=== PATIENT | female | born 1940 | race Caucasian/White ===

== ENCOUNTER 2016-09-10 07:53 | Outpatient (CLI) | payer MEDICARE, BC ==
[~2016-09-10] VITALS: Ht 165.1 cm; Wt 65.9 kg
--- NOTE | ~2016-09-10 | HEMODYNAMI ---
PATIENT:LOVE JAMES MEDICAL RECORD: [id number] : 44 LOCATION:[facility] ADMISSION DATE: 09/10/16 Generatedon:09/10/201611:40 Patient name: LOVE JAMES Patient #: [id number] SSN: D OB: 1940 Date of study: 09/10/2016 Page: Of Hemodynamic Procedure Report Patient Data Patient Demographics Procedure consent was obtained First Name: LOVE Gender: Female Last Name: JACOB : 1940 [facility] Initial: ZIGGY Age: 76 year(s) Patient #: [id number] Race: Additional ID: [id number] Contact details Address: [address] [place] [address] State: [place] City: [place] Zip code: [address] Past Medical History History of disease Date Diagnosis Comments CAD Valvular heart disease TIA Allergies Allergen Reaction Date Comments Reported Statins 09/10/2016 Admission Admission Data Admission Date: 09/10/2016 Admission Time: 7:53 Height (in.): 65 BSA: 1.78 (m2) Height (cm.): 165.1 BMI: 25.96 (kg/m2) Weight (lbs.): 156 Weight (kg.): 70.76 Lab Results Lab Result Date: 09/10/2016 Lab Result Time: 0:00 Biochemistry Name Units Result Min Max BUN mg/dl 14 --(--*-)-- 7 18 Creatinine mg/dl 0.9 --(-*--)-- 0.6 1.3 CBC Name Units Result Min Max Hemoglobin g/dl 13.6 --(*---)-- 13.5 17.5 Procedure Procedure Types Cath Procedure Diagnostic Procedure LHC LHC w/Coronaries w/Grafts FFR/IVUS Intra-Coronary IVUS Initial PCI Procedure Coronary Stent Initial Miscellaneous Procedures Moderate Sedation up to 30 minutes Procedure Description Procedure Date Procedure Date: 09/10/2016 Procedure Start Time: 11:15 Procedure End Time: 11:37 Procedure Staff Name Function Dallin Lewis MD Performing Physician Priscilla Frias RN Nurse Ed Singleton RT Monitor Connor Awan RT Scrub Larry Nguyen RT Electronic Science Teacher Procedure Data Cath Procedure Fluoroscopy Diagnostic fluoroscopy Total fluoroscopy Time: 1.5 time: 1.5 min min Diagnostic fluoroscopy Total fluoroscopy dose: 47 dose: 47 mGy mGy Contrast Material Contrast Material Type Amount (ml) Isovue 300 126 Entry Location Entry Primary Successful Side Size Upsize Upsize Entry Closure Succes sful Closure Location (Fr) 1 (Fr) 2 (Fr) Remarks Device Remarks Femoral Right 5 Fr 6 Fr Vascade artery Short Closure System Diagnostic catheters Device Type Used For End Catheter Placement Cordis 5Fr Pigtail LV Angiography Catheter (MP) Cordis 5Fr JL 4.0 Left Coronary Catheter (MP) Angiography Cordis 5Fr 3DRC Catheter SVG Angiography (MP) Diagnostic Infinity 5Fr SVG Angiography AR 2 MOD catheter Procedure Complications No complications Procedure Medications Medication Administration Route Dosage Oxygen NC 2 l/min Heparin Flush Bag added to field 2 bags (1000units/500ml NS) Lidocaine 2% added to field 20 Plavix P.O. 75 mg Versed I.V. 1 mg Fentanyl I.V. 50 mcg Versed I.V. 1 mg Fentanyl I.V. 50 mcg Heparin Bolus I.V. 4000 units Hemodynamics Rest BSA: 1.78 (m2) O2 Consumption: Estimated: 167.75 (ml/min) O2 Consumption indexed : Estimated:94.24 (ml/min/m) Heart Rate: 78 (bpm) Pre Cath Intra NCS Post Cath Vital Signs Time Heart Resp SPO2 etCO2 [id number] NIBP (mmHg) Rhythm Pain Sedation Rate (ipm) (%) (mmHg) (mmHg) Status Level (bpm) 11:01:00 72 16 98 0 0 174/89(124) NSR 0 (11) 10(A) , No pain 11:05:28 73 16 99 0 0 170/82(117) NSR 0 (11) 10(A) , No pain 11:09:55 77 19 98 0 0 154/67(120) NSR 0 (11) 10(A) , No pain 11:14:19 73 16 98 0 0 131/68(108) NSR 0 (11) 9(A) , No pain 11:18:35 73 16 98 0 0 147/72(105) NSR 0 (11) 9(A) , No pain 11:22:51 78 16 98 0 0 148/77(102) NSR 0 (11) 9(A) , No pain 11:27:09 80 16 99 0 0 132/67(109) NSR 0 (11) 9(A) , No pain 11:31:25 83 16 99 0 0 152/72(95) NSR 0 (11) 9(A) , No pain 11:34:52 81 16 98 0 0 150/78(99) NSR 0 (11) 9(A) , No pain Medications Time Medication Route Dose Verified Delivered Reason Notes Effectiveness by by 10:55:39 Plavix P.O. 75 mg Dallin Priscilla for Debbie Frias RN antiplatelet therapy 11:02:44 Heparin Flush added 2 Dallin Dallin used for Bag to bags Debbie Lewis MD procedure (1000units/500ml field NS) 11:02:44 Oxygen NC 2 Dallin Priscilla Per physician l/min Debbie Frias RN 11:02:51 Lidocaine 2% added 20ml Dallin Dallin used for to vial Debbie Lewis MD procedure field 11:07:04 Versed I.V. 1 mg Dallin Priscilla for sedation Debbie Frias RN 11:07:18 Fentanyl I.V. 50 Dallin Priscilla for sedation mcg Debbie Frias RN 11:10:09 Fentanyl I.V. 50 Dallin Priscilla for sedation mcg Debbie Frias RN 11:10:53 Versed I.V. 1 mg Dallin Priscilla for sedation Debbie Frias RN 11:27:33 Heparin Bolus I.V. 4000 Dallin Priscilla for dose units Debbie Frias RN anticoagulation verified [facility] lewis Procedure Log Time Note 10:35:00 Larry Nguyen RT(R) sent for patient. Start room use. 10:50:30 Lab Result : BUN 14 mg/dl 10:50:30 Lab Result : Creatinine 0.9 mg/dl 10:50:30 Lab Result : Hemoglobin 13.6 g/dl 10:52:46 ACC Patient presents with Stable Angina CCS Anginal Class 2--Slight limitation of ordinary activity. 10:52:48 Diagnostic Cath status Elective 10:53:15 Time tracking: Regular hours 10:53:19 Plan of Care:Hemodynamics will remain stable., Cardiac rhythm will remain stable., Comfort level will be maintained., Respiratory function will remain adequate., Patient/ family verbilizes understanding of procedure., Procedure tolerated without complication., Recovers from procedure without complications.. 10:53:25 Patient received from Pre/Post Procedure Room to CCL 1 Alert and oriented. Tansferred to table in Supine position. 10:53:26 Warm blankets applied, and dorys hugger turned on for patient comfort. 10:53:26 Correct patient and procedure confirmed by team. 10:53:28 Signed procedure consent form obtained from patient. 10:53:29 ECG and BP/O2 sat monitors applied to patient. 10:54:26 Patient allergic to Statins 10:54:31 Patient Height : 65 inches 10:54:40 Patient Weight : 156 lbs 10:55:39 Plavix 75 mg P.O. was given by Priscilla Frias RN; for antiplatelet therapy; 10:59:48 Vital chart was started 10:59:54 Full Disclosure recording started 11:00:04 H&P Date Dictated: 09/05/2016 Within 30 days and on chart., H&P Addendum completed by physician on day of procedure. (MUST COMPLETE FOR ALL OUTPATIENTS). 11:00:05 Pre-procedure instructions explained to patient. 11:00:06 Pre-op teaching completed and patient verbalized understanding. 11:00:14 Family in patients room. 11:00:16 Patient NPO since Midnight. 11:00:20 Is the patient allergic to Iodine/contrast media? No. 11:00:26 Is patient on blood thinner?Yes 11:00:29 ACC The patient was administered the following blood thiners within the last 24 hours: ACCPlavix 11:00:31 Patient diabetic? Yes. 11:00:32 If diabetic: On Metformin? Yes 11:00:37 If on Metformin: Last Dose? 09/08/2016 11:00:39 ----Pre-sedation anethsthesia assessment.---- 11:00:41 Previous problem with sedation/anesthesia? No ? 11:00:44 Snore? Yes 11:00:45 Sleep apnea? Yes 11:00:49 Deviated septum? No 11:00:51 Opens mouth fully? Yes 11:00:53 Sticks out tongue? Yes 11:01:41 Airway obstruction? Yes asthma 11:01:48 Dentures? Yes in tight 11:01:51 Pre procedure: right dorsailis pedis pulse 2+ Normal; easily identifiable; not easily obliterated 11:01:55 Patient pain scale 0/10 ?. 11:02:00 IV patent on arrival in right antecubital with 0.9% NaCl at 10ml/hr. 11:02:03 Lab results completed and on chart. 11:02:06 Right groin area was prepped with chlora-prep and draped in sterile fashion 11:02:07 Alarms reviewed by R. N. 11:02:07 Sharps counted by scrub and verified by R.N. 11:02:44 Heparin Flush Bag (1000units/500ml NS) 2 bags added to field was given by Dallin Lewis MD; used for procedure; 11::44 Oxygen 2 l/min NC was given by Priscilla Frias RN; Per physician; 11::51 Lidocaine 2% 20ml vial added to field was given by Dallin Lewis MD; used for procedure; 11:06:30 --------ALL STOP TIME OUT------ 11:06:30 Final Timeout: patient, procedure, and site verified with staff and physician. All members of the team are in agreement. 11:06:32 Right groin site verified by team. 11:06:36 Physical assessment completed. ASA score P 2 - A patient with mild systemic disease as per Dallin Lewis MD. 11:06:40 Sedation plan: IV Moderate Sedation Versed, Fentanyl 11:07:04 Versed 1 mg I.V. was given by Priscilla Frias RN; for sedation; 11:07:18 Fentanyl 50 mcg I.V. was given by Priscilla Frias RN; for sedation; 11:07:22 Use device set Femoral Dx 11:07:23 Acist Syringe opened to sterile field. 11:07:23 Bag Decanter opened to sterile field. 11:07:24 Medline Cath Pack opened to sterile field. 11:07:24 Terumo 5Fr [place] Sheath opened to sterile field. 11:07:25 St El 260cm J .035 wire opened to sterile field. 11:07:26 Acist Hand Control opened to sterile field. 11:07:26 Acist Manifold opened to sterile field. 11:07:27 Diagnostic Infinity 5Fr Multipack catheter opened to sterile field. 11:07:28 Tegaderm 4 x 4 opened to sterile field. 11:10:09 Fentanyl 50 mcg I.V. was given by Priscilla Frias RN; for sedation; 11:10:53 Versed 1 mg I.V. was given by Priscilla Frias RN; for sedation; 11:12:55 Zero performed for pressure channel P1 11:14:54 Procedure started. 11:15:04 Local anesthetic to right femoral artery with Lidocaine 2% by Dallin Lewis MD.INITIAL ACCESS ONLY 11:15:11 A 5 Fr sheath was inserted into the Right Femoral artery 11:16:32 A Cordis 5Fr Pigtail Catheter (MP) was advanced over the wire and used for LV Angiography. 11:16:35 LV angiography performed. 11:16:37 LV gram done using PEREZ 11:16:42 Injector settings: Ml/sec: 10, Volume: 20, 11:17:14 EF : 60 % 11:17:16 Catheter removed. 11:17:22 A Cordis 5Fr JL 4.0 Catheter (MP) was advanced over the wire and used for Left Coronary Angiography. 11:17:31 LCA angiography performed. 11:18:12 Catheter removed. 11:18:19 A Cordis 5Fr 3DRC Catheter (MP) was advanced over the wire and used for SVG Angiography. 11:18:23 CANCHOLA to LAD angiography performed. 11:19:18 RCA angiography performed. 11:20:07 Catheter removed. 11:20:25 A Diagnostic Infinity 5Fr AR 2 MOD catheter was advanced over the wire and used for SVG Angiography. 11:21:20 SVG to OM angiography performed. 11:21:27 Catheter removed. 11:23:13 Medtronic Launcher 6Fr 3DRC guide catheter opened to sterile field. 11:23:14 Terumo 6Fr [place] Sheath opened to sterile field. 11:23:14 Stein Whisper J 300cm 0.014 guide wire opened to sterile field. 11:23:15 Merit BasixCompak Inflation Kit opened to sterile field. 11:23:15 [place]ham Weed Eagleye IVUS Catheter opened to sterile field. 11:23:25 Sheath upsized to a 6 Fr Short. 11:23:33 6 Fr 3drc guide catheter was inserted over the wire 11:23:36 whisper wire advanced. 11::39 FFR/IVUS 11:23:40 IVUS catheter advanced over wire. 11:23:44 IVUS pass to RCA lesion performed. 11:26:37 IVUS catheter removed over wire. 11:26:49 Procedure type changed to Cath procedure, Diagnostic procedure, LHC, LHC w/Coronaries w/Grafts, FFR/IVUS, Intra-Coronary IVUS Initial, PCI procedure, Coronary Stent Initial, Miscellaneous Procedures, Moderate Sedation up to 30 minutes 11:27:33 Heparin Bolus 4000 units I.V. was given by Priscilla Frias RN; for anticoagulation; dose verified wtih dr lewis 11:29:10 Inflation Number: 1 A Medtronic Integrity 3.5 X 15 stent was prepped and advanced across the Mid RCA. The stent was deployed at 13 [place] for 0:10 (min:sec). 11:29:15 Inflation number: 2 The stent balloon was then re-inflated across the Mid RCA to 17 [place] for 0:10 (min:sec). 11:29:21 Stent balloon re-inserted over wire. 11:29:30 ACC PCI Site: [facility] has 78% stenosis. 11:29:33 ACC Pre-intervention NAPOLEON Flow is 3. 11:30:51 Inflation Number: 3 A Medtronic Integrity 3.5 X 12 stent was prepped and advanced across the Mid RCA. The stent was deployed at 13 [place] for 0:13 (min:sec). 11:31:03 Inflation number: 4 The stent balloon was then re-inflated across the Mid RCA to 13 [place] for 0:10 (min:sec). 11:31:26 ACC Post-intervention [place]ON Flow is 3. 11:31:27 Stent catheter was removed intact over wire. 11:31:28 Wire removed. 11:31:28 Guide catheter removed. 11:31:35 Contrast amount:Isovue 300 126ml. 11:31:50 Procedure ended.(Physican Out) 11:32:39 Sharps counted by scrub and verified by R.N. 11:32:45 Sheath removed intact; hemostasis achieved with Vascade Closure System to the Right Femoral artery. 11:35:31 Fluoroscopy dose: 47 mGy 11:35:31 Flurop Dose total: 47 11:35:36 Fluoroscopy time 01.50 minutes. 11:35:38 Insertion/operative site no bleeding no hematoma. 11:35:40 Post-op/insertion site Right Femoral artery dressed using a 4 x 4 and Tegaderm. 11:35:43 Post right femoral artery:stable 11:35:45 Post Procedure Pulses reassessed and unchanged 11:35:47 Post procedure: right dorsailis pedis pulse 1+ Palpable, but thready & weak; easily obliterated. 11:35:50 Post procedure rhythm: sinus rhythm 11:35:52 Post procedure instruction explained to patient.Patient verbalizes understanding. 11:35:53 Procedure and supply charges have been captured, reviewed, submitted and are correct. 11:36:29 Vascade 6/7 Fr Closure Device opened to sterile field. 11:36:59 Procedure Complication : No complications 11:37:02 Vital chart was stopped 11:37:02 See physician's report for complete and final results. 11:37:04 Report given to Pre/Post Procedure Room. 11:37:07 Patient transfered to Pre/Post Procedure Room with Stretcher. 11:37:09 Procedure ended. 11:37:09 Full Disclosure recording stopped 11:37:35 ACC-PCI Only Patient was given prescriptions, or instructed by Dallin Lewis MD to start/continue the following medications upon discharge: Plavix 11:37:36 End room use (Document Last) Intervention Summary Intervention Notes Time ActionType Lesion and Equipment Action# Pressure Duration Attributes Used 11:29:10 Place stent Mid RCA Medtronic 1 13 00:10 Integrity 3.5 X 15 stent 11:29:15 Reinflate Mid RCA Medtronic 2 17 00:10 stent Integrity balloon 3.5 X 15 stent 11:30:51 Place stent Mid RCA Medtronic 3 13 00:13 Integrity 3.5 X 12 stent 11:31:03 Reinflate Mid RCA Medtronic 4 13 00:10 stent Integrity balloon 3.5 X 12 stent Device Usage Item Name Manufacture Quantity Catalog Hospital Part Current Minima l Lot# / Number Charge Number Stock Stock Serial# Code Acist Acist 1 [id number] 253244 396796 720956 20 Syringe Medical Systems ripplrr inc Bag Microtek 1 2002S 226343 76282 131813 5 Pricing Engine Inc. Medline Cardinal 1 [id number] 613699 49703 244949 5 Cath Pack Health Terumo 5Fr Terumo 1 [id number] 025996 000715 372045 [address] El [address] El 1 084546 105581 541200 501987 30 260cm J .035 wire Acist Hand Acist 1 66623 251705 331984 340443 5 Control Medical Systems Inc Acist Acist 1 42953 536843 653640 296448 5 eFinancial Communications Systems Inc Diagnostic Cardinal 1 [id number] 856817 27704 313674 30 Infinity Health 5Fr Multipack catheter Tegaderm 4 3M 1 1626W 104103 023491 086252 5 x 4 Cordis 5Fr Cardinal 1 680386 5 Pigtail Health Catheter (MP) Cordis 5Fr Cardinal 1 577750 5 JL 4.0 Health Catheter (MP) Cordis 5Fr Cardinal 1 735606 5 3DRC Health Catheter (MP) Diagnostic Cardinal 1 [id number] 525711 797244 625083 20 Infinity Health 5Fr AR 2 MOD catheter Medtronic Medtronic 1 [id number] 934207 271277 681079 1 Launcher 6Fr 3DRC guide catheter Terumo 6Fr Terumo 1 [id number] 221669 123657 460407 [address] [facility] 1 [id number] 632444 378390 367469 5 Whisper J Vascular 300cm 0.014 guide wire Merit Merit 1 [id number] 349640 552919 460329 15 mVisum Medical Inflation Kit [place] 1 31246Y 763588 124958 546905 8 Weed Eagleye IVUS Catheter Medtronic Medtronic 1 [id number] 652021 848329 485079 1 [id number] Integrity 3.5 X 15 stent Medtronic Medtronic 1 [id number] 134859 445418 3 [id number] Integrity 3.5 X 12 stent Vascade 6/7 Cardiva 1 [id number] 278437 858882 472603 5 Fr Closure Medical, Device Inc. Signature Audit [place] Stage Time Signature Unsigned Intra-Procedure 09/10/2016 Ed Singleton 11:39:58 AM RT(R) Signatures Monitor : Ed Singleton RT Signature : Date : Time : [address] [place] [address]
[~2016-09-10 07:53] MED LIST: BENICAR HCT 40-1 TAB PO; BENICAR20 MG; BENICAR40 MG PO; HYDROCODONE-APA1 TAB PO; IMDUR30 MG PO; LEXAPRO20 MG PO; METFORMIN HCL500 M1 PO; NITROSTAT0.4 MG SL; NORVASC10 MG PO; PLAVIX75 MG PO; PROTONIX40 MG PO; TRAZODONE HCL150 MG PO; XANAX0.5 MG; XANAX0.5 MG PO; ZANAFLEX4 MG PO; ZETIA10 MG PO
[2016-09-10] MEDS ORDERED: PRAVACHOL40 MG PO (08:37)
[2016-09-10] MEDS ORDERED: TAMOXIFEN CITRA20 MG PO (08:38)
[2016-09-10] MEDS ORDERED: HYZAAR 50-12.51 TAB PO (08:38)
[2016-09-10 08:43] VITALS: BP 156/73; Ht 165.1 cm; Wt 65.9 kg
[2016-09-10 08:48] LABS: BASOPHILS 0.2 % (0.0-2.0); EOSINOPHILS 7.6 % (0-7); HEMATOCRIT 40.4 % (36.0-48.0); HEMOGLOBIN 13.6 g/dL (12-16); IMMATURE GRANULOCYTES 0.2 % (0-5); LYMPHOCYTES 33.7 % (15-50); MCH 27.9 pg (26.0-34.0); MCHC 33.7 g/dL (31.0-37.0); MCV 82.8 fL (80.0-100.0); MEAN PLATELET VOLUME 11.1 fL (7.4-10.4); MONOCYTES 6.7 % (2-11); NEUTROPHILS 51.6 % (40-80); PLATELET COUNT 146 10x3/uL (130-400); RBC 4.88 10x6/uL (4.00-5.40); RDW 14.3 % (11.5-14.5); WBC 5.8 10x3/uL (4.8-10.8)
[2016-09-10 09:16] LABS: ANION GAP 12.9 mmol/L (8-16); CALCIUM 9.3 mg/dL (8.5-10.1); CARBON DIOXIDE 30.8 mmol/L (21.0-32.0); CREATININE - SERUM 0.9 mg/dL (0.6-1.3); POTASSIUM - SERUM 3.7 mmol/L (3.5-5.1)
--- NOTE | 2016-09-10 12:04 | NUR ---
1155 RECEIVED PT FROM SENIOR ELECTRICAL PROJECT MANAGER. PT DENIES ANY C/O, VSS, 6 FR VASCADE TO RIGHT GROIN IS CDI, NO BLEEDING OR HEMATOMA NOTED. PEDAL PULSES PALPABLE. RR EVEN AND UNALBORED, PO FLUIDS AT BEDSIDE. PT GILBERT WITH O C/O. DAUGHTER AT BEDSIDE, CALL LIGHT IN REACH.
--- NOTE | 2016-09-10 13:46 | NUR ---
1210 PT DENIES ANY C/O. PO FLUIDS AT BEDSIDE, PT GILBERT WITH NO C/O NAUSEA. GROIN DRESSING IS CDI, PEDAL PULSES PALPABLE. 1240 DRESSING TO RIGHT GROIN IS CDI, PEDAL PULSES PALPABLE. PT DENIES ANY C/O.
--- NOTE | 2016-09-10 13:47 | NUR ---
1330 DAUGHTER AT BEDSIDE. DENIES ANY C/O. DDRESSING CDI, PEDAL PULSES PALPABLE.
--- NOTE | 2016-09-10 16:41 | NUR ---
1415 PT GILBERT SANDWICH WITH NO C/O. DRESSING REMAINS CDI, PEDAL PULSES PALPABLE. DAUGHTER AT BEDSIDE. 1500 PT DENIES C/O. NSR, RATE 69. DRESSING RIGHT GROIN CDI, NO BLEEDING OR HEMATOMA NOTED. 1530 IV DC'D WITH CATH INTACT. ASSISTED PT TO THE BATHROOM, PT VOIDED QS. RIGHT GROIN VASCADE REMAINS CDI, NO BLEEDING OR HEMATOMA NOTED. 1550 REVIEWED DC INSTRUCTIONS WITH PT WHO VERBALIZES UNDERSTANDING. PT ESCORTED TO PRIVATE AUTO VIA WC BY STAFF WITH DAUGHTER DRIVING HER HOME.
--- NOTE | 2016-09-11 16:47 | OP ---
PATIENT NAME: LOVE JAMES MEDICAL RECORD: [id number] :42 LOCATION:D.CAT ADMISSION DATE: SURGEON: RADHA WHITNEY MD DATE OF OPERATION: 09/10/2016 PROCEDURES: 1. PTCA stent RCA. 2. Intravascular ultrasound RCA. 3. Left heart catheterization. 4. Selective coronary angiography. 5. Left ventriculogram. 6. Vein graft angiography. 7. CANCHOLA angiography. INDICATION: Angina and coronary artery disease. PROCEDURE: After informed consent was obtained and after detailed explanation of risks, benefits as well as alternative therapies, the patient elected to proceed with angiogram and angioplasty. The right femoral area was prepped and draped in normal sterile fashion. The right femoral artery was cannulated via modified Seldinger technique with placement of 6-Amharic sheath. All catheters exchanged through this sheath. FINDINGS: The left ventriculogram was performed in standard 30-degree PEREZ view reveals good cardiac wall motion throughout all segments. Overall ejection fraction 55-60%. SELECTIVE CORONARY ANGIOGRAPHY: 1. Left main is with no significant angiographic disease. 2. Left anterior descending is totally occluded proximally. 3. Left circumflex has multiple areas of 90-95% stenosis proximally. 4. CANCHOLA to the LAD is widely patent. 5. Vein graft to the left circumflex, first obtuse marginal, second obtuse marginal in a skipped fashion is widely patent. 6. The right coronary has multiple previously placed stents. There is an area just after a previously placed stents. Intravascular ultrasound revealed that there is a 78% stenosis. PTCA STENT OF THE RIGHT CORONARY: The stent used was 3.5 x 15 and a 3.5 x 12 both Integrity stents. Result was 0% residual stenosis. OVERALL IMPRESSION: Successful percutaneous transluminal coronary angioplasty stent of the right coronary artery going from 78% initial stenosis confirmed by intravascular ultrasound to 0% residual stenosis. TRANSINT:[id number] Voice Confirmation ID: [id number] DOCUMENT ID: [id number] OPERATIVE REPORT [id number] LOVE JAMES JEFFREY MD at 1647 CC: [id number] DICTATION DATE: 09/10/16 1138 PASSENGER SERVICE REPRESENTATIVE: 09/10/16 1449 DEP CLI 09/10/16 [place] [address]
== END 2016-09-10 15:50 | disposition home or self-care (01) ==
LOC: D.CATH 07:53
PROVIDERS: Internal Medicine Interventional Cardiology
DX: I25.119 Atherosclerotic heart disease of native coronary artery with unspecified angina pectoris (principal); Z95.1 Presence of aortocoronary bypass graft

== ENCOUNTER 2016-11-02 07:40 | Day surgery (SDC) | payer MEDICARE, BC ==
[~2016-11-02] VITALS: Ht 165.1 cm; Wt 71.2 kg
[~2016-11-02 07:40] MED LIST changes: +HYZAAR 50-12.51 TAB PO; +PRAVACHOL40 MG PO; +TAMOXIFEN CITRA20 MG PO
[2016-11-02 08:56] VITALS: BP 154/77; Ht 165.1 cm; Wt 71.2 kg
[2016-11-02 09:10] LABS: BASOPHILS 0.2 % (0.0-2.0); EOSINOPHILS 5.4 % (0-7); HEMATOCRIT 38.9 % (36.0-48.0); HEMOGLOBIN 13.2 g/dL (12-16); LYMPHOCYTES 32.8 % (15-50); MCH 28.5 pg (26.0-34.0); MCHC 33.9 g/dL (31.0-37.0); MEAN PLATELET VOLUME 11.8 fL (7.4-10.4); MONOCYTES 7.7 % (2-11); NEUTROPHILS 53.9 % (40-80); PLATELET COUNT 140 10x3/uL (130-400); RBC 4.63 10x6/uL (4.00-5.40); RDW 13.7 % (11.5-14.5); WBC 5.2 10x3/uL (4.8-10.8)
[2016-11-02 09:25] LABS: APTT 24.2 SECONDS (22.8-39.4); INR 1.02 (0.85-1.17); PROTIME 13.3 SECONDS (11.6-15.0)
--- NOTE | 2016-11-02 16:07 | NUR ---
1400--PT VOIDS, IV DC'D. DONALD CORREIA [id number]--DISCHARGE INSTRUCTIONS GIVEN, PT VERBALIZES UNDERSTANDING. PT OFF UNIT VIA WC. DONALD CORREIA
--- NOTE | 2016-11-05 13:10 | OP ---
PATIENT NAME: LOVE JAMES MEDICAL RECORD: [id number] :42 LOCATION:MICHAEL ADMISSION DATE: SURGEON: CANDACE SMART MD DATE OF OPERATION: 11/02/2016 PREOPERATIVE DIAGNOSIS: Nasopharyngeal mass. POSTOPERATIVE DIAGNOSIS: Nasopharyngeal mass. PROCEDURE: Direct laryngoscopy and biopsy of the nasopharynx. SURGEON: Candace Smart M.D. ANESTHESIA: General orotracheal. BLOOD LOSS: 2 cc. SPECIMENS: Biopsy of the left superior tonsil and biopsy the right nasopharynx. COMPLICATIONS: None. DISPOSITION: Recovery stable. DESCRIPTION OF PROCEDURE: She was brought to the operating room and placed in supine position, sedated and intubated by anesthesia. The eyes were taped. The table was turned 90 degrees. A head drape was applied and she was positioned for laryngoscopy. Plastic tooth guard was placed to protect the gums. A Kleinsasser J laryngoscope was used to examine the hypopharynx, palate, vallecula, base of tongue, supraglottic larynx, both piriforms, post-cricoid area, and the cords. No lesions were seen except for the left tonsil superiorly was kind of full. Then using a [place], mouth gag was inserted and carefully elevated on a towel or chest. The palate was palpated. The left superior pole had a hard nodule in the tonsil. There was some caseous material that extruded from below that area, but I went ahead and biopsied that, it is less superior hard nodule on the tonsil and used suction cautery to stop any bleeding there. Then, a red rubber catheter was placed in the nose and rest of the nose into the pharynx and grasped with tonsil clamp to retract the soft palate. Using a mirror, the nasopharynx was examined. She had a large mass emanating from the area of the right torus protruding across the midline of the nasopharynx. I placed a 4 mm straight cup biting forceps through the right side of the nose and with visualization with a mirror, I took 3 nice big biopsies of that, had a firm consistency to it and suction cautery on a setting of 20 was used to stop any bleeding from the area. Once that was done, the red rubber catheter was let down and removed. The [place] mouth gag was let down and removed. She was awakened, extubated, and transported to recovery in good condition. No complications. TRANSINT:[id number] Voice Confirmation ID: [id number] DOCUMENT ID: [id number] OPERATIVE REPORT [id number] LOVE JAMES ERIC MD at 1310 CC: [id number] DICTATION DATE: 11/02/16 1108 MANAGEMENT ARCHITECT: 11/02/16 1552 [facility] 11/02/[address] [address]
--- NOTE | 2016-11-05 13:10 | HP ---
PATIENT: LOVE JAMES MEDICAL RECORD: [id number] ACCOUNT: [id number] LOCATION:D.MICHAEL : 44 ADMISSION DATE: 11/02/16 HISTORY AND PHYSICAL EXAMINATION Preoperative History and Physical HISTORY OF PRESENT ILLNESS: Ms. 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 I talked to her about the sinus surgery and biopsy and/or excision of the mass. She really did not want anything at all elective done, but she just wanted to do a biopsy of the nasopharyngeal mass and not do anything about the sinus disease. She is being admitted for that. PAST MEDICAL HISTORY: Includes diabetes, hypertension, coronary artery disease, and ulcer. ALLERGIES: No known drug allergies. PHYSICAL EXAMINATION: GENERAL: She is developmentally normal. She is a good historian. FACE: Normal, symmetric. No lesions. EYES: Sclerae and conjunctivae are normal. EARS: Canals and TMs are normal. Some chronic dermatitis bilaterally. NOSE: Anteriorly looks fairly normal on endoscopy, though she has a mass emanating possibly from the torus of posterior wall of the nasopharynx, filling the entire right side of the nasopharynx and blocking the choana, slightly pedunculated and mobile. ORAL CAVITY AND OROPHARYNX: Normal palate. Tongue protrudes in midline. NECK: No masses, no adenopathy. CHEST: Clear. CARDIOVASCULAR: Regular rate and rhythm, no murmur. EXTREMITIES: Normal. IMPRESSION: Sinusitis as well as some mass in the nasopharynx. PLAN: Endoscopy with biopsy of the mass in the nasopharynx. TRANSINT:[id number] Voice Confirmation ID: [id number] DOCUMENT ID: [id number] CANDACE HOOD MD at 1310 CC: [id number] DICTATION DATE: 10/31/16 1343 PELOTA MAKER: 10/31/16 1426 [facility] 11/02/16 [place] [id number] [place] [id number]
== END 2016-11-02 14:20 | disposition home or self-care (01) ==
LOC: D.OPS 07:40 → D.PAN 09:30 → D.OPS 14:20
PROVIDERS: Anesthesiology
DX: J34.89 Other specified disorders of nose and nasal sinuses (principal); J32.9 Chronic sinusitis, unspecified; E11.9 Type 2 diabetes mellitus without complications; I10 Essential (primary) hypertension; I25.10 Atherosclerotic heart disease of native coronary artery without angina pectoris

== ENCOUNTER 2017-02-19 08:47 | Inpatient (IN) | payer MEDICARE, BC, MEDICAID ==
[~2017-02-19] VITALS: Ht 165.1 cm; Wt 67.6 kg
[2017-02-19 12:11] LABS: APPEARANCE HAZY (CLEAR); BILIRUBIN NEGATIVE (NEGATIVE); COLOR YELLOW (YELLOW); GLUCOSE NEGATIVE (NEGATIVE); KETONE NEGATIVE (NEGATIVE); LEUKOCYTE ESTERASE TRACE (NEGATIVE); NITRITE POSITIVE (NEGATIVE); PROTEIN NEGATIVE (NEGATIVE); UROBILINOGEN NORMAL (NORMAL); WHITE CELLS - URINE 0-5 /hpf (0-5)
[2017-02-19 12:12] LABS: BACTERIA MANY /hpf (NONE SEEN); EPITHELIAL CELLS 0-5 /hpf (0-5); MUCUS <1+ /lpf (NONE SEEN)
[2017-02-19 12:17] LABS: BASOPHILS 0.2 % (0-2); EOSINOPHILS 3.7 % (0-7); HEMATOCRIT 37.4 % (36.0-48.0); HEMOGLOBIN 12.2 g/dL (12-16); IMMATURE GRANULOCYTES 0.2 % (0-5); LYMPHOCYTES 27.9 % (15-50); MCH 26.9 pg (26.0-34.0); MCHC 32.6 g/dL (31.0-37.0); MCV 82.6 fL (80.0-100.0); MEAN PLATELET VOLUME 11.4 fL (7.4-10.4); MONOCYTES 6.1 % (2-11); NEUTROPHILS 61.9 % (40-80); PLATELET COUNT 157 10x3/uL (130-400); RBC 4.53 10x6/uL (4.00-5.40); RDW 13.5 % (11.5-14.5)
[2017-02-19 12:36] LABS: ALBUMIN 3.4 g/dL (3.4-5.0); ALKALINE PHOSPHATASE 46 U/L (46-116); ALT (SGPT) 16 U/L (10-68); BILIRUBIN - TOTAL 0.36 mg/dL (0.2-1.3); CALC OSMOLALITY 274 mosm/kg (275-300); CALCIUM 8.7 mg/dL (8.5-10.1); CARBON DIOXIDE 31.9 mmol/L (21.0-32.0); CHLORIDE - SERUM 100 mmol/L (98-107); CREATININE - SERUM 0.9 mg/dL (0.6-1.3); GLUCOSE 113 mg/dL (74-106); PROTEIN - SERUM 6.8 g/dL (6.4-8.2); SODIUM 138 mmol/L (136-145); UREA NITROGEN 7 mg/dL (7-18); eGFR NON AFRICAN AMERICAN 65 mL/min (90-120)
[2017-02-19 12:46] LABS: MAGNESIUM - SERUM 1.7 mg/dL (1.8-2.4); PRO BNP 114 pg/mL (0-125); TROPONIN-I < 0.017 ng/mL (0.000-0.060)
[2017-02-19 12:49] LABS: INR 1.01 (0.85-1.17); PROTIME 13.1 SECONDS (11.6-15.0)
--- NOTE | 2017-02-19 15:36 | NUR ---
RECEIVED REPORT FROM ANGELINA CORREIA FROM
--- NOTE | 2017-02-19 15:58 | NUR ---
RECEIVED PT TO ROOM 2128, VIA WHEELCHAIR, PT AMBULATED TO BED. ORIENTED PT TO BED AND CALL LIGHT, SCD'S PLACED ON BILAT. LT FA IV NOTED, ON RA, RESP EVEN AND UNLABORED. WILL ASSESS PT AND START PLAN OF CARE.
[2017-02-19 16:23] VITALS: BP 139/72; Ht 165.1 cm; Wt 67.6 kg
[2017-02-19] MEDS ORDERED: ISOSORBIDE MONO30 M1 PO (17:10)
[2017-02-19] MEDS ORDERED: METOPROLOL TART25 MG PO (17:11)
[2017-02-19] MEDS ORDERED: GLUCOPHAGE500 MG PO (17:14)
[2017-02-19] MEDS ORDERED: ASPIRIN81 MG PO (17:14)
[2017-02-19] MEDS ORDERED: FERROUS SULFAT325 MG PO (17:16)
[2017-02-19] MEDS ORDERED: HYDROCODONE-APA1 TAB PO (17:22)
[2017-02-19] MEDS ORDERED: CARAFATE1 G PO (17:31)
--- NOTE | 2017-02-19 17:32 | NUR ---
ADMINISTERED 0.5MG OF DILAUDID FOR PAIN LEVEL OF 6/10. PT IN BED, DENIES ANY NEEDS AT THIS TIME. CALL LIGHT IN REACH, NAD NOTED, WILL CONTINUE TO MONITOR.
--- NOTE | 2017-02-19 19:30 | NUR ---
RECEIVED REPORT, WILL ASSUME CARE OF PT, PT WATCHING TV, DENIES ANY NEEDS, BED IS LOW, SRX2, CALL LIGHT IN REACH, WILL CONTINUE PLAN OF CARE
[2017-02-19 20:00] VITALS: BP 114/50
--- NOTE | 2017-02-20 02:38 | NUR ---
ASSESSMENT COMPLETE, SEE FLOWSHEET, PT SLEEPING, BED IS LOW, SRX2, CALL LIGHT IN REACH, WILL CONTINUE PLAN OF CARE
[2017-02-20 04:00] VITALS: BP 124/48
[2017-02-20 08:00] VITALS: BP 127/61
--- NOTE | 2017-02-20 09:15 | NUR ---
AM MEDS GIVEN AT THIS TIME. PT IN BED, DENIES ANY NEEDS AT THIS TIME. CALL LIGHT IN REACH, NAD NOTED, WILL CONTINUE TO MONITOR.
--- NOTE | 2017-02-20 09:53 | NUR ---
ADMINISTERED 10MG OF NORCO FOR PAIN LEVEL OF 6/10. PT IN BED, DENIES ANY NEEDS AT THIS TIME. CALL LIGHT IN REACH, NAD NOTED, WILL CONTINUE TO MONITOR.
[2017-02-20 12:00] VITALS: BP 92/42
--- NOTE | 2017-02-20 14:40 | NUR ---
NOTIFIED BY CAIT [employer] PHYSICAL THERAPIST THAT PT IS STILL VERY WEAK AND NEEDS TO STAY ANOTHER NIGHT AND SEE IF SHE IS ANY STRONGER IN THE AM. WILL NOTIFY DOCTOR.
--- NOTE | 2017-02-20 17:19 | NUR ---
Patient Name: LOVE JAMES Admission Status: ER Accout number: [id number] Admission Date: 02-20-2017 : 1940 Admission Diagnosis: Attending: TROY Current LOS: 1 Anticipated DC Date: 02-21-2017 Planned Disposition: Home with Home Health Primary Insurance: MEDICARE A & B PLANNED EXTERNAL PROVIDER: TO BE DETERMINED BY PATIENT Discharge Planning Comments: * Is the patient Alert and Oriented? Yes 0 * How many steps to enter\exit or inside your home? RAMP 0 * PCP DR. SCHMITZ 0 * Pharmacy [facility] 0 * Preadmission Environment Home Alone 0 * ADLs Independent 0 * Equipment Cane Rolling Walker Wheelchair 0 * Other Equipment NO MEDICAL EQUIPMENT PROVIDER PREFERENCE 0 * List name and contact numbers for known caregivers / representatives who currently or will assist patient after discharge: GEGE VEGA, DTR, 0 * Community resources currently utilized Private Duty Care 0 * Please name any agencies selected above. [facility], M-F (16 HOURS PER WEEK) 0 * Additional services required to return to the preadmission environment? No 0 * Can the patient safely return to the preadmission environment? Yes 0 * Has this patient been hospitalized within the prior 30 days at any hospital? Yes 0 CM MET WITH PT IN ROOM TO DISCUSS DISCHARGE PLANNING AND NEEDS. CM PROVIDED AND DISCUSSED MEDICARE OUTPATIENT OBSERVATION NOTICE, OBTAINED PT SIGNATURE FOR CHART. PT REPORTS LIVING AT HOME INDEPENDENTLY AND ALONE. PT HAS WALKER, ROLLING WALKER AND CANE WITH NO MEDICAL EQUIPMENT APROVIDER PREFERENCE. PT HAS PERSONAL CARE 16 HOURS PER WEEK THROUGH [facility]. CM DISCUSSED AVAILABILITY OF HOME HEALTH, REHAB SERVICES AND MEDICAL EQUIPMENT. PT DENIES NEED FOR REHAB AT THIS TIME, REPORTS THAT SHE PLANS TO GO HOME AT DISCHARGE. PT STATES THE THERAPIST FELT SHE NEEDED ONE MORE NIGHT TO GET STRONGER TO GO HOME. PT REPORTS SHE MAY ACCEPT HOME HEALTH. CHOICE LETTER PROVIDED AND DISCUSSED. PT REPORTS SHE WILL DISCUSS HER DISCHARGE NEEDS WITH DR SCHMITZ AND LET CM KNOW WHAT SHE WANTS TO DO. PT REPORTS HER DAUGHTER WILL PICK HER UP FOR DISCHARGE HOME. PT REPORTS PLAN TO DISCHARGE HOME AND IS CONSIDERING HOME HEALTH; PT WANTS TO TALK TO HER DOCTOR BEFORE MAKING ANY FURTHER DECISIONS. CM TO FOLLOW AND ASSIST WITH DISCHARGE NEEDS. Materials Supervisor: Krunal Yanez
[2017-02-20 19:00] VITALS: BP 146/65
--- NOTE | 2017-02-20 19:00 | NUR ---
RECEIVED REPORT AND ASSUMED PT CARE FROM DAY SHIFT NURSE @ THIS TIME.
--- NOTE | 2017-02-20 20:30 | NUR ---
DR SCHMITZ HERE TO SEE PT. PT C/O PAIN, STATES NORCO DOES HELP WITH HER PAIN, BUT CAUSES HER A GREAT AMOUNT OF ITCHING AND REQUESTS BENADRYL. SPOKE WITH DR SCHMITZ. BENADRYL 25 MG PO Q4H PRN ITCHING ORDER RECEIVED.
--- NOTE | 2017-02-20 20:38 | NUR ---
PT C/O PAIN, RATES @ 6/10 ON PAIN SCALE. REPORTS THAT PAIN IS GERERALIZED AND ALL OVER ACHINESS. NORCO 10/325 MG AND BENADRYL 25 MG PO GIVEN @ THIS TIME.
[2017-02-21 01:39] VITALS: BP 95/45
[2017-02-21 05:32] VITALS: BP 106/43
--- NOTE | 2017-02-21 08:02 | NUR ---
PT INCONT OF URINE. PARTIAL BATH GIVEN WITH BED LINENS CHANGED. SCDS REAPPLIED MIGUEL A. NON SLIP SOCKS ON. WILL CONTINUE TO MONITOR.
[2017-02-21 10:02] VITALS: BP 127/56
--- NOTE | 2017-02-21 11:09 | HP ---
PATIENT: LOVE JAMES MEDICAL RECORD: [id number] ACCOUNT: [id number] LOCATION:[address] : [birth year] ADMISSION DATE: 02/20/17 HISTORY AND PHYSICAL EXAMINATION Admission History and Physical DATE ASSIGNED TO OBSERVATION: 02/19/2017 CHIEF COMPLAINT: Fall and syncope. HISTORY OF PRESENT ILLNESS: This 76-year-old female, who was in her bathroom, sitting on the toilet about to get up, the next thing she knows, she found herself on the floor. She hit the bathtub with the right side of her head. She broke some furniture. She had pain in the left lower back, hip and leg. She was brought to the ER where her lab looked fairly good, except the urinalysis showed positive nitrite, trace leukocyte esterase and many bacteria. CT of the head showed no acute process. CT of the C-spine showed lumbar degenerative disease, but no acute process and x-ray of the pelvis showed no acute process. She was in a lot of pain and unable to walk. She was assigned to observation. PAST MEDICAL HISTORY: She has anxiety. She has had a stroke in the past. Coronary artery disease with recent stent In [facility], diabetes, hyperlipidemia, hypertension, breast cancer, carotid artery stenosis, fibromyalgia, obstructive sleep apnea, reflux. 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 ALLERGIES: None known. HABITS: Former smoker, no alcohol or drugs. SOCIAL HISTORY: and lives alone. FAMILY HISTORY: Father is , he had coronary artery disease and lung cancer. Mother is , she had breast cancer and coronary artery disease. HOME MEDICATIONS: Include pravastatin 40 mg a day, metoprolol tartrate 25 mg one half twice a day, iron once a day, Lexapro 20 mg once a day, Flonase nasal spray daily, metformin 500 mg twice a day, Protonix 40 mg once a day, trazodone 150 mg q.h.s., aspirin 81 mg a day, Plavix 75 mg a day, losartan and HCTZ 50/12.5 once a day, Ventolin inhaler and isosorbide mononitrate 30 mg once a day. REVIEW OF SYSTEMS: GENERAL: No major weight changes. HEENT: No particular sinus or allergy problems. RESPIRATORY: She has had some COPD symptoms and has been on inhalers in the past. GASTROINTESTINAL: Has reflux. GENITOURINARY: No significant problems there. MUSCULOSKELETAL: Has chronic back pain. NEUROLOGIC: History of stroke, but no significant residual from that. No seizures. HISTORY AND PHYSICAL [id number] LOVE JAMES PSYCHIATRIC: Has anxiety, depression. PHYSICAL EXAMINATION: VITAL SIGNS: Temperature 97.9, pulse 64, respirations 20, blood pressure 140/68. GENERAL: She is awake and alert. She does not appear in acute distress, lying in the bed. HEENT: I do not appreciate any significant ecchymosis. There is no break in the skin. Eyes: PERRL, EOMI. NECK: Supple. HEART: Regular rate and rhythm without murmur. LUNGS: Fairly clear. ABDOMEN: Soft. EXTREMITIES: No edema. She has tenderness throughout the left lower lumbar spine into the hip and down the leg. LAB WORK: CBC was normal. INR normal. Basic metabolic panel was unremarkable. Liver functions were okay. Troponin less than 0.017. Urinalysis positive nitrite, trace leukocyte esterase and many bacteria. DIAGNOSTIC DATA: CT of the head showed no acute process. CT of the C-spine showed degenerative disc disease, but no acute process. X-ray of pelvis, nothing acute. ASSESSMENT: 1. Fall, hitting her head on the bathtub. 2. Syncope. 3. Left hip contusion. 4. Urinary tract infection. PLAN: We will observe overnight. She was given Rocephin in the ER. Pain control, anti-nausea medicine. We will have physical therapy walk her tomorrow and proceed from there. TRANSINT:[id number] Voice Confirmation ID: [id number] DOCUMENT ID: [id number] SOPHIA SCHMITZ MD at 1109 CC: [id number] DICTATION DATE: 02/20/17827 FERRY CAPTAIN: 02/20/17 1044 ADM IN [place] [id number] [place] [id number]
[2017-02-21 12:17] VITALS: BP 100/44
--- NOTE | 2017-02-21 12:40 | NUR ---
Patient Name: LOVE JAMES Encounter No: [id number] : 1940 Primary Insurance: MEDICARE A & B Anticipated DC Date: 02-21-2017 Planned Disposition: Inpatient Rehab External Planned Provider: [facility] INPATIENT DCP follow-up note: CM SPOKE TO DR. SCHMITZ AND DISCUSSED REHAB FOR PT. DR. SCHMITZ AGREED THAT PT NEEDS REHAB, WILL ENTER ORDER FOR INPATIENT REHAB PRESCREENING. CM MET WITH PT AND DAUGHTER IN ROOM, DISCUSSED REHAB OPTIONS, BOTH IN AGREEMENT WITH INPATIENT REHAB AT [facility] SHE HAS BEEN THERE IN THE PAST. IF PT IS NOT ACCEPTED, SHE WOULD LIKE TO GO TO [facility] AND REHAB. IMPORTANT MESSAGE FROM MEDICARE PROVIDED AND DISCUSSED. CM SPOKE TO JOHNIE OF INPATIENT REHAB WHO MET WITH PT AND DAUGHTER, WHO REPORTED THAT INPATIENT REHAB CAN ACCEPT PT TODAY IF READY FOR DISCHARGE. NOTIFY INPATIENT REHAB WHEN PT HAS DISCHARGE ORDERS; [facility] INPATIENT REHAB WILL THEN CONTACT MED 2 NURSE WITH ROOM NUMBER WHEN READY TO ACCEPT PT AND NURSE REPORT. Krunal Yanez, CASE MANAGEMENT
[2017-02-21] MEDS ORDERED: ROCEPHIN 1 GM/D51 G1 IV (14:09)
--- NOTE | 2017-02-21 14:14 | NUR ---
Rehab Note- Acute Rehab Prescreen order received. Visited with the patient and her daughter. Informed [facility] that we could accept the patient today for acute rehab stay. Thank you for this referral! Gina Schmidt RN Clinical Liaison, [facility] Rehab
[2017-02-21 16:00] VITALS: BP 93/44
--- NOTE | 2017-02-21 18:38 | NUR ---
REPORT CALLED TO MATEUSZ IN REHAB. TO REHA VIA WC.
== END 2017-02-21 18:39 | DRG 690 ==
LOC: D.ER 08:47 → D.M2 15:15 → OBSVTIME 15:15 → D.M2 02-20 17:11
PROVIDERS: Nurse Practitioner Family; ADMIT Family Medicine
DX: N39.0 Urinary tract infection, site not specified (principal); S70.02XA Contusion of left hip, initial encounter; W18.30XA Fall on same level, unspecified, initial encounter; G47.33 Obstructive sleep apnea (adult) (pediatric); G89.29 Other chronic pain; M54.5 Low back pain; I25.10 Atherosclerotic heart disease of native coronary artery without angina pectoris; I10 Essential (primary) hypertension; E11.9 Type 2 diabetes mellitus without complications; E78.5 Hyperlipidemia, unspecified; S09.8XXA Other specified injuries of head, initial encounter; R55 Syncope and collapse; Z85.3 Personal history of malignant neoplasm of breast; Z95.5 Presence of coronary angioplasty implant and graft; Z87.891 Personal history of nicotine dependence

== ENCOUNTER 2017-02-21 16:58 | Inpatient (IN) | payer MEDICARE, BC, MEDICAID ==
[~2017-02-21] VITALS: Ht 165.1 cm; Wt 65.8 kg
[~2017-02-21 16:58] MED LIST changes: +ASPIRIN81 MG PO; +CARAFATE1 G PO; +FERROUS SULFAT325 MG PO; +GLUCOPHAGE500 MG PO; +ISOSORBIDE MONO30 M1 PO; +METOPROLOL TART25 MG PO; +ROCEPHIN 1 GM/D51 G1 IV
--- NOTE | 2017-02-21 20:10 | NUR ---
PT. IN BED WITH HOB UP FOR COMFORT AND IS WATCHING TV. ALL ADMISSION FORMS EXPLAINED TO PT. AND SIGNED. NO VOICED NEEDS AT THIS TIME AND HER CALL LIGHT IS WITHIN REACH.
[2017-02-21 22:56] VITALS: BP 112/56; BMI 24.1
--- NOTE | 2017-02-21 22:56 | NUR ---
ADMISSION ASSESSMENT COMPLETED. NO VOICED NEEDS AND SHE HAS HER CALL LIGHT WITHIN REACH.
[2017-02-21 23:54] VITALS: BP 112/56
--- NOTE | 2017-02-22 02:39 | NUR ---
PT AWAKE, REQUESTED AND SERVED FRESH H20, PT DENIES FURTHER NEEDS OR PAIN AT THIS TIME
--- NOTE | 2017-02-22 03:06 | NUR ---
PT. IN BED WITH HOB UP FOR COMFORT. EYES CLOSED AND RESP. DEEP AND EVEN. CALL LIGHT WITHIN REACH.
[2017-02-22 05:53] LABS: BASOPHILS 0.2 % (0-2); EOSINOPHILS 8.8 % (0-7); HEMATOCRIT 35.1 % (36.0-48.0); HEMOGLOBIN 11.4 g/dL (12-16); LYMPHOCYTES 36.3 % (15-50); MCH 26.9 pg (26.0-34.0); MCHC 32.5 g/dL (31.0-37.0); MCV 82.8 fL (80.0-100.0); MEAN PLATELET VOLUME 11.3 fL (7.4-10.4); MONOCYTES 8.4 % (2-11); NEUTROPHILS 46.3 % (40-80); PLATELET COUNT 147 10x3/uL (130-400); RBC 4.24 10x6/uL (4.00-5.40); RDW 13.7 % (11.5-14.5); WBC 5.2 10x3/uL (4.8-10.8)
[2017-02-22 06:06] LABS: ANION GAP 9.1 mmol/L (8-16); CALCIUM 8.8 mg/dL (8.5-10.1); CARBON DIOXIDE 32.6 mmol/L (21.0-32.0); CREATININE - SERUM 0.9 mg/dL (0.6-1.3); POTASSIUM - SERUM 3.7 mmol/L (3.5-5.1)
--- NOTE | 2017-02-22 07:12 | NUR ---
RESTING QUIETLY IN BED. EYES CLOSED. NO S/S DISTRESS OR NEEDS. CALL LIGHT IN REACH.
[2017-02-22 08:02] VITALS: BP 136/55
--- NOTE | 2017-02-22 08:15 | NUR ---
PT RESTING IN BED WITH EYES OPEN CALL LIGHT IN REACH WILL MONITER
[2017-02-22 10:43] VITALS: BMI 24.1
--- NOTE | 2017-02-22 14:20 | NUR ---
administered [place] 10mg and benadryl per pt request for lower back pain 11/21. offers no other complaints. call light in reach.
--- NOTE | 2017-02-22 16:33 | NUR ---
PT RESTING IN BED WITH EYES OPEN CALL LIGHT IN REACH WILL MONITER
--- NOTE | 2017-02-22 19:50 | NUR ---
PT. SITTING UP IN W/C AND REQUESTING TO GO TO THE BR. ASSISTED TO/FROM BR AND ASSISTED BACK INTO BED. POSITIONED TO COMFORT. ASSESSMENT COMPLETED. NO VOICED NEEDS AT THIS TIME AND HER CALL LIGHT IS WITHIN REACH.
[2017-02-22 20:00] VITALS: BP 137/65
--- NOTE | 2017-02-22 23:20 | NUR ---
PT. IN BED LYING ON HER RIGHT SIDE WITH EYES CLOSED AND RESP. DEEP AND EVEN. CALL LIGHT WITHIN REACH.
--- NOTE | 2017-02-23 03:17 | NUR ---
PT. IN BED LYING ON HER RIGHT SIDE. EYES CLOSED AND RESP. DEEP AND EVEN. CALL LIGHT WITHIN REACH.
--- NOTE | 2017-02-23 07:55 | NUR ---
PT UP EATING BREAKFAST, DENIES NEEDS. WCTM.
[2017-02-23 08:00] VITALS: BP 136/59
--- NOTE | 2017-02-23 11:44 | NUR ---
PT REQ AND REC'D PRN PAIN MEDICATION AND BENADRYL PER ORDERS. WCTM.
--- NOTE | 2017-02-23 16:43 | NUR ---
PT ASSISTED TO BR. PT HAD MOD SIZE BM. PT SITTING UP IN WC WAITING FOR DINNER. WCTM.
[2017-02-23 19:50] VITALS: BP 133/55
--- NOTE | 2017-02-23 20:00 | NUR ---
PT. IN BED WITH HOB UP FOR COMFORT WATCHING TV. ASSESSMENT COMPLETED. NO VOICED NEEDS AT THIS TIME BUT REQUESTED PAIN MEDS WITH HER NIGHT TIME MEDS. CALL LIGHT WITHIN REACH.
--- NOTE | 2017-02-23 21:55 | NUR ---
PER ASEPTIC TECHNIQUE PERIPHERAL SALINE LOCK TO LEFT FOREARM D/C'S WITHOUT ANY PROBLEMS. CATH TIP INTACT UPON REMOVAL. PRESSURE HELD FOR 3MIN. NO BLEEDING SEEN AND BANDAID APPLIED. PT. TOLERATED PROCEDURE WITHOUT ANY COMPLAINTS.
--- NOTE | 2017-02-23 23:06 | NUR ---
PT. IN BED WITH HOB UP FOR COMFORT LYING ON HER RIGHT SIDE. EYES CLOSED AND RESP. DEEP AND EVEN. CALL LIGHT WITHIN REACH.
--- NOTE | 2017-02-24 03:01 | NUR ---
PT. IN BED WITH HOB UP FOR COMFORT AND LYING ON HER LEFT SIDE. EYES CLOSED AND RESP. EVEN. CALL LIGHT WITHIN REACH.
[2017-02-24 07:30] VITALS: BP 140/61
--- NOTE | 2017-02-24 07:56 | NUR ---
PT ASSISTED TO BR. PT SITTING UP IN WC WAITING FOR BREAKFAST, DENIES NEEDS. WCTM.
--- NOTE | 2017-02-24 09:43 | NUR ---
PT AM MEDS ADMINISTERED. PT DENIES NEEDS. WCTM.
--- NOTE | 2017-02-24 11:30 | NUR ---
PT SHOWERED. PT SITTING UP IN WC. BED LINENS CHANGED. PT DENIES NEEDS. WCTM.
--- NOTE | 2017-02-24 13:38 | NUR ---
PT RESTING IN BED, DENIES NEEDS. WCTM.
--- NOTE | 2017-02-24 19:40 | NUR ---
PT. IN BED WITH HOB UP FOR COMFORT AND IS WATCHING TV. ASSISTED PT. TO BR AND BACK TO BED. POSITIONED TO COMFORT. ASSESSMENT COMPLETED. NO VOICED NEEDS. CALL LIGHT WITHIN REACH.
[2017-02-24 19:45] VITALS: BP 142/63
--- NOTE | 2017-02-24 23:09 | NUR ---
PT. IN BED WITH HOB UP AND SHE IS LAYING ON HER LEFT SIDE. EYES CLOSED AND RESP. EVEN. CALL LIGHT WITHIN REACH.
--- NOTE | 2017-02-25 03:02 | NUR ---
PT. IN BED LYING ON HER LEFT SIDE WITH EYES CLOSED AND RESP. DEEP AND EVEN. CALL LIGHT WITHIN REACH.
[2017-02-25 05:52] LABS: BASOPHILS 0.2 % (0-2); EOSINOPHILS 8.4 % (0-7); HEMATOCRIT 34.1 % (36.0-48.0); HEMOGLOBIN 11.1 g/dL (12-16); LYMPHOCYTES 31.5 % (15-50); MCH 27.1 pg (26.0-34.0); MCHC 32.6 g/dL (31.0-37.0); MCV 83.4 fL (80.0-100.0); MEAN PLATELET VOLUME 11.4 fL (7.4-10.4); NEUTROPHILS 51.9 % (40-80); PLATELET COUNT 140 10x3/uL (130-400); RBC 4.09 10x6/uL (4.00-5.40)
[2017-02-25 06:29] LABS: ANION GAP 12.1 mmol/L (8-16); CALCIUM 8.4 mg/dL (8.5-10.1); CARBON DIOXIDE 31.4 mmol/L (21.0-32.0); CREATININE - SERUM 0.9 mg/dL (0.6-1.3); POTASSIUM - SERUM 3.5 mmol/L (3.5-5.1)
--- NOTE | 2017-02-25 07:30 | NUR ---
PT WAS RECEIVED THIS AM LYING IN BED. SHE OFFERS NO COMPLAINTS. VSS. GEN- AWAKE AND ALERT. LUNGS-CLEAR. HEART-RRR. ABD-SOFT, NT, BS+, EXT WITH NO EDEMA. BED IS LOW, SIDE RAILS UP X 2 AND CALL LIGHT IN REACH.
--- NOTE | 2017-02-25 09:00 | NUR ---
PT IS IN PHYSICAL THERAPY AT THIS TIME. SHE OFFERS NO COMPLAINTS.
[2017-02-25 09:29] VITALS: BP 136/61
--- NOTE | 2017-02-25 10:30 | NUR ---
PT IS LYING IN BED RESTING. OFFERS NO COMPLAINTS. ASSISTED PT TO BATHROOM.
--- NOTE | 2017-02-25 12:49 | NUR ---
PT IS SITTING UP IN BED EATING LUNCH. SHE OFFERS NO COMPLAINTS. CALL LIGHT IN REACH. BED IS LOW AND SIDE RAILS UP X 2.
--- NOTE | 2017-02-25 14:30 | NUR ---
PT IS RESTING IN BED. WATCHING TV. OFFERS NO COMPLAINTS.
--- NOTE | 2017-02-25 15:30 | NUR ---
PT IS IN OCCUPATIONAL THERAPY. SHE OFFERS NO COMPLAINTS.
--- NOTE | 2017-02-25 18:22 | NUR ---
PT IS RESTING IN BED. OFFERS NO COMPLAINTS. SHE WOULD LIKE SOME SCRUBS. GAVE HER SOME.
[2017-02-25 19:34] VITALS: BP 154/70
--- NOTE | 2017-02-25 19:47 | NUR ---
PT RESTING IN HER ROOM WITH EYES OPEN. ASSISTED TO THE BATHROOM WITH SBA FOR ALL TASKS. ALERT AND ORIENTED X 3. DENIES ACUTE DISCOMFORT AT THIS TIME. TELEMETRY UNIT IS ON AND INTACT. SR'S ARE UP X 3 IN BED. CALL LIGHT AND BEDSIDE TABLE ARE WITHIN EASY REACH.
--- NOTE | 2017-02-25 21:30 | NUR ---
PT IS RESTING IN BED VISITING WITH HER ROOMMATE. NO COMPLAINT VOICED.
--- NOTE | 2017-02-26 00:55 | NUR ---
RESTING IN BED WITH EYES CLOSED.
[2017-02-26 01:52] LABS: APPEARANCE CLEAR (CLEAR); BILIRUBIN NEGATIVE (NEGATIVE); COLOR YELLOW (YELLOW); GLUCOSE NEGATIVE (NEGATIVE); KETONE NEGATIVE (NEGATIVE); LEUKOCYTE ESTERASE NEGATIVE (NEGATIVE); NITRITE NEGATIVE (NEGATIVE); PROTEIN NEGATIVE (NEGATIVE); SPECIFIC GRAVITY 1.005 (1.005-1.020); UROBILINOGEN NORMAL (NORMAL)
--- NOTE | 2017-02-26 04:07 | NUR ---
PT RESTING IN BED WITH EYES CLOSED. ASSISTED TO BATHROOM PRN.
--- NOTE | 2017-02-26 04:41 | NUR ---
RESTING IN BED WITH EYES CLOSED. LAYING ON RIGHT SIDE. NO S/S OF DISTRESS OBSERVED. CALL LIGHT AND OVERBED TABLE IN REACH.
--- NOTE | 2017-02-26 07:40 | NUR ---
PT IS RECEIVED LYING IN BED. SHE OFFERS NO COMPLAINTS THIS AM. PT IS ON TELEMETRY. GEN- AWAKE AND ALERT. LUNGS- CLEAR. HEART- RRR. ABD- SOFT, BT. BS+. EXT. NO EDEMA NOTED. BED IS LOW, SIDE RAILS UP X 2 AND CALL LIGHT IN REACH.
--- NOTE | 2017-02-26 08:00 | NUR ---
PT WANTS ASSISTANCE UP TO BATHROOM. SHE VOIDED AND HAD A BM. PT BACK TO BED. REQUEST TOOTHPASTE AND PULL UP. GIVEN. ASSISTED PT WITH GETTING DRESSED. PT IS BACK TO BED.
--- NOTE | 2017-02-26 09:00 | NUR ---
PT C/O PAIN. GETTING HER MEDS OUT AT THIS TIME AND WILL GIVE HER PAIN MED WITH OTHER MEDS. STATES THAT SHE IS HURTING IN BACK AND HIP.
--- NOTE | 2017-02-26 13:15 | NUR ---
PT IS LYING IN BED FINISHING LUNCH. SHE STATES THAT SHE NEEDS SOME CRACKERS FOR HER [employer]. GOT HER SOME. PT STATES THAT SHE WOULD LIKE TO HAVE A PAIN MED WHEN TIME. PAIN MED GIVEN.
--- NOTE | 2017-02-26 14:30 | NUR ---
OT IS ASSISTING PT WITH HER SHOWER,
--- NOTE | 2017-02-26 15:34 | NUR ---
BODY LINE FINISHER KATHE CALLED AND STATED TO CHANGE THE ELECTRODES FOR HER MONITOR. DONE
--- NOTE | 2017-02-26 16:53 | NUR ---
PATIENT ADMITTED TO REHAB FROM ACUTE FLOOR. DR. SCHMITZ IS HER PCP, [facility]. DME AT HOME: CANE, WALKER AND WHEELCHAIR. SHE HAS [facility] M-F 16HRS PER WEEK. WILL CONTINUE TO FOLLOW WITH PATIENT. PLANS ARE FOR PATIENT TO DISCHARGE HOME.
--- NOTE | 2017-02-26 19:25 | NUR ---
PT IS RESTING IN HER ROOM WITH EYES OPEN. ALERT AND ORIENTED X 4. DENIES ACUTE PAIN OR DISCOMFORT AT THIS TIME. TELEMETRY UNIT IS ON AND INTACT. NO OTHER NEEDS VOICED. SR'S ARE UP X 2 IN BED. CALL LIGHT AND BEDSIDE TABLE ARE WITHIN EASY REACH.
--- NOTE | 2017-02-26 21:53 | NUR ---
PT IS RESTING IN BED WITH EYES OPEN. ASSISTED TO THE BATHROOM WITH SBA FOR ALL TASKS. NO FURTHER NEEDS VOICED.
[2017-02-26 22:06] VITALS: BP 158/64
--- NOTE | 2017-02-27 00:01 | NUR ---
PT RESTING IN BED WITH EYES CLOSED.
--- NOTE | 2017-02-27 02:04 | NUR ---
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
--- NOTE | 2017-02-27 02:30 | NUR ---
RESTING IN BED WITH EYES CLOSED. NO DISTRESS NOTED.
[2017-02-27 05:50] LABS: BASOPHILS 0.4 % (0-2); EOSINOPHILS 9.1 % (0-7); HEMATOCRIT 34.5 % (36.0-48.0); HEMOGLOBIN 11.3 g/dL (12-16); LYMPHOCYTES 37.1 % (15-50); MCH 27.2 pg (26.0-34.0); MCHC 32.8 g/dL (31.0-37.0); MCV 83.1 fL (80.0-100.0); MEAN PLATELET VOLUME 11.9 fL (7.4-10.4); MONOCYTES 7.1 % (2-11); NEUTROPHILS 46.3 % (40-80); PLATELET COUNT 127 10x3/uL (130-400); RBC 4.15 10x6/uL (4.00-5.40); RDW 14.4 % (11.5-14.5); WBC 4.6 10x3/uL (4.8-10.8)
[2017-02-27 06:01] LABS: ANION GAP 10.6 mmol/L (8-16); CALCIUM 9.1 mg/dL (8.5-10.1); CARBON DIOXIDE 31.1 mmol/L (21.0-32.0); CREATININE - SERUM 0.8 mg/dL (0.6-1.3); POTASSIUM - SERUM 3.7 mmol/L (3.5-5.1)
--- NOTE | 2017-02-27 07:23 | NUR ---
INTRODUCED SELF TO PT, PT STATES NO NEEDS AT THIS TIME, WILL CONTINUE TO MONITOR, CALL LIGHT WITHIN REACH.
[2017-02-27 07:54] VITALS: BP 119/59
--- NOTE | 2017-02-27 08:00 | NUR ---
SITTING UP EATING BREAKFAST.CL IN REACH.
--- NOTE | 2017-02-27 09:02 | NUR ---
MORNING MEDICATION GIVEN, PT TOLERATED WELL, WILL CONTINUE TO MONITOR, CALL LIGHT WITHIN REACH.
--- NOTE | 2017-02-27 10:27 | NUR ---
PT STATES PAIN AT A 5 IN LOWER BACK, PAIN MEDICATION GIVEN, WILL CONTINUE TO MONITOR, CALL LIGHT WITHIN REACH.
--- NOTE | 2017-02-27 12:30 | NUR ---
PT SITTING ON SIDE OF BED, EATING LUNCH, VISITING WITH ROOM MATE, PT STATES NO NEEDS AT THIS TIME, WILL CONTINUE TO MONITOR, CALL LIGHT WITHIN REACH.
[2017-02-27 13:52] VITALS: Ht 165.1 cm; Wt 65.8 kg
--- NOTE | 2017-02-27 15:21 | NUR ---
PT STATES PAIN AT A 5 IN LOWER BACK, PAIN MEDICATION GIVEN, WILL CONTINUE TO MONITOR, CALL LIGHT WITHIN REACH.
--- NOTE | 2017-02-27 17:56 | NUR ---
PT SITTING UP AT BEDSIDE EATING DINNER, PT STATES NO NEEDS AT THIS TIME, WILL CONTINUE TO MONITOR, CALL LIGHT WITHIN REACH.
--- NOTE | 2017-02-27 19:31 | NUR ---
PT. UP IN W/C AND VISITING WITH ROOMMATE AND WATCHING TV. NO VOICED NEEDS AND HER CALL LIGHT IS WITHIN REACH.
--- NOTE | 2017-02-27 19:50 | NUR ---
PT IS RESTING IN BED WITH EYES OPEN. ALERT AND ORIENTED X 3. DENIES ACUTE PAIN OR DISCOMFORT AT THIS TIME. NO NEEDS VOICED. TELEMETRY UNIT IS ON AND INTACT. SR'S ARE UP X 2 IN BED. CALL LIGHT AND BEDSIDE TABLE ARE WITHIN EASY REACH.
--- NOTE | 2017-02-27 22:00 | NUR ---
PT IS RESTING IN BED VISITING WITH HER ROOM MATE. ASSISTED TO THE BATHROOM WITH SBA. LARGE FORMED BM NOTED.
[2017-02-27 22:34] VITALS: BP 129/58
--- NOTE | 2017-02-28 00:01 | NUR ---
PT IS RESTING QUIETLY IN BED WITH EYES CLOSED. RESPS ARE EVEN AND UNLABORED. NO ACUTE DISTRESS NOTED.
--- NOTE | 2017-02-28 01:57 | NUR ---
PT IS RESTING IN BED WITH EYES CLOSED.
--- NOTE | 2017-02-28 05:49 | NUR ---
PT IS RESTING IN HER ROOM DRINKING A CUP OF COFFEE. NO COMPLAINT VOICED.
--- NOTE | 2017-02-28 06:15 | NUR ---
PT CALLED USING CALL LIGHT. SHE HAS HAD A VERY LARGE LOOSE BM, AND WANTS TO TAKE A SHOWER. SHE SWOERED INDEPENDENTLY, AND DRESSED WITH MIN ASSIST. NO FURTHER NEEDS VOICED.
--- NOTE | 2017-02-28 07:38 | NUR ---
UP IN BED AWAKE AT THIS TIME. DENIES ANY NEEDS. PT ALERT AND ORIENTED. FEEDING SELF BREAKFAST INDEPENDENTLY. NO AUCTE DISTRESS NOTED. WILL CONTINUE PLAN OF CARE.
--- NOTE | 2017-02-28 08:21 | NUR ---
TELEMETRY AT 59 SINUS.
[2017-02-28 08:28] VITALS: BP 112/55
--- NOTE | 2017-02-28 12:35 | NUR ---
UP IN BED AT THIS TIME EATING LUNCH. DENIES ANY NEEDS. NO ACUTE DISTRESS NOTED. WILL CONTINUE PLAN OF CARE.
--- NOTE | 2017-02-28 17:47 | NUR ---
UP IN BED AT THIS TIME READING BOOK. NO ACUTE DISTRESS NOTED. WILL CONTINUE PLAN OF CARE.
--- NOTE | 2017-02-28 19:30 | NUR ---
PT. IN BED WITH HOB UP AND IS WATCHING TV. NO VOICED NEEDS. ASSESSMENT COMPLETED. CALL LIGHT WITHIN REACH.
[2017-02-28 19:45] VITALS: BP 124/60
--- NOTE | 2017-02-28 23:09 | NUR ---
PT. IN BED LYING ON HER RIGHT SIDE WITH EYES CLOSED AND RESP. DEEP AND EVEN. CALL LIGHT WITHIN REACH.
--- NOTE | 2017-03-01 03:02 | NUR ---
PT. IN BED WITH HOB UP FOR COMFORT AND LYING ON HER LEFT SIDE. EYES CLOSED AND RESP. DEEP AND EVEN. CALL LIGHT WITHIN REACH.
[2017-03-01 07:20] LABS: BASOPHILS 0.2 % (0-2); EOSINOPHILS 7.6 % (0-7); HEMATOCRIT 34.7 % (36.0-48.0); HEMOGLOBIN 11.5 g/dL (12-16); IMMATURE GRANULOCYTES 0.2 % (0-5); LYMPHOCYTES 28.5 % (15-50); MCH 27.4 pg (26.0-34.0); MCHC 33.1 g/dL (31.0-37.0); MCV 82.6 fL (80.0-100.0); MEAN PLATELET VOLUME 11.3 fL (7.4-10.4); MONOCYTES 7.2 % (2-11); NEUTROPHILS 56.3 % (40-80); PLATELET COUNT 129 10x3/uL (130-400); RDW 14.2 % (11.5-14.5); WBC 4.8 10x3/uL (4.8-10.8)
[2017-03-01 07:33] LABS: ANION GAP 9.5 mmol/L (8-16); CALCIUM 8.8 mg/dL (8.5-10.1); CREATININE - SERUM 0.8 mg/dL (0.6-1.3); POTASSIUM - SERUM 3.5 mmol/L (3.5-5.1)
[2017-03-01 08:00] VITALS: BP 146/53
--- NOTE | 2017-03-01 08:19 | NUR ---
IN THERAPY THIS AM.DENIES NEEDS.
--- NOTE | 2017-03-01 09:01 | NUR ---
MORNING MEDICATION GIVEN, PT TOLERATED WELL, WILL CONTINUE TO MONITOR, CALL LIGHT WITHIN REACH.
--- NOTE | 2017-03-01 11:00 | NUR ---
PT IN WHEELCHAIR VISITING WITH OTHER PTS, PT STATES NO NEEDS AT THIS TIME, WILL CONTINUE TO MONITOR, CALL LIGHT WITHIN REACH.
--- NOTE | 2017-03-01 12:06 | NUR ---
PT SITTING UP IN CHAIR WATCHING TV, PT STATES NO NEEDS AT THIS TIME, WILL CONTINUE TO MONITOR, CALL LIGHT WITHIN REACH.
--- NOTE | 2017-03-01 14:40 | NUR ---
PT RESTING IN BED, RESPIRATIONS EVEN, SIDE RAILS UP X'S 2, BED IN LOW POSITION, CALL LIGHT WITHIN REACH, WILL CONTINUE TO MONITOR.
--- NOTE | 2017-03-01 17:55 | NUR ---
PT SITTING UP AT BED SIDE EATING DINNER, PT STATES NO NEEDS AT THIS TIME, WILL CONTINUE TO MONITOR, CALL LIGHT WITHIN REACH.
[2017-03-01 20:00] VITALS: BP 141/72
--- NOTE | 2017-03-01 20:09 | NUR ---
PT RESTING IN BED, DENIES NEEDS. WCTM.
--- NOTE | 2017-03-02 01:15 | NUR ---
PT RESTING, EYES CLOSED. BED LOW. CL IN REACH. WCTM.
--- NOTE | 2017-03-02 03:11 | NUR ---
PT RESTING, EYES CLOSED. RR ARE EVEN AND UNLABORED. WCTM. BED LOW. CL IN REACH.
--- NOTE | 2017-03-02 05:21 | NUR ---
PT AM MEDS ADMINISTERED. PT DENIES NEEDS. WCTM.
[2017-03-02 08:00] VITALS: BP 139/52
--- NOTE | 2017-03-02 09:30 | NUR ---
ASSISTED PT TO W/C AND BATHROOM. PT ASKED FOR PAIN PILL WITH AM MEDS SO CAN REST BEFORE THERAPY LATER IN THE MORNING. PT C/O GENERALIZED PAIN AND SORENESS. WILL CONT TO MONITOR.
--- NOTE | 2017-03-02 18:20 | NUR ---
JUST FINISHED SUPPER. DENIES NEEDS. CALL LIGHT IN REACH
--- NOTE | 2017-03-02 18:30 | NUR ---
PT IN BED COLORING IN BOOK. NO DISTRESS NOTED. C/L IN REACH WILL MONITOR.
[2017-03-02 19:35] VITALS: BP 128/50
--- NOTE | 2017-03-02 21:07 | NUR ---
PT HS MEDS ADMINISTERED. PT REQ AND REC'D PRN PAIN MEDICATION AT THIS TIME. BED LOW. CLIN REACH. WCTM.
--- NOTE | 2017-03-02 23:37 | NUR ---
PT RESTING, EYES CLOSED. BED LOW. CL IN REACH.
--- NOTE | 2017-03-03 06:36 | NUR ---
PT AM MEDS ADMINISTERED. PT DENIES NEEDS. WCTM.
--- NOTE | 2017-03-03 07:25 | NUR ---
SITTING UP IN WHEELCHAIR. PLEASANT AFFECT. OFFERS NO COMPLAINTS. CALL LIGHT IN REACH. WILL CONTINUE TO MONITOR
[2017-03-03 07:30] VITALS: BP 158/60
--- NOTE | 2017-03-03 09:20 | NUR ---
MORNING MEDS ADMINISTERED WITHOUT DIFFICULTY. OFFERS NO COMPLAINTS. DENIES PAIN. CALL LIGHT IN REACH. WILL CONTINUE TO MONITOR
--- NOTE | 2017-03-03 10:03 | NUR ---
C/O OF LOWER BACK AND NECK PAIN REQUEST PAIN MEDS WITH BENADRYL. ADMINISTERED BOTH PER REQUEST. WILL CONTINUE TO MONITOR
--- NOTE | 2017-03-03 14:10 | NUR ---
SITTING UP IN BED COLORING. OFFERS NO COMPLAINTS. NO S/SX OF DISTRESS. CALL LIGHT IN REACH. WILL CONTINUE TO MONITOR
--- NOTE | 2017-03-03 17:56 | NUR ---
SITTING UP IN BED EATING DINNER. OFFERS NO COMPLAINTS. NO S/SX OF DISTRESS. CALL LIGHT IN REACH. WILL CONTINUE TO MONITOR
--- NOTE | 2017-03-03 18:08 | NUR ---
SITTING UP EATING SUPPER. DENIES NEEDS. CALL LIGHT IN REACH
[2017-03-03 19:30] VITALS: BP 133/59
--- NOTE | 2017-03-03 19:40 | NUR ---
PT RESTING IN BED, DENIES NEEDS. WCTM.
--- NOTE | 2017-03-03 21:41 | NUR ---
PT HS MEDS ADMINISTERED. PT DENIES NEEDS. BED LOW. CL IN REACH. WCTM.
[2017-03-04 05:50] LABS: BASOPHILS 0.2 % (0-2); HEMOGLOBIN 11.8 g/dL (12-16); IMMATURE GRANULOCYTES 0.2 % (0-5); LYMPHOCYTES 34.7 % (15-50); MCH 27.6 pg (26.0-34.0); MCHC 32.8 g/dL (31.0-37.0); MCV 84.1 fL (80.0-100.0); MEAN PLATELET VOLUME 12.1 fL (7.4-10.4); MONOCYTES 9.6 % (2-11); NEUTROPHILS 46.3 % (40-80); PLATELET COUNT 147 10x3/uL (130-400); RBC 4.28 10x6/uL (4.00-5.40); RDW 14.6 % (11.5-14.5); WBC 4.9 10x3/uL (4.8-10.8)
[2017-03-04 06:11] LABS: ANION GAP 8.4 mmol/L (8-16); CALCIUM 8.6 mg/dL (8.5-10.1); CARBON DIOXIDE 32.1 mmol/L (21.0-32.0); CREATININE - SERUM 0.8 mg/dL (0.6-1.3); POTASSIUM - SERUM 3.5 mmol/L (3.5-5.1)
--- NOTE | 2017-03-04 06:33 | NUR ---
PT AM MEDS ADMINISTERD. PT DENIES NEEDS. WCTM.
--- NOTE | 2017-03-04 07:55 | NUR ---
PT IS RESTING IN BED. SHE STATES THAT HER PAIN IS ABOUT A 5. SHE WOULD LIKE PAIN MED. GEN- AWAKE AND ALERT. LUNGS- CLEAR. HEART- RRR. PT HAS TELEMETRY INTACT. ABD- SOFT, NT. BS+ EXT- MINIMAL EDEMA NOTED LE. BED IS LOW, SIDE RAILS UP X 2 AND CALL LIGHT IN REACH.
[2017-03-04 08:00] VITALS: BP 142/57
--- NOTE | 2017-03-04 08:16 | NUR ---
SITTING UP EATING BREAKFAST. DENIES NEEDS. CALL LIGHT IN REACH
--- NOTE | 2017-03-04 08:17 | RHP ---
PATIENT: LOVE JAMES MEDICAL RECORD: [id number] ACCOUNT: [id number] LOCATION:[facility] Maryann1111 : 44 ADMISSION DATE: 02/21/17 REHABILITATION HISTORY AND PHYSICAL EXAMINATION POST ADMISSION PHYSICIAN EXAMINATION Post admission Physical Examination and History and Physical DATE OF ADMISSION: 02/21/2017 ADMITTING DIAGNOSIS: Debility secondary to urinary tract infection. HISTORY OF PRESENT ILLNESS: The patient is admitted to inpatient rehab for debility due to urinary tract infection with positive nitrites and bacteria. She is a 76-year-old female patient, who was in the bathroom, sitting on the toilet and about to go. The next thing she knew, she found herself on the floor. She hit the bathtub with the right side of her head. She had pain in the lower back, hip and leg. She was brought to the Emergency Room and found to have a positive UA, which showed nitrite positive and many bacteria. She started on IV therapy. CT of her C-spine showed lumbar degenerative disease. She has been in a lot of pain, unable to walk, but is progressing with physical therapy. She lives alone next door to her daughter. The patient has had multiple recent falls according to family members. She was moderately independent with use of rolling walker or a cane and is independent with ADLs prior to this hospitalization. She is currently moderate to max assist for mobility and is setup for moderate assist for ADLs. She has been in acute rehab unit in the past with very good results. She definitely is going to need this if she plans to return home alone after rehab. She lives out in the [facility]. COMORBIDITIES: In this patient include degenerative disc disease, syncope, hip contusion, UTI, diabetes, anxiety, CVA, hyperlipidemia, hypertension, breast cancer, carotid artery stenosis, obstructive sleep apnea, acid reflux, vertigo, depression, chronic back pain, fibromyalgia, arthritis and she has got a history of tobacco use. PAST MEDICAL HISTORY: Significant for diabetes, anxiety, CVA, coronary artery disease, diabetes, hyperlipidemia, hypertension, breast cancer, carotid artery stenosis, fibromyalgia, obstructive sleep apnea, reflux, depression, arthritis, chronic back pain, tobacco use. PAST SURGICAL HISTORY: Includes coronary artery bypass grafting, stents, hysterectomy, right carotid endarterectomy, she has had a partial colon resection, sinus surgery times 2, lumpectomy, hysterectomy, cataracts, she had 2 ribs removed in 2011 due to nonhealing fractures and abdominal hernia repair with debridement. ALLERGIES: No known drug allergies. CURRENT MEDICATIONS: Include MiraLax 17 g in 8 ounces of water daily. She is on Rocephin, she will get 1 more dose. Hydrochlorothiazide 12.5 mg daily, losartan 50 mg daily, metformin XR 500 mg b.i.d., Pravachol 40 mg q.h.s., Protonix 40 mg daily, Imdur 30 mg daily, Lexapro 20 mg daily, Plavix 75 mg daily, aspirin chewable 81 mg daily, Benadryl 25 mg q.4 hours p.r.n., Desyrel 150 mg q.h.s., Carafate 1 g b.i.d., metoprolol 12.5 mg b.i.d., [place] 1 tab q.4 HISTORY AND PHYSICAL [id number] LOVE JAMES ZIGGY hours p.r.n. pain of the 10/325, and ferrous sulfate 325 mg t.i.d. HABITS: Does have a history of tobacco use. FAMILY HISTORY: Noncontributory. SOCIAL HISTORY: The patient hopes to return back home and get back to her prior level of functioning. REVIEW OF SYSTEMS: GENERAL: She does complain of weakness. HEENT: Denies cold, cough, or congestion. CARDIOVASCULAR: Denies chest pain. PHYSICAL EXAMINATION: VITAL SIGNS: Stable. She is afebrile. GENERAL: Elderly female, in no acute distress, alert upon exam. HEENT: Normocephalic and atraumatic. Mucosa moist. NECK: Supple. No lymphadenopathy. LUNGS: Clear at this time. HEART: Regular rate and rhythm. ABDOMEN: Benign. EXTREMITIES: Does have a little bit of peripheral edema. NEUROLOGIC: Seems intact. LABORATORY DATA: Her white count 5.2, H&H of 11 and 35, and platelet count was noted to be 147. Her sodium is 140, potassium 3.7, BUN and creatinine of 12 and 0.9, blood sugar is noted to be 101. ASSESSMENT: This is a 76-year-old female patient admitted to the rehab secondary to debility caused by urinary tract infection, fall and syncope. The patient has potential to make improvement. We instituted the following multidisciplinary therapies including, but not limited to physical, occupational, respiratory, speech, nutritional services, prosthetics and orthotics. Given her complex condition and risk for more complications, rehabilitation services cannot be provided at a lower level of care such as a correction facility. PLAN: 1. Admit to [facility] rehab for intensive inpatient therapy to include the following disciplines: A. Physical therapy to improve gait, all transfer skills and bed mobility to a modified independent level. B. Occupational therapy to improve activities of daily living to a modified independent level. C. Case management to assist with discharge planning and placement options. D. Nutrition to assist with nutritional needs. E. Rehabilitation nursing to assist in monitoring the patient's underlying medical conditions and to assist with any type of bowel or bladder management. 2. The patient's current medication and medical care will be continued. 3. The patient will be placed on standard fall precautions. 4. The patient's estimated length of stay is approximately 7-10 days. 5. Discuss this patient during care team staff meeting this week. TRANSINT:[id number] Voice Confirmation ID: [id number] DOCUMENT ID: [id number] HISTORY AND PHYSICAL [id number] LOVE JAMES notes whether there has been none or any medical/functional change since admission: - JAIME attests patient continues to be appropriate for IRF: - ANAY EDEN MD at 0817 CC: [id number] DICTATION DATE: 02/22/17 0837 CHEMICALS FERMENTATION OPERATOR: 02/22/17 1135 ADM IN [facility] [address] [id number]
[2017-03-04] MEDS ORDERED: HYDROCODONE-APA1 TAB PO (08:19)
--- NOTE | 2017-03-04 10:01 | NUR ---
PT IS IN PHYSICAL THERAPY AT THIS TIME. MEDICATIONS GIVEN. PT REFUSED IRON TAB . STATES IT MAKES HER STOMACH CRAMP.
--- NOTE | 2017-03-04 12:49 | NUR ---
PT IS SITTING UP IN BED EATING LUNCH. SHE OFFERS NO COMPLAINTS AT THIS TIME.
--- NOTE | 2017-03-04 13:59 | NUR ---
PT IS IN THERAPY. SHE REQUESTED A PAIN PILL. GIVEN.
--- NOTE | 2017-03-04 14:51 | NUR ---
PT STATES HER PAIN IS BETTER AND RATES A 3. SHE ALSO REQUEST A SPRITE. BED IS LOW, SIDE RAILS UP X 2 AND CALL LIGHT IN REACH.
--- NOTE | 2017-03-04 15:56 | NUR ---
PT IS SITTING UP IN BED. SHE STATES THAT HER PAIN IS STILL A 5. IT WILL BE A COUPLE OF HOURS BEFORE SHE CAN HAVE ANOTHER PAIN MED. SHE REFUSES FERROUS SULFATE DUE TO IT MAKING HER ABDOMEN CRAMP.
--- NOTE | 2017-03-04 17:37 | NUR ---
PT IS LYING IN BED VISITING WITH FAMILY. GAVE HER HER PAIN MED AGAIN THAT SHE HAS BEEN REQUESTING. HER PAIN IS A 5.
--- NOTE | 2017-03-04 19:30 | NUR ---
PT. IN BED WITH HOB UP FOR COMFORT AND IS WATCHING TV. ASSESSMENT COMPLETED. NO VOICED NEEDS AT THIS TIME. CALL LIGHT WITHIN REACH.
[2017-03-04 19:50] VITALS: BP 123/57
--- NOTE | 2017-03-04 23:11 | NUR ---
PT. IN BED LYING ON HER RIGHT SIDE WITH EYES CLOSED AND RESP. DEEP AND EVEN. CALL LIGHT WITHIN REACH.
--- NOTE | 2017-03-05 03:09 | NUR ---
PT. IN BED LYING ON HER RIGHT SIDE WITH EYES CLOSED AND RESP. DEEP AND EVEN. CALL LIGHT WITHIN REACH.
[2017-03-05 07:54] VITALS: BP 154/64
--- NOTE | 2017-03-05 07:55 | NUR ---
SITTING UP IN BED EATING BREAKFAST. C/O LOWER BACK PAIN 5/10 REQUEST PAIN MEDS. ADMINISTERED NORCO 10MG AND BENADRYL. NO OTHER COMPLAINTS VOICED. PLEASANT AFFECT. WILL CONTINUE TO MONITOR
--- NOTE | 2017-03-05 08:37 | NUR ---
RESTING QUIETLY.BREAKFAST EATEN.CL IN REACH.
--- NOTE | 2017-03-05 10:03 | NUR ---
LYING IN BED RESTING COMFORTABLY. NO S/SX OF DISTRESS. OFFERS NO COMPLAINTS. CALL LIGHT IN REACH. WILL CONTINUE TO MONITOR
--- NOTE | 2017-03-05 10:30 | NUR ---
Nutrition Follow Up: Pt was asleep at the time of RD visit. Interview deferred. Pt is eating 54% meal avg on a regular diet. She is receiving Ensure TID. +BM 03/03/17. No new wt to assess. Meds and labs reviewed. Rec continue current diet, supplement regimen. RD following.
--- NOTE | 2017-03-05 12:33 | NUR ---
SITTING UP IN WHEELCHAIR EATING LUNCH. NO CONCERNS VOICED. CALL LIGHT IN REACH. WILL CONTINUE TO MONITOR
--- NOTE | 2017-03-05 14:49 | NUR ---
PATIENT DISCHRGING HOME WITH FAMILY. [facility] WILL FOLLOW WITH PATIENT AT HOME. NO NEW DME NEEDED AT THIS TIME. DR. SCHMITZ 03/11/17 @ 11:10. PATIENT CHOICE FORM FOR HOME HEALTH AND [facility] FORM SIGNED, EXPLAINED AND FILED IN CHART. ORDERS HAVE BEEN FAXED WITH CONFORMATION RECIEVED
--- NOTE | 2017-03-05 18:02 | NUR ---
REVIEWED DISCHARGE INFORMATION AND MEDICATIONS WITH PT. NO CONCERNS VOICED. PT SIGNED CHART COPY AND GIVEN A COPY ALONG WITH SCRIPT FOR NORCO. PT TRANSPORTED OUT VIA WC TO FRONT ACCOMPAINIED BY SON IN LAW. PT BUCKLED IN FRONT SEAT OF PERSONAL VEHICLE DRIVEN BY SON IN LAW ALL BELONGS ACCOUNTED FOR AND IN CAR.
== END 2017-03-05 18:04 | disposition home health service (06) | DRG 948 ==
LOC: D.REHAB 16:58
PROVIDERS: ADMIT Emergency Medicine
DX: R53.81 Other malaise (principal); N39.0 Urinary tract infection, site not specified; M51.36 Other intervertebral disc degeneration, lumbar region; R55 Syncope and collapse; S70.00XD Contusion of unspecified hip, subsequent encounter; W19.XXXD Unspecified fall, subsequent encounter; E11.9 Type 2 diabetes mellitus without complications; E78.5 Hyperlipidemia, unspecified; I10 Essential (primary) hypertension; I25.10 Atherosclerotic heart disease of native coronary artery without angina pectoris; G47.33 Obstructive sleep apnea (adult) (pediatric); K21.9 Gastro-esophageal reflux disease without esophagitis; R42 Dizziness and giddiness; C50.919 Malignant neoplasm of unspecified site of unspecified female breast; F41.8 Other specified anxiety disorders; M79.7 Fibromyalgia; F17.200 Nicotine dependence, unspecified, uncomplicated

== ENCOUNTER 2017-03-28 18:59 | Inpatient (IN) | payer MEDICARE ==
[~2017-03-28] VITALS: Ht 165.1 cm; Wt 62.6 kg
[2017-03-29 11:01] VITALS: Ht 165.1 cm; Wt 62.6 kg
[2017-04-05 12:00] VITALS: BP 113/70
[2017-04-05] MEDS ORDERED: VIBRAMYCIN 100100 MG PO (13:33)
== END 2017-04-05 17:48 | DRG 982 ==
LOC: D.ER 18:59 → D.M2 21:25 → D.MS 21:25 → D.M2 04-01 09:30
PROVIDERS: Internal Medicine Cardiovascular Disease; ADMIT Family Medicine
PROC: B2111ZZ Fluoroscopy of Multiple Coronary Arteries using Low Osmolar Contrast (ICD-10-PCS; 2017-04-01)
PROC: B2151ZZ Fluoroscopy of Left Heart using Low Osmolar Contrast (ICD-10-PCS; 2017-04-01)
PROC: B2181ZZ Fluoroscopy of Left Internal Mammary Bypass Graft using Low Osmolar Contrast (ICD-10-PCS; 2017-04-01)
PROC: 02703ZZ Dilation of Coronary Artery, One Artery, Percutaneous Approach (ICD-10-PCS; principal; 2017-04-01 09:00)
PROC: 4A023N7 Measurement of Cardiac Sampling and Pressure, Left Heart, Percutaneous Approach (ICD-10-PCS; 2017-04-01 09:00)
DX: J44.1 Chronic obstructive pulmonary disease with (acute) exacerbation (principal); I25.110 Atherosclerotic heart disease of native coronary artery with unstable angina pectoris; T82.855A Stenosis of coronary artery stent, initial encounter; K21.9 Gastro-esophageal reflux disease without esophagitis; E78.5 Hyperlipidemia, unspecified; I10 Essential (primary) hypertension; E11.9 Type 2 diabetes mellitus without complications; D64.9 Anemia, unspecified; G47.33 Obstructive sleep apnea (adult) (pediatric); Z91.19 Patient's noncompliance with other medical treatment and regimen; E83.42 Hypomagnesemia; Y83.8 Other surgical procedures as the cause of abnormal reaction of the patient, or of later complication, without mention of misadventure at the time of the procedure

== ENCOUNTER 2017-04-05 16:30 | Inpatient (IN) | payer MEDICARE ==
[~2017-04-05 16:30] MED LIST changes: +VIBRAMYCIN 100100 MG PO
[2017-04-05 18:36] VITALS: BP 125/67; BMI 23.6
--- NOTE | 2017-04-05 18:59 | NUR ---
PT ARRIVED TO UNIT VIA WC ACCOMPANIED BY HOSPITAL STAFF. PT IS A&O. PT HAS A LARGE BRUISE TO RT GROIN WITH NO OTHER SKIN BREAKDOWN. PT IS ON ROOM AIR AT THIS SAT. O2 SAT AT 98%. PT STATES PAIN LEVEL AT 5 BUT REFUSES PAIN MEDICATION BC SHE STATES SHE IS CONSTIPATED AND DOESN'T WANT THAT TO WORSEN. TM.
--- NOTE | 2017-04-05 20:01 | NUR ---
PT. IN BED WITH HOB UP FOR COMFORT AND WATCHING TV. NO VOICED NEEDS AND SHE HAS HER CALL LIGHT WITHIN REACH.
--- NOTE | 2017-04-05 22:25 | NUR ---
PT C/O HAS ONLY A LITTLE HARD BM TODAY, PRUNE JUICE GIVEN. WILL TALK TO CHARGE NURSE AND ORDER MED FOR PT'S BM.
[2017-04-05 23:24] VITALS: BP 140/75
--- NOTE | 2017-04-06 04:39 | NUR ---
REST QUIETLY IN BED, EYE CLOSE, CALL LIGHT IN REACH.
[2017-04-06 06:43] LABS: BASOPHILS 0 % (0-2); EOSINOPHILS 0.6 % (0-7); HEMATOCRIT 38.7 % (36.0-48.0); HEMOGLOBIN 13.1 g/dL (12-16); IMMATURE GRANULOCYTES 0.9 % (0-5); MCH 26.8 pg (26.0-34.0); MCHC 33.9 g/dL (31.0-37.0); MCV 79.1 fL (80.0-100.0); MEAN PLATELET VOLUME 11.1 fL (7.4-10.4); MONOCYTES 7.6 % (2-11); NEUTROPHILS 60.9 % (40-80); PLATELET COUNT 170 10x3/uL (130-400); RBC 4.89 10x6/uL (4.00-5.40); RDW 15.1 % (11.5-14.5)
[2017-04-06 06:54] LABS: ANION GAP 10.1 mmol/L (8-16); CALCIUM 9.4 mg/dL (8.5-10.1); CARBON DIOXIDE 31.5 mmol/L (21.0-32.0); POTASSIUM - SERUM 3.6 mmol/L (3.5-5.1)
--- NOTE | 2017-04-06 07:50 | NUR ---
SITTING UP IN BED EATING BREAKFAST. ALERT AND ORIENTED X4. DENIES ANY PAIN OR NEEDS. CALL LIGHT WITHIN REACH. WILL CONTINUE TO MONITOR
[2017-04-06 08:00] VITALS: BP 92/46
--- NOTE | 2017-04-06 08:20 | NUR ---
SITTING UP IN BED EATING BREAKFAST.DENIES NEEDS.CL IN REACH.
[2017-04-06 09:53] VITALS: BMI 23.6
--- NOTE | 2017-04-06 15:24 | NUR ---
SITTING UP IN WHEELCHAIR WATCHING TV. OFFERS NO COMPLAINTS. CALL LIGHT WITHIN REACH. WILL CONTINUE TO MONITOR
--- NOTE | 2017-04-06 16:22 | NUR ---
PROVIDED BREATHING TX PER PRN ORDER COURSE BS BILATERAL UPPER AND LOWER LOBES
--- NOTE | 2017-04-06 18:00 | NUR ---
SITTING UP IN WHEELCHAIR EATING DINNER. OFFERS NO COMPLAINTS. CALL LIGHT WITHIN REACH. WILL CONTINUE TO MONITOR
--- NOTE | 2017-04-06 19:15 | NUR ---
LAYING IN BED WITTH EYES OPEN. HOB ELEVATED TO 30 DEGREES. DENIES ANY PAIN AT THIS TIME. CALL LIGHT AND OVERBED TABLE IN REACH.
--- NOTE | 2017-04-06 21:20 | NUR ---
RESTING IN BED WITH EYES OPEN AND TV ON. HOB ELEVATED TO 30 DEGREES. PLEASANT AND COOPERATIVE. DENIES ANY PAIN. HAS A LOOSE COUGH AND RUNNY NOSE. WILL NOTIFY
[2017-04-06 23:26] VITALS: BP 124/50
--- NOTE | 2017-04-07 00:40 | NUR ---
RESTING IN BED WITH EYES CLOSED. NO S/S OF DISTRESS OBSERVED. HOB ELEVATED 30 DEGREES. CALL LIGHT AND OVERBED TABLE IN REACH.
--- NOTE | 2017-04-07 06:45 | NUR ---
RESTING IN BED WITH EYES OPEN AND TV ON AT THIS TIME. DENIES ANY PAIN. CONTINUES TO HAVE FREQUENT PRODUCTIVE COUGH AND RUNNY NOSE.
--- NOTE | 2017-04-07 07:30 | NUR ---
SITTING UP IN BED WATCHING TV. NO S/SX OF DISTRESS. ALERT AND ORIENTED X4. DENIES NEEDS OR PAIN. CALL LIGHT WITHIN REACH, BED LOW AND ALARM. WILL CONTINUE TO MONITOR.
[2017-04-07 08:00] VITALS: BP 112/62
--- NOTE | 2017-04-07 11:03 | NUR ---
SITTING UP IN BED WATCHING TV. DENIES NEEDS OR PAIN. CALL LIGHT WITHIN REACH. WILL CONTINUE TO MONITOR
--- NOTE | 2017-04-07 15:17 | NUR ---
LYING IN BED ON RIGHT SIDE EYES CLOSED RESTING. APPROPRIATE RISE AND FALL OF CHEST. NO S/SX OF RESPIRATORY DISTRESS. CALL LIGHT WITHIN REACH. WILL CONTINUE TO MONITOR
--- NOTE | 2017-04-07 16:00 | NUR ---
RESTING QUIETLY.CL IN REACH.
--- NOTE | 2017-04-07 17:59 | NUR ---
SITTING UP IN WHEELCHAIR EATING DINNER. OFFERS NO COMPLAINTS. CALL LIGHT WITHIN REACH. WILL CONTINUE TO MONITOR
--- NOTE | 2017-04-07 19:45 | NUR ---
RECIEVED RESTING IN BED WITH HOB ELEVATED EYES OPEN AND TV ON. PLEASANT AND TALKATIVE. DENIES ANY PAIN OR DISCOMFORT. CLINICIAN TAPE TO RIGHT FOOT DUE TO FOOT DROPS TO SIDE AND THERAPY REPORTS WEAKER THAN THE OTHER FOOT.
[2017-04-07 20:10] VITALS: BP 116/57
--- NOTE | 2017-04-07 21:25 | NUR ---
OUT IN HALLWAY IN W/C STAES "I DON'T WANT TO STAY IN THERE ALL THE TIME". ASSURED HER IT WAS FINE AND SHE DID'T HAVE TO STAY IN HER ROOM. SMILED AND SAID OKAY.
[2017-04-07 22:55] VITALS: BP 116/57
--- NOTE | 2017-04-08 02:37 | NUR ---
RESTING IN BED WITH EYES CLOSED. HOB ELEVATED. CALL LIGHT AND OVERBED TABLE IN REACH.
--- NOTE | 2017-04-08 08:25 | NUR ---
PT AM MEDS ADMINISTERED. PT DENIES NEEDS AT THIS TIME. BED LOW. CL IN REACH.
--- NOTE | 2017-04-08 12:45 | NUR ---
PT RESTING IN ROOM, DENIES NEEDS. WCTM.
--- NOTE | 2017-04-08 18:37 | NUR ---
PT RESTING IN ROOM, DENIES NEEDS. WCTM.
--- NOTE | 2017-04-08 19:30 | NUR ---
RECIEVE LAYING IN BED WITH EYES OPEN. NO S/S OF DISTRESS OBSERVED. CALL LIGHT AND OVERBED TABLE IN REACH.
[2017-04-08 20:42] VITALS: BP 121/53
--- NOTE | 2017-04-08 21:25 | NUR ---
UP IN BED WITH EYES OPEN. PLEASANT AND COOOPERATIVE DENIES ANY PAIN AT THS TIME. CONTINUES TO HAVE PRODUCTIVE COUGH WITH YELLOW COLOR SPUTUM. UPDRAFT GIVEN PER ORDERS. STATED BREATHING MUCH BETTER. BRUISING TO RIGHT GROIN AREA. CALL LIGHT AND OVERBED TABLE IN REACH.
--- NOTE | 2017-04-09 03:04 | NUR ---
RESTING IN BED WITH EYES CLOSED. NO S/S OF DISTRESS OBSERVED. HOB ELEVATED. CALLLIGHHT AND OVERBED TABLE IN REACH.
--- NOTE | 2017-04-09 06:23 | NUR ---
RESTING IN BED WITH EYES CLOSED. NO S/S OF DISTRESS OBSERVED. CALL LIGHT AND OVERBED TABLE IN REACH.
[2017-04-09 07:53] VITALS: BP 110/60
--- NOTE | 2017-04-09 08:00 | NUR ---
PT RESTING IN BED WITH EYES OPEN CALL LIGHT IN REACH WILL MONITER
--- NOTE | 2017-04-09 08:14 | NUR ---
EATING BREAKFAST. CALL LIGHT IN REACH
--- NOTE | 2017-04-09 16:44 | NUR ---
PATIENT ADMITTED TO REHAB FROM ACUTE FLOOR. DR. SCHMITZ IS PATIENT PCP SHE HAS A CANE, ROLLING WALKER AND WHEELCHAIR AT HOME. SHE HAS USED [facility] AND WILL DISCHARGE WITH THEM FOR HOME HEALTH. WILL CONTINUE TO FOLLOW WITH PATIENT
--- NOTE | 2017-04-09 16:56 | NUR ---
PT UP IN BED WATCHING TV CALL LIGHT IN REACH WILL MONITER
[2017-04-09 19:35] VITALS: BP 128/58
--- NOTE | 2017-04-09 19:35 | NUR ---
ASSESSMENT PER FLOW SHEET, VS OBTAINED, PT DENIES FLATUS, NO BM TODAY, AND VOIDING WITH NO DIFFICULTY, PT C/O BACK PAIN, REQUESTS PAIN MED AND SCRUBS TO CHANGE INTO, INFORMED PT THAT I WILL GET THOSE THINGS TOGETHER AND BE RIGHT BACK, PT VERBLAIZES UNDERSTANDING
--- NOTE | 2017-04-09 19:45 | NUR ---
ADM JAMAAL PO PER MD ORDERS, SEE EMAR, SCRUBS PROVIDED, PT CHANGED INTO THEM HERSELF, PT DENIES FURTHER NEEDS
--- NOTE | 2017-04-09 20:30 | NUR ---
PT LAYING IN BED, LOOKING AT CELL PHONE, DENIES NEEDS OR PAIN AT THIS TIME
--- NOTE | 2017-04-09 21:54 | NUR ---
PT RESTING WITH EYES CLKOSED, AROUSES TO SOFT VERBAL STIMULATION, ADM 2100 MEDS PER MD ORDERS, SEE EMAR, FRESH H20 AND MILK PROVIDED, PT DENIES FURTHER NEEDS
--- NOTE | 2017-04-09 22:30 | NUR ---
PT RESTING WITH EYES CLOSED, RESP QUIET, NO DISTRESS NOTED, LEFT UNDISTURBED AT THIS TIME
--- NOTE | 2017-04-10 00:23 | NUR ---
PT RESTING WITH EYES CLOSED, RESP QUIET, NO DISTRESS NOTED, LEFT UNDISTURBED AT THIS TIME
--- NOTE | 2017-04-10 02:20 | NUR ---
PT RESTING WITH EYES CLOSED, RESP QUIET, NO DISTRESS NOTED, LEFT UNDISTURBED AT THIS TIME
--- NOTE | 2017-04-10 04:09 | NUR ---
PT RESTING WITH EYES CLOSED, RESP QUIET, NO DISTRESS NOTED, LEFT UNDISTURBED AT THIS TIME
--- NOTE | 2017-04-10 04:27 | NUR ---
PT PRIVATE WEALTH ADVISOR LIGHT, PT UP TO BR VIA WC WITH ASSISTANCE, PT VOIDED BY SELF WITH NO DIFFICULTY, PT BACK TO BED, BED IN LOW POSITION, SIDE RAILS X 2, CALL LIGHT IN REACH, DENIES FURTHER NEEDS
--- NOTE | 2017-04-10 05:15 | NUR ---
PT RESTING WITH EYES CLOSED, AROUSES TO SOFT VERBAL STIMUALTION, ADM 0600 MED PO PER MD ORDERS, SEE EMAR, PT DENIES NEEDS OR PAIN AT THIS TIME, BED IN LOW POSITION, SIDE RAILS X 2, CALL LIGHT IN REACH
[2017-04-10 06:37] LABS: BASOPHILS 0.2 % (0-2); EOSINOPHILS 4.3 % (0-7); HEMATOCRIT 34.9 % (36.0-48.0); HEMOGLOBIN 11.6 g/dL (12-16); IMMATURE GRANULOCYTES 0.5 % (0-5); LYMPHOCYTES 31.5 % (15-50); MCH 26.9 pg (26.0-34.0); MCHC 33.2 g/dL (31.0-37.0); MEAN PLATELET VOLUME 11.2 fL (7.4-10.4); MONOCYTES 9.3 % (2-11); NEUTROPHILS 54.2 % (40-80); PLATELET COUNT 132 10x3/uL (130-400); RBC 4.31 10x6/uL (4.00-5.40); RDW 15.8 % (11.5-14.5); WBC 6.4 10x3/uL (4.8-10.8)
--- NOTE | 2017-04-10 06:58 | NUR ---
SHIFT REPORT TO DAY SHIFT
[2017-04-10 07:01] LABS: CALC OSMOLALITY 275 mosm/kg (275-300); CALCIUM 8.5 mg/dL (8.5-10.1); CARBON DIOXIDE 28.7 mmol/L (21.0-32.0); CHLORIDE - SERUM 100 mmol/L (98-107); CREATININE - SERUM 0.7 mg/dL (0.6-1.3); GLUCOSE 104 mg/dL (74-106); POTASSIUM - SERUM 3.1 mmol/L (3.5-5.1); SODIUM 138 mmol/L (136-145); UREA NITROGEN 12 mg/dL (7-18); eGFR NON AFRICAN AMERICAN 87 mL/min (90-120)
--- NOTE | 2017-04-10 08:00 | NUR ---
SITTING UP IN BED.EATING BREAKFAST.CL IN REACH.
[2017-04-10 08:10] VITALS: BP 114/42
--- NOTE | 2017-04-10 12:00 | NUR ---
PT UP IN WHEELCHAIR EATING LUNCH TOLERATING WELL WILL MONITER CALL LIGHT IN REACH
--- NOTE | 2017-04-10 13:00 | NUR ---
RD f/u note. pt visited and chart reviewd Pt c/o constipation, would like prune juice in am. says she usually uses metamucille at home. consume 81 % average of 12 meals on AHA low fat ,low cholesterol diet, with po range of 50-100%. Meds, labs, notes and skin reviewed. Will add pt request. Continue to follow
--- NOTE | 2017-04-10 14:16 | NUR ---
CARE TEAM MEETING: TENATIVE DISCHARGE PLANS ARE FOR PATIENT TO RETURN HOME AND TENATIVE DISCHARGE DATE IS 04/17/17.WILL CONTINUE TO FOLLOW WITH PATIENT
--- NOTE | 2017-04-10 18:02 | NUR ---
PT RESTING IN BED WITH EYES OPEN CALL LIGHT IN REACH NO PROBLEMS WILL MONITER
--- NOTE | 2017-04-10 19:30 | NUR ---
PT. IN BED WITH HOB UP FOR COMFORT AND IS WATCHING TV. ASSESSMENT COMPLETED. NO VOICED NEEDS AT THIS TIME AND HER CALL LIGHT IS WITHIN REACH.
[2017-04-10 20:15] VITALS: BP 139/55
--- NOTE | 2017-04-10 23:25 | NUR ---
PT. IN BED LYING ON HER LEFT SIDE. EYES CLOSED AND RESP. EVEN. CALL LIGHT WITHIN REACH.
--- NOTE | 2017-04-11 03:20 | NUR ---
PT. IN BED LYING ON HER SIDE WITH EYES CLOSED AND RESP. EVEN. CALL LIGHT WITHIN REACH.
--- NOTE | 2017-04-11 07:55 | NUR ---
PT UP EATING BREAKFAST, TALKING ON PHONE, DENEIS NEEDS. WCTM.
--- NOTE | 2017-04-11 09:48 | NUR ---
PT AM MEDICATIONS ADMINISTERED. PT DENIES NEEDS. WCTM.
[2017-04-11 09:59] VITALS: BP 141/64
--- NOTE | 2017-04-11 17:50 | NUR ---
PT EATING DINNER, DENIES NEEDS. WCTM.
[2017-04-11 20:00] VITALS: BP 102/51
--- NOTE | 2017-04-11 23:15 | NUR ---
PT. IN BED LYING ON HER LEFT SIDE. EYES CLOSED AND RESP. EVEN. CALL LIGHT WITHIN REACH.
--- NOTE | 2017-04-12 03:01 | NUR ---
PT. IN BED LYING ON HER LEFT SIDE. EYES CLOSED AND RESP. EVEN. CALL LIGHT WITHIN REACH.
[2017-04-12 06:50] LABS: BASOPHILS 0.2 % (0-2); EOSINOPHILS 4.4 % (0-7); HEMATOCRIT 32.4 % (36.0-48.0); HEMOGLOBIN 10.7 g/dL (12-16); IMMATURE GRANULOCYTES 0.4 % (0-5); LYMPHOCYTES 32.9 % (15-50); MCH 26.7 pg (26.0-34.0); MCV 80.8 fL (80.0-100.0); MEAN PLATELET VOLUME 10.6 fL (7.4-10.4); MONOCYTES 8.6 % (2-11); NEUTROPHILS 53.5 % (40-80); PLATELET COUNT 120 10x3/uL (130-400); RBC 4.01 10x6/uL (4.00-5.40); RDW 15.9 % (11.5-14.5); WBC 5.7 10x3/uL (4.8-10.8)
[2017-04-12 07:03] LABS: ANION GAP 8.4 mmol/L (8-16); CALCIUM 8.5 mg/dL (8.5-10.1); CARBON DIOXIDE 30.6 mmol/L (21.0-32.0); CREATININE - SERUM 0.8 mg/dL (0.6-1.3)
[2017-04-12 08:43] VITALS: BP 116/73
--- NOTE | 2017-04-12 09:30 | NUR ---
PT AM MEDS ADMINISTERED. PT DENIES NEEDS. WCTM.
--- NOTE | 2017-04-12 11:35 | NUR ---
PT REQ AND REC'D PRN PAIN MEDICATION. WCTM.
--- NOTE | 2017-04-12 12:35 | NUR ---
PT C/O NAUSEA. PT GIVEN PRN ZOFRAN. WCTM.
--- NOTE | 2017-04-12 17:04 | NUR ---
PT RESTING, EYES CLOSED. BED LOW. CL IN REACH.
[2017-04-12 19:00] VITALS: BP 105/48
--- NOTE | 2017-04-12 19:15 | NUR ---
PT IN BED WITH HOB UP FOR COMOFRT. WATCHING TV. ALERT & ORIENTED. NO O2. NO IV. STAND BY ASSIST. RIGHT FOOT THERAPEUTIC WRAP. BED IN LOWEST POSITION AND CALL LIGHT WITHIN REACH.
--- NOTE | 2017-04-12 23:10 | NUR ---
PT IN BED WITH HOB UP FOR COMOFRT. EYES CLOSED. CHEST RISING AND FALLING. BED IN LOWEST POSITION AND CALL LIGHT WITHIN REACH.
--- NOTE | 2017-04-13 03:00 | NUR ---
PT LYING IN BED. EYES CLOSED. CHEST RISING AND FALLING. BED ALARM ON. BED IN LOWEST POSITION AND CALL LIGHT WITHIN REACH.
--- NOTE | 2017-04-13 05:23 | NUR ---
RESTING IN BED WITH EYES CLOSED AT THIS TIME. NO S/S OF DISTRESS OBSERVED. CONTINUES TO HAVE CLINICIAN TAPE TO RIGHT FOOT D/T WEAKNESS. CALL LIGHT IN REACH.
[2017-04-13 08:59] VITALS: BP 114/68
--- NOTE | 2017-04-13 09:20 | NUR ---
PT AM MEDS ADMINISTERED. PT DENIES NEEDS AT THIS TIME. WCTM.
--- NOTE | 2017-04-13 12:25 | NUR ---
PT GIVEN PRN SUPPOSITORY. PT HAD BM 25 MINUTES LATER. PT C/O OF SOB AND WEAKNESS. PT NOW RESTING IN BED. WCTM.
--- NOTE | 2017-04-13 18:00 | NUR ---
PT SHOWERED AND READY FOR BED. PT DENEIS NEEDS. WCTM.
--- NOTE | 2017-04-13 19:45 | NUR ---
PT IN BED WITH HOB UP FOR COMFORT. WATCHING TV. ALERT & ORIENTED. NO O2. NO IV. STAND BY ASSIST. RIGHT FOOT THERAPEUTIC WRAP. PT STATES SHE IS HAVING PAIN 6/10 IN HER STOMACH AND BACK AND REQUESTED A "PAIN PILL". BED IN LOWEST POSITION AND CALL LIGHT WITHIN REACH.
[2017-04-13 20:00] VITALS: BP 130/63
--- NOTE | 2017-04-13 23:45 | NUR ---
PT IN BED WITH HOB UP FOR COMFORT. EYES CLOSED. CHEST RISING AND FALLING. BED IN LOWEST POSITION AND CALL LIGHT WITHIN REACH.
--- NOTE | 2017-04-14 01:05 | NUR ---
RESTING IN BED WITH EYES CLOSED. NO S/S OF DISTRESS OBSERVED. HOB ELEVATED. CALL LIGHT AND OVERBED TABLE IN REACH.
--- NOTE | 2017-04-14 04:13 | NUR ---
PT LYING IN BED. EYES CLOSED. CHEST RISING AND FALLING. BED IN THE LOWEST POSITION AND CALL LIGHT WITHIN REACH.
--- NOTE | 2017-04-14 08:50 | NUR ---
PT AM MEDS ADMINISTERED. PT DENIES NEEDS AT THIS TIME. BED LOW. CL IN REACH.
--- NOTE | 2017-04-14 11:42 | NUR ---
PT UP IN , HARLEY NEEDS. WCTM. ;
[2017-04-14 11:55] VITALS: BP 144/59
--- NOTE | 2017-04-14 18:28 | NUR ---
PT RESTING IN BED, DENIES NEEDS. WCTM.
[2017-04-14 20:00] VITALS: BP 116/59
--- NOTE | 2017-04-14 20:00 | NUR ---
PT IN BED WITH HOB UP FOR COMFORT. WATCHING TV. ALERT & ORIENTED. NO O2. NO IV. STAND BY ASSIST. RIGHT FOOT THERAPEUTIC WRAP. PT STATES SHE IS FEELING A LITTLE NAUSEOUS. BED IN LOWEST POSITION AND CALL LIGHT WITHIN REACH.
--- NOTE | 2017-04-15 | NUR ---
PT LYING IN BED WITH HOB UP FOR COMFORT. EYES CLOSED. BED IN LOWEST POSITION AND CALL LIGHT WITHIN REACH.
--- NOTE | 2017-04-15 03:36 | NUR ---
RESTING IN BED WITH EYES CLOSED. NO S/S OF DISTRESS OBSERVED. HOB ELEVATED PER PT PREFERENCE. CALL LIGHT AND OVERBED TABLE IN REACH.
[2017-04-15 06:09] LABS: BASOPHILS 0.2 % (0-2); HEMATOCRIT 34.2 % (36.0-48.0); HEMOGLOBIN 11.3 g/dL (12-16); IMMATURE GRANULOCYTES 0.2 % (0-5); LYMPHOCYTES 33.8 % (15-50); MCH 27.2 pg (26.0-34.0); MCV 82.4 fL (80.0-100.0); MEAN PLATELET VOLUME 11.4 fL (7.4-10.4); MONOCYTES 5.1 % (2-11); NEUTROPHILS 56.7 % (40-80); PLATELET COUNT 122 10x3/uL (130-400); RBC 4.15 10x6/uL (4.00-5.40); RDW 16.5 % (11.5-14.5); WBC 6.1 10x3/uL (4.8-10.8)
--- NOTE | 2017-04-15 06:44 | NUR ---
PT UP IN BED WITH HOB UP FOR COMFORT. WATCHING TV. BED IN LOWEST POSITION AND CALL LIGHT WITHIN REACH.
[2017-04-15 06:49] LABS: CALCIUM 8.8 mg/dL (8.5-10.1); CARBON DIOXIDE 29.3 mmol/L (21.0-32.0); CREATININE - SERUM 0.9 mg/dL (0.6-1.3); POTASSIUM - SERUM 4.3 mmol/L (3.5-5.1)
[2017-04-15 08:13] VITALS: BP 125/67
--- NOTE | 2017-04-15 09:20 | NUR ---
PT AM MEDS ADMINISTERED. PT DENIES NEEDS AT THIS TIME. WCTM.
--- NOTE | 2017-04-15 19:20 | NUR ---
PT. IN BED WITH HOB UP FOR COMFORT AND IS WATCHING TV. ASSESSMENT COMPLETED. NO VOICED NEEDS AT THIS TIME. CALL LIGHT WITHIN REACH.
[2017-04-15 22:32] VITALS: BP 125/59
--- NOTE | 2017-04-15 23:15 | NUR ---
PT. IN BED LYING ON HER LEFT SIDE. EYES CLOSED AND RESP. EVEN. CALL LIGHT WITHIN REACH.
--- NOTE | 2017-04-16 03:03 | NUR ---
PT. IN BED LYING ON HER LEFT SIDE WITH EYES CLOSED AND RESP. EVEN. CALL LIGHT REMAINS WITHIN REACH.
--- NOTE | 2017-04-16 08:00 | NUR ---
SITTING UP IN W/C. DENIES PAIN. BREAKFAST TRAY IN ROOM.
[2017-04-16 09:49] VITALS: BP 123/62
--- NOTE | 2017-04-16 12:01 | NUR ---
EATING LUNCH IN ROOM. UP WITH MIN ASST TO TRANSFER TO TOILET. DENIES NEEDS.
[2017-04-16 13:16] VITALS: BMI 23.6
--- NOTE | 2017-04-16 18:39 | NUR ---
RESTING QUIETLY IN BED. PAIN LEVEL IMPROVED FROM EARLIER PAIN MEDS. DENIES NEEDS. CALL LIGHT IN REACH. BED IN LOWEST POSITION.
--- NOTE | 2017-04-16 19:20 | NUR ---
PT. IN BED WITH HOB UP FOR COMFORT AND IS WATCHING TV. ASSESSMENT COMPLETED. NO VOICED NEEDS AT THIS TIME. CALL LIGHT IS WITHIN REACH.
[2017-04-16 22:02] VITALS: BP 134/62
[2017-04-16 22:04] VITALS: BP 135/72
--- NOTE | 2017-04-16 23:01 | NUR ---
PT. IN BED WITH HOB UP FOR COMFORT WITH EYES CLOSED AND RESP. DEEP AND EVEN. CALL LIGHT WITHIN REACH.
--- NOTE | 2017-04-17 03:00 | NUR ---
PT. IN BED WITH HOB UP FOR COMFORT WITH EYES CLOSED AND RESP. EVEN. CALL LIGHT REMAINS WITHIN REACH.
[2017-04-17 05:52] LABS: BASOPHILS 0.2 % (0-2); EOSINOPHILS 3.9 % (0-7); HEMATOCRIT 35.6 % (36.0-48.0); HEMOGLOBIN 11.6 g/dL (12-16); MCH 26.9 pg (26.0-34.0); MCHC 32.6 g/dL (31.0-37.0); MCV 82.4 fL (80.0-100.0); MEAN PLATELET VOLUME 10.9 fL (7.4-10.4); MONOCYTES 8.1 % (2-11); NEUTROPHILS 45.8 % (40-80); PLATELET COUNT 122 10x3/uL (130-400); RBC 4.32 10x6/uL (4.00-5.40); RDW 16.4 % (11.5-14.5); WBC 4.6 10x3/uL (4.8-10.8)
[2017-04-17 06:34] LABS: ANION GAP 13.2 mmol/L (8-16); CALCIUM 8.8 mg/dL (8.5-10.1); CARBON DIOXIDE 28.6 mmol/L (21.0-32.0); CREATININE - SERUM 0.8 mg/dL (0.6-1.3); POTASSIUM - SERUM 3.8 mmol/L (3.5-5.1)
[2017-04-17 08:00] VITALS: BP 115/60
--- NOTE | 2017-04-17 08:22 | RHP ---
PATIENT: LOVE JAMES MEDICAL RECORD: [id number] ACCOUNT: [id number] LOCATION:[facility] [id number] ADMISSION DATE: 04/05/17 REHABILITATION HISTORY AND PHYSICAL EXAMINATION POST ADMISSION PHYSICIAN EXAMINATION Post-admission Physical Examination and History and Physical DATE OF ADMISSION: 04/05/2017 ADMITTING DIAGNOSES: Acute exacerbation of chronic obstructive pulmonary disease. HISTORY OF PRESENT ILLNESS: The patient was admitted to inpatient rehab for pulmonary impairment group of acute exacerbation of COPD. She is a 76-year-old female patient with hypertension, hyperlipidemia, diabetes, degenerative joint disease, chronic back pain, CVA, obstructive sleep apnea, gastroesophageal reflux disease, coronary artery disease, fibromyalgia. She is status post CABG; has questionable breast carcinoma in the past and a recent hospital stay for syncope and UTI, was seen in the rehabilitation now for shortness of breath. She has a history of pneumonia times 2 in the past, occasional bronchitis, chronic rhinitis, sinusitis. She smoked until about 30 years ago up to 2 packs per day. She got a positive family history of COPD. The patient complained of increasing shortness of breath on Saturday and Saturday, developed some wheezing, tried inhalers, but these did not improve. She had some dyspnea with activity, worse with hot and humid weather, increased nocturnal dyspnea. She had a nonproductive cough after initially had some green, yellow sputum production. She has subjective low-grade fever and chills. She denied any aspiration. Because of some reflux symptoms, she had some vague chest discomfort, but nothing new. Prior to admission, she was living with her daughter and was moderately independent with a rolling walker. She is independent with ADLs; however, daughter does cook for her. She is currently max assist with ambulation, moderate to max assist for ADLs. She is on O2, which is new to her. She needs O2 secondary to be able to ambulate. She will require intensive therapy with PT and OT in order to get to her prior level of functioning. She will also require RN's care and oversight as well as MD to see her minimum of 3-5 days a week to medically manage all of her comorbidities. COMORBIDITIES: In this patient include coronary artery disease, COPD, chest pain, allergic rhinitis, gastroesophageal reflux disease, history of amyloidoma, chest pain, syncope, osteoarthritis, fibromyalgia, electrolyte abnormalities. PAST MEDICAL HISTORY: Significant for vertigo, allergies, diabetes, CHF, [place] in the past, breast cancer, depression, degenerative joint disease, hyperlipidemia, chronic back pain, obstructive sleep apnea, and fibromyalgia. PAST SURGICAL HISTORY: Includes colon surgery, cataract surgery, hysterectomy, heart catheterization with stents, coronary artery bypass grafting. She has had 2 ribs removed in the past, and abdominal hernia repair. ALLERGIES: No known drug allergies. CURRENT MEDICATIONS: Include calcium 500 mg as needed, hydrochlorothiazide 12.5 mg daily, Cozaar 50 mg daily, metformin XR 500 mg b.i.d. with meals, Pravachol 40 mg daily, Protonix 40 mg daily, Imdur 30 mg daily, Lexapro 20 mg daily, HISTORY AND PHYSICAL [id number] LOVE JAMES ZIGGY Plavix 75 mg daily, aspirin chewable 81 mg daily, Desyrel 150 mg q.h.s., Carafate 1 gram b.i.d., Nitrostat p.r.n., Lopressor 12.5 mg b.i.d., [place] 10/325 q.4 hours p.r.n. pain, ferrous sulfate 325 mg t.i.d., Vibramycin 100 mg b.i.d., and polyethylene glycol 17 grams in 8 ounces of water daily. HABITS: No current alcohol or tobacco use. FAMILY HISTORY: Noncontributory. SOCIAL HISTORY: The patient hopes to return back home with family and get back to her prior level of functioning. REVIEW OF SYSTEMS: GENERAL: Does complain of weakness. HEENT: Denies cold, cough, or congestion. CARDIOVASCULAR: Denies any chest pain at this time. LUNGS: Does complain of shortness of breath. PHYSICAL EXAMINATION: VITAL SIGNS: Stable, afebrile. GENERAL: Elderly female, in no acute distress, alert upon exam. HEENT: Normocephalic and atraumatic. Mucosa moist. NECK: Supple. No lymphadenopathy. LUNGS: Clear in upper ramos, but decreased breath sounds at the bases. CARDIOVASCULAR: Regular rate and rhythm. ABDOMEN: Benign. EXTREMITIES: No clubbing, cyanosis or edema. NEUROLOGIC: Intact. LABORATORY DATA: White count 11,000, H&H 13 and 39, and platelet count was noted to be 170. Sodium 134, potassium 3.6, BUN and creatinine of 23 and 1.0 and blood sugar is noted to be 105. ASSESSMENT: This 76-year-old female patient admitted to rehab with a working diagnosis of acute exacerbation of chronic obstructive pulmonary disease. The patient has potential to make improvement. We instituted the following multiple disciplinary therapies including to but not limited to physical, occupational, respiratory, speech, nutritional services, prosthetics and orthotics. Given her complex condition and risk for more complications, rehabilitation services cannot be provided at a low level of care such as a long-term facility. PLAN: 1. Admit to [facility] rehab for intensive inpatient therapy to include the following disciplines: A. Physical therapy to improve gait, all transfer skills and bed mobility to a modified independent level. B. Occupational therapy to improve activities of daily living to a modified independent level. C. Case management to assist with discharge planning and placement options. D. Nutrition to assist with nutritional needs. E. Rehabilitation nursing to assist in monitoring the patient's underlying medical conditions and to assist with any type of bowel or bladder management. 2. The patient's current medications and medical care will be continued. 3. The patient will be placed on fall precautions. 4. The patient's estimated length of stay is approximately 7-10 days. HISTORY AND PHYSICAL [id number] LOVE JAMES 5. Discuss this patient during care team staff meeting this week. TRANSINT:[id number] Voice Confirmation ID: [id number] DOCUMENT ID: [id number] JAIME notes whether there has been none or any medical/functional change since admission: - No change since prescreen. JAIME attests patient continues to be appropriate for IRF: - Continues to be appropriate. ANAY EDEN MD at 0822 CC: [id number] DICTATION DATE: 04/06/17 1216 [employer] SALES REPRESENTATIVE: 04/06/17 1310 [place] [id number]
--- NOTE | 2017-04-17 08:47 | NUR ---
RESTING QUIETLY IN BED. DENIES NEEDS OR C/O. CALL LIGHT IN REACH. BED IN LOWEST POSITION.
--- NOTE | 2017-04-17 10:27 | NUR ---
DR. Venecia EDEN IN. NEW ORDERS RECEIVED.
--- NOTE | 2017-04-17 11:25 | NUR ---
PATIENT DISCHARING HOME TODAY AND [facility] WILL RESUME OF PATIENT AT HOME. NO NEW DME NEEDED AT THIS TIME.DR. SCHMITZ 04/23/17 @ 10:20. PATIENT CHOICE FORM FOR HOME HEALTH AND [facility] FORM SIGNED, EXPLAINED AND FILED IN CHART. ORDERS HAVE BEEN FAXED WITH CONFORMATION RECIEVED
--- NOTE | 2017-04-17 12:20 | NUR ---
[facility] HERE TO TAKE PATIENT FOR SHOULDER XRAY
--- NOTE | 2017-04-17 13:28 | NUR ---
NEBULIZER ORDERED FROM [facility] AND APPOINTMENT WITH DR. FALL 07/24/17 @ 10:15
--- NOTE | 2017-04-17 13:45 | NUR ---
DISCHARGE MEDICATIONS PATIENT DOES NOT HAVE AT HOME CALLED INTO [facility] ON [address]. DISCHARGE INSTRUCTIONS GONE OVER WITH PATIENT AND DAUGHTER
--- NOTE | 2017-04-17 14:27 | NUR ---
PATIENTS DAUGHTER HERE TO TAKE PATIENT HOME. RESULTS OF SHOULDER X-RAY BACK. NEGATIVE. PATIENT HELPED OUT TO CAR BY STAFF
--- NOTE | 2017-06-03 12:07 | DS ---
PATIENT:LOVE JAMES :44 MEDICAL RECORD: [id number] DISCHARGE SUMMARY ADMISSION DATE: 04/05/17 DISCHARGE DATE: 04/17/17 This is a discharge dated 04/17/2017 from inpatient rehab. PRIMARY DIAGNOSES: Decreased functional ability and ability to provide activities of daily living secondary to acute exacerbation of chronic obstructive pulmonary disease. SECONDARY DIAGNOSES: 1. Hypertension. 2. Hyperlipidemia. 3. Coronary artery disease. 4. Gastroesophageal reflux disease. 5. Obstructive sleep apnea. 6. Diabetes. 7. Degenerative joint disease. 8. Osteoarthritis. 9. Fibromyalgia. 10. Congestive heart failure. 11. History of breast cancer. 12. Depression. 13. Pneumonia. 14. Hypokalemia. 15. Iron-deficiency anemia. HOSPITAL COURSE: Full H&P is located elsewhere on the chart on this 76-year-old female who was admitted to inpatient rehab for physical therapy and occupational therapy to improve gait, transfer skills, bed mobility, and activities of daily living to a modified independent level. She was evaluated by PT and OT and their plans of care were followed. She required chcf care for observation and assessment, medication administration. Electrolytes were managed by protocol. Fingerstick blood sugars were monitored throughout her hospital stay with appropriate adjustment in medications as needed. She remained on appropriate home medications. She was started on doxycycline for antibiotic coverage for pneumonia and she was on nebulized medications for respiratory support. She was cooperative with therapies, progressing towards goals. Case management was involved for discharge planning. She was considered stable for discharge on 04/17/2017. DISCHARGE MEDICATIONS: As per discharge medication reconciliation. DISCHARGE DISPOSITION: The patient is discharged home. She will continue her current diet and level of activity and will follow up with primary care in 7 to 10 days. She will have home health for continued PT and OT and will follow with the specialist as directed. At least 30 minutes was spent in this discharge activity. TRANSINT:[id number] Voice Confirmation ID: [id number] DOCUMENT ID: [id number] Dictated By: ERASMO GONZALES I have interviewed/examined the above patient and agree with these documented DISCHARGE SUMMARY REPORT [id number] LOVE JAMES findings. ANAY EDEN MD at 1207 at 1049 CC: [id number] DICTATION DATE: 06/02/171747 CARPENTER FOREMAN: 06/02/17 185 DIS IN 04/17/17 [place] [id number] [place] [id number]
== END 2017-04-17 14:29 | disposition home health service (06) | DRG 192 ==
LOC: D.REHAB 16:30
PROVIDERS: ADMIT Emergency Medicine
DX: J44.1 Chronic obstructive pulmonary disease with (acute) exacerbation (principal); I25.10 Atherosclerotic heart disease of native coronary artery without angina pectoris; K21.9 Gastro-esophageal reflux disease without esophagitis; R07.9 Chest pain, unspecified; J30.9 Allergic rhinitis, unspecified; R55 Syncope and collapse; M19.90 Unspecified osteoarthritis, unspecified site; M79.7 Fibromyalgia; E87.8 Other disorders of electrolyte and fluid balance, not elsewhere classified; I10 Essential (primary) hypertension; E11.9 Type 2 diabetes mellitus without complications; G47.33 Obstructive sleep apnea (adult) (pediatric); G89.29 Other chronic pain

== ENCOUNTER 2017-04-19 10:07 | Outpatient (CLI) | payer MEDICARE ==
--- NOTE | ~2017-04-19 | HEMODYNAMI ---
PATIENT:LOVE JAMES MEDICAL RECORD: [id number] : 44 LOCATION:[facility] ADMISSION DATE: 04/19/17 Generatedon:04/19/201713:31 Patient name: LOVE JAMES Patient #: [id number] SSN: D OB: 1940 Date of study: 04/19/2017 Page: Of Hemodynamic Procedure Report Patient Data Patient Demographics Procedure consent was obtained First Name: LOVE Gender: Female Last Name: JACOB : 1940 Middle Initial: ZIGGY Age: 76 year(s) Patient #: [id number] Race: Additional ID: [id number] Contact details Address: [address] [place] [address] State: [place] City: [place] Zip code: [address] Past Medical History History of disease Date Diagnosis Comments CAD Valvular heart disease TIA Allergies Allergen Reaction Date Comments Reported Statins 09/10/2016 Admission Admission Data Admission Date: 04/19/2017 Admission Time: 10:07 Procedure Procedure Types Cath Procedure Diagnostic Procedure LHC LHC w/Coronaries w/Grafts FFR/IVUS Intra-Coronary IVUS Initial PCI Procedure Coronary Stent Initial PTCA Initial Miscellaneous Procedures Moderate Sedation up to 15 minutes Procedure Description Procedure Date Procedure Date: 04/19/2017 Procedure Start Time: 12:59 Procedure End Time: 13:30 Procedure Staff Name Function Dallin Lewis MD Performing Physician Shay Clarke RN Nurse Davida Herring RT Scrub Connor Awan RT Monitor Procedure Data Cath Procedure Fluoroscopy Diagnostic fluoroscopy Total fluoroscopy Time: 9.4 time: 9.4 min min Diagnostic fluoroscopy Total fluoroscopy dose: 826 dose: 826 mGy mGy Contrast Material Contrast Material Type Amount (ml) Isovue 300 104 Entry Location Entry Primary Successful Side Size Upsize Upsize Entry Closure Succes sful Closure Location (Fr) 1 (Fr) 2 (Fr) Remarks Device Remarks Femoral Left 6 Fr Exoseal artery Short Estimated blood loss: 10 ml Diagnostic catheters Device Type Used For End Catheter Placement Cordis 5Fr Pigtail Procedure Catheter (MP) Diagnostic Infinity 5Fr Procedure AR 2 MOD catheter Cordis 5Fr 3DRC Catheter Procedure (MP) Procedure Complications No complications Procedure Medications Medication Administration Route Dosage Oxygen NC 2 l/min Lidocaine 2% added to field 20 Heparin Flush Bag added to field 2 bags (1000units/500ml NS) 0.9% NaCl I.V. 100 ml/hr Plavix P.O. 75 mg Versed I.V. 1 mg Fentanyl I.V. 50 mcg Versed I.V. 1 mg Fentanyl I.V. 50 mcg Versed I.V. 0.5 mg Fentanyl I.V. 25 mcg Heparin Bolus I.V. 4000 units Hemodynamics Rest Heart Rate: 73 (bpm) Snapshots Pre Cath Intra NCS Post Cath Vital Signs Time Heart Resp SPO2 etCO2 [id number] NIBP (mmHg) Rhythm Pain Sedation Rate (ipm) (%) (mmHg) (mmHg) Status Level (bpm) 12:35:43 71 16 98 0 0 136/55(103) NSR 0 (11) 10(A) , No pain 12:40:23 69 21 98 0 0 111/42(72) NSR 0 (11) 10(A) , No pain 12:45:02 68 18 98 0 0 75/40(63) NSR 0 (11) 10(A) , No pain 12:50:11 68 17 98 0 0 91/43(58) NSR 0 (11) 10(A) , No pain 12:54:46 68 16 98 0 0 80/38(69) NSR 0 (11) 10(A) , No pain 12:59:16 70 17 96 0 0 85/46(60) NSR 0 (11) 10(A) , No pain 13:03:48 72 17 96 0 0 96/45(74) NSR 0 (11) 9(A) , No pain 13:08:25 70 19 97 0 0 91/43(61) NSR 0 (11) 9(A) , No pain 13:13:00 77 16 97 0 0 92/47(62) NSR 0 (11) 10(A) , No pain 13:18:06 79 19 96 0 0 108/49(72) NSR 0 (11) 10(A) , No pain 13:23:06 81 21 96 0 0 Measuring NSR 0 (11) 10(A) , No pain 13:23:14 83 22 97 0 0 132/70(102) NSR 0 (11) 10(A) , No pain 13:28:13 73 8 97 0 0 Measuring NSR 0 (11) 10(A) , No pain 13:28:37 71 8 97 0 0 130/51(87) NSR 0 (11) 10(A) , No pain Medications Time Medication Route Dose Verified Delivered Reason Notes Effectiveness by by 12:28:52 Plavix P.O. 75 mg Dallin Buffie for Debbie Clarke RN antiplatelet therapy 12:29:34 Oxygen NC 2 Dallin Buffie used for l/min Debbie Clarke RN procedure 12:29:41 Lidocaine 2% added 20ml Dallin Dallin for local to vial Debbie Lewis MD anesthetic field 12:29:50 Heparin Flush added 2 Dallin Dallin used for Bag to bags Debbie Lewis MD procedure (1000units/500ml field NS) 12:30:01 0.9% NaCl I.V. 100 Dallin Buffie Per physician ml/hr Debbie Clarke RN 12:55:49 Versed I.V. 1 mg Dallin Buffie for sedation Debbie Clarke RN 12:55:55 Fentanyl I.V. 50 Dallin Buffie for sedation mcg Debbie Clarke RN 13:00:35 Versed I.V. 1 mg Dallin Buffie for sedation Debbie Clarke RN 13:00:39 Fentanyl I.V. 50 Dallin Buffie for sedation mcg eDbbie Clarke RN 13:04:24 Versed I.V. 0.5 Dallin Buffie for sedation mg Debbie Clarke RN 13:04:30 Fentanyl I.V. 25 Dallin Buffie for sedation mcg Debbie Clarke RN 13:07:14 Heparin Bolus I.V. 4000 Dallin Day for verifi ed units Debbie Clarke RN anticoagulation with dr lewis Procedure Log Time Note 12:04:02 H&P Date Dictated: 04/19/2017 Within 30 days and on chart., H&P Addendum completed by physician on day of procedure. (MUST COMPLETE FOR ALL OUTPATIENTS). 12:12:04 Connor MURPHY(R) sent for patient. Start room use. 12:12:19 Time tracking: Regular hours 12:12:33 Plan of Care:Hemodynamics will remain stable., Cardiac rhythm will remain stable., Comfort level will be maintained., Respiratory function will remain adequate., Patient/ family verbilizes understanding of procedure., Procedure tolerated without complication., Recovers from procedure without complications.. 12:23:30 Patient received from ED to CCL 1 Alert and oriented. Tansferred to table in Supine position. 12:23:31 Warm blankets applied, and dorys hugger turned on for patient comfort. 12:23:32 Correct patient and procedure confirmed by team. 12:23:34 Signed procedure consent form obtained from patient. 12:23:36 ECG and BP/O2 sat monitors applied to patient. 12:28:52 Plavix 75 mg P.O. was administered by Shay Clarke RN; for antiplatelet therapy; 12::34 Oxygen 2 l/min NC was administered by Shay Clarke RN; used for procedure; 12:29:41 Lidocaine 2% 20ml vial added to field was administered by Dallin Lewis MD; for local anesthetic; 12:29:50 Heparin Flush Bag (1000units/500ml NS) 2 bags added to field was administered by Dallin Lewis MD; used for procedure; 12:30:01 0.9% NaCl 100 ml/hr I.V. was administered by Shay Clarke RN; Per physician; 12:30:05 Vital chart was started 12:34:55 Baseline sample Acquired. 12:35:00 Rhythm: sinus rhythm 12:35:02 Full Disclosure recording started 12:35:04 Pre-procedure instructions explained to patient. 12:35:04 Pre-op teaching completed and patient verbalized understanding. 12:35:08 Family in waiting room. 12:35:09 Patient NPO since Midnight. 12:35:15 Is the patient allergic to Iodine/contrast media? No. 12:35:17 Is patient on blood thinner?Yes 12:35:20 ACC The patient was administered the following blood thiners within the last 24 hours: ACCPlavix 12:35:31 Patient diabetic? Yes. 12:35:33 If diabetic: On Metformin? Yes 12:35:35 If on Metformin: Last Dose? 04/18/2017 12:35:36 Patient not . Patient is over age 55. 12:35:38 Previous problem with sedation/anesthesia? No ? 12:35:39 Snore? Yes 12:35:43 Sleep apnea? No 12:35:45 Deviated septum? No 12:35:47 Sticks out tongue? Yes 12:35:54 Opens mouth fully? Yes 12:35:59 Airway obstruction? Yes COPD 12:36:03 Dentures? Yes IN 12:36:08 Pre procedure: left dorsailis pedis pulse 1+ Palpable, but thready & weak; easily obliterated 12:37:30 Going left groin due to prior procedure. Pt states right groin is still sore, bruising still visible to right groin. 12:37:34 Patient pain scale 0/10 ?. 12:37:41 IV patent on arrival in left forearm with 0.9% NaCl at [facility]. 12:37:43 Lab results completed and on chart. 12:37:58 Left groin area was prepped with chlora-prep and draped in sterile fashion 12:38:00 Alarms reviewed by R. N. 12:38:00 Sharps counted by scrub and verified by R.N. 12:40:38 Physician paged 12:40:47 Use device set Femoral Dx 12:40:50 Tegaderm 4 x 4 opened to sterile field. 12:40:51 Acist Hand Control opened to sterile field. 12:40:51 Acist Manifold opened to sterile field. 12:40:52 Acist Syringe opened to sterile field. 12:40:52 Bag Decanter opened to sterile field. 12:40:53 Medline Cath Pack opened to sterile field. 12:40:55 St El 260cm J .035 wire opened to sterile field. 12:40:56 Diagnostic Infinity 5Fr Multipack catheter opened to sterile field. 12:41:07 Terumo 6Fr Cleaton Sheath opened to sterile field. 12:55:04 --------ALL STOP TIME OUT------ 12:55:04 Final Timeout: patient, procedure, and site verified with staff and physician. All members of the team are in agreement. 12:55:07 Left groin site verified by team. 12:55:10 Physical assessment completed. ASA score P 2 - A patient with mild systemic disease as per Dallin Lewis MD. 12:55:14 Sedation plan: IV Moderate Sedation Versed, Fentanyl 12:55:49 Versed 1 mg I.V. was administered by Shay Clarke RN; for sedation; 12:55:55 Fentanyl 50 mcg I.V. was administered by Shay Clarke RN; for sedation; 12:59:17 Procedure started. 12:59:38 Local anesthetic to left femerol artery with Lidocaine 2% by Dallin Lewis MD.INITIAL ACCESS ONLY 13:00:35 Versed 1 mg I.V. was administered by Shay Clarke RN; for sedation; 13:00:39 Fentanyl 50 mcg I.V. was administered by Shay Clarke RN; for sedation; 13:00:55 A 6 Fr Short sheath was inserted into the Left Femoral artery 13:01:04 A Cordis 5Fr Pigtail Catheter (MP) was advanced over the wire and used for Procedure. 13:01:23 LV angiography performed. 13:01:24 LV gram done using PEREZ 13:01:33 EF : 50 % 13:01:46 Injector settings: Ml/sec: 10, Volume: 20, 13:01:51 Catheter removed. 13:01:57 A Diagnostic Infinity 5Fr AR 2 MOD catheter was advanced over the wire and used for Procedure. 13:02:28 SVG to Circ angiography performed. 13:02:41 RCA angiography performed. 13:02:43 Catheter removed. 13:03:29 A Cordis 5Fr 3DRC Catheter (MP) was advanced over the wire and used for Procedure. 13:03:54 CANCHOLA to LAD angiography performed. 13:03:58 Catheter removed. 13:04:24 Versed 0.5 mg I.V. was administered by Shay Clarke RN; for sedation; 13:04:27 6 Fr XBLAD 3.5 guide catheter was inserted over the wire 13:04:30 Fentanyl 25 mcg I.V. was administered by Shay Clarke RN; for sedation; 13:05:18 LCA angiography performed. 13:05:20 Cordis 6FR XBLAD 3.5 guide catheter opened to sterile field. 13:05:32 Merit BasixCompak Inflation Kit opened to sterile field. 13:06:39 Brewster Sci Choice PT Extra Support J 300cm .014 gu opened to sterile field. 13:07:14 Heparin Bolus 4000 units I.V. was administered by Shay Clarke RN; for anticoagulation; verified with dr lewis 13:07:23 Choice PT XS wire advanced. 13:08:00 Wire advanced across lesion. 13:08:54 Inflation number: 1 A Mozec Rx 3.0 x 14 balloon was prepped and advanced across the LMCA, then inflated to 15 IRAIDA for 0:10 (min:sec). 13:09:13 Multiple inflations made at 7 Atms. 13:09:56 Balloon removed over the wire. 13:09:57 Wire removed. 13:09:58 Guide catheter removed. 13:10:41 Proactive Business Solutionstronic Launcher 6Fr AR 1.0 guide catheter opened to sterile field. 13:10:50 Slanissue Choice PT Extra Support J 300cm .014 gu opened to sterile field. 13:10:51 [place] Mcgrath [place]ag[place] IVUS Catheter opened to sterile field. 13:11:21 6 Fr AR 1 guide catheter was inserted over the wire 13:11:31 Whisper wire advanced. 13:11:51 Stein Whisper J 300cm 0.014 guide wire opened to sterile field. 13:12:07 Wire advanced across lesion. 13:12:11 IVUS catheter advanced over wire. 13:13:30 IVUS pass to RCA lesion performed. 13:14:20 IVUS catheter removed over wire. 13:19:16 Inflation Number: 1 A Resolute Liberty RX 3.5x38 was prepped and advanced across the Prox RCA. The stent was deployed at 21 IRAIDA for 0:10 (min:sec). 13:19:50 Inflation number: 2 The stent balloon was then re-inflated across the Prox RCA to 15 IRAIDA for 0:10 (min:sec). 13:20:38 Stent catheter was removed intact over wire. 13:20:39 Wire removed. 13:20:39 Guide catheter removed. 13:22:12 Cordis 6Fr Exoseal opened to sterile field. 13:22:23 Sheath removed intact; hemostasis achieved with Exoseal to the Left Femoral artery. 13:22:26 Procedure ended.(Physican Out) 13:22:40 Fluoroscopy time 09.40 minutes. 13:22:46 Flurop Dose total: 826 13:22:46 Fluoroscopy dose: 826 mGy 13:22:50 Contrast amount:Isovue 300 104ml. 13:22:52 Sharps counted by scrub and verified by R.N. 13:22:53 Insertion/operative site no bleeding no hematoma. 13:23:00 Post-op/insertion site Left Femoral artery dressed using a 4 x 4 and Tegaderm. 13:23:02 Post Procedure Pulses reassessed and unchanged 13:23:05 Post-procedure physical assessment completed. ASA score P 2 - A patient with mild systemic disease as per Dallin Lewis MD. 13:23:08 Post procedure rhythm: unchanged. 13:23:11 Estimated blood loss: 10 ml 13:23:12 Post procedure instruction explained to patient.Patient verbalizes understanding. 13:23:13 Patient needs reinforcement of post procedure teaching. 13:23:35 Procedure type changed to Cath procedure, Diagnostic procedure, LHC, LHC w/Coronaries w/Grafts, FFR/IVUS, Intra-Coronary IVUS Initial, PCI procedure, Coronary Stent Initial, PTCA Initial, Miscellaneous Procedures, Moderate Sedation up to 15 minutes 13:23:40 Procedure Complication : No complications 13:29:31 IV Extension Set opened to sterile field. 13:29:45 Procedure and supply charges have been captured, reviewed, submitted and are correct. 13:30:31 Vital chart was stopped 13:30:31 See physician's report for complete and final results. 13:30:33 Report given to Pre/Post Procedure Room. 13:30:36 Patient transfered to Pre/Post Procedure Room with Stretcher. 13:30:38 Procedure ended. 13:30:38 Full Disclosure recording stopped 13:30:41 End room use (Document Last) Intervention Summary Intervention Notes Time ActionType Lesion and Equipment Action# Pressure Duration Attributes Used 13:08:54 Inflate LMCA Mozec Rx 1 15 00:10 balloon 3.0 x 14 balloon 13:19:16 Place stent Prox RCA Resolute 1 21 00:10 Brayan RX 3.5x38 13:19:50 Reinflate Prox RCA Resolute 2 15 00:10 stent Brayan RX balloon 3.5x38 Device Usage Item Name Manufacture Quantity Catalog Number [facility] Lot# / Charge Number Stock Stock Serial# Code Tegaderm 4 1 [id number] [id number] [id number] 5 x 4 Acist Hand Acist 1 79321 046808 493291 004113 5 mmCHANNEL Acist Acist 1 09804 219626 630819 039223 5 Manifold Medical Systems Inc Acist Acist 1 89588 605069 221473 798103 20 Syringe Medical Systems Inc Bag Microtek 1 2002S 176201 88050 023680 5 Decanter Medical Inc. Medline Cardinal 1 [id number] 725367 90247 573323 [address] [facility] El 1 374208 642018 093614 216549 30 260cm J .035 wire Diagnostic Cardinal 1 DC8890 139428 14971 068967 30 Infinity Health 5Fr Multipack catheter Terumo 6Fr Terumo 1 UIJ933 433025 480988 358826 40 Cleaton Sheath Cordis 5Fr Cardinal 1 163518 5 Pigtail Health Catheter (MP) Diagnostic Cardinal 1 [id number] 028226 147347 547613 20 Infinity Health 5Fr AR 2 MOD catheter Cordis 5Fr Cardinal 1 511228 5 3DRC Health Catheter (MP) Cordis 6FR Cardinal 1 [id number] 802477 066112 848658 10 XBLAD 3.5 Health guide catheter Merit Merit 1 HH0151 638182 360937 283264 15 BasixNautilus Solar [employer] Medical Inflation Kit Brewster Sci Brewster 2 [id number] 639346 966790 130826 5 Choice PT Scientific Extra Support J 300cm .014 gu Mozec Rx Cardinal 1 [id number] 868917 349701219 647381 5 UMOB04 3.0 x 14 Health balloon Medtronic Medtronic 1 [id number] 354301 76979 969431 1 Launcher 6Fr AR 1.0 guide catheter [place] 1 [id number] 800932 329213 616820 8 Mcgrath Eagleye IVUS Catheter Stein Stein 1 [id number] 979615 986334 063583 5 Whisper J Vascular 300cm 0.014 guide wire Resolute Unknown 1 0 0 [id number] Brayan RX 3.5x38 Cordis 6Fr Cardinal 1 EX600 610838 188713 085922 10 [facility] IV Hospira 1 92617-14 859748 64534 625878 5 Extension Set Signature Audit Temperance Stage Time Signature Unsigned Intra-Procedure 04/19/2017 Connor Awan 1:31:49 PM RT(R) Signatures Monitor : Connor Awan RT Signature : Date : Time : [address] [place] [address]
[2017-04-19 11:00] LABS: BASOPHILS 0.1 % (0-2); EOSINOPHILS 2.7 % (0-7); HEMATOCRIT 36.9 % (36.0-48.0); HEMOGLOBIN 12.2 g/dL (12-16); IMMATURE GRANULOCYTES 0.1 % (0-5); MCH 26.6 pg (26.0-34.0); MCHC 33.1 g/dL (31.0-37.0); MCV 80.6 fL (80.0-100.0); MEAN PLATELET VOLUME 11.3 fL (7.4-10.4); NEUTROPHILS 62.1 % (40-80); RBC 4.58 10x6/uL (4.00-5.40); WBC 6.8 10x3/uL (4.8-10.8)
[2017-04-19 11:01] LABS: PLATELET COUNT 165 10x3/uL (130-400)
[2017-04-19 11:28] LABS: ALBUMIN 3.6 g/dL (3.4-5.0); ALKALINE PHOSPHATASE 47 U/L (46-116); ALT (SGPT) 23 U/L (10-68); CALC OSMOLALITY 281 mosm/kg (275-300); CALCIUM 9.8 mg/dL (8.5-10.1); CARBON DIOXIDE 27.1 mmol/L (21.0-32.0); CHLORIDE - SERUM 102 mmol/L (98-107); GLUCOSE 119 mg/dL (74-106); POTASSIUM - SERUM 3.7 mmol/L (3.5-5.1); PROTEIN - SERUM 6.7 g/dL (6.4-8.2); SODIUM 141 mmol/L (136-145); UREA NITROGEN 12 mg/dL (7-18); eGFR NON AFRICAN AMERICAN 57 mL/min (90-120)
[2017-04-19 11:36] LABS: CKMB 0.1 U/L (0.0-3.6); CREATINE KINASE 28 UL (21-215); PRO BNP 97 pg/mL (0-125); TROPONIN-I < 0.017 ng/mL (0.000-0.060)
--- NOTE | 2017-04-19 16:14 | NUR ---
1400 LYING FLAT, NC 2L WHILE SLEEPING. NSR RATE 64 WNO C/O CHEST PAIN. PULSES PALP X 4. L GROIN 6F EXOSEAL C/D/I W NO HEMATOMA OR BLEEDING. DAUGHTER AT SIDE. SIPPING WATER W NO NAUSEA.
--- NOTE | 2017-04-19 16:17 | NUR ---
1430 CONTINUES TO REST, ALL VITALS WNL. PULSES PALP X 4. L GROIN 6F EXO C/D/I. 1510 VOIDED VIA BED GUAJARDO, DENIES NEEDS AT THIS TIME.
--- NOTE | 2017-04-19 16:31 | NUR ---
1630 HOB ELEVATED, EATING TURKEY SANDWICH. NSR RATE 77 WNO C/O CHEST PAIN. L GROIN REMAINS C/D/I W NO HEMATOMA OR BLEEDING. DAUGHTER AT BEDSIDE.
--- NOTE | 2017-04-19 17:08 | NUR ---
PIV REMOVED FROM LEFT WRIST WITH BANDAID APPLIED. L GROIN REMAINS C/D/I W NO HEMATOMA OR BLEEDING. UP TO BEDSIDE TO DRESS WITH ASSIST FROM DAUGHTER. D/C INSTRUCTIONS DISCUSSED WITH PATIENT AND DAUGHTER. WHEELED OUT VIA WHEELCHAIR BY CATH TEAM.
--- NOTE | 2017-05-10 16:56 | CN ---
PATIENT NAME:LOVE JAMES MEDICAL RECORD: [id number] : 44 LOCATION:D.CAT ADMIT DATE: ACCOUNT: [id number] CONSULTING PHYSICIAN: RADHA WHITNEY MD REFERRING PHYSICIAN: RADHA WHITNEY MD DATE OF CONSULTATION: 04/19/2017 CARDIOLOGY CONSULTATION DIAGNOSES: 1. Unstable angina. 2. Coronary artery disease. 3. Previous PTCA and stent. 4. Previous bypass surgery. 5. Hypertension. 6. Hyperlipidemia. HISTORY OF PRESENT ILLNESS: Ms. James presents to the Emergency Room with ongoing episodes of chest pain, chest discomfort compatible with angina, status post previous bypass surgery, status post previous PTCA stent to multivessel. PHYSICAL EXAMINATION: GENERAL APPEARANCE: Well-nourished, well-developed, appears stated age. Level of distress, comfortable. PSYCHIATRIC: Mental status, alert, normal affect. Orientation, oriented to time, place and person. EYES: Lids and conjunctiva, noninjected. No discharge, no pallor. ENT: Lips, teeth, gums, normal dentition. Oropharynx, no cyanosis, no pallor. NECK: Carotid arteries, bilateral normal upstroke, no bruits, no thrills. JUGULAR VEINS: No jugular venous pressure or distention. CERVICAL LYMPH NODES: Nontender, nonenlarged. THYROID: Not enlarged. Nontender. No nodules. LUNGS: Respiratory effort, unlabored. CHEST: Normal curvature. No thoracic deformity. No chest wall tenderness. Percussion, resonant. Auscultation, clear. No wheezes, no rales, no rhonchi. CARDIOVASCULAR: Precordial exam, nondisplaced. No heaves or pericardial thrills. Rate and rhythm, regular. Heart sounds, normal S1, normal S2. No S3, no gallop, no rub. Systolic murmur, not heard. Diastolic murmur, not heard. EXTREMITIES: No cyanosis, no edema. Peripheral pulses, full and equal in all extremities, except as noted. No bruits appreciated. ABDOMEN: Soft, nondistended. Normal aorta. No bruit. Nontender. No masses. Liver, nontender, no hepatomegaly. Spleen, nontender, no splenomegaly. MUSCULOSKELETAL: No joint tenderness. No joint swelling. No erythema. NEUROLOGICAL: Normal gait, normal strength, normal tone. SKIN: Warm and dry. EXTREMITIES: No cyanosis, no edema. Peripheral pulses, full and equal in all extremities time. sneezing. REVIEW OF SYSTEMS: The patient reports easy bruising but reports no swollen glands. The patient reports no fever, no night sweats, no significant weight gain, no significant weight loss. No significant exercise tolerance. The patient reports no dry eyes, no irritation, no vision change. Patient reports no difficulty hearing and no ear pain. Patient reports no frequent nose bleeds or nose and sinus problems. Patient reports on arm pain on exertion. No CONSULT REPORT [id number] LOVE JAMES shortness of breath while lying down. No history of heart murmur. Patient reports no cough, no wheezing or coughing up blood. Patient reports no abdominal pain, no vomiting. Normal appetite. No diarrhea and not vomiting blood. No nausea and no constipation. Patient reports no incontinence. No difficulty urinating. No hematuria. No increased frequency. Patient reports no muscle aches. No weakness, no arthralgias, no back pain. No swelling of the extremities. Patient reports no abnormal mole, no jaundice, no rashes. Reports no loss of consciousness. No weakness and no numbness. No seizures, dizziness, or headaches. The patient reports no depression, no sleep disturbance, feeling safe in a relationship and no alcohol abuse. Patient reports on fatigue. Reports no runny nose or sinus pressure. No itching, no hives, and no frequent sneezing. OVERALL IMPRESSION: Continued chest pain in an unstable fashion. We will proceed with coronary angiography. Further care depends upon findings of the angiography. TRANSINT:[id number] Voice Confirmation ID: [id number] DOCUMENT ID: [id number] RADHA WHITNEY MD at 1656 CC: [id number] DICTATION DATE: 04/19/17 1326 WELDER EXPLOSION: 04/19/17 1419 DEP CLI 04/19/17 [facility] [address] [place] [address]
--- NOTE | 2017-05-10 16:56 | OP ---
PATIENT NAME: LOVE JAMES MEDICAL RECORD: [id number] :44 LOCATION:D.CAT ADMISSION DATE: SURGEON: RADHA WHITNEY MD DATE OF OPERATION: 04/19/2017 PROCEDURES: 1. PTCA and stent to RCA. 2. Intravascular ultrasound of RCA. 3. Left heart catheterization. 4. Selective coronary angiography. 5. Left ventriculogram. 6. Vein graft angiography. 7. CANCHOLA angiography. INDICATION: Unstable angina and coronary artery disease. PROCEDURE IN DETAIL: After informed consent was obtained and after a detailed explanation of the risks, benefits as well as alternative therapies, the patient elected to proceed with angiogram and angioplasty. The right femoral area was prepped and draped in normal sterile fashion. The right femoral artery was cannulated via modified Seldinger technique with placement of 6-German sheath. All catheters exchanged through this sheath. FINDINGS: The left ventriculogram was performed in standard 30-degree PEREZ view, reveals good cardiac wall motion throughout all segments. Overall ejection fraction is 60%. SELECTIVE CORONARY ANGIOGRAPHY: 1. Left main has previously placed stent, 90% to 95% in-stent restenosis. This feeds first and second obtuse marginal. The third obtuse marginal is grafted; however, the circumflex itself is not filled by the grafted segment secondary to stenosis in the distal circumflex. 2. Left anterior descending is totally occluded. 3. CANCHOLA to the LAD is widely patent. 4. The right coronary has previously placed stents. Intravascular ultrasound reveals there is 76% in-stent restenosis. PROCEDURES: PTCA of the left main: The left main was addressed with 3.0 Mozec balloon to RCA. PTCA and stent of the RCA: The RCA was addressed with a 3.5 x 38-mm Blount stent. Result was 0% residual throughout. OVERALL IMPRESSION: Successful PTCA and stent of the RCA going from 76% initial stenosis confirmed by intravascular ultrasound to 0% residual stenosis. TRANSINT:[id number] Voice Confirmation ID: [id number] DOCUMENT ID: [id number] OPERATIVE REPORT [id number] LOVE JAMES JEFFREY MD at 1656 CC: [id number] DICTATION DATE: 04/19/17 1324 BAND AID MACHINE OPERATOR: 04/19/17 1415 DEP CLI 04/19/17 [facility] [address] [facility] [place] [address]
== END 2017-04-19 17:10 | disposition home or self-care (01) ==
LOC: D.CATH 10:07 → D.ER 10:07 → EDSTATUS 12:15 → D.CATH 17:10
PROVIDERS: Emergency Medicine
DX: I25.110 Atherosclerotic heart disease of native coronary artery with unstable angina pectoris (principal); I10 Essential (primary) hypertension; E78.5 Hyperlipidemia, unspecified; Z95.5 Presence of coronary angioplasty implant and graft; Z95.1 Presence of aortocoronary bypass graft; Z01.812 Encounter for preprocedural laboratory examination
CPT/HCPCS: 93459; 92978; C9600

== ENCOUNTER 2017-05-30 17:36 | Inpatient (IN) | payer MEDICARE ==
[~2017-05-30] VITALS: Ht 165.1 cm; Wt 62.3 kg
--- NOTE | ~2017-05-30 | HEMODYNAMI ---
PATIENT:LOVE JAMES MEDICAL RECORD: [id number] : 44 LOCATION:[facility] D.2121 ADMISSION DATE: 05/30/17 Generatedon:05/31/201716:29 Patient name: LOVE JAMES Patient #: [id number] SSN: D OB: 1940 Date of study: 05/31/2017 Page: Of Hemodynamic Procedure Report Patient Data Patient Demographics Procedure consent was obtained First Name: LOVE Gender: Female Last Name: JACOB : 1940 [facility] Initial: ZIGGY Age: 77 year(s) Patient #: [id number] Race: Additional ID: [id number] Contact details [address]: [address] [place] [address] State: [place] City: [place] Zip code: [address] Past Medical History History of disease Date Diagnosis Comments CAD Valvular heart disease TIA Allergies Allergen Reaction Date Comments Reported Statins 09/10/2016 Admission Admission Data Admission Date: 05/30/2017 Admission Time: 22:30 Room #: D.2121 Height (in.): 65 BSA: 1.58 (m2) Height (cm.): 165.1 BMI: 19.47 (kg/m2) Weight (lbs.): 117 Weight (kg.): 53.07 Procedure Procedure Types Cath Procedure Diagnostic Procedure LHC LHC w/Coronaries w/Grafts FFR/IVUS Intra-Coronary IVUS Initial Miscellaneous Procedures Moderate Sedation up to 15 minutes Procedure Description Procedure Date Procedure Date: 05/31/2017 Procedure Start Time: 16:09 Procedure End Time: 16:26 Procedure Staff Name Function Dallin Lewis MD Performing Physician Erma Bhatia RT Monitor Mariaelena Bolivar RT Scrub Shay Clarke RN Nurse Procedure Data Cath Procedure Fluoroscopy Diagnostic fluoroscopy Total fluoroscopy Time: 4.1 time: 4.1 min min Diagnostic fluoroscopy Total fluoroscopy dose: 430 dose: 430 mGy mGy Contrast Material Contrast Material Type Amount (ml) Isovue 300 71 Entry Location Entry Primary Successful Side Size Upsize Upsize Entry Closure Succes sful Closure Location (Fr) 1 (Fr) 2 (Fr) Remarks Device Remarks Femoral Right 5 Fr 6 Fr Exoseal artery Short Estimated blood loss: 10 ml Diagnostic catheters Device Type Used For End Catheter Placement Cordis 5Fr Pigtail Procedure Catheter (MP) Cordis 5Fr JL 4.0 Procedure Catheter (MP) Cordis 5Fr 3DRC Catheter Procedure (MP) Diagnostic Infinity 5Fr Procedure AR 2 MOD catheter Procedure Complications No complications Procedure Medications Medication Administration Route Dosage Oxygen NC 2 l/min Lidocaine 2% added to field 20 Heparin Flush Bag added to field 2 bags (1000units/500ml NS) 0.9% NaCl I.V. 100 ml/hr Versed I.V. 1 mg Fentanyl I.V. 50 mcg Versed I.V. 1 mg Fentanyl I.V. 50 mcg Heparin Bolus I.V. 4000 units Hemodynamics Rest BSA: 1.58 (m2) O2 Consumption: Estimated: 142.1 (ml/min) O2 Consumption indexed: Estimated:89.94 (ml/min/m) Heart Rate: 67 (bpm) Snapshots Pre Cath Intra NCS Post Cath Vital Signs Time Heart Resp SPO2 etCO2 NIBP (mmHg) Rhythm Pain Sedation Rate (ipm) (%) (mmHg) Status Level (bpm) 15:56:45 65 22 95 0 156/71(108) NSR 0 (11) 10(A) , No pain 16:01:07 66 16 97 0 152/69(105) NSR 0 (11) 10(A) , No pain 16:05:30 65 15 96 0 146/67(120) NSR 0 (11) 10(A) , No pain 16:09:50 64 19 95 0 139/74(106) NSR 0 (11) 10(A) , No pain 16:14:04 66 16 94 0 128/68(101) NSR 0 (11) 9(A) , No pain 16:18:18 64 15 98 0 143/66(105) NSR 0 (11) 9(A) , No pain 16:22:34 68 15 98 0 126/63(83) NSR 0 (11) 9(A) , No pain 16:26:50 69 16 98 0 138/61(82) NSR 0 (11) 10(A) , No pain Medications Time Medication Route Dose Verified Delivered Reason Notes Effectiveness by by 16:05:57 Oxygen NC 2 Dallin Buffie used for l/min Debbie Clarke RN procedure 16:06:04 Lidocaine 2% added 20ml Dallin Dallin for local to vial Debbie Lewis MD anesthetic field 16:06:11 Heparin Flush added 2 Dallin Dallin used for Bag to bags Debbie Lewis MD procedure (1000units/500ml field NS) 16:06:20 0.9% NaCl I.V. 100 Dallin Buffie Per physician ml/hr Debbie Clarke RN 16:07:43 Versed I.V. 1 mg Dallinraúl Turnerie for sedation Debbie Clarke RN 16:07:48 Fentanyl I.V. 50 Dallin Buffie for sedation mcg Debbie Clarke RN 16:12:56 Versed I.V. 1 mg Dallin Buffie for sedation Debbie Clarke RN 16:13:00 Fentanyl I.V. 50 Dallin Turnerie for sedation mcg Debbie Clarke RN 16:17:23 Heparin Bolus I.V. 4000 Dallin Buffie for verifi ed units Debbie Clarke RN anticoagulation with dr lewis Procedure Log Time Note 15:39:10 Patient Weight : 117 lbs 15:39:15 Patient Height : 65 inches 15:39:28 Diagnostic Cath Status : Elective 15:39:57 Mariaelena Bolivar RT(R) sent for patient. Start room use. 15:40:01 Time tracking: Regular hours 15:40:06 Plan of Care:Hemodynamics will remain stable., Cardiac rhythm will remain stable., Comfort level will be maintained., Respiratory function will remain adequate., Patient/ family verbilizes understanding of procedure., Procedure tolerated without complication., Recovers from procedure without complications.. 15:40:14 Patient received from CVICU to CCL 2 Alert and oriented. Tansferred to table in Supine position. 15:52:43 Warm blankets applied, and dorys hugger turned on for patient comfort. 15:52:43 Correct patient and procedure confirmed by team. 15:52:45 Signed procedure consent form obtained from patient. 15:52:46 ECG and BP/O2 sat monitors applied to patient. 15:55:29 Baseline sample Acquired. 15:55:29 Vital chart was started 15:59:13 H&P Date Dictated: 05/31/2017 Within 30 days and on chart.. 15:59:17 Pre-procedure instructions explained to patient. 15:59:21 Family unavailable. 15:59:24 Patient NPO since Midnight. 15:59:41 Is the patient allergic to Iodine/contrast media? No. 15:59:43 Was the patient premedicated? Yes 15:59:44 Is patient on blood thinner?Yes 15:59:47 ACC The patient was administered the following blood thiners within the last 24 hours: ACCPlavix 15:59:49 Patient diabetic? Yes. 15:59:50 If diabetic: On Metformin? Yes 15:59:53 If on Metformin: Last Dose? 05/30/2017 16:00:04 Snore? Unknown 16:00:05 Sleep apnea? No 16:00:13 Dentures? Yes ? 16:00:30 IV patent on arrival in left forearm with 0.9% NaCl at KVO. 16:00:48 Right groin area was prepped with chlora-prep and draped in sterile fashion 16:00:50 Alarms reviewed by R. N. 16:00:50 Sharps counted by scrub and verified by R.N. 16:00:52 Physician paged 16:00:54 Physician arrived 16:01:55 --------ALL STOP TIME OUT------ 16:01:56 Final Timeout: patient, procedure, and site verified with staff and physician. All members of the team are in agreement. 16:01:58 Right groin site verified by team. 16:02:02 Sedation plan: IV Moderate Sedation Medication:Versed, Fentanyl 16:02:08 Use device set Femoral Dx 16:02:09 Acist Syringe opened to sterile field. 16:02:10 Bag Decanter opened to sterile field. 16:02:10 Medline Cath Pack opened to sterile field. 16:02:11 Terumo 5Fr [place] Sheath opened to sterile field. 16:02:11 St El 260cm J .035 wire opened to sterile field. 16:02:12 Acist Hand Control opened to sterile field. 16:02:13 Acist Manifold opened to sterile field. 16:02:13 Diagnostic Infinity 5Fr Multipack catheter opened to sterile field. 16:02:13 Tegaderm 4 x 4 opened to sterile field. 16:05:57 Oxygen 2 l/min NC was administered by Shay Clarke RN; used for procedure; 16:06:04 Lidocaine 2% 20ml vial added to field was administered by Dallin Lewis MD; for local anesthetic; 16:06:11 Heparin Flush Bag (1000units/500ml NS) 2 bags added to field was administered by Dallin Lewis MD; used for procedure; 16:06:20 0.9% NaCl 100 ml/hr I.V. was administered by Shay Clarke RN; Per physician; 16:07:43 Versed 1 mg I.V. was administered by Shay Clarke RN; for sedation; 16::45 Procedure started. 16::45 Full Disclosure recording started 16:07:48 Fentanyl 50 mcg I.V. was administered by Shay Clarke RN; for sedation; 16:07:51 Zero performed for pressure channel P1 16:08:40 Zero performed for pressure channel P1 16:09:06 Local anesthetic to right femoral artery with Lidocaine 2% by Dallin Lewis MD.INITIAL ACCESS ONLY 16:09:19 A 5 Fr sheath was inserted into the Right Femoral artery 16:09:23 J wire advanced. 16:10:35 A Cordis 5Fr Pigtail Catheter (MP) was advanced over the wire and used for Procedure. 16:10:51 EF : 60 % 16:10:56 Catheter removed. 16:12:11 A Cordis 5Fr JL 4.0 Catheter (MP) was advanced over the wire and used for Procedure. 16:12:15 LCA angiography performed. 16:12:19 Catheter removed. 16:12:31 A Cordis 5Fr 3DRC Catheter (MP) was advanced over the wire and used for Procedure. 16:12:56 Versed 1 mg I.V. was administered by Shay Clarke RN; for sedation; 16:13:00 Fentanyl 50 mcg I.V. was administered by Shay Clarke RN; for sedation; 16:16:04 A Diagnostic Infinity 5Fr AR 2 MOD catheter was advanced over the wire and used for Procedure. 16:16:10 SVG to OM angiography performed. 16:16:13 Catheter removed. 16:16:34 Sheath upsized to a 6 Fr Short. 16:16:46 Medtronic Launcher 6Fr 3DRC SH guide catheter opened to sterile field. 16:16:58 6 Fr 3DRC SH guide catheter was inserted over the wire 16:17:03 Terumo 6Fr [place] Sheath opened to sterile field. 16:17:06 Merit BasixCompak Inflation Kit opened to sterile field. 16:17:23 Heparin Bolus 4000 units I.V. was administered by Shay Clarke RN; for anticoagulation; verified with dr lewis 16:17:27 [place] Sci PT Graphix J 182cm 0.014 guide wire opened to sterile field. 16:17:37 [place] IVUS Catheter opened to sterile field. 16:17:42 IVUS catheter advanced over wire. 16:22:08 IVUS catheter removed over wire. 16:22:17 Wire removed. 16:22:18 Guide catheter removed. 16:22:55 Cordis 6Fr Exoseal opened to sterile field. 16:23:28 Sheath removed intact; hemostasis achieved with Exoseal to the Right Femoral artery. 16:23:31 Procedure ended.(Physican Out) 16:24:31 Fluoroscopy time 04.10 minutes. 16:24:36 Fluoroscopy dose: 430 mGy 16:24:36 Flurop Dose total: 430 16:24:41 Contrast amount:Isovue 300 71ml. 16:24:43 Sharps counted by scrub and verified by R.N. 16:24:45 Insertion/operative site no bleeding no hematoma. 16:24:50 Post Procedure Pulses reassessed and unchanged 16:24:56 Post-procedure physical assessment completed. ASA score P 2 - A patient with mild systemic disease as per Dallin Lewis MD. 16:24:58 Post procedure rhythm: sinus rhythm 16:25:01 Estimated blood loss: 10 ml 16:25:03 Post procedure instruction explained to patient.Patient verbalizes understanding. 16:25:30 Procedure type changed to Cath procedure, Diagnostic procedure, LHC, LHC w/Coronaries w/Grafts, FFR/IVUS, Intra-Coronary IVUS Initial, Miscellaneous Procedures, Moderate Sedation up to 15 minutes 16:25:33 Procedure and supply charges have been captured, reviewed, submitted and are correct. 16:26:15 Procedure Complication : No complications 16:26:18 Vital chart was stopped 16:26:29 Patient transfered to [facility] with Bed. 16::32 Procedure ended. 16::32 Full Disclosure recording stopped 16:26:37 End room use (Document Last) Device Usage Item Name Manufacture Quantity Catalog Number Hospital Part Current Minim al Lot# / Charge Number Stock Stock Serial# Code Acist Acist 1 [id number] 141444 103903 20 Syringe Medical Systems Inc Bag Microtek 1 2002S 827728 82514 334012 5 Decanter Medical Inc. Medline Cardinal 1 [id number] 819502 14337 991243 5 Cath Pack Health Terumo 5Fr Terumo 1 [id number] 621594 906552 093271 [address] El 1 119400 371448 024224 842409 30 260cm J .035 wire Acist Hand Acist 1 93990 307026 049771 502413 5 Control Medical Systems Inc Acist Acist 1 91918 964910 640077 831544 5 Manifold Medical Systems Inc Diagnostic Cardinal 1 [id number] 606340 17594 387347 30 Infinity Health 5Fr Multipack catheter Tegaderm 4 3M 1 1626W 629132 802513 108014 5 x 4 Cordis 5Fr Cardinal 1 491996 5 Pigtail Health Catheter (MP) Cordis 5Fr Cardinal 1 600543 5 JL 4.0 Health Catheter (MP) Cordis 5Fr Cardinal 1 200387 5 3DRC Health Catheter (MP) Diagnostic Cardinal 1 [id number] 443037 624379 199454 20 Infinity Health 5Fr AR 2 MOD catheter Medtronic Medtronic 1 [id number] 821344 569833 251033 1 Launcher 6Fr 3DRC SH guide catheter Terumo 6Fr Terumo 1 [id number] 526123 116805 919383 40 [place] Sheath Merit Merit 1 FO7757 963898 711894 040894 15 BasixCompak Medical Inflation Kit [place] Sci [place] 1 [id number] 951155 219200 351343 5 PT Graphix Scientific J 182cm 0.014 guide wire [place] 1 [id number] 295130 579560 561669 8 [place] IVUS Catheter Cordis 6Fr Cardinal 1 EX600 402221 381437 212764 [address] [facility] Health Signature Audit [place] Stage Time Signature Unsigned Intra-Procedure 05/31/2017 Erma Bhatia 4:29:41 PM RT(R) Signatures Monitor : Erma Bhatia Signature : RT Date : Time : [place] [address] [place] [address]
[2017-05-30 18:00] LABS: BASOPHILS 0.3 % (0-2); EOSINOPHILS 5.1 % (0-7); HEMOGLOBIN 11.5 g/dL (12-16); IMMATURE GRANULOCYTES 0.1 % (0-5); LYMPHOCYTES 34.3 % (15-50); MCH 25.2 pg (26.0-34.0); MCHC 31.9 g/dL (31.0-37.0); MCV 78.8 fL (80.0-100.0); MEAN PLATELET VOLUME 11.3 fL (7.4-10.4); MONOCYTES 6.6 % (2-11); NEUTROPHILS 53.6 % (40-80); PLATELET COUNT 177 10x3/uL (130-400); RBC 4.57 10x6/uL (4.00-5.40); RDW 15.6 % (11.5-14.5); WBC 7.3 10x3/uL (4.8-10.8)
[2017-05-30 18:22] LABS: ALBUMIN 3.7 g/dL (3.4-5.0); ALKALINE PHOSPHATASE 53 U/L (46-116); ALT (SGPT) 17 U/L (10-68); BILIRUBIN - TOTAL 0.22 mg/dL (0.2-1.3); CALC OSMOLALITY 284 mosm/kg (275-300); CALCIUM 8.2 mg/dL (8.5-10.1); CARBON DIOXIDE 31.6 mmol/L (21.0-32.0); CHLORIDE - SERUM 102 mmol/L (98-107); CREATININE - SERUM 0.8 mg/dL (0.6-1.3); GLUCOSE 149 mg/dL (74-106); PROTEIN - SERUM 7.2 g/dL (6.4-8.2); SODIUM 142 mmol/L (136-145); UREA NITROGEN 10 mg/dL (7-18); eGFR NON AFRICAN AMERICAN 74 mL/min (90-120)
[2017-05-30 18:35] LABS: APTT 23.9 SECONDS (22.8-39.4); INR 0.93 (0.85-1.17); PROTIME 12.3 SECONDS (11.6-15.0)
[2017-05-30 18:36] LABS: CHOLESTEROL, TOTAL 131 mg/dL (0-200); CKMB 0.5 U/L (0.0-3.6); CREATINE KINASE 78 UL (21-215); HDL CHOLESTEROL 44 mg/dL (32-96); LDL CHOLESTEROL 49 mg/dL (0-100); LDL-HDL RATIO 1.1 ratio (1.5-3.5); TRIGLYCERIDE 191 mg/dL (30-200); TROPONIN-I < 0.017 ng/mL (0.000-0.060)
[2017-05-30 22:50] VITALS: BP 162/69
[2017-05-30 23:30] VITALS: BP 127/54
[2017-05-31] VITALS (19 sets, daily range): BP systolic 101–152; BP diastolic 37–71; Ht 165.1 cm; Wt 62.3 kg
[2017-05-31 00:35] LABS: CREATINE KINASE 60 UL (21-215); TROPONIN-I < 0.017 ng/mL (0.000-0.060)
--- NOTE | 2017-05-31 03:00 | NUR ---
REASSESSMENT COMPLETED. NO ACUTE CHANGES. SEE FLOW SHEET FOR FURTHER DETAILS. PT POSITIONED FOR COMFORT. CALL LIGHT IN REACH WILL CONTINUE TO MONITOR.
--- NOTE | 2017-05-31 05:00 | NUR ---
Patient resting in bed with eyes closed, breathing is even and unlabored on 2L via NC with O2 sat 97%. Patient denies chest pain or other needs at this time, repositioned for comfort. All VSS and will continue to monitor.
[2017-05-31 06:22] LABS: CKMB 0.3 U/L (0.0-3.6); CREATINE KINASE 54 UL (21-215)
[2017-05-31 06:23] LABS: TROPONIN-I < 0.017 ng/mL (0.000-0.060)
[2017-05-31 11:53] LABS: CKMB 0.1 U/L (0.0-3.6); CREATINE KINASE 63 UL (21-215); TROPONIN-I < 0.017 ng/mL (0.000-0.060)
[2017-05-31 12:57] LABS: ANION GAP 17.3 mmol/L (8-16); BASOPHILS 0.2 % (0-2); CALCIUM 8.3 mg/dL (8.5-10.1); CARBON DIOXIDE 26.9 mmol/L (21.0-32.0); CREATININE - SERUM 0.8 mg/dL (0.6-1.3); EOSINOPHILS 5.9 % (0-7); HEMATOCRIT 34.2 % (36.0-48.0); HEMOGLOBIN 10.8 g/dL (12-16); IMMATURE GRANULOCYTES 0.2 % (0-5); LYMPHOCYTES 32.9 % (15-50); MCH 25.2 pg (26.0-34.0); MCHC 31.6 g/dL (31.0-37.0); MCV 79.9 fL (80.0-100.0); NEUTROPHILS 52.8 % (40-80); PLATELET COUNT 152 10x3/uL (130-400); POTASSIUM - SERUM 3.2 mmol/L (3.5-5.1); RBC 4.28 10x6/uL (4.00-5.40); RDW 15.9 % (11.5-14.5); WBC 5.6 10x3/uL (4.8-10.8)
--- NOTE | 2017-05-31 14:14 | HP ---
PATIENT: LOVE JAMES MEDICAL RECORD: [id number] ACCOUNT: [id number] [facility] : 42 ADMISSION DATE: 05/30/17 HISTORY AND PHYSICAL EXAMINATION DIAGNOSES: 1. Angina. 2. Coronary artery disease. 3. Previous multivessel PTCA and stent. 4. Coronary bypass graft surgery. 5. Hypertension. 6. Hyperlipidemia. HISTORY: Ms. James presents with increasing episodes of chest pain or chest discomfort. She continues to have episodes of chest discomfort with any minor exertion, even moving to the bathroom across the room. It is a typical anginal chest discomfort like her previous. She has no acute changes on her EKG. Troponin is normal. OVERALL IMPRESSION: Chest pain with multivessel PTCA and stent and coronary bypass graft surgery. The only way to tell if there is not an acute problem is coronary angiography. We will proceed with coronary angiography. TRANSINT:[id number] Voice Confirmation ID: [id number] DOCUMENT ID: [id number] RADHA WHITNEY MD at 1414 CC: [id number] DICTATION DATE: 05/31/17 1211 CYCLE SPECIALIST: 05/31/17 1313 ADM IN [facility] [address] [place] [address]
--- NOTE | 2017-05-31 14:39 | NUR ---
0700-RECIEVED PER FLOW SHEET-AWAKE AND ALERT AND AMBULATED TO RESTROOM WITH MINIMAL ASSIST-STATED HEAVINESS IN CHEST-NO PAIN AT THIS TIME -NO SOB- 0930AMBULATED WITH MINIMAL ASSISTANCE-CHEST HEAVINESS WITH MOBILITY 1215-DR WHITNEY AT [facility]-NPO MAINTAINED 1400-PERINEAL CARE DONE BY PT-LAB DRAWN-EXPRESSED CONCERN ABOUT DISCHARGE THIS PM-NO RIDE AND NO ONE TO STAY WITH PT
--- NOTE | 2017-05-31 16:24 | NUR ---
RECEIVED REPORT FROM [facility]. 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
--- NOTE | 2017-05-31 16:55 | NUR ---
RECEIVED PT TO ROOM 2120 VIA BED. PT A/O BUT A LITTLE DROWSY, VITAL SIGNS STABLE, NO BLEEDING OR HEMATOMA NOTED TO RT GROIN. PT ON FREQUENT VITALS, PT DENIES ANY NEEDS AT THIS TIME. CALL LIGHT IN REACH, WILL CONTINUE PLAN OF CARE.
--- NOTE | 2017-05-31 17:32 | NUR ---
ADMINISTERED MEDS ORDERED AND 10MG OF NORCO FOR PAIN LEVEL OF 8/10. PT DENIES ANY OTHER NEEDS AT THIS TIME. CALL LIGHT IN REACH, NAD NOTED.
--- NOTE | 2017-06-01 01:03 | NUR ---
INITIAL ROUNDS COMPLETED AT 1910 HRS. PT DENIED ANY DISCOMFORT. ASSESSMENT COMPLETEDA T 1954 HRS. VSS. SR PER CM HR 63. PT ALERT AND ORIENTED TO PERSON, PLACE AND TIME. IV TO LFA WITH NS AT 100CC/HR. IV PATENT. LUNGS DIMINISHED IN BASES BILAT. R GROIN CLEAN, DRY AND INTACT WITHOUT SWELLING, BLEEDING OR BRUISING. PALPABLE PEDAL PULSES. BEDREST UP AT 2000 HRS. HOB UP TO 40 DEGREES. NO CHANGES TO R GROIN NOTED. REINFORCED TO PT TO CALL FOR ASSITANCE FIRST TIME OUT OF BED. PT STATED UNDERSTANDING. PM MEDS GIVEN. PT CURRENTLY AWAKE; DENIES ANY DISCOMFORT. NO CHANGES TO R GROIN NOTED. SR UP X2, CALL LIGHT WITHIN REACH.
[2017-06-01 02:08] VITALS: BP 88/42
--- NOTE | 2017-06-01 02:45 | NUR ---
PT RESTING WITH EYES CLOSED. RESP EVEN AND REGULAR. SR UP X2, CALL LIGHT WITHIN REACH.
--- NOTE | 2017-06-01 04:41 | NUR ---
PT DENIES NEED TO URINATE. NO BLADDER DISTENTION NOTED. NORCO 10/325 PO GIVEN FOR C/O CHRONIC BACK PAIN. R GROIN CLEAN, DRY AND INTACT. PALPABLE PEDAL PULSES. WILL CONTINUE TO MONITOR. SR UP X2, CALL LIGHT WITHIN REACH.
--- NOTE | 2017-06-01 06:31 | NUR ---
VSS THROUGHOUT NIGHT. SR/SB PER CM. PT DENIED ANY DISCOMFORT. PT CURRENTLY RESTING WITH EYES CLOSED. RESP EVEN AND REGULAR. NEEDS MET;WILL CONTINUE TO MONITOR.
[2017-06-01 06:37] VITALS: BP 98/49
--- NOTE | 2017-06-01 07:05 | NUR ---
RECEIVED REPORT. ASSUMED CARE OF PATIENT. ASSISTED PATIENT BACK FROM RESTROOM AT THIS TIME. RESP EVEN AND UNLABORED. NON SKID SOCKS PROVIDED. CALL LIGHT WITHIN REACH. NO DISTRESS.
[2017-06-01 07:30] VITALS: BP 127/54
[2017-06-01 08:00] VITALS: BP 135/54
--- NOTE | 2017-06-01 11:50 | NUR ---
18 GAUGE IV REMOVED FROM LEFT FOREARM. CATHETER TIP INTACT. NO BLEEDING FROM SITE. 2X2 GAUZE APPLIED TO SITE AND SECURED WITH TAPE. TOLERATED IV REMOVAL WELL. PATIENT IS BEING DISCHARGED TO HOME WITH DAUGHTER. AWAITING ON ARRIVAL OF HER DAUGHTER.
--- NOTE | 2017-06-01 12:38 | NUR ---
1220 DISCHARGE INSTRUCTIONS PROVIDED TO PATIENT AND HER DAUGHTER. PATIENT VERBALIZED UNDERSTANDING OF ALL INSTRUCTIONS PROVIDED. PATIENT HAD NO QUESTIONS FOR THIS NURSE. 1238 PATIENT LEFT UNIT VIA WHEELCHAIR. PATIENT DISCHARGED TO HOME VIA PRIVATE CAR. PATIENTS DAUGHTER TOOK HER HOME. PATIENT LEFT UNIT IN NO DISTRESS. PATIENT LEFT UNIT WITH ALL PERSONAL BELONGINGS.
--- NOTE | 2017-06-10 09:02 | OP ---
PATIENT NAME: LOVE JAMES MEDICAL RECORD: [id number] :44 LOCATION:D.M2 D.2121 ADMISSION DATE:05/31/17 SURGEON: RADHA WHITNEY MD DATE OF OPERATION: 05/31/2017 PROCEDURES: 1. Left heart catheterization. 2. Selective coronary angiography. 3. Intravascular ultrasound. INDICATION: Angina and coronary artery disease. PROCEDURE IN DETAIL: After informed consent was obtained and after a detailed explanation of the risks, benefits as well as alternative therapies, the patient elected to proceed with angiogram and heart catheterization. The right femoral area was prepped and draped in normal sterile fashion. The right femoral artery was cannulated via modified Seldinger technique with placement of 6-Barbadian sheath. All catheters exchanged through this sheath. FINDINGS: The left ventriculogram was performed in standard 30-degree PEREZ view, reveals good cardiac wall motion throughout all segments. Overall ejection fraction estimated 60%. SELECTIVE CORONARY ANGIOGRAPHY: 1. Left main showed no significant angiographic disease. 2. Left anterior descending is totally occluded. 3. Left circumflex has 95% stenosis. 4. The right coronary has previously placed stents, these are widely patent. There was a questionable stenosis at the ostium; however, intravascular ultrasound revealed that this is no greater than 40%. 5. Vein graft to the left circumflex is widely patent. 6. CANCHOLA to the LAD is widely patent. OVERALL IMPRESSION: Wide patency of the CANCHOLA to the LAD, vein graft to the circumflex and RCA stents. Continue medical management of the coronary artery disease and cardiac risk factors. TRANSINT:[id number] Voice Confirmation ID: [id number] DOCUMENT ID: [id number] RADHA WHITNEY MD at 0902 CC: [id number] DICTATION DATE: 05/31/17 1627 AUTO BODY SHOP MANAGER: 05/31/17 1828 DIS IN 06/01/17 [place] [id number] [place] [address]
--- NOTE | 2017-06-25 12:15 | DS ---
PATIENT:LOVE JAMES :44 MEDICAL RECORD: [id number] DISCHARGE SUMMARY ADMISSION DATE: 05/31/17 DISCHARGE DATE: 06/01/17 DISCHARGE DIAGNOSES: 1. Angina. 2. Coronary artery disease. 3. Hypertension. 4. Hyperlipidemia. HOSPITAL COURSE: Ms. James presents with anginal symptomatology; however, cardiac catheterization revealed no new significant disease. Discharged home to continue medical management of coronary artery disease. Follow up in a month. TRANSINT:[id number] Voice Confirmation ID: [id number] DOCUMENT ID: [id number] RADHA WHITNEY MD at 1215 CC: [id number] DICTATION DATE: 06/24/17 1537 COOK BOAT: 06/25/17 0707 DIS IN 06/01/17 [place] [id number] [place] [address]
== END 2017-06-01 12:38 | disposition home or self-care (01) | DRG 287 ==
LOC: D.ER 17:36 → D.CVICU 22:30 → OBSVTIME 22:30 → D.CVICU 22:30 → D.M2 05-31 15:11
PROVIDERS: Family Medicine; ADMIT Internal Medicine Interventional Cardiology
PROC: B2121ZZ Fluoroscopy of Single Coronary Artery Bypass Graft using Low Osmolar Contrast (ICD-10-PCS; 2017-05-31)
PROC: B2111ZZ Fluoroscopy of Multiple Coronary Arteries using Low Osmolar Contrast (ICD-10-PCS; 2017-05-31)
PROC: B2151ZZ Fluoroscopy of Left Heart using Low Osmolar Contrast (ICD-10-PCS; 2017-05-31)
PROC: B240ZZ3 Ultrasonography of Single Coronary Artery, Intravascular (ICD-10-PCS; 2017-05-31)
PROC: 4A023N7 Measurement of Cardiac Sampling and Pressure, Left Heart, Percutaneous Approach (ICD-10-PCS; principal; 2017-05-31 14:30)
DX: I25.119 Atherosclerotic heart disease of native coronary artery with unspecified angina pectoris (principal); Z95.1 Presence of aortocoronary bypass graft; E78.5 Hyperlipidemia, unspecified; I10 Essential (primary) hypertension; I25.82 Chronic total occlusion of coronary artery

== ENCOUNTER → 2017-06-26 13:50 | Outpatient (CLI) | payer MEDICARE ==
[2017-05-31 10:38] VITALS: BMI 19.4
== END | disposition home or self-care (01) ==
LOC: D.MAMMO 12:00
DX: D05.81 Other specified type of carcinoma in situ of right breast (principal)

== ENCOUNTER 2017-07-10 16:30 | Emergency (ER) | payer MEDICARE ==
[2017-05-31 10:38] VITALS: BMI 19.4
[2017-07-10 16:52] LABS: BASOPHILS 0.1 % (0-2); EOSINOPHILS 3.7 % (0-7); HEMATOCRIT 32.2 % (36.0-48.0); HEMOGLOBIN 10.4 g/dL (12-16); IMMATURE GRANULOCYTES 0.1 % (0-5); LYMPHOCYTES 26.2 % (15-50); MCH 24.5 pg (26.0-34.0); MCHC 32.3 g/dL (31.0-37.0); MCV 75.9 fL (80.0-100.0); MEAN PLATELET VOLUME 11.3 fL (7.4-10.4); MONOCYTES 6.7 % (2-11); NEUTROPHILS 63.2 % (40-80); RBC 4.24 10x6/uL (4.00-5.40); RDW 15.2 % (11.5-14.5); WBC 6.7 10x3/uL (4.8-10.8)
[2017-07-10 17:05] LABS: PLATELET COUNT 190 10x3/uL (130-400)
[2017-07-10 17:10] LABS: INR 0.99 (0.85-1.17); PROTIME 12.7 SECONDS (11.6-15.0)
[2017-07-10 17:24] LABS: APPEARANCE CLEAR (CLEAR); BILIRUBIN NEGATIVE (NEGATIVE); COLOR YELLOW (YELLOW); GLUCOSE NEGATIVE (NEGATIVE); KETONE NEGATIVE (NEGATIVE); NITRITE NEGATIVE (NEGATIVE); PROTEIN NEGATIVE (NEGATIVE); UROBILINOGEN NORMAL (NORMAL)
[2017-07-10 17:32] LABS: UDS - AMPHET NEGATIVE QUAL (NEGATIVE); UDS - BARB NEGATIVE QUAL (NEGATIVE); UDS - BENZO NEGATIVE QUAL (NEGATIVE); UDS - COCAINE NEGATIVE QUAL (NEGATIVE); UDS - OPIATE POSITIVE QUAL (NEGATIVE); UDS - PCP NEGATIVE QUAL (NEGATIVE); UDS - THC NEGATIVE QUAL (NEGATIVE)
[2017-07-10 17:35] LABS: ALBUMIN 3.5 g/dL (3.4-5.0); ANION GAP 11.9 mmol/L (8-16); BILIRUBIN - TOTAL 0.32 mg/dL (0.2-1.3); CALCIUM 8.5 mg/dL (8.5-10.1); CARBON DIOXIDE 29.7 mmol/L (21.0-32.0); CREATININE - SERUM 0.9 mg/dL (0.6-1.3); PROTEIN - SERUM 6.7 g/dL (6.4-8.2)
[2017-07-10 17:52] LABS: POTASSIUM - SERUM 2.6 mmol/L (3.5-5.1)
[2017-07-10 19:10] LABS: ANION GAP 5.9 mmol/L (8-16); CALCIUM 8.6 mg/dL (8.5-10.1); CARBON DIOXIDE 33.7 mmol/L (21.0-32.0); CREATININE - SERUM 0.8 mg/dL (0.6-1.3)
[2017-07-10 19:13] LABS: POTASSIUM - SERUM 2.6 mmol/L (3.5-5.1)
== END 2017-07-10 20:43 | disposition home or self-care (01) ==
LOC: D.ER 16:30
PROVIDERS: Nurse Practitioner Family
DX: S30.0XXA Contusion of lower back and pelvis, initial encounter (principal); W19.XXXA Unspecified fall, initial encounter; Y93.89 Activity, other specified; Y92.019 Unspecified place in single-family (private) house as the place of occurrence of the external cause; S39.012A Strain of muscle, fascia and tendon of lower back, initial encounter; S00.03XA Contusion of scalp, initial encounter; Z85.3 Personal history of malignant neoplasm of breast; E11.9 Type 2 diabetes mellitus without complications

== ENCOUNTER → 2017-08-26 12:46 | Outpatient (CLI) | payer MEDICARE ==
[2017-05-31 10:38] VITALS: BMI 19.4
== END | disposition home or self-care (01) ==
LOC: D.US 12:46
DX: I65.23 Occlusion and stenosis of bilateral carotid arteries (principal)

== ENCOUNTER → 2017-09-10 12:09 | Outpatient (CLI) | payer MEDICARE ==
[2017-05-31 10:38] VITALS: BMI 19.4
[~2017-09-10 12:09] MED LIST changes: +ATIVAN1 MG PO; +ISOSORBIDE MONO60 M1 PO; +LIPITOR40 MG PO; +PROAIR HFA8.5 GM INH; +SYMBICORT 16010.2 GM INH
== END | disposition home or self-care (01) ==
LOC: D.LAB 12:09
DX: Z01.82 Encounter for allergy testing (principal)

== ENCOUNTER 2017-09-10 14:22 | Outpatient (CLI) | payer MEDICARE ==
--- NOTE | ~2017-09-10 | OP ---
PATIENT NAME: LOVE JAMES MEDICAL RECORD: [id number] :44 LOCATION:D.OPS ADMISSION DATE: SURGEON: RADHA WHITNEY MD DATE OF OPERATION: 09/11/2017 PROCEDURES: 1. PTCA stent to RCA. 2. Left heart catheterization. 3. Selective coronary angiography. 4. Vein graft angiography. 5. CANCHOLA angiography. 6. Left ventriculogram. INDICATION: Angina and coronary artery disease. PROCEDURE IN DETAIL: After informed consent was obtained and after detailed explanation of risks, benefits as well as alternative therapies, the patient elected to proceed with angiogram and angioplasty. The right femoral area was prepped and draped in normal sterile fashion. The right femoral artery was cannulated via modified Seldinger technique with placement of a 6-Omani sheath. All catheters exchanged through this sheath. FINDINGS: The left ventriculogram was performed in standard 30-degree PEREZ view, reveals good cardiac wall motion throughout all segments. Overall ejection fraction estimated at 60%. SELECTIVE CORONARY ANGIOGRAPHY: 1. Left main showed no significant angiographic disease. 2. Left anterior descending is totally occluded. 3. Left circumflex is totally occluded. 4. The right coronary artery has previously placed stents. There is greater than 70% in-stent restenosis at the ostium with severe pressure damping with the diagnostic catheter. 5. CANCHOLA to the LAD is patent. Distal LAD is widely patent. 6. Vein graft to the circumflex is patent. Distal circumflex is widely patent. PTCA STENT OF THE RCA: The stent used is a 3.5 x 12 mm [place] taken to 23 atmospheres. Result was 0% residual stenosis. OVERALL IMPRESSION: Successful percutaneous transluminal coronary angioplasty stent of the right coronary artery going from greater than 70% initial stenosis to 0% residual. TRANSINT:[id number] Voice Confirmation ID: [id number] DOCUMENT ID: [id number] RADHA WHITNEY MD at 1153 CC: [id number] DICTATION DATE: 09/11/17916 EMERGENCY ROOM PHYSICIAN: 09/11/17 1149 DEP CLI 09/12/17 [place] [address]
--- NOTE | ~2017-09-10 | HP ---
PATIENT: LOVE JAMES MEDICAL RECORD: [id number] ACCOUNT: [id number] LOCATION:MICHAEL : 44 ADMISSION DATE: 09/10/17 HISTORY AND PHYSICAL EXAMINATION DATE OF ADMISSION: 09/10/2017. ADMITTING DIAGNOSES: 1. Unstable angina. 2. Coronary artery disease. 3. Previous multivessel percutaneous transluminal coronary angioplasty stent. 4. Hypertension. 5. Hyperlipidemia. HISTORY OF PRESENT ILLNESS: Ms. James presents with chest discomfort radiating to her neck and shoulder blades. This is her typical angina. This started last night. She had it all night long. She has had recurrent episodes today. Her EKG has nonspecific ST-T abnormalities and changes. REVIEW OF SYSTEMS: The patient reports easy bruising but reports no swollen glands. The patient reports no fever, no night sweats, no significant weight gain, no significant weight loss. No significant exercise tolerance. The patient reports no dry eyes, no irritation, no vision change. Patient reports no difficulty hearing and no ear pain. Patient reports no frequent nose bleeds or nose and sinus problems. Patient reports on arm pain on exertion. No shortness of breath while lying down. No history of heart murmur. Patient reports no cough, no wheezing or coughing up blood. Patient reports no abdominal pain, no vomiting. Normal appetite. No diarrhea and not vomiting blood. No nausea and no constipation. Patient reports no incontinence. No difficulty urinating. No hematuria. No increased frequency. Patient reports no muscle aches. No weakness, no arthralgias, no back pain. No swelling of the extremities. Patient reports no abnormal mole, no jaundice, no rashes. Reports no loss of consciousness. No weakness and no numbness. No seizures, dizziness, or headaches. The patient reports no depression, no sleep disturbance, feeling safe in a relationship and no alcohol abuse. Patient reports on fatigue. Reports no runny nose or sinus pressure. No itching, no hives, and no frequent sneezing. PHYSICAL EXAMINATION: GENERAL APPEARANCE: Well-nourished, well-developed, appears stated age. Level of distress, comfortable. PSYCHIATRIC: Mental status, alert, normal affect. Orientation, oriented to time, place and person. EYES: Lids and conjunctiva, noninjected. No discharge, no pallor. ENT: Lips, teeth, gums, normal dentition. Oropharynx, no cyanosis, no pallor. NECK: Carotid arteries, bilateral normal upstroke, no bruits, no thrills. JUGULAR VEINS: No jugular venous pressure or distention. CERVICAL LYMPH NODES: Nontender, nonenlarged. THYROID: Not enlarged. Nontender. No nodules. LUNGS: Respiratory effort, unlabored. CHEST: Normal curvature. No thoracic deformity. No chest wall tenderness. Percussion, resonant. Auscultation, clear. No wheezes, no rales, no rhonchi. CARDIOVASCULAR: Precordial exam, nondisplaced. No heaves or pericardial thrills. Rate and rhythm, regular. Heart sounds, normal S1, normal S2. No S3, no gallop, no rub. Systolic murmur, not heard. Diastolic murmur, not heard. HISTORY AND PHYSICAL [id number] LOVE JAMES EXTREMITIES: No cyanosis, no edema. Peripheral pulses, full and equal in all extremities, except as noted. No bruits appreciated. ABDOMEN: Soft, nondistended. Normal aorta. No bruit. Nontender. No masses. Liver, nontender, no hepatomegaly. Spleen, nontender, no splenomegaly. MUSCULOSKELETAL: No joint tenderness. No joint swelling. No erythema. NEUROLOGICAL: Normal gait, normal strength, normal tone. SKIN: Warm and dry. OVERALL IMPRESSION: Chest pain compatible with angina in an unstable rapidly progressive fashion, most likely she has recurrent hemodynamically significant coronary artery disease. We will proceed with coronary angiography in the a.m. Further care depends upon findings of the angiography. TRANSINT:[id number] Voice Confirmation ID: [id number] DOCUMENT ID: [id number] RADHA WHITNEY MD at 1153 CC: [id number] DICTATION DATE: 09/10/17 1612 RUBBER TESTER: 09/10/17 1715 [facility] CLI 09/12/17 [place] [id number] [place] [id number]
--- NOTE | ~2017-09-10 | HEMODYNAMI ---
PATIENT:LOVE JAMES MEDICAL RECORD: [id number] : 44 LOCATION:[facility] D.2117 ADMISSION DATE: 09/10/17 Generatedon:09/11/20179:13 Patient name: LOVE JAMES Patient #: [id number] SSN: D OB: 1940 Date of study: 09/11/2017 Page: Of Hemodynamic Procedure Report Patient Data Patient Demographics Procedure consent was obtained First Name: LOVE Gender: Female Last Name: JACOB : 1940 [facility] Initial: ZIGGY Age: 77 year(s) Patient #: [id number] Race: Additional ID: [id number] Contact details [address]: [address] [place] [address] State: [place] City: [place] Zip code: [address] Past Medical History History of disease Date Diagnosis Comments CAD Valvular heart disease TIA Allergies Allergen Reaction Date Comments Reported Statins 09/10/2016 Admission Admission Data Admission Date: 09/10/2017 Admission Time: 14:22 Room #: D.2117 Lab Results Lab Result Date: 09/10/2017 Lab Result Time: 14:55 Biochemistry Name Units Result Min Max CK-MB ng/ml 1 --(-*--)-- 0 3.6 Creatinine mg/dl 0.9 --(-*--)-- 0.6 1.3 Troponin l ng/ml 0.017 --(-*--)-- 0 0.06 CBC Name Units Result Min Max Hemoglobin g/dl 10.4 *-(----)-- 13.5 17.5 Procedure Procedure Types Cath Procedure Diagnostic Procedure LHC LHC w/Coronaries w/Grafts PCI Procedure Coronary Stent Coronary Stent Initial Miscellaneous Procedures Moderate Sedation up to 15 minutes Procedure Description Procedure Date Procedure Date: 09/11/2017 Procedure Start Time: 8:55 Procedure End Time: 9:12 Procedure Staff Name Function Dallin Lewis MD Performing Physician Lily Mendez RT Monitor Erma Bhatia RT Robbie Clarke RN Nurse Procedure Data Cath Procedure Fluoroscopy Diagnostic fluoroscopy Total fluoroscopy Time: 3.2 time: 3.2 min min Diagnostic fluoroscopy Total fluoroscopy dose: 341 dose: 341 mGy mGy Contrast Material Contrast Material Type Amount (ml) Isovue 300 54 Entry Location Entry Primary Successful Side Size Upsize Upsize Entry Closure Succes sful Closure Location (Fr) 1 (Fr) 2 (Fr) Remarks Device Remarks Femoral Right 5 Fr 6 Fr Exoseal artery Short Estimated blood loss: 10 ml Diagnostic catheters Device Type Used For End Catheter Placement MULTIPACK Pigtail 5 Fr LV Angiography catheter MULTIPACK JL 4.0 5Fr Left Coronary catheter Angiography MULTIPACK 3DRC 5Fr Internal mammary catheter arteriography MULTIPACK 3DRC 5Fr Right Coronary catheter Angiography DIAGNOSTIC AR 1 MOD 5Fr SVG Angiography catheter ([id number]) Procedure Complications No complications Procedure Medications Medication Administration Route Dosage Oxygen NC 2 l/min Lidocaine 2% added to field 20 Heparin Flush Bag added to field 2 bags (1000units/500ml NS) 0.9% NaCl I.V. 100 ml/hr Versed I.V. 1 mg Fentanyl I.V. 50 mcg Heparin Bolus I.V. 4000 units Versed I.V. 1 mg Fentanyl I.V. 50 mcg Hemodynamics Rest HGB: 10.4 (g/dl) Heart Rate: 63 (bpm) Snapshots Pre Cath Intra NCS Post Cath Vital Signs Time Heart Resp SPO2 etCO2 NIBP (mmHg) Rhythm Pain Sedation Rate (ipm) (%) (mmHg) Status Level (bpm) 8:29:55 65 14 94 29 136/70(110) NSR 0 (11) 10(A) , No pain 8:34:13 63 12 100 35 135/62(98) NSR 0 (11) 10(A) , No pain 8:39:30 64 13 100 32 143/67(103) NSR 0 (11) 10(A) , No pain 8:43:50 61 14 100 24.5 127/61(99) NSR 0 (11) 10(A) , No pain 8:48:04 59 16 100 28.2 103/58(83) NSR 0 (11) 10(A) , No pain 8:54:16 54 15 99 32.7 98/45(86) NSR 0 (11) 9(A) , No pain 8:56:22 57 16 100 38.6 115/57(87) NSR 0 (11) 9(A) , No pain 9:00:38 56 16 99 41.6 87/45(69) NSR 0 (11) 9(A) , No pain 9:04:46 56 16 98 41.6 78/39(67) NSR 0 (11) 9(A) , No pain 9:08:49 57 15 98 40.9 86/42(51) NSR 0 (11) 10(A) , No pain Medications Time Medication Route Dose Verified Delivered Reason Notes Effectiveness by by 8:35:45 Oxygen NC 2 Dallin Buffie used for l/min Debbie Clarke RN procedure 8:35:51 Lidocaine 2% added 20ml Dallin Dallin for local to vial Debbie Lewis MD anesthetic field 8:35:57 Heparin Flush added 2 Dallin Dallin used for Bag to bags Debbie Lewis MD procedure (1000units/500ml field NS) 8:36:05 0.9% NaCl I.V. 100 Dallin Day Per physician ml/hr Debbie Clarke RN 8:53:30 Versed I.V. 1 mg Dallin Day for sedation Debbie Clarke RN 8:53:36 Fentanyl I.V. 50 Dallin Day for sedation mcg Debbie Clarke RN 9:01:58 Heparin Bolus I.V. 4000 Dallin Day for verifie d units Debbie Clarke RN anticoagulation with dr lewis 9:05:09 Versed I.V. 1 mg Dallin Day for sedation Debbie Clarke RN 9:05:14 Fentanyl I.V. 50 Dallin Day for sedation mcg Debbie Clarke RN Procedure Log Time Note 8:17:13 Shay Clarke RN sent for patient. Start room use. 8:17:14 Time tracking: Regular hours 8:17:17 Plan of Care:Hemodynamics will remain stable., Cardiac rhythm will remain stable., Comfort level will be maintained., Respiratory function will remain adequate., Patient/ family verbilizes understanding of procedure., Procedure tolerated without complication., Recovers from procedure without complications.. 8:23:05 Patient received from PCU to [facility] 2 Alert and oriented. Tansferred to table in Supine position. 8:23:06 Warm blankets applied, and dorys hugger turned on for patient comfort. 8:23:06 Correct patient and procedure confirmed by team. 8:23:07 Signed procedure consent form obtained from patient. 8:23:08 ECG and BP/O2 sat monitors applied to patient. 8:23:09 Full Disclosure recording started 8:27:34 Vital chart was started 8:28:21 Previous problem with sedation/anesthesia? No ? 8:28:22 Snore? Yes 8:28:23 Sleep apnea? No 8:28:24 Deviated septum? No 8:28:25 Opens mouth fully? Yes 8:28:25 Sticks out tongue? Yes 8:28:28 Airway obstruction? Yes COPD 8:28:30 Dentures? Yes IN 8:28:31 Patient diabetic? Yes. 8:28:33 If diabetic: On Metformin? Yes 8:28:36 If on Metformin: Last Dose? 09/10/2017 8:29:10 Rhythm: sinus rhythm 8:29:30 H&P Date Dictated: 09/10/2017 Within 30 days and on chart.. 8:29:31 Pre-procedure instructions explained to patient. 8:29:31 Pre-op teaching completed and patient verbalized understanding. 8:29:32 Family unavailable. 8:29:39 Patient NPO since Midnight. 8:30:25 Is the patient allergic to Iodine/contrast media? No. 8:30:27 Is patient on blood thinner?Yes 8:30:30 ACC The patient was administered the following blood thiners within the last 24 hours: ACCPlavix 8:30:37 Pre procedure: right dorsailis pedis pulse 2+ Normal; easily identifiable; not easily obliterated 8:30:40 Patient pain scale 0/10 ?. 8:30:44 IV patent on arrival in left forearm with 0.9% NaCl at KVO. 8:30:47 Lab results completed and on chart. 8:30:49 Right groin area was prepped with chlora-prep and draped in sterile fashion 8:30:50 Alarms reviewed by R. N. 8:30:50 Sharps counted by scrub and verified by R.N. 8:30:55 Use device set Femoral Dx 8:30:56 ACIST Syringe (42833) opened to sterile field. 8:30:56 Bag Decanter (2002S) opened to sterile field. 8:30:57 Medline Cath Pack ([id number]) opened to sterile field. 8:30:57 SHEATH 5FR [place] (BDJ106) opened to sterile field. 8:30:58 DIAGNOSTIC WIRE .035 260cm J wire (007924) opened to sterile field. 8:30:59 ACIST Hand Control (01479) opened to sterile field. 8:30:59 ACIST Manifold (07734) opened to sterile field. 8:31:00 DIAGNOSTIC Multipack 5Fr catheter set ([id number]) opened to sterile field. 8:31:01 Tegaderm 4 x 4 (1626W) opened to sterile field. 8:31:02 PERCUTANEOUS ENTRY 19GA needle opened to sterile field. 8:34:47 Baseline sample Acquired. 8:35:45 Oxygen 2 l/min NC was administered by Shay Clarke RN; used for procedure; 8:35:51 Lidocaine 2% 20ml vial added to field was administered by Dallin Lewis MD; for local anesthetic; 8:35:57 Heparin Flush Bag (1000units/500ml NS) 2 bags added to field was administered by Dallin Lewis MD; used for procedure; 8:36:05 0.9% NaCl 100 ml/hr I.V. was administered by Shay Clarke RN; Per physician; 8:36:13 Lab Result : Troponin l 0.017 ng/ml 8:36:13 Lab Result : CK-MB 1 ng/ml 8:36:13 Lab Result : Creatinine 0.9 mg/dl 8:36:13 Lab Result : Hemoglobin 10.4 g/dl 8:36:30 IV Extension Set opened to sterile field. 8:38:23 Physician paged 8:43:20 Zero performed for pressure channel P1 8:52:53 Final Timeout: patient, procedure, and site verified with staff and physician. All members of the team are in agreement. 8:52:55 Right groin site verified by team. 8:52:58 Physical assessment completed. ASA score P 2 - A patient with mild systemic disease as per Dallin Lewis MD. 8:53:01 Sedation plan: IV Moderate Sedation Medication:Versed, Fentanyl 8:53:30 Versed 1 mg I.V. was administered by Shay Clarke RN; for sedation; 8:53:36 Fentanyl 50 mcg I.V. was administered by Shay Clarke RN; for sedation; 8:55:15 Procedure started. 8:55:19 Local anesthetic to right femoral artery with Lidocaine 2% by Dallin Lewis MD.INITIAL ACCESS ONLY 8:56:43 A 5 Fr sheath was inserted into the Right Femoral artery 8:57:22 A MULTIPACK Pigtail 5 Fr catheter was advanced over the wire and used for LV Angiography. 8:58:00 LV gram done using PEREZ 8:58:05 Injector settings: Ml/sec: 10, Volume: 20, 8:58:10 EF : 60 % 8:58:12 Catheter removed. 8:59:21 A MULTIPACK JL 4.0 5Fr catheter was advanced over the wire and used for Left Coronary Angiography. 8:59:31 Catheter removed. 8:59:46 A MULTIPACK 3DRC 5Fr catheter was advanced over the wire and used for Internal mammary arteriography.TO LAD 9:00:59 A MULTIPACK 3DRC 5Fr catheter was advanced over the wire and used for Right Coronary Angiography. 9:01:19 Catheter removed. 9:01:29 A DIAGNOSTIC AR 1 MOD 5Fr catheter ([id number]) was advanced over the wire and used for SVG Angiography.TO CIRC 9:01:32 Use device set TAU PCI 9:01:37 INFLATOR Merit BasixCompak (IT1837) opened to sterile field. 9:01:38 SHEATH 6FR [place] (KBW241) opened to sterile field. 9:01:58 Heparin Bolus 4000 units I.V. was administered by Shay Clarke RN; for anticoagulation; verified with dr lewis 9:02:00 Catheter removed. 9:02:14 GUIDE 6FR 3DRC SH catheter ([id number]) opened to sterile field. 9:02:29 Sheath upsized to a 6 Fr Short. 9:02:43 6 Fr 3DRC SH guide catheter was inserted over the wire 9:03:41 WHISPER wire advanced. 9:05:09 Versed 1 mg I.V. was administered by Shay Clarke RN; for sedation; 9:05:14 Fentanyl 50 mcg I.V. was administered by Shay Clarke RN; for sedation; 9:05:49 Inflation Number: 1 A JAKE OTW 3.5 x 12 stent ([id number]) was prepped and advanced across the Prox RCA. The stent was deployed at 23 IRAIDA for 0:08 (min:sec). 9:06:02 Inflation number: 2 The stent balloon was then re-inflated across the Prox RCA to 23 IRAIDA for 0:08 (min:sec). 9:06:16 Stent catheter was removed intact over wire. 9:06:17 Wire removed. 9:06:18 Guide catheter removed. 9:06:30 Sheath removed intact; hemostasis achieved with Exoseal to the Right Femoral artery. 9:06:32 EXOSEAL 6Fr (EX600) opened to sterile field. 9:08:06 Procedure ended.(Physican Out) 9:08:11 Fluoroscopy time 03.20 minutes. 9:08:15 Flurop Dose total: 341 9:08:15 Fluoroscopy dose: 341 mGy 9:08:18 Contrast amount:Isovue 300 54ml. 9:08:19 Sharps counted by scrub and verified by R.N. 9:08:20 Insertion/operative site no bleeding no hematoma. 9:08:23 Post-op/insertion site Right Femoral artery dressed using a 4 x 4 and Tegaderm. 9:08:26 Post right femoral artery:stable, clean and dry 9:08:27 Post Procedure Pulses reassessed and unchanged 9:08:29 Post-procedure physical assessment completed. ASA score P 2 - A patient with mild systemic disease as per Dallin Lewis MD. 9:08:32 Post procedure rhythm: unchanged. 9:08:34 Estimated blood loss: 10 ml 9:08:35 Post procedure instruction explained to patient.Patient verbalizes understanding. 9:08:36 Patient needs reinforcement of post procedure teaching. 9:08:43 Procedure type changed to Cath procedure, Diagnostic procedure, LHC, LHC w/Coronaries w/Grafts, PCI procedure, Coronary Stent, Coronary Stent Initial, Miscellaneous Procedures, Moderate Sedation up to 15 minutes 9:08:48 Procedure Complication : No complications 9:09:21 WHISPER 300cm guide wire ([id number]) opened to sterile field. 9:12:15 Procedure and supply charges have been captured, reviewed, submitted and are correct. 9:12:16 See physician's report for complete and final results. 9:12:19 Vital chart was stopped 9:12:22 Report given to PCU. 9:12:25 Patient transfered to PCU with Stretcher. 9:12:31 Procedure ended. 9:12:31 Full Disclosure recording stopped 9:12:35 End room use (Document Last) Intervention Summary Intervention Notes Time ActionType Lesion and Equipment Action# Pressure Duration Attributes Used 9:05:[address] Place stent Prox RCA JAKE OTW 3.5 1 23 00:08 x 12 stent ([id number]) 9:06:02 Reinflate Prox RCA JAKE OTW 3.5 2 23 00:08 stent x 12 stent balloon ([id number]) Device Usage Item Name Manufacture Quantity Catalog Hospital Part Current Mini mal Lot# / Number Charge Number Stock Stock Serial# Code ACIST Syringe Acist 1 88076 175488 402850 618104 20 (19257) Medical Systems Inc Bag Decanter Microtek 1 919990 87848 896696 5 () Medical Inc. Medline Cath Cardinal 1 [id number] 035437 04188 341134 5 Pack Health ([id number]) SHEATH 5FR Terumo 1 JZT253 419222 316419 015276 40 [place] (YDJ469) DIAGNOSTIC St El 1 765531 994832 654074 140991 30 WIRE .035 260cm J wire (459731) ACIST Hand Acist 1 97821 689856 112654 087176 5 Control Medical (15275) Systems Inc ACIST Acist 1 36479 398789 322961 449185 5 Manifold Medical (18384) Systems Inc DIAGNOSTIC Cardinal 1 VV2437 618991 33213 043715 30 Multipack 5Fr Health catheter set (NY1332) Tegaderm 4 x 3M 1 1626W 714170 627436 209517 5 4 (1626W) PERCUTANEOUS Cook Medical 1 Y48395 604440 705705 5 ENTRY 19GA needle IV Extension Hospira 1 67371-35 847487 34172 912774 5 Set MULTIPACK Cardinal 1 110845 5 Pigtail 5 Fr Health catheter MULTIPACK JL Cardinal 1 [id number] 5 4.0 5Fr Health catheter MULTIPACK Cardinal 1 686464 5 3DRC 5Fr Health catheter DIAGNOSTIC AR Cardinal 1 [id number] 760894 241744 170372 15 1 MOD 5Fr Health catheter ([id number]) INFLATOR Merit 1 WU2559 464218 713336 388823 15 [facility] BasixCompak (ON6337) SHEATH 6FR Terumo 1 KOE759 418639 441086 963407 40 [place] (NXC969) GUIDE 6FR Medtronic 1 [id number] 934881 899427 958328 1 3DRC SH catheter ([id number]) JAKE OTW 3.5 Medtronic 1 [id number] 430723 4135685 356792 5 [id number] x 12 stent ([id number]) EXOSEAL 6Fr Cardinal 1 EX600 080868 200853 042499 10 (EX600) Health WHISPER 300cm Stein 1 [id number] 383027 410490 739925 5 guide wire Vascular ([id number]) Signature Audit [place] Stage Time Signature Unsigned Intra-Procedure 09/11/2017 Lily 9:12:47 AM Counts RT(R) Signatures Monitor : Lily Signature : Counts RT Date : Time : [facility] [address] [place], [place] [address]
[~2017-09-10 14:22] MED LIST changes: -ATIVAN1 MG PO; -ISOSORBIDE MONO60 M1 PO; -LIPITOR40 MG PO; -PROAIR HFA8.5 GM INH; -SYMBICORT 16010.2 GM INH
[2017-09-10 15:08] LABS: BASOPHILS 0.2 % (0-2); EOSINOPHILS 2.3 % (0-7); HEMATOCRIT 33.3 % (36.0-48.0); HEMOGLOBIN 10.4 g/dL (12-16); IMMATURE GRANULOCYTES 0.2 % (0-5); LYMPHOCYTES 29.4 % (15-50); MCH 22.9 pg (26.0-34.0); MCHC 31.2 g/dL (31.0-37.0); MCV 73.3 fL (80.0-100.0); MONOCYTES 6.2 % (2-11); NEUTROPHILS 61.7 % (40-80); PLATELET COUNT 163 10x3/uL (130-400); RBC 4.54 10x6/uL (4.00-5.40); RDW 16.5 % (11.5-14.5); WBC 6.6 10x3/uL (4.8-10.8)
[2017-09-10 15:16] LABS: ALKALINE PHOSPHATASE 52 U/L (46-116); ALT (SGPT) 22 U/L (10-68); BILIRUBIN - TOTAL 0.45 mg/dL (0.2-1.3); CALC OSMOLALITY 277 mosm/kg (275-300); CALCIUM 9.6 mg/dL (8.5-10.1); CARBON DIOXIDE 26.9 mmol/L (21.0-32.0); CHLORIDE - SERUM 100 mmol/L (98-107); CREATININE - SERUM 0.9 mg/dL (0.6-1.3); GLUCOSE 101 mg/dL (74-106); POTASSIUM - SERUM 3.7 mmol/L (3.5-5.1); PROTEIN - SERUM 7.4 g/dL (6.4-8.2); SODIUM 138 mmol/L (136-145); UREA NITROGEN 17 mg/dL (7-18); eGFR NON AFRICAN AMERICAN 65 mL/min (90-120)
[2017-09-10 15:26] LABS: CHOL - HDL RATIO 3.5 ratio (2.3-4.1); CHOLESTEROL, TOTAL 161 mg/dL (0-200); CREATINE KINASE 83 UL (21-215); HDL CHOLESTEROL 46 mg/dL (32-96); LDL CHOLESTEROL 72 mg/dL (0-100); LDL-HDL RATIO 1.6 ratio (1.5-3.5); TRIGLYCERIDE 218 mg/dL (30-200)
[2017-09-10 15:29] LABS: TROPONIN-I < 0.017 ng/mL (0.000-0.060)
[2017-09-10 17:58] VITALS: BP 139/55; BMI 22.0
[2017-09-10 18:11] LABS: APPEARANCE CLEAR (CLEAR); BILIRUBIN NEGATIVE (NEGATIVE); COLOR YELLOW (YELLOW); GLUCOSE NEGATIVE (NEGATIVE); KETONE NEGATIVE (NEGATIVE); NITRITE NEGATIVE (NEGATIVE); PROTEIN NEGATIVE (NEGATIVE); UROBILINOGEN NORMAL (NORMAL)
[2017-09-10] MEDS ORDERED: LIPITOR40 MG PO (18:16)
[2017-09-10] MEDS ORDERED: ISOSORBIDE MONO60 M1 PO (18:17)
[2017-09-10] MEDS ORDERED: ATIVAN1 MG PO (18:18)
[2017-09-10] MEDS ORDERED: SYMBICORT 16010.2 GM INH (18:20)
[2017-09-10] MEDS ORDERED: PROAIR HFA8.5 GM INH (18:21)
[2017-09-10 20:56] VITALS: BP 116/46
[2017-09-11 01:20] VITALS: BP 105/42
[2017-09-11 06:40] VITALS: BP 101/31
[2017-09-11 08:04] VITALS: BP 119/61
[2017-09-11 11:04] VITALS: BP 96/38
[2017-09-11 14:39] VITALS: BP 94/54
[2017-09-11 20:39] VITALS: BP 97/44
[2017-09-12] VITALS: BP 82/40
[2017-09-12 04:53] VITALS: BP 100/37
[2017-09-12 08:09] VITALS: BP 116/50
[2017-09-12] MEDS ORDERED: METOPROLOL TART25 MG PO (09:23)
[2017-09-12 11:19] VITALS: BP 107/47
[2017-09-12 15:22] VITALS: BP 110/56
== END 2017-09-12 16:15 | disposition home or self-care (01) ==
LOC: D.ER 14:22 → D.OPS 14:22 → D.M2 14:22 → EDSTATUS 09-11 11:00 → D.OPS 09-12 16:15
PROVIDERS: Emergency Medicine
DX: I25.110 Atherosclerotic heart disease of native coronary artery with unstable angina pectoris (principal); T82.855A Stenosis of coronary artery stent, initial encounter; I10 Essential (primary) hypertension; E78.5 Hyperlipidemia, unspecified; Z01.812 Encounter for preprocedural laboratory examination
CPT/HCPCS: 93459; C9600

== ENCOUNTER → 2017-10-02 12:38 | Outpatient (CLI) | payer MEDICARE ==
[2017-09-10 17:58] VITALS: BMI 22.0
[~2017-10-02 12:38] MED LIST changes: +ATIVAN1 MG PO; +ISOSORBIDE MONO60 M1 PO; +LIPITOR40 MG PO; +PROAIR HFA8.5 GM INH; +SYMBICORT 16010.2 GM INH
== END | disposition home or self-care (01) ==
LOC: D.RT 12:38
DX: J44.9 Chronic obstructive pulmonary disease, unspecified (principal)

== ENCOUNTER 2017-10-02 13:53 | Emergency (ER) | payer MEDICARE ==
[2017-10-02 14:45] LABS: BASOPHILS 0.1 % (0-2); EOSINOPHILS 3.2 % (0-7); HEMATOCRIT 32.8 % (36.0-48.0); HEMOGLOBIN 10.5 g/dL (12-16); IMMATURE GRANULOCYTES 0.3 % (0-5); LYMPHOCYTES 39.6 % (15-50); MCH 23.3 pg (26.0-34.0); MCV 72.9 fL (80.0-100.0); MEAN PLATELET VOLUME 11.3 fL (7.4-10.4); MONOCYTES 6.8 % (2-11); PLATELET COUNT 187 10x3/uL (130-400); WBC 6.9 10x3/uL (4.8-10.8)
[2017-10-02 15:02] LABS: ALBUMIN 3.8 g/dL (3.4-5.0); ANION GAP 14.3 mmol/L (8-16); BILIRUBIN - TOTAL 0.36 mg/dL (0.2-1.3); CALCIUM 9.6 mg/dL (8.5-10.1); CARBON DIOXIDE 28.7 mmol/L (21.0-32.0); CREATININE - SERUM 0.9 mg/dL (0.6-1.3); PROTEIN - SERUM 7.4 g/dL (6.4-8.2)
[2017-10-02 16:02] LABS: APPEARANCE CLEAR (CLEAR); BILIRUBIN NEGATIVE (NEGATIVE); COLOR YELLOW (YELLOW); GLUCOSE NEGATIVE (NEGATIVE); KETONE NEGATIVE (NEGATIVE); NITRITE NEGATIVE (NEGATIVE); PROTEIN NEGATIVE (NEGATIVE); SPECIFIC GRAVITY 1.005 (1.005-1.020); UROBILINOGEN NORMAL (NORMAL)
== END 2017-10-02 17:15 | disposition home or self-care (01) ==
LOC: D.ER 13:53
PROVIDERS: Emergency Medicine
DX: R06.00 Dyspnea, unspecified (principal); D64.9 Anemia, unspecified; E87.6 Hypokalemia; I50.9 Heart failure, unspecified; I25.10 Atherosclerotic heart disease of native coronary artery without angina pectoris; J44.9 Chronic obstructive pulmonary disease, unspecified; E11.9 Type 2 diabetes mellitus without complications; I45.10 Unspecified right bundle-branch block

== ENCOUNTER 2017-12-14 10:57 | Emergency (ER) | payer MEDICARE ==
[2017-12-14 11:18] LABS: BASOPHILS 0.2 % (0-2); EOSINOPHILS 3.4 % (0-7); HEMATOCRIT 32.2 % (36.0-48.0); HEMOGLOBIN 9.9 g/dL (12-16); LYMPHOCYTES 29.6 % (15-50); MCH 21.9 pg (26.0-34.0); MCHC 30.7 g/dL (31.0-37.0); MCV 71.2 fL (80.0-100.0); MONOCYTES 4.9 % (2-11); NEUTROPHILS 61.9 % (40-80); PLATELET COUNT 179 10x3/uL (130-400); RBC 4.52 10x6/uL (4.00-5.40); RDW 17.1 % (11.5-14.5); WBC 6.2 10x3/uL (4.8-10.8)
[2017-12-14 11:30] LABS: APPEARANCE CLEAR (CLEAR); BILIRUBIN NEGATIVE (NEGATIVE); COLOR YELLOW (YELLOW); GLUCOSE NEGATIVE (NEGATIVE); KETONE NEGATIVE (NEGATIVE); NITRITE NEGATIVE (NEGATIVE); PROTEIN NEGATIVE (NEGATIVE); SPECIFIC GRAVITY 1.005 (1.005-1.020); UROBILINOGEN NORMAL (NORMAL)
[2017-12-14 11:34] LABS: ALBUMIN 3.6 g/dL (3.4-5.0); ALKALINE PHOSPHATASE 67 U/L (46-116); ALT (SGPT) 22 U/L (10-68); BILIRUBIN - TOTAL 0.43 mg/dL (0.2-1.3); CALC OSMOLALITY 284 mosm/kg (275-300); CARBON DIOXIDE 28.4 mmol/L (21.0-32.0); CHLORIDE - SERUM 100 mmol/L (98-107); CREATININE - SERUM 1.1 mg/dL (0.6-1.3); POTASSIUM - SERUM 3.2 mmol/L (3.5-5.1); PROTEIN - SERUM 7.1 g/dL (6.4-8.2); SODIUM 140 mmol/L (136-145); UREA NITROGEN 13 mg/dL (7-18); eGFR NON AFRICAN AMERICAN 51 mL/min (90-120)
[2017-12-14 11:36] LABS: GLUCOSE 211 mg/dL (74-106)
[2017-12-14 11:44] LABS: CHOL - HDL RATIO 3.5 ratio (2.3-4.1); CHOLESTEROL, TOTAL 128 mg/dL (0-200); CKMB 0.2 U/L (0.0-3.6); CREATINE KINASE 58 UL (21-215); HDL CHOLESTEROL 37 mg/dL (32-96); LDL CHOLESTEROL 57 mg/dL (0-100); LDL-HDL RATIO 1.5 ratio (1.5-3.5); TRIGLYCERIDE 173 mg/dL (30-200)
[2017-12-14 11:46] LABS: TROPONIN-I < 0.017 ng/mL (0.000-0.060)
[2017-12-14 12:27] LABS: MAGNESIUM - SERUM 1.3 mg/dL (1.8-2.4)
[2018-02-12] MEDS ORDERED: POT CHLORIDE TAB 10M (08:23)
[2018-02-12] MEDS ORDERED: ALDACTONE25 MG PO (08:23)
== END 2017-12-14 15:02 | disposition home or self-care (01) ==
LOC: D.ER 10:57
PROVIDERS: Emergency Medicine; Nurse Practitioner Family
DX: R07.9 Chest pain, unspecified (principal); E87.6 Hypokalemia; E83.42 Hypomagnesemia; Z85.3 Personal history of malignant neoplasm of breast; J44.9 Chronic obstructive pulmonary disease, unspecified; E11.9 Type 2 diabetes mellitus without complications; I45.10 Unspecified right bundle-branch block

== ENCOUNTER → 2018-02-12 07:53 | Outpatient (CLI) | payer MEDICARE ==
[~2018-02-12] VITALS: Ht 165.1 cm; Wt 61.4 kg
--- NOTE | ~2018-02-12 | HEMODYNAMI ---
PATIENT:LOVE JAMES MEDICAL RECORD: [id number] : 44 LOCATION:[facility] ADMISSION DATE: 02/12/18 Generatedon:02/12/201810:12 Patient name: LOVE JAMES Patient #: [id number] SSN: D OB: 1940 Date of study: 02/12/2018 Page: Of Hemodynamic Procedure Report Patient Data Patient Demographics Procedure consent was obtained First Name: LOVE Gender: Female Last Name: JACOB : 1940 [facility] Initial: ZIGGY Age: 77 year(s) Patient #: [id number] Race: Additional ID: [id number] Contact details Address: [address] [place] [address] State: [place] City: [place] Zip code: [address] Past Medical History History of disease Date Diagnosis Comments CAD Valvular heart disease TIA Allergies Allergen Reaction Date Comments Reported Statins 09/10/2016 Other allergy 02/12/2018 STATINS Admission Admission Data Admission Date: 02/12/2018 Admission Time: 7:53 Admit Source: Other Lab Results Lab Result Date: 02/12/2018 Lab Result Time: 0:00 Biochemistry Name Units Result Min Max BUN mg/dl 13 --(--*-)-- 7 18 Creatinine mg/dl 0.9 --(-*--)-- 0.6 1.3 CBC Name Units Result Min Max Hemoglobin g/dl 11.1 *-(----)-- 13.5 17.5 Procedure Procedure Types Cath Procedure Diagnostic Procedure LHC LHC w/Coronaries w/Grafts Procedure Description Procedure Date Procedure Date: 02/12/2018 Procedure Start Time: 10:01 Procedure End Time: 10:09 Procedure Staff Name Function Dallin Lewis MD Performing Physician Davida Herring RT Monitor Larry Nguyen RT Scrub Martin Rodrigez RN Nurse Nehemias Ward RN Intelligence Consultant Procedure Data Cath Procedure Fluoroscopy Diagnostic fluoroscopy Total fluoroscopy Time: 1.7 time: 1.7 min min Diagnostic fluoroscopy Total fluoroscopy dose: 257 dose: 257 mGy mGy Contrast Material Contrast Material Type Amount (ml) Isovue 370 58 Entry Location Entry Primary Successful Side Size Upsize Upsize Entry Closure Succes sful Closure Location (Fr) 1 (Fr) 2 (Fr) Remarks Device Remarks Femoral Right 5 Fr Exoseal artery Estimated blood loss: 5 ml Diagnostic catheters Device Type Used For End Catheter Placement MULTIPACK Pigtail 5 Fr Procedure catheter MULTIPACK JL 4.0 5Fr Procedure catheter MULTIPACK 3DRC 5Fr Procedure catheter Procedure Complications No complications Procedure Medications Medication Administration Route Dosage 0.9% NaCl I.V. 100 ml/hr Oxygen etCO2 Nasal cannula 2 l/min Heparin Flush Bag added to field 2 bags (1000units/500ml NS) Lidocaine 2% added to field 20 Versed I.V. 1 mg Fentanyl I.V. 50 mcg Versed I.V. 1 mg Fentanyl I.V. 50 mcg Hemodynamics Rest HGB: 11.1 (g/dl) Heart Rate: 64 (bpm) Snapshots Pre Cath Intra NCS Post Cath Vital Signs Time Heart Resp SPO2 etCO2 NIBP (mmHg) Rhythm Pain Sedation Rate (ipm) (%) (mmHg) Status Level (bpm) 9:44:18 68 13 98 0 143/66(122) NSR 0 (11) 10(A) , No pain 9:49:00 62 15 98 1.5 119/59(104) NSR 0 (11) 10(A) , No pain 9:53:43 63 15 99 0 118/56(95) NSR 0 (11) 10(A) , No pain 9:58:25 64 13 99 0 104/49(90) NSR 0 (11) 10(A) , No pain 10:03:06 62 16 99 32.3 99/48(76) NSR 0 (11) 9(A) , No pain 10:07:45 68 17 99 34.5 114/56(96) NSR 0 (11) 9(A) , No pain Medications Time Medication Route Dose Verified Delivered Reason Notes Eff ectiveness by by 9:46:49 0.9% NaCl I.V. 100 Martin Martin Per ml/hr Rain Rodrigez physician RN RN 9:46:58 Oxygen etCO2 2 Martin Martin Per Nasal l/min Rain Rodrigez physician cannula RN RN 9:47:09 Heparin Flush added 2 Martin Martin used for Bag to bags Lorigan Lorigan procedure (1000units/500ml field RN RN NS) 9:47:22 Lidocaine 2% added 20ml Martin Martin for local to vial Lorigan Lorigan anesthetic field RN RN 9:55:26 Versed I.V. 1 mg Martin Martin for Lorigan Lorigan sedation RN RN 9:55:34 Fentanyl I.V. 50 Martin Martin for mcg Lorigan Lorigan sedation RN RN 10:01:40 Versed I.V. 1 mg Martin Martin for Lorigan Lorigan sedation RN RN 10:01:46 Fentanyl I.V. 50 Martin Martin for mcg Lorigan Lorigan sedation RN hot dimpling machine operator Log Time Note 9:35:17 Informed consent obtained and on chart 9:35:21 Admit Source: Other 9:35:47 Diagnostic Cath status Elective 9:35:49 Nehemias Ward RN sent for patient. Start room use. 9:35:50 Time tracking: Regular hours (M-F 7:00 - 5:00) 9:35:54 Plan of Care:Hemodynamics will remain stable., Cardiac rhythm will remain stable., Comfort level will be maintained., Respiratory function will remain adequate., Patient/ family verbilizes understanding of procedure., Procedure tolerated without complication., Recovers from procedure without complications.. 9:38:18 H&P Date Dictated: 02/05/2018 Within 30 days and on chart., H&P Addendum completed by physician on day of procedure. (MUST COMPLETE FOR ALL OUTPATIENTS). 9:38:22 Patient received from Pre/Post Procedure Room to CCL 1 Alert and oriented. Tansferred to table in Supine position. 9:38:24 Warm blankets applied, and dorys hugger turned on for patient comfort. 9:38:24 Correct patient and procedure confirmed by team. 9:38:25 ECG and BP/O2 sat monitors applied to patient. 9:38:39 Patient allergic to Other allergySTATINS 9:43:22 Vital chart was started 9:45:59 Baseline sample Acquired. 9:46:03 Full Disclosure recording started 9:46:06 Pre-procedure instructions explained to patient. 9:46:06 Pre-op teaching completed and patient verbalized understanding. 9:46:07 Family in patients room. 9:46:09 Patient NPO since Midnight. 9:46:11 Is the patient allergic to Iodine/contrast media? No. 9:46:14 Is patient on blood thinner?Yes 9:46:23 Patient diabetic? Yes. 9:46:24 If diabetic: On Metformin? Yes 9:46:29 If on Metformin: Last Dose? 02/10/2018 9:46:34 Previous problem with sedation/anesthesia? No ? 9:46:34 Snore? Yes 9:46:35 Sleep apnea? Yes 9:46:37 Deviated septum? No 9:46:37 Opens mouth fully? Yes 9:46:38 Sticks out tongue? Yes 9:46:40 Airway obstruction? No ? 9:46:42 Dentures? No ? 9:46:44 Pre procedure: right dorsailis pedis pulse 2+ Normal; easily identifiable; not easily obliterated 9:46:49 0.9% NaCl 100 ml/hr I.V. was administered by Martin Rodrigez RN; Per physician; 9:46:52 Patient pain scale 0/10 ?. 9:46:57 IV patent on arrival in left hand with 0.9% NaCl at O. 9:46:58 Oxygen 2 l/min etCO2 Nasal cannula was administered by Martin Rodrigez RN; Per physician; 9:47:09 Heparin Flush Bag (1000units/500ml NS) 2 bags added to field was administered by Martin Rodrigez RN; used for procedure; 9:47:19 Lab Result : BUN 13 mg/dl 9:47:19 Lab Result : Hemoglobin 11.1 g/dl 9:47:19 Lab Result : Creatinine 0.9 mg/dl 9:47:22 Lidocaine 2% 20ml vial added to field was administered by Martin Rodrigez RN; for local anesthetic; 9:47:24 Lab results completed and on chart. 9:47:28 Right groin area was prepped with chlora-prep and draped in sterile fashion 9:47:29 Alarms reviewed by R. N. 9:47:29 Sharps counted by scrub and verified by R.N. 9:47:35 Use device set Femoral Dx 9:47:36 ACIST Syringe (91406) opened to sterile field. 9:47:38 Bag Decanter (2002) opened to sterile field. 9:47:39 ACIST Hand Control (48370) opened to sterile field. 9:47:40 ACIST Manifold (12046) opened to sterile field. 9:47:40 Tegaderm 4 x 4 (1626W) opened to sterile field. 9:47:42 Medline Cath Pack ([id number]) opened to sterile field. 9:47:42 DIAGNOSTIC WIRE .035 260cm J wire (538373) opened to sterile field. 9:47:43 DIAGNOSTIC Multipack 5Fr catheter set ([id number]) opened to sterile field. 9:47:45 SHEATH Prelude 5Fr 0.035 ([id number]-7Q-99-035) opened to sterile field. 9:52:39 Zero performed for pressure channel P1 9:55:04 --------ALL STOP TIME OUT------ 9:55:04 Final Timeout: patient, procedure, and site verified with staff and physician. All members of the team are in agreement. 9:55:05 Right groin site verified by team. 9:55:08 Physical assessment completed. ASA score P 2 - A patient with mild systemic disease as per Dallin Lewis MD. 9:55:10 Sedation plan: IV Moderate Sedation Medication:Versed, Fentanyl 9:55:26 Versed 1 mg I.V. was administered by Martin Rodrigez RN; for sedation; 9:55:34 Fentanyl 50 mcg I.V. was administered by Martin Rodrigez RN; for sedation; 9:59:54 Zero performed for pressure channel P1 10:00:04 Procedure started. 10:01:28 Local anesthetic to right femoral artery with Lidocaine 2% by Dallin Lewis MD.INITIAL ACCESS ONLY 10:01:40 Versed 1 mg I.V. was administered by Martin Rodrigez RN; for sedation; 10:01:46 Fentanyl 50 mcg I.V. was administered by Martin Rodrigez RN; for sedation; 10:01:58 A 5 Fr sheath was inserted into the Right Femoral artery 10:02:04 A MULTIPACK Pigtail 5 Fr catheter was advanced over the wire and used for Procedure. 10:02:21 LV gram done using PEREZ 10:02:23 Injector settings: Ml/sec: 10, Volume: 20, 10:02:49 EF : 55 % 10:02:50 Catheter removed. 10:03:06 A MULTIPACK JL 4.0 5Fr catheter was advanced over the wire and used for Procedure. 10:03:41 LCA angiography performed. 10:03:42 Catheter removed. 10:04:03 A MULTIPACK 3DRC 5Fr catheter was advanced over the wire and used for Procedure. 10:04:56 CANCHOLA to LAD angiography performed. 10:05:12 RCA angiography performed. 10:06:04 SVG to Circ angiography performed. 10:06:25 Catheter removed. 10:06:45 EXOSEAL 5Fr (EX500) opened to sterile field. 10:06:56 Sheath removed intact; hemostasis achieved with Exoseal to the Right Femoral artery. 10:07:01 Procedure ended.(Physican Out) 10:07:14 Fluoroscopy time 01.70 minutes. 10:07:21 Fluoroscopy dose: 257 mGy 10:07:21 Flurop Dose total: 257 10:07:24 Contrast amount:Isovue 370 58ml. 10:07:25 Sharps counted by scrub and verified by R.N. 10:07:30 Post-op/insertion site Right Femoral artery dressed using a 4 x 4 and Tegaderm. 10:07:49 Post right femoral artery:stable, soft, clean and dry 10:07:53 Post procedure: right dorsailis pedis pulse 2+ Normal; easily identifiable; not easily obliterated. 10:07:55 Post-procedure physical assessment completed. ASA score P 2 - A patient with mild systemic disease as per Dallin Lewis MD. 10:07:57 Post procedure rhythm: unchanged. 10:07:59 Estimated blood loss: 5 ml 10:08:01 Post procedure instruction explained to patient.Patient verbalizes understanding. 10:08:02 Patient needs reinforcement of post procedure teaching. 10:09:19 Procedure and supply charges have been captured, reviewed, submitted and are correct. 10:09:21 Procedure Complication : No complications 10:09:24 Vital chart was stopped 10:09:24 See physician's report for complete and final results. 10:09:26 Report given to Pre/Post Procedure Room. 10:09:28 Patient transfered to Pre/Post Procedure Room with Bed. 10:09:30 Procedure ended. 10:09:30 Full Disclosure recording stopped 10:09:34 End room use (Document Last) Device Usage Item Name Manufacture Quantity Catalog Number Hospital Part Current M inimal Lot# / Charge Number Stock Stock Serial# Code ACIST Syringe Acist 1 74852 960654 391669 763919 2 0 (00367) [employer] Bag Decanter Microtek 1 2001S 291189 37803 330033 5 (2001S) Medical Inc. ACIST Hand Acist 1 27837 805107 608716 043346 5 Control (79057) [employer] Inc ACIST Manifold Acist 1 49074 892957 699381 914889 5 (01253) Medical Systems Inc Tegaderm 4 x 4 3M 1 1626W 096921 296309 182908 5 (1626W) Medline Cath Cardinal 1 [id number] 578730 03076 795550 5 Pack Health ([id number]) DIAGNOSTIC WIRE St El 1 031520 887256 137532 371000 3 0 .035 260cm J wire (745647) DIAGNOSTIC Cardinal 1 [id number] 943233 64444 992889 3 0 Multipack 5Fr Health catheter set ([id number]) SHEATH Prelude Merit 1 [id number] 741926 723361 920260 5 5Fr 0.035 Medical ([id number]-8N-30-035) MULTIPACK Cardinal 1 [id number] 5 Pigtail 5 Fr Health catheter MULTIPACK JL Cardinal 1 149007 5 4.0 5Fr Health catheter MULTIPACK 3DRC Cardinal 1 139261 5 5Fr catheter Health EXOSEAL 5Fr Cardinal 1 EX500 203196 609095 042027 1 0 (EX500) Health Signature Audit [place] Time Signature Unsigned Intra-Procedure 02/12/2018 Davida Herring 10:12:51 AM RT(R) Signatures Monitor : Davida Herring Signature : RT Date : Time : [place] [id number] [place] [address]
--- NOTE | ~2018-02-12 | OP ---
PATIENT NAME: LOVE JAMES MEDICAL RECORD: [id number] :44 LOCATION:D.CAT ADMISSION DATE: SURGEON: RADHA WHITNEY MD DATE OF OPERATION: 02/12/2018 PROCEDURES: 1. Left heart catheterization. 2. Selective coronary angiography. 3. Left ventriculogram. 4. Vein graft angiography. 5. CANCHOLA angiography. INDICATION: Angina and coronary artery disease. PROCEDURE PERFORMED: After informed consent was obtained and after a detailed description of risks, benefits as well as alternative therapies, the patient elected to proceed with angiogram and heart catheterization. The right femoral area was prepped and draped in normal sterile fashion. Right femoral artery was cannulated via modified Seldinger technique with placement of 5-Bolivian sheath. All catheters exchanged through this sheath. FINDINGS: Left ventriculogram was performed in standard 30-degree PEREZ view, reveals good cardiac wall motion throughout all segments. Overall ejection fraction estimated 60%. SELECTIVE CORONARY ANGIOGRAPHY: 1. Left main is with no significant angiographic disease. 2. Left anterior descending is totally occluded. 3. Left circumflex is totally occluded. 4. CANCHOLA to the LAD is widely patent. Distal LAD is widely patent. 5. Vein graft to the circumflex is widely patent. Distal circumflex is widely patent. 6. The right coronary artery has multiple previously placed stents. These are widely patent with no significant in-stent restenosis. No disease elsewise throughout the RCA or its branches. OVERALL IMPRESSION: Wide patency of the vein graft to the left system and wide patency of the stents on the RCA. Continue medical management of the coronary artery disease and cardiac risk factors. TRANSINT:[id number] Voice Confirmation ID: [id number] DOCUMENT ID: [id number] RADHA WHITNEY MD at 1713 CC: [id number] DICTATION DATE: 02/12/18 1011 FOREIGN COLLECTION CLERK: 02/12/18 1037 DEP CLI 02/12/18 [place] [address] [place] [address]
[~2018-02-12 07:53] MED LIST changes: +ALDACTONE25 MG PO; +POT CHLORIDE TAB 10M
[2018-02-12 08:30] VITALS: BP 137/68; Ht 165.1 cm; Wt 61.4 kg
[2018-02-12 09:00] LABS: BASOPHILS 0.3 % (0-2); EOSINOPHILS 4.7 % (0-7); HEMATOCRIT 35.9 % (36.0-48.0); HEMOGLOBIN 11.1 g/dL (12-16); IMMATURE GRANULOCYTES 0.1 % (0-5); LYMPHOCYTES 27.9 % (15-50); MCH 21.9 pg (26.0-34.0); MCHC 30.9 g/dL (31.0-37.0); MCV 70.9 fL (80.0-100.0); MONOCYTES 7.3 % (2-11); NEUTROPHILS 59.7 % (40-80); PLATELET COUNT 183 10x3/uL (130-400); RBC 5.06 10x6/uL (4.00-5.40); RDW 18.2 % (11.5-14.5); WBC 7.6 10x3/uL (4.8-10.8)
[2018-02-12 09:05] LABS: ANION GAP 8.4 mmol/L (8-16); CALCIUM 9.3 mg/dL (8.5-10.1); CARBON DIOXIDE 31.2 mmol/L (21.0-32.0); CREATININE - SERUM 0.9 mg/dL (0.6-1.3); POTASSIUM - SERUM 3.6 mmol/L (3.5-5.1)
== END | disposition home or self-care (01) ==
LOC: D.CATH 07:53
PROVIDERS: Internal Medicine Interventional Cardiology
DX: I25.110 Atherosclerotic heart disease of native coronary artery with unstable angina pectoris (principal)

== ENCOUNTER → 2018-04-14 09:11 | Outpatient (CLI) | payer MEDICARE ==
[2018-02-12 08:30] VITALS: BMI 22.5
== END | disposition home or self-care (01) ==
LOC: D.RAD 09:11
DX: J45.909 Unspecified asthma, uncomplicated (principal)

== ENCOUNTER 2018-08-30 13:56 | Inpatient (IN) | payer MEDICARE ==
[2018-08-30] VITALS (7 sets, daily range): BP systolic 102–141; BP diastolic 40–78; BMI 21.6
[~2018-08-30] VITALS: Ht 165.1 cm; Wt 63.7 kg
--- NOTE | 2018-08-30 14:02 | NUR ---
ARRIVED VIA EMS. REPORTS DYSPNEA INCREASING X 1 WEEK. AUDIBLE WHEEZES ON ARRIVAL. SAT 98 ON RA. RECIEVED A/A NEB AND ANUEL MEDIA MANAGER.
[2018-08-30 14:53] LABS: BASOPHILS 0.1 % (0-2); HEMATOCRIT 31.5 % (36.0-48.0); HEMOGLOBIN 9.7 g/dL (12-16); IMMATURE GRANULOCYTES 0.1 % (0-5); LYMPHOCYTES 35.5 % (15-50); MCH 21.1 pg (26.0-34.0); MCHC 30.8 g/dL (31.0-37.0); MCV 68.5 fL (80.0-100.0); MONOCYTES 6.9 % (2-11); NEUTROPHILS 55.4 % (40-80); PLATELET COUNT 207 10x3/uL (130-400); WBC 7.6 10x3/uL (4.8-10.8)
[2018-08-30 15:12] LABS: ALBUMIN 3.4 g/dL (3.4-5.0); ANION GAP 18.2 mmol/L (8-16); BILIRUBIN - TOTAL 0.53 mg/dL (0.2-1.3); CALCIUM 8.8 mg/dL (8.5-10.1); CARBON DIOXIDE 23.7 mmol/L (21.0-32.0); CREATININE - SERUM 1.1 mg/dL (0.6-1.3)
[2018-08-30 15:18] LABS: POTASSIUM - SERUM 2.9 mmol/L (3.5-5.1)
[2018-08-30] MEDS ORDERED: NITROQUICK0.4 MG SL (19:10)
[2018-08-30] MEDS ORDERED: TRAZODONE HCL150 MG PO (19:12)
[2018-08-30] MEDS ORDERED: SINGULAIR10 MG PO (19:12)
[2018-08-30] MEDS ORDERED: LEXAPRO20 MG PO (19:14)
[2018-08-30] MEDS ORDERED: VIBRAMYCIN 100100 MG PO (19:15)
[2018-08-30] MEDS ORDERED: K-TAB10 MEQ PO (19:18)
[2018-08-30] MEDS ORDERED: MUCINEX DM ER1 EAC1 PO (19:19)
[2018-08-30] MEDS ORDERED: VITAMIN D31000 UNIT PO (19:20)
--- NOTE | 2018-08-30 19:43 | NUR ---
PT TO FLOOR VIA WHEELCHAIR. A/O X 4. UP WITH STAND BY ASSIST X 1. L HAND IV WITH NS @ KVO. ROOM AIR. PT STATES SHE SLEEPS WITH O2 AT HOME AT NIGHT. DENIES SOB AT THIS TIME. VITALS STABLE. SKIN C/D/I NO SORES/WOUNDS NOTED. WHEEZES AUSCULTATED MIGUEL A LOBES. NOTED FURTHER CONERNS AT THIS TIME. BED LOWERED AND LOCKED. CL IN REACH. WILL CPOC.
--- NOTE | 2018-08-30 21:42 | NUR ---
APPLIED TELE TO PT AND ASSISTED IN PUTTING ON NEW YELLOW GOWN DUE TO WEAKNESS. IV TO L HAND WITH NS @ KVO. ASSISTED PT TO BATHROOM WITH STAND BY ASSIST. BS 176, 2 UNITS HUMALOG GIVEN. PT MEDS NEW TO [facility], CALLED LOGGER ALL ROUND TO PULL/BRING MEDICATION DUE TO NOT BEING IN CASSETTE (PHARMACY GONE). CALLED AT 1845. STILL NO MEDICATIONS. HOUSE SOUP STATED "I HAVE TO DO EVERYONES MEDS I WILL GET THERE WHEN I CAN" PT DENIES PAIN AT THIS TIME. INFORMED HER I WILL GET HER HER NIGHT TIME MEDICAITONS SOON I CAN. NO FURTHER CONCERNS AT THIS TIME. BED LOWERED AND LOCKED. CL IN REACH. WILL CPOC
[2018-08-31 05:30] VITALS: BP 115/39
--- NOTE | 2018-08-31 05:30 | NUR ---
MORNING MEDS GIVEN IV. NO COMPLAINTS OF PAIN AT THIS TIME. BED LOWERED AND LOCKED. CL IN REACH. WILL CONTINUE TO MONTIOR.
[2018-08-31 07:03] LABS: ANION GAP 17.7 mmol/L (8-16); CALCIUM 8.6 mg/dL (8.5-10.1); CARBON DIOXIDE 24.8 mmol/L (21.0-32.0); POTASSIUM - SERUM 3.5 mmol/L (3.5-5.1)
[2018-08-31 07:35] VITALS: BP 132/48
[2018-08-31 07:45] LABS: HEMATOCRIT 30.8 % (36.0-48.0); HEMOGLOBIN 9.3 g/dL (12-16); MCH 20.8 pg (26.0-34.0); MCHC 30.2 g/dL (31.0-37.0); MCV 68.8 fL (80.0-100.0); PLATELET COUNT 186 10x3/uL (130-400); RBC 4.48 10x6/uL (4.00-5.40); RDW 18.2 % (11.5-14.5); WBC 2.6 10x3/uL (4.8-10.8)
--- NOTE | 2018-08-31 08:25 | NUR ---
AWAKE AND ALERT. ORIENTED X3. NO C/O AT THIS TIME. LUNGS ARE DIMINISED THROUGHOUT,OCCASSIONALLY PRODUCTIVE COUGH NOTED. SKIN IS INTACT WITHOUT REDNESS. IV TO LEFT WRIST IS PATENT BUT TENDER TO TOUCH. WILL MONITOR. SITTING UP IN BED EATING BREAKFAST. DENIES NEEDS.
[2018-08-31 08:26] LABS: LYMPHOCYTES 27 % (15-50); NEUTROPHILS 73 % (40-80); PLATELET ESTIMATE DECREASED
--- NOTE | 2018-08-31 10:00 | NUR ---
UP TO BR WITH MIN ASSIST. VOIDED WITHOUT DIFFICULTY.
--- NOTE | 2018-08-31 10:57 | NUR ---
REQUESTED AND GIVNE ONE HYDROCODONE PO FOR C/O HEADACHE AND BACK PAIN LEVEL 6. WILL MONITOR..
[2018-08-31 11:21] VITALS: BP 119/47
--- NOTE | 2018-08-31 14:17 | NUR ---
UP TO BR WITH ONE PERSON SBA USING RW. VOIDED WITHOUT DIFFICULTY. AMBULATED TO CHAIR ON FAR SIDE OF BED. SITTING UP AT THIS TIME. IV SITED TO LEFT UPPER ARM AFTER ONE ATTEMPT WITH 22G. OLD SITE IS STILL PATENT BUT BEEPS EVERY TIME SHE MOVES HER HAND. DENIES NEEDS.
--- NOTE | 2018-08-31 15:24 | NUR ---
SAT UP IN CHIAR AT BEDSIDE FOR 30 MINUTES.
[2018-08-31 15:41] VITALS: BP 123/51
--- NOTE | 2018-08-31 18:25 | NUR ---
ATE OVER HALF OF INDUSTRIAL MAINTENANCE MECHANIC'S SALAD FOR SUPPER. UP TO CHAIR AT BEDSIDE. NO CHANGES NOTED. DENIES NEEDS.
[2018-08-31 20:00] VITALS: BP 107/48
[2018-09-01] VITALS: BP 116/48
[2018-09-01 04:00] VITALS: BP 121/55
[2018-09-01 07:50] LABS: ANION GAP 18.1 mmol/L (8-16); CALCIUM 8.1 mg/dL (8.5-10.1); CARBON DIOXIDE 24.9 mmol/L (21.0-32.0); CREATININE - SERUM 0.8 mg/dL (0.6-1.3)
[2018-09-01 07:55] LABS: BASOPHILS 0.1 % (0-2); EOSINOPHILS 0 % (0-7); HEMOGLOBIN 9.1 g/dL (12-16); IMMATURE GRANULOCYTES 0.4 % (0-5); LYMPHOCYTES 14.2 % (15-50); MCH 21.4 pg (26.0-34.0); MCHC 30.3 g/dL (31.0-37.0); MCV 70.4 fL (80.0-100.0); NEUTROPHILS 81.3 % (40-80); RBC 4.26 10x6/uL (4.00-5.40); RDW 18.8 % (11.5-14.5)
[2018-09-01 07:57] LABS: PLATELET COUNT 118 10x3/uL (130-400); WBC 11.4 10x3/uL (4.8-10.8)
--- NOTE | 2018-09-01 08:15 | NUR ---
PT RESTING IN BED WITH EYES OPEN CALL LIGHT IN REACH NO PROBLEMS WILL MONITER
[2018-09-01 09:03] VITALS: BP 114/66; BP 115/52
[2018-09-01 10:41] VITALS: BMI 24.4
[2018-09-01 10:47] LABS: PLATELET ESTIMATE DECREASED
[2018-09-01 18:17] VITALS: Ht 165.1 cm; Wt 63.7 kg
[2018-09-01 18:41] VITALS: BP 136/60
--- NOTE | 2018-09-01 19:45 | NUR ---
AROUSES EASILY AT THIS TIME. LCTA BUT COUGH NOTED BED IS LOW WITH CALL LIGHT IN REACH SR X2 PT DENIES NEEDS AT THIS TIME IV SITE PATENT SL LOCK FLUSHED AT THIS TIME FLUSHED WELL WITH NO PAIN AND NO EDEMA
[2018-09-01 20:00] VITALS: BP 115/47
[2018-09-02] VITALS: BP 117/52
[2018-09-02 04:00] VITALS: BP 137/67
--- NOTE | 2018-09-02 04:15 | NUR ---
PATIENT RESTING IN BED WITH EYES CLOSED AND NO S/S OF DISTRESS. BED IN LOWEST POSITION AND CALL LIGHT WITHIN REACH. WILL CONTINUE TO MONITOR.
--- NOTE | 2018-09-02 07:15 | NUR ---
REPORT [id number] AND MORNIGN ROUNDING COMPLETE. PT LAYINGIN BED.PT STATES HER STOMCH I CRAMPING SHE NEEDS TO GO TO THE BATHROOM. ASSISTED PT TO THE BATHROOM AND BACK TO BED. NO OTHER NEEDS AT THIS TIME CALL LIGHT WITHIN REACH AND BED IN TH ELOWEST POSITION.
[2018-09-02 07:55] VITALS: BP 130/55
[2018-09-02 12:17] VITALS: BP 135/54
--- NOTE | 2018-09-02 14:52 | NUR ---
RECEIVED ORDER FOR SPUTUM SPECIMEN CUP AT BEDSIDE AND PT INSTRUCTED
--- NOTE | 2018-09-02 15:43 | NUR ---
AGREED WITH PATIENT ACCOUNTS MANAGER,S ASSESSMENT. LONGSHORE EQUIPMENT OPERATOR AT BEDSIDE TO HELP PT UP TO THE BATHROOM. CALL LIGHT IN REACH, NAD NOTED.
[2018-09-02 16:02] VITALS: BP 133/58
--- NOTE | 2018-09-02 19:40 | NUR ---
BED LOW AND CALL LIGHT IN REACH SRX2 ALERT AND ORIENTED STAFF ASSISTING AT THIS TIME CO OF SOME PAIN SEE PRN
[2018-09-02 20:00] VITALS: BP 141/61
[2018-09-03] VITALS: BP 126/58
--- NOTE | 2018-09-03 02:31 | NUR ---
I AGREE WITH THE GLASSWORKER ASSESSMENT.
[2018-09-03 04:00] VITALS: BP 137/57
--- NOTE | 2018-09-03 07:10 | NUR ---
INITIAL ROUNDING ON PATIENT, PATIENT IS RESTING WITH EYES CLOSED, NO S/S OF SOB/DISTRESS NOTED.
[2018-09-03 07:37] LABS: CARBON DIOXIDE 25.4 mmol/L (21.0-32.0); CREATININE - SERUM 0.9 mg/dL (0.6-1.3)
[2018-09-03 07:41] VITALS: BP 140/63
[2018-09-03 07:46] LABS: BASOPHILS 0 % (0-2); EOSINOPHILS 0 % (0-7); HEMATOCRIT 28.6 % (36.0-48.0); HEMOGLOBIN 8.7 g/dL (12-16); IMMATURE GRANULOCYTES 0.2 % (0-5); LYMPHOCYTES 11.8 % (15-50); MCHC 30.4 g/dL (31.0-37.0); MCV 68.9 fL (80.0-100.0); MONOCYTES 2.4 % (2-11); NEUTROPHILS 85.6 % (40-80); PLATELET COUNT 156 10x3/uL (130-400); RBC 4.15 10x6/uL (4.00-5.40); RDW 18.5 % (11.5-14.5); WBC 5.9 10x3/uL (4.8-10.8)
[2018-09-03 07:54] LABS: ANION GAP 16.7 mmol/L (8-16)
[2018-09-03 07:55] LABS: CALCIUM 6.7 mg/dL (8.5-10.1); POTASSIUM - SERUM 2.1 mmol/L (3.5-5.1)
--- NOTE | 2018-09-03 09:19 | NUR ---
ASSISTED THE PATIENT BACK TO BED, PATIENT REPORTS FEELING DIZZY UPON STANDING UP FROM THE COMMODE, SOME SHORTNESS OF BREATH AND WHEEZING NOTED WITH AMBULATION
--- NOTE | 2018-09-03 09:46 | NUR ---
SPOKE TO KAZ AT DR ROBLERO OFFICE, REPORTED THE CL K+ (2.1) AND CL CALCIUM (6.7). RETURN PHONE NUMBER GIVEN AND AWAITING A RETURN CALL
--- NOTE | 2018-09-03 09:58 | NUR ---
KAZ FROM DR ROBLERO OFFICE CALLED BACK TO REPORT "DR SCHMITZ SPOKE WITH THE PHARMACY AND THEY WILL TAKE CARE OF IT, JUST WANTED TO LET YOU KNOW"
--- NOTE | 2018-09-03 10:23 | NUR ---
CALLED PHARMACY AND SPOKE WITH TOBIAS REQUESTING THE CALCIUM GLUCONATE, NEW MED ORDER
[2018-09-03 11:46] VITALS: BP 142/59
--- NOTE | 2018-09-03 18:49 | NUR ---
CALLED AND SPOKE TO RENETTA IN THE PHARMACY. REPORTED THE LOW CALCIUM, SHE STATED SHE WOULD REFIGURE AND FOLLOW UP WITH IT.
--- NOTE | 2018-09-03 19:45 | NUR ---
LYING IN BED WATCHING TV. ALERT AND ORIENTED X4. RESP EVEN AND NONLABORED. O2 @ 2L/NC. BBS CTA. ABD SOFT, HYPERACTIVE X4 QUADS. NONPROD COUGH NOTED. REPORTS LOOSE STOOLS TODAY. AMB WITH WALKER WITH ASSIST. NS @ 15 ML/HR INFUSING IN LT FOREARM. DENIES PAIN. NO DISTRESS. SR ELEVATED X2. CL IN REACH.
[2018-09-03 20:00] VITALS: BP 142/67
[2018-09-04] VITALS: BP 141/63
--- NOTE | 2018-09-04 01:51 | NUR ---
LYING IN BED WITH EYES CLOSED. RESP EVEN AND NONLABORED. NO DISTRESS. CL IN REACH.
[2018-09-04 04:00] VITALS: BP 140/72
[2018-09-04 07:09] LABS: ANION GAP 15.2 mmol/L (8-16); CALCIUM 7.3 mg/dL (8.5-10.1); CARBON DIOXIDE 26.9 mmol/L (21.0-32.0); CREATININE - SERUM 0.9 mg/dL (0.6-1.3)
[2018-09-04 07:10] LABS: POTASSIUM - SERUM 3.1 mmol/L (3.5-5.1)
--- NOTE | 2018-09-04 07:15 | NUR ---
INITIAL ROUNDING ON THE PATIENT, CAREGIVERS INTRODUCED. PATIENT IS AWAKE AND SITTING IN BEDSIDE CHAIR READING THE NEWSPAPER. SHE DENIES PAIN, NO S/S OF SOB NOTED. O2 VIA NC IN PLACE, CALL LIGHT IN REACH
[2018-09-04 08:00] VITALS: BP 159/69
[2018-09-04 08:16] LABS: BASOPHILS 0 % (0-2); EOSINOPHILS 0 % (0-7); HEMOGLOBIN 8.6 g/dL (12-16); IMMATURE GRANULOCYTES 0.6 % (0-5); LYMPHOCYTES 14.4 % (15-50); MCHC 30.7 g/dL (31.0-37.0); MCV 68.3 fL (80.0-100.0); MONOCYTES 3.8 % (2-11); NEUTROPHILS 81.2 % (40-80); PLATELET COUNT 153 10x3/uL (130-400); RDW 18.3 % (11.5-14.5); WBC 4.7 10x3/uL (4.8-10.8)
--- NOTE | 2018-09-04 11:17 | NUR ---
Nutrition Follow Up: Chart reviewed Diet: Regular; Glucerna TID PO Intake: 67% meal avg BM: 09/04/18 Meds and labs reviewed Rec continue current diet, supplement regimen. RD following.
[2018-09-04 11:32] VITALS: BP 158/60
[2018-09-04 16:04] VITALS: BP 157/66
--- NOTE | 2018-09-04 19:55 | NUR ---
LYING IN BED. ALERT AND ORIENTED X4. RESP EVEN AND NONLABORED. BBS CTA BUT DIMINISHED IN RT LOBES. O2 @ 2L/NC. PROD COUGH NOTED WITH GREEN SPUTUM. NASAL CONGESTION NOTED. NS @ 15 ML/HR INFUSING IN LT HAND. SALINE LOCK NOTED TO LT FOREARM. AMB WITH WALKER WITH ASSIST. GEN WEAKNESS NOTED. TELEMETRY SHOWS SR WITH RATE OF 80'S. DENIES PAIN. NO DISTRESS. SR ELEVATED X2. CL IN REACH.
[2018-09-04 20:29] VITALS: BP 145/58
--- NOTE | 2018-09-04 21:52 | NUR ---
RECEIVED CALL FROM RIDES ATTENDANT, JAN WHO STATES PT HAD 12 BEAT RUN OF VTACH. PT LYING ON RT SIDE IN BED WITH EYES CLOSED. RESP EVEN AND NONLABORED. NO DISTRESS. WILL CONT TO MONITOR CLOSELY. STATES TELEMETRY SHOWS SR WITH RATE OF 80'S.
[2018-09-05 00:52] VITALS: BP 158/74
[2018-09-05 04:00] VITALS: BP 135/66
--- NOTE | 2018-09-05 07:10 | NUR ---
INITIAL ROUNDING ON THE PATIENT, SHE IS AWAKE AND THIS NURSE ASSISTED HER TO THE BATHROOM AT THIS TIME. SHE DENIES PAIN. REPORTS SHE HAS "FAMILY ISSUES AND DID NOT SLEEP TOO WELL LAST NIGHT" NO SOB NOTED. ASSISTED BACK TO BED, REPLACED O2 VIA NC.
[2018-09-05 07:43] LABS: BASOPHILS 0 % (0-2); EOSINOPHILS 0 % (0-7); HEMATOCRIT 29.2 % (36.0-48.0); IMMATURE GRANULOCYTES 0.5 % (0-5); LYMPHOCYTES 13.1 % (15-50); MCH 20.9 pg (26.0-34.0); MCHC 30.8 g/dL (31.0-37.0); MCV 67.7 fL (80.0-100.0); MONOCYTES 4.3 % (2-11); NEUTROPHILS 82.1 % (40-80); PLATELET COUNT 165 10x3/uL (130-400); RBC 4.31 10x6/uL (4.00-5.40); RDW 18.4 % (11.5-14.5)
[2018-09-05 07:49] LABS: WBC 6.5 10x3/uL (4.8-10.8)
[2018-09-05 07:53] LABS: ANION GAP 12.8 mmol/L (8-16); CALCIUM 7.9 mg/dL (8.5-10.1); CARBON DIOXIDE 27.8 mmol/L (21.0-32.0); CREATININE - SERUM 0.9 mg/dL (0.6-1.3); POTASSIUM - SERUM 3.6 mmol/L (3.5-5.1)
[2018-09-05 08:50] VITALS: BP 128/84
--- NOTE | 2018-09-05 11:10 | MORECARE ---
CASE MANAGEMENT DISCHARGE SUMMARY PATIENT: LOVE JAMES UNIT: [id number] ADM DATE: 08/30/18 AGE: 78 : 42 SEX: F ROOM/BED: D.1212 AUTHOR: KYLERDOC PHYSICIAN: REFERRING PHYSICIAN: KEMAR VERONICA MD DATE OF SERVICE: 09/05/18 Discharge Plan Patient Name: LOVE JAMES Facility: [facility]:[place] : 1940 Planned Disposition: Inpatient Rehab Anticipated Discharge Date: Discharge Date: Expected LOS: Initial Reviewer: [email or web address] Initial Review Date: 08/30/2018 Generated: 09/05/18 12:10 pm Comments DCP- Discharge Planning Updated by [email or web address]: Savanna Roach on 09/05/18 10:[address] Patient Name: LOVE JAMES Admission Status: ER Accout number: [id number] Admission Date: 08-30-2018 : 1940 Admission Diagnosis: Attending: KEMAR VERONICA Current LOS: 6 Anticipated DC Date: Planned Disposition: Inpatient Rehab Primary Insurance: MEDICARE A & B Discharge Planning Comments: CM MET WITH PATIENT ABOUT DC PLANNING. STATES PLANS TO DC TO INPATIENT REHAB. STATES LIVES ALONE. IM SERVED. CM WILL FOLLOW AND ASSIST NEEDED WITH DC PLANNING/NEEDS. Home Health Attendant: Savanna Roach DCPIA - Discharge Planning Initial Assessment Updated by [email or web address]: Savanna Roach on 09/05/18 11:09 am * Is the patient Alert and Oriented? Yes * PCP NADIR * [facility] * Preadmission Environment Home Alone * ADLs Independent * Equipment Nebulizer Oxygen Walker Wheelchair * List name and contact numbers for known caregivers / representatives who currently or will assist patient after discharge: GEGE, DAUGHTER , * Verbal permission to speak to the caregivers and representatives has been obtained from the patient. Yes * Community resources currently utilized Home Health * Please name any agencies selected above. DOESN'T KNOW THE NAME. * Additional services required to return to the preadmission environment? Yes * Can the patient safely return to the preadmission environment? Yes * Has this patient been hospitalized within the prior 30 days at any hospital? No Coverage Notice Reviewer: [id number] - Savanna Roach Notice Issued Date-Time: 09/05/2018 11:10 Notice Type: IM Discharge Notice Notice Delivered To: Patient Relationship to Patient: Self Pad Making Machine Operator Name: Delivery Method: HAND - Hand Delivered Barbara Days: Prior Verbal Notification: Recipient Understood Notice: Yes Recipient Signature: Yes Med Rec Note Co-signed by Attending: Coverage Notice Comment: Patient Name: LOVE JAMES Page [phone] at 1110 All edits/amendments must be made on the electronic document DICTATION DATE: 09/05/18 111 MANAGER OPERATIONS AND PROCUREMENT: BRYAN 09/05/18 1110 RPT#: [id number] DC DATE: STATUS: ADM IN [facility] [address] [place] [address] END OF REPORT
--- NOTE | 2018-09-05 11:37 | NUR ---
Rehab Note- Acute Inpatient REhab prescreen order received. The patient would be a good inpatient acute rehab candidate. Spoke with BERT Corrales. Will continue to follow at this time. Thank you for this referral! Gina Schmidt RN CLinical Liaison, [facility]
--- NOTE | 2018-09-05 15:29 | MORECARE ---
CASE MANAGEMENT DISCHARGE SUMMARY PATIENT: LOVE JAMES UNIT: [id number] ADM DATE: 08/30/18 AGE: 78 : 42 SEX: F ROOM/BED: D.1212 AUTHOR: KYLERDOC PHYSICIAN: REFERRING PHYSICIAN: KEMAR VERONICA MD DATE OF SERVICE: 09/05/18 Discharge Plan Patient Name: LOVE JAMES [facility] [facility] 1940 Planned Disposition: Inpatient Rehab Anticipated Discharge Date: Discharge Date: Expected LOS: Initial Reviewer: [id number] Initial Review Date: 08/30/2018 Generated: 09/05/18 4:29 pm Comments DCP- Discharge Planning Updated by [email or web address]: Savanna Roach on 09/05/18 2:[address] Patient Name: LOVE JAMES Admission Status: ER Accout number: [id number] Admission Date: 08-30-2018 : 1940 Admission Diagnosis: Attending: KEMAR VERONICA Current LOS: 6 Anticipated DC Date: Planned Disposition: Inpatient Rehab Primary Insurance: MEDICARE A & B Discharge Planning Comments: CM MET WITH PATIENT ABOUT DC PLANNING. STATES PLANS TO DC TO INPATIENT REHAB. STATES LIVES ALONE. IM SERVED. CM WILL FOLLOW AND ASSIST NEEDED WITH DC PLANNING/NEEDS. Rotary Lithographic Press Operator: Savanna Roach Appended by Savanna Roach on 09/05/2018 15:21 LINE WORKER: SPOKE WITH DR. SCHMITZ'S OFFICE, AND HE WILL DISCHARGE PATIENT TODAY TO INPT REHAB. DCPIA - Discharge Planning Initial Assessment Updated by [id number]: Savanna Roach on 09/05/18 11:09 am * Is the patient Alert and Oriented? Yes * PCP NADIR * Pharmacy [facility] * Preadmission Environment Home Alone * ADLs Independent * Equipment Nebulizer Oxygen Walker Wheelchair * List name and contact numbers for known caregivers / representatives who currently or will assist patient after discharge: GEGE, DAUGHTER , * Verbal permission to speak to the caregivers and representatives has been obtained from the patient. Yes * Community resources currently utilized Home Health * Please name any agencies selected above. DOESN'T KNOW THE NAME. * Additional services required to return to the preadmission environment? Yes * Can the patient safely return to the preadmission environment? Yes * Has this patient been hospitalized within the prior 30 days at any hospital? No Coverage Notice Reviewer: [id number] Fei Roach Notice Issued Date-Time: 09/05/2018 11:10 Notice Type: IM Discharge Notice Notice Delivered To: Patient Relationship to Patient: Self Compressor Mechanic Bus Name: Delivery Method: HAND - Hand Delivered Barbara Days: Prior Verbal Notification: Recipient Understood Notice: Yes Recipient Signature: Yes Med Rec Note Co-signed by Attending: Coverage Notice Comment: Last DP export: 09/05/18 10:10 a Patient Name: LOVE JAMES Page 59571 at 1529 All edits/amendments must be made on the electronic document DICTATION DATE: 09/05/181528 ACID SUPERVISOR: BRYAN 09/05/181528 RPT#: [id number] DC DATE: STATUS: ADM IN [facility] [address] [place] [address] END OF REPORT
--- NOTE | 2018-09-05 17:08 | MORECARE ---
CASE MANAGEMENT DISCHARGE SUMMARY PATIENT: LOVE JAMES UNIT: [id number] ADM DATE: 08/30/18 AGE: 78 : 42 SEX: F ROOM/BED: D.1212 AUTHOR: ETELVINA CHÁVEZ PHYSICIAN: REFERRING PHYSICIAN: KEMAR VERONICA MD DATE OF SERVICE: 09/05/18 Discharge Plan Patient Name: LOVE JAMES Facility: [facility]:[place] : 1940 Planned Disposition: Inpatient Rehab Anticipated Discharge Date: Discharge Date: Expected LOS: Initial Reviewer: [email or web address] Initial Review Date: 08/30/2018 Generated: 09/05/18 6:08 pm Comments DCP- Discharge Planning Updated by [email or web address]: Savanna Roach on 09/05/18 4:[address] Patient Name: LOVE JAMES Admission Status: ER Accout number: [id number] Admission Date: 08-30-2018 : 1940 Admission Diagnosis: Attending: KEMAR VERONICA Current LOS: 6 Anticipated DC Date: Planned Disposition: Inpatient Rehab Primary Insurance: MEDICARE A & B Discharge Planning Comments: CM MET WITH PATIENT ABOUT DC PLANNING. STATES PLANS TO DC TO INPATIENT REHAB. STATES LIVES ALONE. IM SERVED. CM WILL FOLLOW AND ASSIST NEEDED WITH DC PLANNING/NEEDS. Restaurant Manager: Savanna Roach Appended by Savanna Roach on 09/05/2018 15:21 MAGNETIC TAPE TYPEWRITER OPERATOR: SPOKE WITH DR. SCHMITZ'S OFFICE, AND HE WILL DISCHARGE PATIENT TODAY TO INPT REHAB. Appended by Savanna Roach on 09/05/2018 17:04 MAGNETIC TAPE TYPEWRITER OPERATOR: PATIENT CAN GO TO ROOM 1111B ON INPATIENT REHAB AFTER MD WRITES DC ORDER. DCPIA - Discharge Planning Initial Assessment Updated by [email or web address]: Savanna Roach on 09/05/18 11:09 am * Is the patient Alert and Oriented? Yes * PCP NADIR * Pharmacy [facility] * Preadmission Environment Home Alone * ADLs Independent * Equipment Nebulizer Oxygen Walker Wheelchair * List name and contact numbers for known caregivers / representatives who currently or will assist patient after discharge: GEGE, DAUGHTER , * Verbal permission to speak to the caregivers and representatives has been obtained from the patient. Yes * Community resources currently utilized Home Health * Please name any agencies selected above. DOESN'T KNOW THE NAME. * Additional services required to return to the preadmission environment? Yes * Can the patient safely return to the preadmission environment? Yes * Has this patient been hospitalized within the prior 30 days at any hospital? No Coverage Notice Reviewer: [id number] Fei Roach Notice Issued Date-Time: 09/05/2018 11:10 Notice Type: IM Discharge Notice Notice Delivered To: Patient Relationship to Patient: Self Court Attendant Name: Delivery Method: HAND - Hand Delivered Barbara Days: Prior Verbal Notification: Recipient Understood Notice: Yes Recipient Signature: Yes Med Rec Note Co-signed by Attending: Coverage Notice Comment: Last DP export: 09/05/18 2:29 p Patient Name: LOVE JAMES Page [phone] at 1708 All edits/amendments must be made on the electronic document DICTATION DATE: 09/05/181707 DIRECTOR OF CATH LAB: BRYAN 09/05/181707 RPT#: [id number] DC DATE: STATUS: [facility] [address] [place] [address] END OF REPORT
[2018-09-05] MEDS ORDERED: IPRAT-ALBUT 0.5-3 ML UPD (17:27)
[2018-09-05] MEDS ORDERED: LOPERAMIDE HCL2 MG PO (17:30)
--- NOTE | 2018-09-05 19:30 | NUR ---
RECEIVED PT. LYING IN BED ON LEFT SIDE ALERT AND ORIENTED X3. DENIES ANY NEEDS OR PAIN. RR EVEN AND UNLABORED. CONTINUES ON 2L VIA NC. LEFT FOREARM AND LEFT WRIST SL NO REDNESS OR SWELLING AT EITHER SITE, DRESSING C/D/I. CALL LIGHT WITHIN REACH, FALL PRECAUTIONS IN PLACE. WILL CONTINUE TO MONITOR
[2018-09-05 20:17] VITALS: BP 134/53
[2018-09-05 22:33] VITALS: BP 117/75
[2018-09-06 00:42] VITALS: BP 173/68
--- NOTE | 2018-09-06 01:48 | NUR ---
LYING ON LEFT SIDE EYES CLOSED RESTING. RR EVEN AND UNLABORED. CONTINUES ON 2L VIA NC. CALL LIGHT WITHIN REACH, FALL PRECAUTIONS IN PLACE. WILL CONTINUE TO MONITOR
--- NOTE | 2018-09-06 02:30 | NUR ---
PT RESTING QUIETLY, EYES CLOSED. NO DISTRESS NOTED. AGREE WITH INDUSTRIAL HYGIENE TECHNICIAN'S ASSESSMENT. CONTINUE WITH PLAN OF CARE.
[2018-09-06 05:10] VITALS: BP 144/65
--- NOTE | 2018-09-06 06:21 | NUR ---
SITTING UP IN BED EYES OPEN ALERT. DENIES ANY NEEDS OR PAIN. RR EVEN AND UNLABORED. CALL LIGHT AND WATER WITHIN REACH
--- NOTE | 2018-09-06 08:00 | NUR ---
ASSESSMENT COMPLETE. SL TO L FA AND L WRIST. WOOD REPATCHER SHOWING SR 82 PER TECH. UP WITH ASSISTANCE WITH WALKER. DENIES ANY NEEDS AT THIS TIME.
--- NOTE | 2018-09-06 09:50 | NUR ---
REPORT CALLED TO [facility] RE[facility]AB.
[2018-09-06 09:51] LABS: BASOPHILS 0.2 % (0-2); EOSINOPHILS 0 % (0-7); HEMATOCRIT 29.3 % (36.0-48.0); IMMATURE GRANULOCYTES 0.6 % (0-5); MCH 21.1 pg (26.0-34.0); MCHC 30.7 g/dL (31.0-37.0); MCV 68.6 fL (80.0-100.0); MONOCYTES 2.6 % (2-11); NEUTROPHILS 89.6 % (40-80); PLATELET COUNT 166 10x3/uL (130-400); RBC 4.27 10x6/uL (4.00-5.40); RDW 18.1 % (11.5-14.5); WBC 6.6 10x3/uL (4.8-10.8)
[2018-09-06 10:08] LABS: ANION GAP 15.3 mmol/L (8-16); CALCIUM 7.6 mg/dL (8.5-10.1); CARBON DIOXIDE 25.8 mmol/L (21.0-32.0); CREATININE - SERUM 0.9 mg/dL (0.6-1.3); POTASSIUM - SERUM 3.1 mmol/L (3.5-5.1)
--- NOTE | 2018-09-06 10:10 | NUR ---
DC'D TO REHAB ROOM 1111B VIA WC WITH BELONGINGS.
[2018-09-06] MEDS ORDERED: GLUCOPHAGE500 MG PO (11:40)
--- NOTE | 2018-09-07 08:49 | MORECARE ---
CASE MANAGEMENT DISCHARGE SUMMARY PATIENT: LOVE JAMES UNIT: [id number] ADM DATE: 08/30/18 AGE: 78 : 42 SEX: F ROOM/BED: D.1212 AUTHOR: ETELVINA CHÁVEZ PHYSICIAN: REFERRING PHYSICIAN: KEMAR VERONICA MD DATE OF SERVICE: 09/07/18 Discharge Plan Patient Name: LOVE JAMES Facility: [facility]:[place] : 1940 Planned Disposition: Inpatient Rehab Anticipated Discharge Date: Discharge Date: 09/06/2018 Expected LOS: Initial Reviewer: [id number] Initial Review Date: 08/30/2018 Generated: 09/07/18 9:49 am Comments DCP- Discharge Planning Updated by [email or web address]: Savanna Roach on 09/05/18 4:[address] Patient Name: LOVE JAMES Admission Status: ER Accout number: [id number] Admission Date: 08-30-2018 : 1940 Admission Diagnosis: Attending: KEMAR VERONICA Current LOS: 6 Anticipated DC Date: Planned Disposition: Inpatient Rehab Primary Insurance: MEDICARE A & B Discharge Planning Comments: CM MET WITH PATIENT ABOUT DC PLANNING. STATES PLANS TO DC TO INPATIENT REHAB. STATES LIVES ALONE. IM SERVED. CM WILL FOLLOW AND ASSIST NEEDED WITH DC PLANNING/NEEDS. Junior Database Administrator: Savanna Roach Appended by Savanna Roach on 09/05/2018 15:21 PRINT SHOP ASSISTANT: SPOKE WITH DR. SCHMITZ'S OFFICE, AND HE WILL DISCHARGE PATIENT TODAY TO INPT REHAB. Appended by Savanna Roach on 09/05/2018 17:04 PRINT SHOP ASSISTANT: PATIENT CAN GO TO ROOM 1111B ON INPATIENT REHAB AFTER MD WRITES DC ORDER. DCPIA - Discharge Planning Initial Assessment Updated by [email or web address]: Savanna Roach on 09/05/18 11:09 am * Is the patient Alert and Oriented? Yes * PCP NADIR * Pharmacy [facility] * Preadmission Environment Home Alone * ADLs Independent * Equipment Nebulizer Oxygen Walker Wheelchair * List name and contact numbers for known caregivers / representatives who currently or will assist patient after discharge: GEGE, DAUGHTER , * Verbal permission to speak to the caregivers and representatives has been obtained from the patient. Yes * Community resources currently utilized Home Health * Please name any agencies selected above. DOESN'T KNOW THE NAME. * Additional services required to return to the preadmission environment? Yes * Can the patient safely return to the preadmission environment? Yes * Has this patient been hospitalized within the prior 30 days at any hospital? No Coverage Notice Reviewer: [id number] Fei Roach Notice Issued Date-Time: 09/05/2018 11:10 Notice Type: IM Discharge Notice Notice Delivered To: Patient Relationship to Patient: Self Claims Account Manager Name: Delivery Method: HAND - Hand Delivered Barbara Days: Prior Verbal Notification: Recipient Understood Notice: Yes Recipient Signature: Yes Med Rec Note Co-signed by Attending: Coverage Notice Comment: Last DP export: 09/05/18 4:08 p Patient Name: LOVE JAMES Page [phone] at 0849 All edits/amendments must be made on the electronic document DICTATION DATE: 09/07/18 0849 SCRAP PREPARATION SUPERVISOR: BRYAN 09/07/18 0849 RPT#: [id number] DC DATE:09/06/18 STATUS: DIS IN [facility] [address] [place] [address] END OF REPORT
== END 2018-09-06 10:10 | DRG 202 ==
LOC: D.ER 13:56 → D.M3 16:41 → D.EDHOLD 16:41 → D.M3 17:57
PROVIDERS: Family Medicine; ADMIT Family Medicine
DX: J20.9 Acute bronchitis, unspecified (principal); J44.1 Chronic obstructive pulmonary disease with (acute) exacerbation; J44.0 Chronic obstructive pulmonary disease with (acute) lower respiratory infection; E87.6 Hypokalemia; E11.9 Type 2 diabetes mellitus without complications; I25.10 Atherosclerotic heart disease of native coronary artery without angina pectoris; J30.9 Allergic rhinitis, unspecified; M79.7 Fibromyalgia; R19.7 Diarrhea, unspecified

== ENCOUNTER 2018-09-06 10:31 | Inpatient (IN) | payer MEDICARE ==
[~2018-09-06] VITALS: Ht 166.1 cm; Wt 59.0 kg
[~2018-09-06 10:31] MED LIST changes: +IPRAT-ALBUT 0.5-3 ML UPD; +K-TAB10 MEQ PO; +LOPERAMIDE HCL2 MG PO; +MUCINEX DM ER1 EAC1 PO; +NITROQUICK0.4 MG SL; +SINGULAIR10 MG PO; +VITAMIN D31000 UNIT PO
[2018-09-06] MEDS ORDERED: GLUCOPHAGE500 MG PO (11:40)
[2018-09-06 16:22] VITALS: BP 159/73; BMI 21.4
[2018-09-06 19:51] VITALS: BP 143/71
[2018-09-07 09:03] VITALS: BP 140/59
[2018-09-07 20:00] VITALS: BP 120/54
[2018-09-08 08:55] VITALS: BP 121/64
[2018-09-08 09:36] VITALS: Ht 166.1 cm; Wt 59.0 kg
[2018-09-08 10:06] LABS: BASOPHILS 0.1 % (0-2); EOSINOPHILS 1.2 % (0-7); HEMATOCRIT 33.6 % (36.0-48.0); HEMOGLOBIN 10.2 g/dL (12-16); IMMATURE GRANULOCYTES 0.3 % (0-5); LYMPHOCYTES 11.5 % (15-50); MCH 21.2 pg (26.0-34.0); MCHC 30.4 g/dL (31.0-37.0); MCV 69.9 fL (80.0-100.0); MONOCYTES 4.8 % (2-11); NEUTROPHILS 82.1 % (40-80); PLATELET COUNT 166 10x3/uL (130-400); RBC 4.81 10x6/uL (4.00-5.40); RDW 18.8 % (11.5-14.5); WBC 12.7 10x3/uL (4.8-10.8)
[2018-09-08 10:13] LABS: ANION GAP 12.3 mmol/L (8-16); CALCIUM 7.9 mg/dL (8.5-10.1); CARBON DIOXIDE 31.3 mmol/L (21.0-32.0); CREATININE - SERUM 0.8 mg/dL (0.6-1.3)
[2018-09-08 10:19] LABS: POTASSIUM - SERUM 2.6 mmol/L (3.5-5.1)
[2018-09-08 20:04] VITALS: BP 97/51
[2018-09-09 08:00] VITALS: BP 126/56
[2018-09-09 20:00] VITALS: BP 130/55
[2018-09-10 07:11] LABS: CALCIUM 7.6 mg/dL (8.5-10.1); CARBON DIOXIDE 34.2 mmol/L (21.0-32.0); CHLORIDE - SERUM 105 mmol/L (98-107); CREATININE - SERUM 0.7 mg/dL (0.6-1.3); SODIUM 145 mmol/L (136-145); eGFR NON AFRICAN AMERICAN 86 mL/min (90-120)
[2018-09-10 07:15] LABS: CALC OSMOLALITY 287 mosm/kg (275-300); GLUCOSE 95 mg/dL (74-106); POTASSIUM - SERUM 3.1 mmol/L (3.5-5.1); UREA NITROGEN 10 mg/dL (7-18)
[2018-09-10 07:30] LABS: BASOPHILS 0 % (0-2); EOSINOPHILS 4.1 % (0-7); HEMATOCRIT 29.3 % (36.0-48.0); HEMOGLOBIN 8.9 g/dL (12-16); IMMATURE GRANULOCYTES 0.4 % (0-5); LYMPHOCYTES 25.1 % (15-50); MCH 21.2 pg (26.0-34.0); MCHC 30.4 g/dL (31.0-37.0); MCV 69.8 fL (80.0-100.0); MONOCYTES 9.4 % (2-11); RDW 19.5 % (11.5-14.5)
[2018-09-10 07:32] LABS: PLATELET COUNT 123 10x3/uL (130-400); WBC 6.9 10x3/uL (4.8-10.8)
[2018-09-10 08:00] VITALS: BP 108/55
--- NOTE | 2018-09-10 10:28 | RHP ---
PATIENT: LOVE JAMES MEDICAL RECORD: [id number] ACCOUNT: [id number] LOCATION:[facility] : [birth year] ADMISSION DATE: 09/06/18 REHABILITATION HISTORY AND PHYSICAL EXAMINATION POST ADMISSION PHYSICIAN EXAMINATION DATE OF ADMISSION: 09/06/2018 ADMITTING DIAGNOSIS: Acute exacerbation of chronic obstructive pulmonary disease. HISTORY OF PRESENT ILLNESS: The patient is a 78-year-old female patient with history of exacerbation of COPD. She presents to the ED on 08/30/2017 with shortness of breath and generalized chest pain. She received an updraft and felt somewhat better. She reported 2-week history of just not feeling well, flu-like symptoms. She had been seen in the clinic earlier that week and diagnosed with bronchitis, started on antibiotics, but her shortness of breath, wheezing and weakness continued to worsen. She was found to be hypokalemic with potassium of 2.9. Chest x-ray showed no acute findings. She was placed in for pulmonary consultation on oxygen, DuoNebs, Advair and IV steroids and Solu-Medrol. She was planned to be tapered down over her stay. She was also started on Singulair and Augmentin, a flutter valve therapy and also sputum for Gram stain and cultures was done. She is continued on oxygen. Previously, she lived alone, was moderately independent for ADLs and mobility, but had someone assisting her with cooking and cleaning. Currently, she is mod to max assist for ADLs and mobility. She has increased O2 demands and dyspnea on exertion. She is on air sampling and monitoring due to an episode of atrial flutter. She tires easily, has a high fall risk. She wants to regain her strength, so she can return back home at her prior level of functioning. BARRIERS TO DISCHARGE: She lives alone, has nighttime hypoxia and has increased O2 needs. She is on IV steroids and is a high fall risk. COMORBIDITIES: In this patient include adult onset diabetes, arthritis, chronic back pain, fibromyalgia, hypertension, CHF, coronary artery bypass grafting, depression, anxiety, AFib, coronary artery disease, COPD, respiratory failure with hypoxia, fatigue, weakness and bronchitis. PAST MEDICAL HISTORY: Significant for vertigo. She has had a history of diabetes, hypertension, CHF, [place], coronary artery disease, COPD, breast cancer, arthritis, chronic back pain, and fibromyalgia. PAST SURGICAL HISTORY: Includes hysterectomy. She has also had stents placed and coronary artery bypass grafting. She has had surgery on her breast. She has had some ribs removed and hernia repair. ALLERGIES: ANY TYPE OF STATINS. CURRENT MEDICATIONS: Include acetaminophen 650 mg q.4 hours p.r.n., hydrochlorothiazide 12.5 mg daily. She is on Cozaar 50 mg daily, spironolactone 25 mg daily, Protonix 40 mg daily, isosorbide 60 mg daily, Lexapro 20 mg daily, Plavix 75 mg daily, vitamin D daily. She is on a glucose replacement protocol. She is on atorvastatin 40 mg at bedtime, Nitrostat p.r.n. She is on a low-resistant sliding scale with Humalog, trazodone 150 mg bedtime p.r.n., potassium 10 mEq b.i.d., Singulair 10 mg at bedtime, metformin 500 mg b.i.d. HISTORY AND PHYSICAL [id number] LOVE JAMES with meals, Imodium 2 mg q.4 hours p.r.n. diarrhea, DuoNeb updrafts, Mucinex D 1 tab b.i.d., and Advair 115/21 two inhalations b.i.d. HABITS: No alcohol or tobacco use. FAMILY HISTORY: Noncontributory. SOCIAL HISTORY: The patient hopes to return back home and get back to her prior level of functioning. REVIEW OF SYSTEMS: GENERAL: Does complain of some weakness and fatigue. HEENT: Does complain of cold, cough, and congestion. CARDIOVASCULAR: Denies chest pain. LUNGS: Does complain of shortness of breath. PHYSICAL EXAMINATION: VITAL SIGNS: Show temperature 98.4, pulse 78, respirations are 16. She is 159/73 and a sat of 98% with supplemental O2. GENERAL: A well-developed female, in no distress, alert upon exam. HEENT: Normocephalic and atraumatic. Mucosa moist. NECK: Supple. No lymphadenopathy. LUNGS: Clear in upper ramos. She does have decreased breath sounds in the bases. HEART: Regular rate and rhythm. No murmurs, rubs or gallops. No signs of atrial flutter at this time. ABDOMEN: Benign. EXTREMITIES: No clubbing, cyanosis or edema. NEUROLOGIC: She is mostly intact other than some weakness. ASSESSMENT: This is a 78-year-old female patient admitted to rehab with a working diagnosis of acute exacerbation of COPD. The patient has potential to make improvement. We instituted the following multidisciplinary therapies including, but not limited to physical, occupational, respiratory, speech, nutritional services, prosthetics and orthotics. Given her complex medical condition and risk for more complications, rehabilitation services cannot be provided at a low level of care such as a skilled nurse facility. PLAN: 1. Admit to [facility] for intensive inpatient therapy to include the following disciplines: A. Physical therapy to improve gait, all transfer skills and bed mobility to a modified independent level. B. Occupational therapy to improve activities of daily living to a modified independent level. C. Case management to assist with discharge planning and placement options. D. Nutrition to assist with nutritional needs. E. Rehabilitation nursing to assist in monitoring the patient's underlying medical conditions and to assist with any type of bowel or bladder management. 2. The patient's current medication and medical care will be continued. 3. The patient will be placed on standard fall precautions. 4. We will continue on IV steroids and taper throughout her stay. 5. I am going to follow up in the a.m. TRANSINT:[id number] Voice Confirmation ID: [id number] DOCUMENT ID: [id number] HISTORY AND PHYSICAL [id number] LOVE JAMES notes whether there has been none or any medical/functional change since admission: - No change since preadmission screen. JAIME attests patient continues to be appropriate for IRF: - Continues to be appropriate. ANAY EDEN MD at 1028 CC: [id number] DICTATION DATE: 09/07/18 1315 VENTILATED RIB FITTER: 09/07/18 [address] [facility] [address] [place] [address]
[2018-09-10 21:37] VITALS: BP 149/69
[2018-09-11 08:00] VITALS: BP 138/72
[2018-09-11 21:10] VITALS: BP 121/61
[2018-09-12 07:05] LABS: ANION GAP 12.5 mmol/L (8-16); CALCIUM 8.2 mg/dL (8.5-10.1); CARBON DIOXIDE 31.3 mmol/L (21.0-32.0); CREATININE - SERUM 0.8 mg/dL (0.6-1.3); POTASSIUM - SERUM 3.8 mmol/L (3.5-5.1)
[2018-09-12 07:36] LABS: BASOPHILS 0 % (0-2); EOSINOPHILS 2.4 % (0-7); HEMATOCRIT 30.7 % (36.0-48.0); HEMOGLOBIN 9.1 g/dL (12-16); IMMATURE GRANULOCYTES 0.1 % (0-5); LYMPHOCYTES 21.8 % (15-50); MCH 21.1 pg (26.0-34.0); MCHC 29.6 g/dL (31.0-37.0); MCV 71.2 fL (80.0-100.0); MONOCYTES 9.4 % (2-11); NEUTROPHILS 66.3 % (40-80); PLATELET COUNT 120 10x3/uL (130-400); RBC 4.31 10x6/uL (4.00-5.40); RDW 20.2 % (11.5-14.5); WBC 8.3 10x3/uL (4.8-10.8)
[2018-09-12 09:35] VITALS: BP 137/47
[2018-09-12 21:21] VITALS: BP 139/68
[2018-09-13 07:30] VITALS: BP 112/55
[2018-09-14 03:40] VITALS: BP 118/43
[2018-09-14 08:14] VITALS: BP 102/45
[2018-09-14 21:54] VITALS: BP 114/53
[2018-09-15 08:13] LABS: BASOPHILS 0.1 % (0-2); EOSINOPHILS 2.2 % (0-7); HEMATOCRIT 30.3 % (36.0-48.0); HEMOGLOBIN 9.1 g/dL (12-16); IMMATURE GRANULOCYTES 0.3 % (0-5); LYMPHOCYTES 25.6 % (15-50); MCH 21.5 pg (26.0-34.0); MCV 71.6 fL (80.0-100.0); MONOCYTES 8.4 % (2-11); NEUTROPHILS 63.4 % (40-80); PLATELET COUNT 110 10x3/uL (130-400); RBC 4.23 10x6/uL (4.00-5.40); RDW 21.1 % (11.5-14.5); WBC 6.9 10x3/uL (4.8-10.8)
[2018-09-15 08:18] LABS: ANION GAP 12.5 mmol/L (8-16); CALCIUM 7.6 mg/dL (8.5-10.1); CARBON DIOXIDE 31.1 mmol/L (21.0-32.0); CREATININE - SERUM 0.8 mg/dL (0.6-1.3); POTASSIUM - SERUM 3.6 mmol/L (3.5-5.1)
[2018-09-15 08:31] VITALS: BP 117/48
[2018-09-15 20:00] VITALS: BP 154/60
[2018-09-16 08:20] VITALS: BP 123/55
[2018-09-16 20:00] VITALS: BP 113/64
[2018-09-17 07:46] LABS: ANION GAP 15.4 mmol/L (8-16); CALCIUM 7.8 mg/dL (8.5-10.1); CARBON DIOXIDE 27.2 mmol/L (21.0-32.0); CREATININE - SERUM 0.8 mg/dL (0.6-1.3); POTASSIUM - SERUM 3.6 mmol/L (3.5-5.1)
[2018-09-17 08:00] VITALS: BP 112/66
[2018-09-17 08:20] LABS: BASOPHILS 0.4 % (0-2); EOSINOPHILS 4.1 % (0-7); HEMOGLOBIN 9.1 g/dL (12-16); IMMATURE GRANULOCYTES 0.2 % (0-5); LYMPHOCYTES 32.7 % (15-50); MCH 21.6 pg (26.0-34.0); MCHC 30.3 g/dL (31.0-37.0); MCV 71.3 fL (80.0-100.0); MONOCYTES 9.9 % (2-11); NEUTROPHILS 52.7 % (40-80); PLATELET COUNT 115 10x3/uL (130-400); RBC 4.21 10x6/uL (4.00-5.40); RDW 21.3 % (11.5-14.5)
[2018-09-17 08:21] LABS: WBC 5.1 10x3/uL (4.8-10.8)
[2018-09-17 22:57] VITALS: BP 140/63
[2018-09-17 23:25] VITALS: BP 140/63
[2018-09-18 08:00] VITALS: BP 127/61
== END 2018-09-18 13:51 | disposition home health service (06) | DRG 190 ==
LOC: D.REHAB 10:31
PROVIDERS: ADMIT Emergency Medicine; ATTEND Emergency Medicine
DX: J44.1 Chronic obstructive pulmonary disease with (acute) exacerbation (principal); J96.91 Respiratory failure, unspecified with hypoxia; I11.0 Hypertensive heart disease with heart failure; I50.9 Heart failure, unspecified; M79.7 Fibromyalgia; Z95.1 Presence of aortocoronary bypass graft; F41.8 Other specified anxiety disorders; I48.91 Unspecified atrial fibrillation; I25.10 Atherosclerotic heart disease of native coronary artery without angina pectoris; R53.1 Weakness; G89.29 Other chronic pain; R53.83 Other fatigue; M19.90 Unspecified osteoarthritis, unspecified site; E87.6 Hypokalemia; E13.9 Other specified diabetes mellitus without complications

== ENCOUNTER → 2019-01-13 09:31 | Outpatient (CLI) | payer MEDICARE ==
[2018-09-08 09:36] VITALS: BMI 21.3
--- NOTE | ~2019-01-13 | ST ---
PATIENT:LOVE JAMES MEDICAL RECORD: [id number] SEX: F LOCATION:[facility] ORDER #: ADMISSION DATE: 01/13/19 AGE OF PATIENT: 78 REFERRING PHYSICIAN: INTERPRETING PHYSICIAN: RADHA WHITNEY MD DATE OF SERVICE: 01/13/2019 PROCEDURE: Nuclear Stress Test INDICATION: Angina and coronary artery disease, shortness of breath, hypertension, hyperlipidemia. DESCRIPTION OF PROCEDURE: She was exercised on standard Lexiscan protocol with 32 mCi of sestamibi injected at peak stress, 11 mCi used previously for rest images. FINDINGS: Gated SPECT reveals preserved ejection fraction at 74% with good wall motioning, thickening, and brightening throughout all segments. SPECT imaging: Cardiolite was used as myocardial perfusion agent. There is a large area of myocardium at risk with ischemia throughout the anterior, lateral, and apical segments. This includes the basal, mid, apical, anterior segments, apical lateral, mid lateral, basal lateral segments as well as the apex itself. The degree of reversibility is mild to moderate. The amount of myocardium involved is large. OVERALL IMPRESSION: This is a high risk abnormal nuclear stress test with large amount of myocardium at risk anteriorly, laterally, apically suggestive of hemodynamically significant coronary artery disease, possibly multivessel disease. We will proceed with coronary angiography as followup study. TRANSINT:[id number] Voice Confirmation ID: [id number] DOCUMENT ID: [id number] RADHA WHITNEY MD CC: SOPHIA SCHMITZ MD [id number] DICTATION DATE: 01/14/191810 BRANCH SALES MANAGER: 01/15/19 0354 DEP CLI 01/13/19 [place] [id number] [place] [id number]
== END | disposition home or self-care (01) ==
LOC: D.HCCARDIO 09:31
PROVIDERS: ATTEND Internal Medicine Interventional Cardiology
DX: I25.10 Atherosclerotic heart disease of native coronary artery without angina pectoris (principal)

== ENCOUNTER 2019-01-26 09:25 | Outpatient (CLI) | payer MEDICARE ==
[~2019-01-26] VITALS: Ht 165.1 cm; Wt 59.5 kg
--- NOTE | ~2019-01-26 | HEMODYNAMI ---
PATIENT:LOVE JAMES MEDICAL RECORD: [id number] : 44 LOCATION:[facility] ADMISSION DATE: 01/26/19 Generatedon:01/26/201911:37 Patient name: LOVE JAMES Patient #: [id number] SSN: D OB: 1940 Date of study: 01/26/2019 Page: Of Hemodynamic Procedure Report Patient Data Patient Demographics Procedure consent was obtained First Name: LOVE Gender: Female Last Name: JACOB : 1940 [facility] Initial: ZIGGY Age: 78 year(s) Patient #: [id number] Race: Additional ID: [id number] Contact details [address]: [address] [place] [address] State: [place] City: [place] Zip code: [address] Past Medical History History of disease Date Diagnosis Comments CAD Valvular heart disease TIA Allergies Allergen Reaction Date Comments Reported Statins 09/10/2016 Other allergy 02/12/2018 STATINS Other allergy 01/26/2019 statins Admission Admission Data Admission Date: 01/26/2019 Admission Time: 9:25 Procedure Procedure Types Cath Procedure Diagnostic Procedure LHC LHC w/Coronaries w/Grafts Procedure Description Procedure Date Procedure Date: 01/26/2019 Procedure Start Time: 11:28 Procedure End Time: 11:36 Procedure Staff Name Function Dallin Lewis MD Performing Physician Mariaelena Bolivar RT Monitor Marnie Godoy RN Nurse Connor Awan RT Scrub Gaby So RT Scrub Procedure Data Cath Procedure Fluoroscopy Diagnostic fluoroscopy Total fluoroscopy Time: 1.5 time: 1.5 min min Diagnostic fluoroscopy Total fluoroscopy dose: 305 dose: 305 mGy mGy Contrast Material Contrast Material Type Amount (ml) Isovue 300 45 Entry Location Entry Primary Successful Side Size Upsize Upsize Entry Closure Succes sful Closure Location (Fr) 1 (Fr) 2 (Fr) Remarks Device Remarks Femoral Right 5 Fr Exoseal artery Estimated blood loss: 5 ml Diagnostic catheters Device Type Used For End Catheter Placement MULTIPACK Pigtail 5 Fr LV Angiography catheter MULTIPACK JL 4.0 5Fr Left Coronary catheter Angiography MULTIPACK 3DRC 5Fr Multi-vessel catheter Angiography Procedure Complications No complications Procedure Medications Medication Administration Route Dosage 0.9% NaCl I.V. 100 ml/hr Oxygen etCO2 Nasal cannula 2 l/min Lidocaine 2% added to field 20 Heparin Flush Bag added to field 2 bags (1000units/500ml NS) Versed I.V. 2 mg Fentanyl I.V. 50 mcg Fentanyl I.V. 50 mcg Hemodynamics Rest Heart Rate: 65 (bpm) Pressure Samples Time Site Value (mmHg) Purpose Heart Use Rate(bpm) 11:31 LV 151/8,15 Snapshot 77 Snapshots Pre Cath Intra NCS Post Cath Vital Signs Time Heart Resp SPO2 etCO2 NIBP (mmHg) Rhythm Pain Sedation Rate (ipm) (%) (mmHg) Status Level (bpm) 11:00:46 60 17 98 33 160/69(121) NSR 0 (11) 10(A) , No pain 11:04:28 61 14 100 38 150/72(111) NSR 0 (11) 10(A) , No pain 11:08:27 68 13 99 9.7 174/77(111) NSR 0 (11) 10(A) , No pain 11:12:08 70 14 99 39.5 153/77(108) NSR 0 (11) 10(A) , No pain 11:15:49 66 13 99 32.1 131/71(103) NSR 0 (11) 10(A) , No pain 11:19:49 62 12 100 38 135/61(99) NSR 0 (11) 10(A) , No pain 11:23:30 63 12 99 41.8 119/61(92) NSR 0 (11) 10(A) , No pain 11:27:28 64 12 100 28.3 129/66(92) NSR 0 (11) 10(A) , No pain 11:31:54 71 12 99 42.5 156/72(108) NSR 0 (11) 10(A) , No pain 11:35:52 67 14 99 38.8 148/74(115) NSR 0 (11) 10(A) , No pain Medications Time Medication Route Dose Verified Delivered Reason Notes Eff ectiveness by by 11:03:19 0.9% NaCl I.V. 100 Dallin Marnie used for ml/hr Debbie Godoy supervisor cigar processing 11:03:25 Oxygen etCO2 2 Dallin Marnie used for Nasal l/min Debbie Godoy procedure cannula RN 11:03:31 Lidocaine 2% added 20ml Dallin Dallin for local to vial Debbie Lewis MD anesthetic field 11:03:35 Heparin Flush added 2 Dallin Dallin used for Bag to bags Debbie Lewis MD procedure (1000units/500ml field NS) 11:28:04 Fentanyl I.V. 50 Dallin Marnie for mcg Debbie Godoy sedation RN 11:28:54 Versed I.V. 2 mg Dallin Marnie for Debbie Godoy sedation RN 11:33:01 Fentanyl I.V. 50 Dallin Marnie for mcg Debbie Godoy sedation nutrition tech Log Time Note 10:40:10 Marnie Godoy RN sent for patient. Start room use. 10:52:11 Time tracking: Regular hours (M-F 7:00 - 5:00) 10:52:15 Plan of Care:Hemodynamics will remain stable., Cardiac rhythm will remain stable., Comfort level will be maintained., Respiratory function will remain adequate., Patient/ family verbilizes understanding of procedure., Procedure tolerated without complication., Recovers from procedure without complications.. 10:55:30 Patient received from Pre/Post Procedure Room to CCL 2 Alert and oriented. Tansferred to table in Supine position. 10:55:31 Warm blankets applied, and dorys hugger turned on for patient comfort. 10:55:32 Correct patient and procedure confirmed by team. 10:56:08 Signed procedure consent form obtained from patient. 10:56:09 ECG and BP/O2 sat monitors applied to patient. 11:00:11 Vital chart was started 11:01:11 Baseline sample Acquired. 11:01:19 Rhythm: sinus rhythm 11:01:21 Full Disclosure recording started 11:01:24 H&P Date Dictated: 01/26/2019 Within 30 days and on chart., H&P Addendum completed by physician on day of procedure. (MUST COMPLETE FOR ALL OUTPATIENTS). 11:01:26 Pre-procedure instructions explained to patient. 11:01:26 Pre-op teaching completed and patient verbalized understanding. 11:01:28 Family in patients room. 11:02:07 Patient NPO since Midnight. 11:02:24 Patient allergic to Other allergystatins 11:02:26 Is the patient allergic to Iodine/contrast media? No. 11::27 Was the patient premedicated? No 11::28 Is patient on blood thinner?Yes 11:02:31 ACC The patient was administered the following blood thiners within the last 24 hours: ACCAspirin, ACCPlavix 11:03:19 0.9% NaCl 100 ml/hr I.V. was administered by Marnie Godoy RN; used for procedure; 11:03:25 Oxygen 2 l/min etCO2 Nasal cannula was administered by Marnie Godoy RN; used for procedure; 11::31 Lidocaine 2% 20ml vial added to field was administered by Dallin Lewis MD; for local anesthetic; 11:03:35 Heparin Flush Bag (1000units/500ml NS) 2 bags added to field was administered by Dallin Lewis MD; used for procedure; 11:03:42 Patient diabetic? Yes. 11:03:44 Previous problem with sedation/anesthesia? No ? 11:03:46 Snore? Yes 11:03:47 Sleep apnea? No 11:03:48 Deviated septum? No 11:03:48 Opens mouth fully? Yes 11:03:50 Sticks out tongue? Yes 11:03:54 Airway obstruction? Yes copd 11:03:58 Dentures? Yes in tight 11:04:02 Pre procedure: right dorsailis pedis pulse 1+ Palpable, but thready & weak; easily obliterated 11:04:04 Pre procedure: left dorsailis pedis pulse 1+ Palpable, but thready & weak; easily obliterated 11:04:06 Patient pain scale 0/10 ?. 11:04:11 IV patent on arrival in left antecubital with 0.9% NaCl at [facility]. 11:04:13 Lab results completed and on chart. 11:04:17 Right groin area was prepped with chlora-prep and draped in sterile fashion 11:04:18 Alarms reviewed by R. N. 11:04:18 Sharps counted by scrub and verified by R.N. 11:07:38 Use device set Femoral Dx 11:07:39 ACIST Syringe (67855) opened to sterile field. 11:07:40 Bag Decanter () opened to sterile field. 11:07:40 Medline Cath Pack ([id number]) opened to sterile field. 11:07:41 ACIST Hand Control (99418) opened to sterile field. 11:07:41 ACIST Manifold (87615) opened to sterile field. 11:07:42 DIAGNOSTIC Multipack 5Fr catheter set ([id number]) opened to sterile field. 11:07:42 Tegaderm 4 x 4 (1626W) opened to sterile field. 11:07:43 EMERALD Guide Wire (143-839) opened to sterile field. 11:07:44 SHEATH 5FR [place] (UBT607) opened to sterile field. 11:08:50 Baseline sample Acquired. 11:15:04 Physician paged 11:15:46 Zero performed for pressure channel P1 11:27:20 Physician arrived 11:27:20 --------ALL STOP TIME OUT------ 11:27:21 Final Timeout: patient, procedure, and site verified with staff and physician. All members of the team are in agreement. 11:27:23 Right groin site verified by team. 11:27:27 Fire Safety Assessment: A--An alcohol-based skin anteseptic being used preoperatively., C--Open oxygen or nitrous oxide is being used., D--An ESU, laser, or fiber-optic light is being used. 11:27:31 Physical assessment completed. ASA score P 2 - A patient with mild systemic disease as per Dallin Lewis MD. 11:27:35 Maximum allowable contrast does (3.7 X eGFR X 0.75)177 ml. 11:28:04 Fentanyl 50 mcg I.V. was administered by Marnie Godoy RN; for sedation; 11:28:43 Procedure started. 11:28:47 Local anesthetic to right femoral artery with Lidocaine 2% by Dallin Lewis MD.INITIAL ACCESS ONLY 11::54 Versed 2 mg I.V. was administered by Marnie Godoy RN; for sedation; 11::54 A 5 Fr sheath was inserted into the Right Femoral artery 11:29:33 A MULTIPACK Pigtail 5 Fr catheter was advanced over the wire and used for LV Angiography. 11:31:31 LV hemodynamics recorded. 11:31:32 LV gram done using PEREZ 11:31:35 Injector settings: Ml/sec: 5, Volume: 15, 11:31:40 EF : 50 % 11:31:42 Catheter removed. 11:31:47 A MULTIPACK JL 4.0 5Fr catheter was advanced over the wire and used for Left Coronary Angiography. 11:32:07 2) 60-89 Mildly reduced kidney function, and other findings (as for stage 1) point to kidney disease. 11:32:12 Sedation plan: IV Moderate Sedation Medication:Versed, Fentanyl 11:32:24 LCA angiography performed. 11:32:26 Injector settings: Ml/sec: 3, Volume: 6, 11:32:59 Catheter removed. 11:33:01 Fentanyl 50 mcg I.V. was administered by Marnie Godoy RN; for sedation; 11:33:09 A MULTIPACK 3DRC 5Fr catheter was advanced over the wire and used for Multi-vessel Angiography. 11:33:27 CANCHOLA angiography performed. 11:33:57 Injector settings: Ml/sec: 3, Volume: 6, 11:34:12 RCA angiography performed. 11:34:16 Injector settings: Ml/sec: 3, Volume: 6, 11:34:44 SVG angiography performed. 11:35:03 Catheter removed. 11:35:06 EXOSEAL 5Fr (EX500) opened to sterile field. 11:35:14 Sheath removed intact; hemostasis achieved with Exoseal to the Right Femoral artery. 11:35:24 Procedure ended.(Physican Out) 11:35:43 Fluoroscopy time 01.50 minutes. 11:35:46 Flurop Dose total: 305 11:35:46 Fluoroscopy dose: 305 mGy 11:35:50 Contrast amount:Isovue 300 45ml. 11:35:51 Sharps counted by scrub and verified by R.N. 11:35:53 Insertion/operative site no bleeding no hematoma. 11:35:55 Post-op/insertion site Right Femoral artery dressed using a 4 x 4 and Tegaderm. 11:35:58 Post procedure rhythm: unchanged. 11:36:01 Estimated blood loss: 5 ml 11:36:03 Post procedure instruction explained to patient.Patient verbalizes understanding. 11:36:03 Patient needs reinforcement of post procedure teaching. 11:36:12 Procedure type changed to Cath procedure, Diagnostic procedure, LHC, LHC w/Coronaries w/Grafts 11:36:14 Procedure and supply charges have been captured, reviewed, submitted and are correct. 11:36:18 Procedure Complication : No complications 11:36:21 Vital chart was stopped 11:36:23 See physician's report for complete and final results. 11:36:37 Report given to Pre/Post Procedure Room. 11:36:40 Patient transfered to Pre/Post Procedure Room with Stretcher. 11:36:43 Procedure ended. 11:36:43 Full Disclosure recording stopped 11:36:50 End room use (Document Last) Device Usage Item Name Manufacture Quantity Catalog Hospital Part Current Minimal L ot# / Number Charge Number Stock Stock Serial# Code ACIST Acist 1 80486 [id number] [id number] 20 Syringe Medical (00356) Systems Inc Bag Microtek 1 2001S 745492 97067 663520 5 Decanter Medical Inc. () Medline Medline 1 [id number] 772120 07960 488921 5 Cath Pack ([id number]) ACIST Hand Acist 1 96376 267579 062910 931983 5 Control Medical (57681) Systems Inc ACIST Acist 1 91075 511791 416645 354252 5 Manifold Medical (11570) Systems Inc DIAGNOSTIC Cardinal 1 [id number] 759128 63770 966252 30 Multipack Health 5Fr catheter set (CM4141) Tegaderm 4 3M 1 1626W 910978 350924 357178 5 x 4 (1626W) EMERALD Cardinal 1 502-455 960205 399038 183986 5 Guide Wire Health (502-455) SHEATH 5FR Terumo 1 QHU762 247160 731316 677821 5 [place] (LWF142) MULTIPACK Cardinal 1 980399 5 Pigtail 5 Health Fr catheter MULTIPACK Cardinal 1 294650 5 JL 4.0 5Fr Health catheter MULTIPACK Cardinal 1 321063 5 3DRC 5Fr Health catheter EXOSEAL 5Fr Cardinal 1 EX500 122593 806483 661751 10 (EX500) Health Signature Audit [place] Stage Time Signature Unsigned Intra-Procedure 01/26/2019 Mariaelena Bolivar 11:37:27 AM RT(R) Signatures Performing Physician : Signature : Dallin Lewis MD Date : Time : Monitor : Mariaelena Osmel RT Signature : Date : Time : Nurse : Marnie Walt RN Signature : Date : Time : [address] [place] [address]
[2019-01-26 09:53] VITALS: BP 133/55; Ht 165.1 cm; Wt 59.5 kg
[2019-01-26 10:08] LABS: BASOPHILS 0.3 % (0-2); EOSINOPHILS 1.9 % (0-7); HEMATOCRIT 33.5 % (36.0-48.0); IMMATURE GRANULOCYTES 0.1 % (0-5); LYMPHOCYTES 31.5 % (15-50); MCHC 29.9 g/dL (31.0-37.0); MCV 65.3 fL (80.0-100.0); NEUTROPHILS 60.2 % (40-80); RBC 5.13 10x6/uL (4.00-5.40); RDW 19.8 % (11.5-14.5); WBC 6.7 10x3/uL (4.8-10.8)
[2019-01-26 10:09] LABS: MCH 19.5 pg (26.0-34.0); PLATELET COUNT 195 10x3/uL (130-400)
[2019-01-26 10:16] LABS: ANION GAP 14.2 mmol/L (8-16); CALCIUM 9.5 mg/dL (8.5-10.1); CARBON DIOXIDE 27.9 mmol/L (21.0-32.0); CREATININE - SERUM 0.9 mg/dL (0.6-1.3); POTASSIUM - SERUM 4.1 mmol/L (3.5-5.1)
--- NOTE | 2019-01-26 12:00 | NUR ---
2L NC, NO RESP DISTRESS. RIGHT GROIN 5F EXOSEAL CDI, NO BLEEDING OR HEMATOMA NOTED. NO C/O PAIN OR NAUSEA. VSS. FAMILY AT BEDSIDE, CALL LIGHT WITHIN REACH.
--- NOTE | 2019-01-26 12:30 | NUR ---
RESTING QUIETLY WITH EYES CLOSED. RIGHT GROIN 5F EXOSEAL CDI, NO BLEEDING OR HEMATOMA NOTED. DENIES ANY NEEDS. VSS. WILL CONTINUE TO MONITOR.
--- NOTE | 2019-01-26 12:50 | NUR ---
HOB ELEVATED 30 DEGREES. RIGHT GROIN 5F EXOSEAL CDI, NO BLEEDING NOTED. SIPPING ON DRINK AND EATING SANDWICH WITH NO C/O NAUSEA. VSS. CALL LIGHT WITHIN REACH.
--- NOTE | 2019-01-26 13:30 | NUR ---
LEFT PIV D/C'D WITH CATHETER INTACT, BAND AID TO SITE. UP TO BEDSIDE TO GET DRESSED. AMBULATED TO RESTROOM.
--- NOTE | 2019-01-26 13:38 | NUR ---
DISCHARGE INSTRUCTIONS GIVEN TO PT AND STREET CAR MECHANIC, BOTH VERBALIZED UNDERSTANDING.
--- NOTE | 2019-01-26 13:45 | NUR ---
TAKEN OUT VIA WHEELCHAIR BY CATH ELECTRIC REFRIGERATOR SERVICER. LEFT FACILITY WITH FAMILY AND ALL PERSONAL BELONGINGS.
--- NOTE | 2019-01-26 18:39 | OP ---
PATIENT NAME: LOVE JAMES MEDICAL RECORD: [id number] :44 LOCATION:[facility] ADMISSION DATE: SURGEON: RADHA WHITNEY MD DATE OF OPERATION: 01/26/2019 PROCEDURES: 1. Left heart catheterization. 2. Selective coronary angiography. 3. Left ventriculogram. 4. Vein graft angiography. 5. CANCHOLA angiography. INDICATIONS: Angina and coronary artery disease. PROCEDURE IN DETAIL: After informed consent was obtained and after a detailed description of the risks, benefits as well as alternative therapies, the patient elected to proceed with angiogram and heart catheterization. The right femoral area was prepped and draped in the normal sterile fashion. Right femoral artery was cannulated via modified Seldinger technique with placement of 5-Chinese sheath. All catheter was exchanged through the sheath. FINDINGS: The left ventriculogram was performed. Standard 30-degree PEREZ view reveals good cardiac wall motion throughout all segments. Overall ejection fraction estimated at 65%. SELECTIVE CORONARY ANGIOGRAPHY: 1. Left main is with no significant angiographic disease. 2. Left anterior descending is closed. 3. Left circumflex is closed. 4. The right coronary has multiple previously placed stents. These are widely patent with no significant in-stent restenosis. No disease elsewise throughout the RCA or its branches. 5. Vein graft to the circumflex is widely patent. Distal circumflex is widely patent. 6. CANCHOLA to the LAD is widely patent. Distal LAD is widely patent. OVERALL IMPRESSION: Wide patency of the previously placed stents of the RCA as well as vein graft to the circumflex and CANCHOLA to the LAD. Continue medical management of the coronary artery disease and cardiac risk factors. TRANSINT:[id number] Voice Confirmation ID: [id number] DOCUMENT ID: [id number] RADHA WHITNEY MD at 1839 CC: [id number] DICTATION DATE: 01/26/19 1140 SPRING ASSEMBLER SUPERVISOR: 01/26/19 1232 DEP CLI 01/26/19 [place] [id number] [place] [address]
== END 2019-01-26 13:45 | disposition home or self-care (01) ==
LOC: D.CATH 09:25
PROVIDERS: ATTEND Internal Medicine Interventional Cardiology
DX: I25.119 Atherosclerotic heart disease of native coronary artery with unspecified angina pectoris (principal); Z95.1 Presence of aortocoronary bypass graft; Z95.5 Presence of coronary angioplasty implant and graft; Z01.812 Encounter for preprocedural laboratory examination

== ENCOUNTER → 2019-01-29 12:38 | Outpatient (CLI) | payer MEDICARE ==
[2019-01-26 09:53] VITALS: BMI 21.8
[~2019-01-29 12:38] MED LIST changes: +BAYER CHEWABLE81 MG PO
== END | disposition home or self-care (01) ==
LOC: D.US 12:38
PROVIDERS: ATTEND Internal Medicine Cardiovascular Disease
DX: I65.23 Occlusion and stenosis of bilateral carotid arteries (principal)

== ENCOUNTER 2019-01-30 12:47 | Emergency (ER) | payer MEDICARE ==
[~2019-01-30] VITALS: Ht 165.1 cm; Wt 59.5 kg
[~2019-01-30 12:47] MED LIST changes: -BAYER CHEWABLE81 MG PO
[2019-01-30 12:55] VITALS: Ht 165.1 cm; Wt 59.5 kg
[2019-01-30] MEDS ORDERED: BAYER CHEWABLE81 MG PO (13:02)
[2019-01-30 13:36] LABS: BASOPHILS 0.3 % (0-2); EOSINOPHILS 2.8 % (0-7); HEMATOCRIT 32.2 % (36.0-48.0); HEMOGLOBIN 9.5 g/dL (12-16); LYMPHOCYTES 33.5 % (15-50); MCHC 29.5 g/dL (31.0-37.0); MCV 65.1 fL (80.0-100.0); NEUTROPHILS 58.4 % (40-80); PLATELET COUNT 181 10x3/uL (130-400); RBC 4.95 10x6/uL (4.00-5.40); WBC 7.6 10x3/uL (4.8-10.8)
[2019-01-30 13:44] LABS: ALBUMIN 3.6 g/dL (3.4-5.0); ALKALINE PHOSPHATASE 73 U/L (46-116); ALT (SGPT) 15 U/L (10-68); BILIRUBIN - TOTAL 0.37 mg/dL (0.2-1.3); CALC OSMOLALITY 275 mosm/kg (275-300); CALCIUM 8.8 mg/dL (8.5-10.1); CARBON DIOXIDE 27.2 mmol/L (21.0-32.0); CHLORIDE - SERUM 99 mmol/L (98-107); POTASSIUM - SERUM 3.7 mmol/L (3.5-5.1); PROTEIN - SERUM 6.9 g/dL (6.4-8.2); SODIUM 135 mmol/L (136-145); UREA NITROGEN 17 mg/dL (7-18); eGFR NON AFRICAN AMERICAN 57 mL/min (90-120)
[2019-01-30 13:48] LABS: GLUCOSE 172 mg/dL (74-106)
[2019-01-30 13:49] LABS: MCH 19.2 pg (26.0-34.0)
[2019-01-30 13:52] LABS: APTT 25.7 SECONDS (22.8-39.4); INR 1.12 (0.85-1.17); PROTIME 13.8 SECONDS (11.6-15.0)
[2019-01-30 13:55] LABS: CKMB 0.7 U/L (0.0-3.6); CREATINE KINASE 59 UL (21-215); MAGNESIUM - SERUM 1.5 mg/dL (1.8-2.4); TROPONIN-I < 0.017 ng/mL (0.000-0.060)
[2019-01-30 14:43] VITALS: BP 115/56
== END 2019-01-30 14:44 | disposition home or self-care (01) ==
LOC: D.ER 12:47
PROVIDERS: Family Medicine
DX: R07.89 Other chest pain (principal); E11.9 Type 2 diabetes mellitus without complications; I25.10 Atherosclerotic heart disease of native coronary artery without angina pectoris; I11.0 Hypertensive heart disease with heart failure; I50.9 Heart failure, unspecified; J44.9 Chronic obstructive pulmonary disease, unspecified; M79.7 Fibromyalgia

== ENCOUNTER 2019-02-25 14:15 | Inpatient (IN) | payer MEDICARE ==
[~2019-02-25] VITALS: Ht 165.1 cm; Wt 64.4 kg
[~2019-02-25 14:15] MED LIST changes: +BAYER CHEWABLE81 MG PO
[2019-02-25 15:51] LABS: ALBUMIN 3.5 g/dL (3.4-5.0); ANION GAP 16.5 mmol/L (8-16); BILIRUBIN - TOTAL 0.32 mg/dL (0.2-1.3); CARBON DIOXIDE 24.7 mmol/L (21.0-32.0); CREATININE - SERUM 0.9 mg/dL (0.6-1.3); POTASSIUM - SERUM 3.2 mmol/L (3.5-5.1); PROTEIN - SERUM 6.5 g/dL (6.4-8.2); T4 THYROXIN - FREE 0.95 ng/dL (0.76-1.46); THYROID STIMULATING HORMONE 0.24 uIU/mL (0.36-3.74)
--- NOTE | 2019-02-25 16:00 | NUR ---
PATIENT IS A DIRECT ADMITT FROM DR ROBLERO OFFICE. ALERT/ORIENT. PATIENT STATES SHE HAS HAD DIARRHEA FOR THE LAST NINETEEN DAYS.
[2019-02-25 16:31] LABS: BASOPHILS 0.1 % (0-2); EOSINOPHILS 3.2 % (0-7); HEMATOCRIT 28.4 % (36.0-48.0); HEMOGLOBIN 8.5 g/dL (12-16); IMMATURE GRANULOCYTES 0.1 % (0-5); LYMPHOCYTES 28.8 % (15-50); MCHC 29.9 g/dL (31.0-37.0); MCV 64.4 fL (80.0-100.0); MONOCYTES 7.1 % (2-11); NEUTROPHILS 60.7 % (40-80); PLATELET COUNT 176 10x3/uL (130-400); RBC 4.41 10x6/uL (4.00-5.40); RDW 20.4 % (11.5-14.5); WBC 7.2 10x3/uL (4.8-10.8)
[2019-02-25 16:32] LABS: MCH 19.3 pg (26.0-34.0)
[2019-02-25 17:43] VITALS: BP 121/70; BMI 23.6
--- NOTE | 2019-02-25 19:30 | NUR ---
PT LYING IN BED RESTING WITHOUT DISTRESS, ALERT AND ORIENTED. IV RIGHT WRIST INFUSING NS @ 75. RESERVE RIGHT ARM. ASSISTED PT UP TO BATHROOM AND BACK TO BED. PLACED EGG CRATE ON PT MATTRESS PER REQUEST. DENIES OTHER NEEDS. BED LOWEST POSITION, SRX2, CL IN REACH
--- NOTE | 2019-02-25 21:45 | NUR ---
PT STATES PAIN 6/10 IN ABD. CALLED PAGED FLOTATION TENDER HELPER DR VERONICA, RECIEVED ORDERS FOR 2MG MORPHINE Q4PRN. GAVE ORDERED WITH ANUEL D/T PATIENT STATING SHE HAS TAKEN MORPHINE BEFORE AND IT CAN MAKE HER NAUSEAS. DENIES OTHER NEEDS, WILL CTM
[2019-02-25 21:49] VITALS: BP 155/64
--- NOTE | 2019-02-26 01:30 | NUR ---
ASSISTED PT TO BATHROOM AND BACK TO BED. GAVE MOUTH SWABS FOR DRY MOUTH. DENIES OTHER NEEDS. CL IN REACH, WILL CTM
[2019-02-26 02:49] VITALS: BP 146/66
[2019-02-26 06:29] VITALS: BP 156/63
--- NOTE | 2019-02-26 07:00 | NUR ---
PATIENT RECIEVED RESTING IN BED WITH EYES CLOSED, AROUSED EASILY. PATIENT ADMITTED FOR ABD PAIN AND DEHYDRAION. PATIENT REPORTS WARTERY DIARRHEA X 18 DAYS. ALSO REPORTS LRQ ABDOMINAL TENDERNESS. IV PATENT WITH NS AT 75 RUNNING. NO NEEDS VOICED AT THIS TIME. CALL LIGHT IN REACH
[2019-02-26 08:46] LABS: % SATURATION 5 % (15-55); IRON 19 ug/dl (35-150); TOTAL IRON BIND CAPACITY 350 ug/dl (260-445); UNSAT IRON BIND CAPACITY 331 ug/dl (150-375)
[2019-02-26 10:26] VITALS: BP 133/55
[2019-02-26 12:06] VITALS: Ht 165.1 cm; Wt 64.4 kg
[2019-02-26 12:43] VITALS: BP 141/58
[2019-02-26] MEDS ORDERED: QUESTRAN LIG1 PACKET PO (13:58)
--- NOTE | 2019-02-26 16:43 | NUR ---
IV REMOVED WITH NO REDNESS OR EDEMA. DISCHARGE INSTRUCEIONS GIVEN TO PATIENT WITH UNDERSTANDING VOICED. PATIENT TAKEN TO PRIVATE CAR BY WHEELCHAIR
--- NOTE | 2019-02-28 11:17 | HP ---
PATIENT: LOVE JAMES MEDICAL RECORD: [id number] ACCOUNT: [id number] LOCATION:[facility] [id number] : 44 ADMISSION DATE: 02/25/19 PCP: SOPHIA SCHMITZ MD HISTORY AND PHYSICAL EXAMINATION DATE OF ADMISSION: 02/25/2019 CHIEF COMPLAINT: "I am sick." HISTORY OF PRESENT ILLNESS: This is a 78-year-old, who presented to my office with diarrhea, now going on 19 days. She feels weak and worn out. She has had little left lower quadrant abdominal pain. There is nothing that she can think of that causes this diarrhea and nothing she has been able to do to try to stop it. I saw her in the office over a week ago for her diarrhea. Her lab work here looked fine. She has had a partial colectomy in the past, presumably for diverticulitis. This was done around 2002 or 2003 at [facility]. PAST MEDICAL AND SURGICAL HISTORY: Coronary artery disease, anxiety, stroke, diabetes, hyperlipidemia, breast cancer, carotid artery disease, fibromyalgia, sleep apnea, reflux. PAST SURGICAL HISTORY: Coronary artery bypass graft as well as coronary stents, hysterectomy, right carotid endarterectomy, partial colon resection, sinus surgery, lumpectomy times 2. DRUG ALLERGIES: None. MEDICATIONS: Her usual home medications include DuoNeb p.r.n., Plavix 75 mg a day, atorvastatin 40 mg a day, isosorbide mononitrate 60 mg a day, losartan/HCTZ 50/12.5 once a day, nitroglycerin 0.4 mg sublingually p.r.n. chest pain, spironolactone 25 mg a day, aspirin 81 mg a day, Lexapro 20 mg a day, trazodone 150 mg at bedtime, potassium 10 mEq twice a day, Symbicort 160/4.5 two puffs twice a day, Singulair 10 mg at bedtime. She has Imodium as needed for diarrhea, Protonix 40 mg daily, metformin 500 mg b.i.d., and vitamin D3 at 1000 units once a day. HABITS: She is a former smoker. No alcohol or drugs. SOCIAL HISTORY: Retired, , lives alone. FAMILY HISTORY: Father of heart disease and lung cancer. Mother had breast cancer and heart disease. REVIEW OF SYSTEMS: GENERAL: No major weight changes. HEENT: No particular sinus or allergy problems. RESPIRATORY: Has COPD. CARDIAC: Has coronary artery disease. No chest pains going on right now. GASTROINTESTINAL: She has reflux. She has had diverticulitis in the past, and she has had partial colectomy many years ago. GENITOURINARY: No significant problems there. MUSCULOSKELETAL: She has chronic back pain and arthritis. NEUROLOGIC: No migraines or seizures. PSYCHIATRIC: She has anxiety and depression. HISTORY AND PHYSICAL [id number] LOVE JAMES PHYSICAL EXAMINATION: VITAL SIGNS: Temperature 97.7, pulse 66, respirations 18, blood pressure 156/63, O2 sat 93%. GENERAL: She does not feel well. She is awake and alert. HEENT: Grossly within normal limits. NECK: Supple. HEART: Regular rate and rhythm. LUNGS: Fairly clear. ABDOMEN: Soft. There is some left lower quadrant tenderness, though no guarding, no rebound, no mass appreciated. EXTREMITIES: No edema. ASSESSMENT: Ongoing diarrhea times 19 days with dehydration. PLAN: We will put her in the hospital and ask GI to see. We have tried outpatient therapies and that has not worked. We will check lab, follow up with results of that and further recommendations as warranted. TRANSINT:[id number] Voice Confirmation ID: [id number] DOCUMENT ID: [id number] SOPHIA SCHMITZ MD at 1117 CC: [id number] DICTATION DATE: 02/27/19 0855 [place] ATTORNEY: 02/27/19 0946 DIS IN 02/26/19 [id number] [place] [address]
== END 2019-02-26 16:44 | disposition home or self-care (01) | DRG 392 ==
LOC: D.MS 14:15
PROVIDERS: Internal Medicine Gastroenterology; ADMIT Family Medicine; ATTEND Family Medicine
DX: R19.7 Diarrhea, unspecified (principal); E86.0 Dehydration; R10.32 Left lower quadrant pain; I25.10 Atherosclerotic heart disease of native coronary artery without angina pectoris; D50.9 Iron deficiency anemia, unspecified; E11.9 Type 2 diabetes mellitus without complications; F41.8 Other specified anxiety disorders; I11.0 Hypertensive heart disease with heart failure; I50.9 Heart failure, unspecified; M19.90 Unspecified osteoarthritis, unspecified site; M54.9 Dorsalgia, unspecified; E87.6 Hypokalemia

== ENCOUNTER → 2019-04-03 09:31 | Outpatient (CLI) | payer MEDICARE ==
[2019-02-26 12:06] VITALS: BMI 23.6
[~2019-04-03 09:31] MED LIST changes: +QUESTRAN LIG1 PACKET PO
--- NOTE | 2019-04-03 13:46 | NUR ---
PT CAME IN NOT FEELING WELL, BUT WAS TOLD THAT SHE WOULD HAVE TO PAY $25 FOR A CANCELATION FOR BEING UNDER 24 HOURS. SHE HAD FALLEN THE NIGHT BEFORE AND HAD HURT HER BACK AND HER ALLERGIES WERE REALLY BOTHERING HER. I COULD TELL THAT SHE DID NOT FEEL WELL, SO I DISCUSSED WITH DR FALL ABOUT SENDING HER HOME AND RESCHEDULING HER WHEN SHE FELT BETTER. PT WAS VERY APPRECIATIVE OF THAT. PT WILL CALL WHEN FEELS BETTER.
== END | disposition home or self-care (01) ==
LOC: D.RT 09:31
PROVIDERS: ATTEND Internal Medicine Pulmonary Disease
DX: J45.909 Unspecified asthma, uncomplicated (principal)

== ENCOUNTER → 2019-07-24 12:29 | Outpatient (CLI) | payer MEDICARE ==
[2019-02-26 12:06] VITALS: BMI 23.6
== END | disposition home or self-care (01) ==
LOC: D.RT 12:29
PROVIDERS: ATTEND Internal Medicine Pulmonary Disease
DX: J45.909 Unspecified asthma, uncomplicated (principal)

== ENCOUNTER → 2019-08-07 08:13 | Outpatient (CLI) | payer MEDICARE ==
[2019-02-26 12:06] VITALS: BMI 23.6
== END | disposition home or self-care (01) ==
LOC: D.US 08:13
PROVIDERS: ATTEND Internal Medicine Cardiovascular Disease
DX: I65.23 Occlusion and stenosis of bilateral carotid arteries (principal)

== ENCOUNTER → 2019-09-03 08:31 | Outpatient (CLI) | payer MEDICARE ==
[2019-02-26 12:06] VITALS: BMI 23.6
[~2019-09-03 08:31] MED LIST changes: +ALBUTEROL SULF8.5 GM INH
== END | disposition home or self-care (01) ==
LOC: D.CT 08:31
PROVIDERS: ATTEND Family Medicine
DX: J32.9 Chronic sinusitis, unspecified (principal)

== ENCOUNTER 2019-09-04 09:19 | Outpatient (CLI) | payer MEDICARE ==
[~2019-09-04] VITALS: Ht 165.1 cm; Wt 59.1 kg
--- NOTE | ~2019-09-04 | HEMODYNAMI ---
PATIENT:LOVE JAMES MEDICAL RECORD: [id number] : 44 LOCATION:[facility] ADMISSION DATE: 09/04/19 Generatedon:09/04/201912:26 Patient name: LOVE JAMES Patient #: [id number] SSN: [id number] : 1940 Date of study: 09/04/2019 Page: Of Hemodynamic Procedure Report Patient Data Patient Demographics Procedure consent was obtained First Name: LOVE Gender: Female Last Name: JACOB : 1940 [facility] Initial: ZIGGY Age: 79 year(s) Patient #: [id number] Race: SSN: [id number] Additional ID: [id number] Contact details [address]: [address] [place] [address] State: [place] City: [place] Zip code: [address] Past Medical History History of disease Date Diagnosis Comments CAD Valvular heart disease TIA Allergies Allergen Reaction Date Comments Reported Statins 09/10/2016 Other allergy 02/12/2018 STATINS Other allergy 01/26/2019 statins Statins 09/04/2019 Admission Admission Data Admission Date: 09/04/2019 Admission Time: 9:19 Arrival Date: 09/04/2019 Arrival Time: 0:00 Admit Source: Other Insurance Payor: Medicare [facility] #: [id number] Height (in.): 64.96 BSA: 1.65 (m2) Height (cm.): 165 BMI: 21.67 (kg/m2) Weight (lbs.): 130.07 Weight (kg.): 59 Lab Results Lab Result Date: 09/04/2019 Lab Result Time: 0:00 Biochemistry Name Units Result Min Max BUN mg/dl 14 --(--*-)-- 7 18 Creatinine mg/dl 0.9 --(-*--)-- 0.6 1.3 eGFR ml/min 64.11057 *-(----)-- 90 120 NONAFRICAN CBC Name Units Result Min Max Hematocrit % 43.3 --(*---)-- 42 54 Hemoglobin g/dl 14.8 --(-*--)-- 13.5 17.5 Procedure Procedure Types Cath Procedure Diagnostic Procedure [facility] w/Coronaries Procedure Description Procedure Date Procedure Date: 09/04/2019 Procedure Start Time: 12:13 Procedure End Time: 12:21 Procedure Staff Name Function Dallin Lewis MD Performing Physician Latrell Singleton RT Monitor Betsy Mckinnon RT Scrub Martin Rodrigez RN Nurse Indication Angina Procedure Data Cath Procedure Fluoroscopy Diagnostic fluoroscopy Total fluoroscopy Time: 2 time: 2 min min Diagnostic fluoroscopy Total fluoroscopy dose: dose: 128.47 mGy 128.47 mGy Contrast Material Contrast Material Type Amount (ml) Isovue 370 56 Entry Location Entry Primary Successful Side Size Upsize Upsize Entry Closure Succes sful Closure Location (Fr) 1 (Fr) 2 (Fr) Remarks Device Remarks Femoral Right 5 Fr Exoseal artery Diagnostic catheters Device Type Used For End Catheter Placement MULTIPACK Pigtail 5 Fr LV Angiography catheter MULTIPACK JL 4.0 5Fr Left Coronary catheter Angiography MULTIPACK 3DRC 5Fr Right Coronary catheter Angiography DIAGNOSTIC AR MOD 5Fr SVG Angiography Catheter ([id number]) Procedure Complications No complications Procedure Medications Medication Administration Route Dosage 0.9% NaCl I.V. 100 ml/hr Oxygen etCO2 Nasal cannula 2 l/min Heparin Flush Bag added to field 2 bags (1000units/500ml NS) Lidocaine 2% added to field 20 Versed I.V. 2 mg Fentanyl I.V. 100 mcg Hemodynamics Rest BSA: 1.65 (m2) HGB: 14.8 (g/dl) O2 Consumption: Estimated: 147.64 (ml/min) O2 Co nsumption indexed: Estimated:89.48 (ml/min/m) Heart Rate: 67 (bpm) Snapshots Pre Cath Intra NCS Post Cath Vital Signs Time Heart Resp SPO2 etCO2 NIBP (mmHg) Rhythm Pain Sedation Rate (ipm) (%) (mmHg) Status Level (bpm) 11:35:25 65 18 99 23.7 132/70(112) NSR 0 (11) 10(A) , No pain 11:39:39 68 17 96 0 120/57(87) NSR 0 (11) 10(A) , No pain 11:43:46 72 18 95 27.6 98/60(89) NSR 0 (11) 10(A) , No pain 11:47:52 72 18 96 24.5 112/48(87) NSR 0 (11) 10(A) , No pain 11:52:00 72 19 96 31.4 103/52(79) NSR 0 (11) 10(A) , No pain 11:56:06 73 19 96 26.8 99/52(75) NSR 0 (11) 10(A) , No pain 12:00:10 72 18 96 0 106/54(78) NSR 0 (11) 10(A) , No pain 12:04:17 74 18 95 22.2 82/49(75) NSR 0 (11) 10(A) , No pain 12:08:17 73 17 94 29.8 73/45(66) NSR 0 (11) 9(A) , No pain 12:12:17 72 17 94 9.9 88/41(59) NSR 0 (11) 9(A) , No pain 12:16:14 74 19 94 42.1 102/56(75) NSR 0 (11) 9(A) , No pain 12:20:18 82 12 95 44.4 115/60(89) NSR 0 (11) 9(A) , No pain Medications Time Medication Route Dose Verified Delivered Reason Notes Eff ectiveness by by 11:37:03 0.9% NaCl I.V. 100 Martin Martin Per ml/hr Rain Rodrigez physician RN RN 11:37:11 Oxygen etCO2 2 Martin Martin for low 02 Nasal l/min Lorigan Lorigan sats cannula RN RN 11:37:23 Heparin Flush added 2 Martin Martin used for Bag to bags Lorigan Rain procedure (1000units/500ml field RN RN NS) 11:37:33 Lidocaine 2% added 20ml Martin Martin for local to vial Lorigan Lorigan anesthetic field RN RN 12:07:00 Versed I.V. 2 mg Martin Martin for Lorigan Lorigan sedation RN RN 12:07:17 Fentanyl I.V. 100 Martin Martin for mcg Lorigan Lorigan sedation RN receiving operator Log Time Note 11:16:02 Informed consent obtained and on chart 11:16:08 Arrival Date: 09/04/2019 12:00:00 AM 11:16:33 Insurance Payor : Medicare 11:16:36 Admit Source: Other 11::29 Martin Rodrigez RN sent for patient. Start room use. 11::59 Patient Height : 64.96 inches 11:21:06 Patient Weight : 130.07 lbs 11:22:15 Indication : Angina 11:25:25 Procedure Status Elective Heart Cath (OP). 11:25:32 Time tracking: Regular hours (M-F 7:00 - 5:00) 11:25:39 Plan of Care:Hemodynamics will remain stable., Cardiac rhythm will remain stable., Comfort level will be maintained., Respiratory function will remain adequate., Patient/ family verbilizes understanding of procedure., Procedure tolerated without complication., Recovers from procedure without complications.. 11::59 ACC Patient presents with Stable Angina CCS Anginal Class 3--Marked limitation of physical activity, angina occurs with ordinary activity.. 11:26:09 Patient received from Pre/Post Procedure Room to [facility] 3 Alert and oriented. Tansferred to table in Supine position. 11:26:10 Warm blankets applied, and dorys hugger turned on for patient comfort. 11:26:11 Correct patient and procedure confirmed by team. 11:26:12 ECG and BP/O2 sat monitors applied to patient. 11::46 Lab Result : Hematocrit 43.3 % 11::46 Lab Result : eGFR NONAFRICAN 64.78339 ml/min 11::46 Lab Result : Hemoglobin 14.8 g/dl 11::46 Lab Result : BUN 14 mg/dl ::46 Lab Result : Creatinine 0.9 mg/dl 11:34:15 Vital chart was started 11:34:23 Baseline sample Acquired. 11:34:27 Rhythm: sinus rhythm 11:34:29 Full Disclosure recording started 11:34:29 - 11:34:36 H&P Date Dictated: 09/01/2019 Within 30 days and on chart., H&P Addendum completed by physician on day of procedure. (MUST COMPLETE FOR ALL OUTPATIENTS). 11:34:37 Pre-procedure instructions explained to patient. 11:34:37 Pre-op teaching completed and patient verbalized understanding. 11:34:39 Family in waiting room. 11:34:41 Patient NPO since Midnight. 11:34:51 Patient allergic to Statins 11:34:59 Is the patient allergic to Iodine/contrast media? No. 11:35:01 Is patient on blood thinner?Yes 11:35:06 ACC The patient was administered the following blood thiners within the last 24 hours: ACCPlavix 11:35:10 Patient diabetic? Yes. 11:35:11 If diabetic: On Metformin? No 11:35:12 ----Pre-sedation anethsthesia assessment.---- 11:35:15 Previous problem with sedation/anesthesia? No ? 11:35:16 Snore? Yes 11:35:18 Sleep apnea? Yes 11:35:19 Deviated septum? No 11:35:20 Opens mouth fully? Yes 11:35:21 Sticks out tongue? Yes 11:35:25 Airway obstruction? Yes COPD 11:35:30 Dentures? Yes IN TIGHT 11:35:34 Pre procedure: right dorsailis pedis pulse 2+ Normal; easily identifiable; not easily obliterated 11:35:38 Patient pain scale 0/10 ?. 11:35:45 IV patent on arrival in left forearm with 0.9% NaCl at O. 11:35:49 Lab results completed and on chart. 11:37:03 0.9% NaCl 100 ml/hr I.V. was administered by Martin Rodrigez RN; Per physician; Verbal order read back and verified. 11:37:11 Oxygen 2 l/min etCO2 Nasal cannula was administered by Martni Rodrigez RN; for low 02 sats; Verbal order read back and verified. 11:37:23 Heparin Flush Bag (1000units/500ml NS) 2 bags added to field was administered by Martin Rodrigez RN; used for procedure; Verbal order read back and verified. 11:37:33 Lidocaine 2% 20ml vial added to field was administered by Martin Rodrigez RN; for local anesthetic; Verbal order read back and verified. 11:37:35 Risk of Mortality: 0.2 11:37:39 Risk of blood transfusion: 2.2 11:37:42 Risk of MARY: 2.1 11:37:45 Right groin area was prepped with chlora-prep and draped in sterile fashion 11:37:46 Alarms reviewed by R. N. 11:37:46 Sharps counted by scrub and verified by R.N. 11:38:13 2) 60-89 Mildly reduced kidney function, and other findings (as for stage 1) point to kidney disease. 11:38:31 Maximum allowable contrast dose (3.7 X eGFR X 0.75)177.6 ml. 11:38:39 Use device set Femoral Dx 11:38:40 ACIST Syringe (25455) opened to sterile field. 11:38:41 Bag Decanter (2002S) opened to sterile field. 11:38:41 Medline Cath Pack ([id number]) opened to sterile field. 11:38:42 ACIST Hand Control (40918) opened to sterile field. 11:38:43 ACIST Manifold (88774) opened to sterile field. 11:38:43 DIAGNOSTIC Multipack 5Fr catheter set (VP1527) opened to sterile field. 11:38:44 Tegaderm 4 x 4 (1626W) opened to sterile field. 11:38:46 SHEATH 5FR [place] (HWC087) opened to sterile field. 11:38:47 EMERALD Guide Wire (415-120) opened to sterile field. 11:43:35 Zero performed for pressure channel P1 12:06:12 Physician arrived 12:06:13 --------ALL STOP TIME OUT------ 12:06:14 Final Timeout: patient, procedure, and site verified with staff and physician. All members of the team are in agreement. 12:06:15 Right groin site verified by team. 12:06:18 Fire Safety Assessment: A--An alcohol-based skin anteseptic being used preoperatively., C--Open oxygen or nitrous oxide is being used., D--An ESU, laser, or fiber-optic light is being used. 12:06:22 Physical assessment completed. ASA score P 2 - A patient with mild systemic disease as per Dallin Lewis MD. 12:06:28 Sedation plan: IV Moderate Sedation Medication:Versed, Fentanyl 12:07:00 Versed 2 mg I.V. was administered by Martin Rodrigez RN; for sedation; Verbal order read back and verified. 12:07:17 Fentanyl 100 mcg I.V. was administered by Martin Rodrigez RN; for sedation; Verbal order read back and verified. 12:13:41 Procedure started. 12:13:52 Local anesthetic to right femoral artery with Lidocaine 2% by Dallin Lewis MD.INITIAL ACCESS ONLY 12:14:11 A 5 Fr sheath was inserted into the Right Femoral artery 12:14:18 A MULTIPACK Pigtail 5 Fr catheter was advanced over the wire and used for LV Angiography. 12:15:32 LV angiography performed. 12:15:34 LV gram done using PEREZ 12:15:41 EF : 55 % 12:15:45 Injector settings: Ml/sec: 10, Volume: 20, 12:15:47 Catheter removed. 12:15:52 A MULTIPACK JL 4.0 5Fr catheter was advanced over the wire and used for Left Coronary Angiography. 12:16:31 LCA angiography performed. 12:16:33 Catheter removed. 12:16:42 A MULTIPACK 3DRC 5Fr catheter was advanced over the wire and used for Right Coronary Angiography. 12:17:09 CANCHOLA to LAD angiography performed. 12:17:47 RCA angiography performed. 12:18:32 Catheter removed. 12:18:45 A DIAGNOSTIC AR MOD 5Fr Catheter ([id number]) was advanced over the wire and used for SVG Angiography. 12:18:52 SVG to Circ angiography performed. 12:19:21 Catheter removed. 12:19:56 EXOSEAL 5Fr (EX500) opened to sterile field. 12:20:06 Sheath removed intact; hemostasis achieved with Exoseal to the Right Femoral artery. 12:20:07 Procedure ended.(Physican Out) 12:20:37 Fluoroscopy time 02.00 minutes. 12:20:44 Fluoroscopy dose: 128.47 mGy 12:20:44 Flurop Dose total: 128.47 12:20:52 Dose Area Product 7457 mGy/cm. 12:20:57 Contrast amount:Isovue 370 56ml. 12:20:59 Maximum allowable dose exceeded? No. 12:21:00 Sharps counted by scrub and verified by R.N. 12:21:01 Insertion/operative site no bleeding no hematoma. 12:21:04 Post-op/insertion site Right Femoral artery dressed using a 4 x 4 and Tegaderm. 12:21:12 Post right femoral artery:stable 12:21:13 Post Procedure Pulses reassessed and unchanged 12:21:15 Post procedure: right dorsailis pedis pulse 2+ Normal; easily identifiable; not easily obliterated. 12:21:18 Post-procedure physical assessment completed. ASA score P 2 - A patient with mild systemic disease as per Dallin Lewis MD. 12:21:21 Post procedure rhythm: unchanged. 12:21:22 Post procedure instruction explained to patient.Patient verbalizes understanding. 12:21:25 Procedure and supply charges have been captured, reviewed, submitted an d are correct. 12:21:29 Procedure Complication : No complications 12:21:32 Vital chart was stopped 12:21:35 [facility] Findings: mild to moderate CAD (<70%) 12:21:38 Operative report dictated upon procedure completion. 12:21:39 See physician's report for complete and final results. 12:21:40 Report given to Pre/Post Procedure Room. 12:21:44 Patient transfered to Pre/Post Procedure Room with Stretcher. 12:21:48 Procedure ended. 12:21:48 Full Disclosure recording stopped 12:21:51 End room use (Document Last) Device Usage Item Name Manufacture Quantity Catalog Hospital Part Current Minimal L ot# / Number Charge Number Stock Stock Serial# Code ACIST Acist 1 02086 330461 [id number] [id number] 20 Syringe Medical (80151) Systems Inc Bag Microtek 1 766658 44072 343960 5 Decanter Medical Inc. () Medline Medline 1 [id number] 994167 97949 732384 5 Cath Pack ([id number]) ACIST Hand Acist 1 34964 452041 457987 679030 5 Control Medical (80937) Systems Inc ACIST Acist 1 42498 886772 459971 091742 5 Manifold Medical (74591) Systems Inc DIAGNOSTIC Cardinal 1 HJ4723 193096 13053 138676 30 [employer] [facility] 5Fr catheter set (KA1443) Tegaderm 4 3M 1 1626W 272537 183168 858981 5 x 4 (1626W) SHEATH 5FR Terumo 1 YBN548 862033 205111 267474 5 [place] (VAT704) EMERALD Cardinal 1 208-216 417546 763580 675346 5 Guide Wire Health (568-534) MULTIPACK Cardinal 1 802345 5 Pigtail 5 Health Fr catheter MULTIPACK Cardinal 1 518745 5 JL 4.0 5Fr Health catheter MULTIPACK Cardinal 1 147143 5 3DRC 5Fr Health catheter DIAGNOSTIC Cardinal 1 [id number] 439577 053070 283004 15 AR MOD 5Fr Health Catheter (682911I) EXOSEAL 5Fr Cardinal 1 EX500 842975 988215 057622 10 (EX500) Health Signature Audit [place] Stage Time Signature Unsigned Intra-Procedure 09/04/2019 Martin 12:25:43 PM Rain CORREIA Intra-Procedure 09/04/2019 Latrell Singleton RT(R) 12:26:22 PM Intra-Procedure 09/04/2019 Dallin Lewis 12:26:45 PM [place] [id number] [place] [address]
[~2019-09-04 09:19] MED LIST changes: -ALBUTEROL SULF8.5 GM INH
[2019-09-04] MEDS ORDERED: ALBUTEROL SULF8.5 GM INH (09:52)
[2019-09-04] MEDS ORDERED: SINGULAIR10 MG PO (09:53)
[2019-09-04 10:02] VITALS: BP 123/63; Ht 165.1 cm; Wt 59.1 kg
[2019-09-04 10:14] LABS: BASOPHILS 0.3 % (0-2); EOSINOPHILS 2.9 % (0-7); HEMATOCRIT 43.3 % (36.0-48.0); HEMOGLOBIN 14.8 g/dL (12-16); IMMATURE GRANULOCYTES 0.1 % (0-5); LYMPHOCYTES 24.9 % (15-50); MCH 30.2 pg (26.0-34.0); MCHC 34.2 g/dL (31.0-37.0); MCV 88.4 fL (80.0-100.0); MEAN PLATELET VOLUME 11.1 fL (7.4-10.4); MONOCYTES 6.6 % (2-11); NEUTROPHILS 65.2 % (40-80); PLATELET COUNT 171 10x3/uL (130-400); RDW 13.8 % (11.5-14.5); WBC 6.8 10x3/uL (4.8-10.8)
[2019-09-04 10:33] LABS: ANION GAP 11.6 mmol/L (8-16); CALCIUM 9.6 mg/dL (8.5-10.1); CARBON DIOXIDE 30.4 mmol/L (21.0-32.0); CHOL - HDL RATIO 3.4 ratio (2.3-4.1); CREATININE - SERUM 0.9 mg/dL (0.6-1.3); LDL-HDL RATIO 1.8 ratio (1.5-3.5)
--- NOTE | 2019-09-04 12:35 | NUR ---
PT RECEIVED VIA STRETCHER FROM MANAGER OF CORPORATE COMMUNICATIONS FOR RECOVERY. PT AWAKE, DROWSY BUT VERBALLY AROUSABLE. PT DENIES PAIN OR DISCOMFORT. R GROIN W 5FR EXOCELE, DRESSING CDI NO S/S HEMATOMA. LEG PINK AND WARM, PEDAL PULSES PALPABLE.. PT PLACE ON CARDIAC MONITORS, HR NSR RATE 69, BP 113/56, SAT 94 ON ROOM AIR. IV PATENT INFUSING VIA ORDERS. CALL LIGHT IN REACH, FAMILY AT BS.
--- NOTE | 2019-09-04 13:00 | NUR ---
PT RESTING COMFORTABLY W/O COMPLAINTS. R GROIN SOFT, DRESSING REMAINS CDI NO S/S HEMATOMA. LEG PINK AND WARM, PEDAL PULSES PALPABLE. VSS. CALL LIGHT IN REACH
--- NOTE | 2019-09-04 13:30 | NUR ---
R GROIN SOFT, DRESSING REMAINS CDI NO S/S HEMATOMA NOTED. HOB ELEVATED SLIGHTLY, SANDWICH AND DRINK SERVED. VSS. CALL LIGHT IN REACH
--- NOTE | 2019-09-04 13:50 | NUR ---
DR WHITNEY AT , NO NEW ORDERS. R GROIN SOFT, DRESSING CDI NO S/S HEMATOMA NOTED. PT TOLERATED FOOD W/O NAUSEA. DENIES PAIN OR NEEDS.
--- NOTE | 2019-09-04 14:11 | NUR ---
DISCHARGE INSTRUCTIONS REVIEWED W PT AND CAREGIVER, BOTH VERBALIZED UNDERSTANDING. IV REMOVED W CATH INTACT, MONITORS REMOVED. R GROIN SOFT NO S/S HEMATOMA. PT UP TO DRESS W ASSIST FROM CAREGIVER.
--- NOTE | 2019-09-04 14:21 | NUR ---
PT TO BR VIA WC, VOIDING W/O DIFFICULITY. PT THEN DISCHARGED VIA WC TO CAREGIVER WAITING IN PRIVATE VEHICLE. PT HAD ALL BELONGINGS AND DISCHARGE PAPERWORK
--- NOTE | 2019-09-07 11:54 | OP ---
PATIENT NAME: LOVE JAMES MEDICAL RECORD: [id number] :44 LOCATION:D.CAT ADMISSION DATE: SURGEON: RADHA WHITNEY MD DATE OF OPERATION: 09/04/2019 PROCEDURES: 1. Left heart catheterization. 2. Selective coronary angiography. 3. Left ventriculogram. 4. Vein graft angiography. 5. CANCHOLA angiography. INDICATION: Angina and coronary artery disease. PROCEDURE IN DETAIL: After informed consent was obtained and after a detailed description of risks, benefits as well as alternative therapies, the patient elected to proceed with angiogram and heart catheterization. The right femoral area was prepped and draped in normal sterile fashion. Right femoral artery was cannulated via modified Seldinger technique with placement of 6-[place] Island[place] sheath. All catheters exchanged through this sheath. FINDINGS: Left ventriculogram was performed in standard 30-degree PEREZ view reveals preserved cardiac wall motion, ejection fraction estimated 60%. SELECTIVE CORONARY ANGIOGRAPHY: 1. Left main is with no significant angiographic disease. 2. Left anterior descending is totally occluded. 3. CANCHOLA to the LAD is widely patent. 4. Left circumflex has 95% stenosis. 5. Vein graft to the circumflex is widely patent. Distal circumflex is widely patent. 6. The right coronary has multiple previously placed stents. These are widely patent. OVERALL IMPRESSION: Wide patency of the previously placed stents as well as vein grafts and CANCHOLA graft. Continue the medical management of the coronary artery disease and cardiac risk factors. TRANSINT:[id number] Voice Confirmation ID: [id number] DOCUMENT ID: [id number] RADHA WHITNEY MD at 1154 CC: [id number] DICTATION DATE: 09/04/19 1224 CLIENT SUPPORT REPRESENTATIVE: 09/04/19 2232 DEP CLI 09/04/19 [place] [id number]
== END 2019-09-04 14:20 | disposition home or self-care (01) ==
LOC: D.CATH 09:19
PROVIDERS: ATTEND Internal Medicine Interventional Cardiology
DX: I25.119 Atherosclerotic heart disease of native coronary artery with unspecified angina pectoris (principal); I10 Essential (primary) hypertension; R06.09 Other forms of dyspnea; E78.5 Hyperlipidemia, unspecified; R07.9 Chest pain, unspecified; R94.31 Abnormal electrocardiogram [ECG] [EKG]; E11.9 Type 2 diabetes mellitus without complications; I48.91 Unspecified atrial fibrillation

== ENCOUNTER → 2019-12-30 11:07 | Outpatient (CLI) | payer MEDICARE ==
[2019-09-04 10:02] VITALS: BMI 21.6
[~2019-12-30 11:07] MED LIST changes: +ALBUTEROL SULF8.5 GM INH
== END | disposition home or self-care (01) ==
LOC: D.HCCECHO 11:07
PROVIDERS: ATTEND Internal Medicine Cardiovascular Disease
DX: I25.10 Atherosclerotic heart disease of native coronary artery without angina pectoris (principal)

== ENCOUNTER 2020-01-05 10:12 | Inpatient (IN) | payer MEDICARE ==
[~2020-01-05] VITALS: Ht 165.1 cm; Wt 60.6 kg
--- NOTE | ~2020-01-05 | HEMODYNAMI ---
PATIENT:LOVE JAMES MEDICAL RECORD: [id number] : 44 LOCATION:[address] ADMISSION DATE: 01/06/20 Generatedon:01/07/20209:14 Patient name: LOVE JAMES Patient #: [id number] SSN: [id number] : 1940 Date of study: 01/07/2020 Page: Of Hemodynamic Procedure Report Patient Data Patient Demographics Procedure consent was obtained First Name: LOVE Gender: Female Last Name: JACOB : 1940 Middle Initial: ZIGGY Age: 79 year(s) Patient #: [id number] Race: SSN: [id number] Additional ID: [id number] Contact details [address]: [address] [place] [address] State: [place] City: [place] Zip code: [address] Past Medical History History of disease Date Diagnosis Comments CAD Valvular heart disease TIA Allergies Allergen Reaction Date Comments Reported Statins 09/10/2016 Other allergy 02/12/2018 STATINS Other allergy 01/26/2019 statins Statins 09/04/2019 Statins 01/07/2020 Admission Admission Data Admission Date: 01/06/2020 Admission Time: 16:10 Room #: [facility] Height (in.): 64.96 BSA: 1.66 (m2) Height (cm.): 165 BMI: 22.04 (kg/m2) Weight (lbs.): 132.28 Weight (kg.): 60 Lab Results Lab Result Date: 01/07/2020 Lab Result Time: 0:00 Biochemistry Name Units Result Min Max Creatinine mg/dl 1 --(--*-)-- 0.6 1.3 eGFR ml/min 57 *-(----)-- 90 120 NONAFRICAN CBC Name Units Result Min Max Hematocrit % 43.3 --(*---)-- 42 54 Hemoglobin g/dl 14.7 --(-*--)-- 13.5 17.5 Procedure Procedure Types Cath Procedure Diagnostic Procedure [facility] w/Coronaries w/Grafts Sedation Charges Moderate Sedation up to 15 minutes Procedure Description Procedure Date Procedure Date: 01/07/2020 Procedure Start Time: 8:53 Procedure End Time: 9:11 Procedure Staff Name Function Camilo Stock MD Performing Physician Erma Bhatia RT Monitor Marnie Godoy RN Nurse Betsy Mckinnon RT Scrub Procedure Data Cath Procedure Fluoroscopy Diagnostic fluoroscopy Total fluoroscopy Time: 4.9 time: 4.9 min min Diagnostic fluoroscopy Total fluoroscopy dose: 348 dose: 348 mGy mGy Contrast Material Contrast Material Type Amount (ml) Isovue 300 55 Entry Location Entry Primary Successful Side Size Upsize Upsize Entry Closure Succes sful Closure Location (Fr) 1 (Fr) 2 (Fr) Remarks Device Remarks Femoral Right 5 Fr Exoseal artery Estimated blood loss: 10 ml Diagnostic catheters Device Type Used For End Catheter Placement MULTIPACK JL 4.0 5Fr Procedure catheter MULTIPACK 3DRC 5Fr Procedure catheter MULTIPACK Pigtail 5 Fr Ventriculography catheter Procedure Complications No complications Procedure Medications Medication Administration Route Dosage 0.9% NaCl I.V. 100 ml/hr Oxygen etCO2 Nasal cannula 2 l/min Lidocaine 2% added to field 20 Heparin Flush Bag added to field 2 bags (1000units/500ml NS) Plavix P.O. 75 mg Benadryl I.V. 50 mg Versed I.V. 1 mg Fentanyl I.V. 25 mcg Hemodynamics Rest BSA: 1.66 (m2) HGB: 14.7 (g/dl) O2 Consumption: Estimated: 147.98 (ml/min) O2 Co nsumption indexed: Estimated:89.14 (ml/min/m) Heart Rate: 66 (bpm) Pressure Samples Time Site Value (mmHg) Purpose Heart Use Rate(bpm) 9:06 LV 127/-5,23 Snapshot 70 9:07 AO 113/46(74) Pullback 65 9:07 LV 118/7,13 Pullback 65 Gradients Valve Time Site 1 Site 2 Mean SEP/DFP Peak To Heart Use (mmHg) (sec/min) Peak Rate (mmHg) (bpm) Aortic 9:07 LV AO 6 15 5 65 118/7,13 113/46(74) Calculations Valve P-P Mean Valve Index Valve Source Name Gradient Area Flow (cm2) Aortic 5 6 5 6 Snapshots Pre Cath Intra NCS Post Cath Vital Signs Time Heart Resp SPO2 etCO2 NIBP (mmHg) Rhythm Pain Sedation Rate (ipm) (%) (mmHg) Status Level (bpm) 8:38:19 60 16 96 38 132/44(94) NSR 0 (11) 10(A) , No pain 8:43:18 70 23 98 32.3 144/86(98) NSR 0 (11) 10(A) , No pain 8:47:32 61 16 98 27 118/86(100) NSR 0 (11) 10(A) , No pain 8:52:00 61 10 98 27 107/41(61) NSR 0 (11) 9(A) , No pain 8:56:04 61 11 97 0 109/69(86) NSR 0 (11) 9(A) , No pain 9:00:14 64 12 98 0 104/59(87) NSR 0 (11) 9(A) , No pain 9:04:28 60 9 98 0 96/40(80) NSR 0 (11) 9(A) , No pain 9:08:25 61 9 99 24 111/79(100) NSR 0 (11) 9(A) , No pain Medications Time Medication Route Dose Verified Delivered Reason Notes Ef fectiveness by by 8:37:09 0.9% NaCl I.V. 100 Norred Marnie used for ml/hr Montrell Godoy business analytics specialist 8:37:16 Oxygen etCO2 2 Norred Marnie used for Nasal l/min Montrell Godoy procedure cannula RN 8:37:22 Lidocaine 2% added 20ml Norred Norred for local to vial Montrell Stock MD anesthetic field 8:37:26 Heparin Flush added 2 Norred Norred used for Bag to bags Montrell Stock MD procedure (1000units/500ml field NS) 8:37:32 Plavix P.O. 75 mg Norred Marnie for Montrell Godoy antiplatelet RN therapy 8:37:44 Benadryl I.V. 50 mg Norred Marnie used for Montrell Godoy business analytics specialist 8:47:25 Versed I.V. 1 mg Norred Marnie for sedation Montrell Godoy RN 8:47:32 Fentanyl I.V. 25 Norred Marnie for sedation mcg Montrell Godoy sewer and cutter finger buff material Log Time Note 8:11:31 Informed consent obtained and on chart 8:15:17 ACC Patient presents with Unstable Angina CCS Anginal Class 3--Marked limitation of physical activity, angina occurs with ordinary activity.. 8:15:25 ACCPatient has been prescribed/administered the following anti-anginal medication within the last 2 weeks: Long-Acting Nitrates 8:15:29 Procedure Status Urgent Heart Cath (IP). 8:15:33 Erma MURPHY(R) sent for patient. Start room use. 8:15:34 Time tracking: Regular hours (M-F 7:00 - 5:00) 8:15:39 Plan of Care:Hemodynamics will remain stable., Cardiac rhythm will remain stable., Comfort level will be maintained., Respiratory function will remain adequate., Patient/ family verbilizes understanding of procedure., Procedure tolerated without complication., Recovers from procedure without complications.. 8:15:43 Full Disclosure recording started 8:15:48 H&P Date Dictated: 01/07/2020 Within 30 days and on chart.. 8:15:55 Patient NPO since Midnight. 8:16:07 Patient allergic to Statins 8:16:10 Is the patient allergic to Iodine/contrast media? No. 8:16:11 Was the patient premedicated? N/A 8:16:13 Is patient on blood thinner?Yes 8:16:15 ACC The patient was administered the following blood thiners within the last 24 hours: ACCPlavix 8:16:34 Patient diabetic? Yes. 8:17:09 If diabetic: On Metformin? No 8:19:27 Patient Height : 64.96 inches 8:19:30 Patient Weight : 132.28 lbs 8:19:56 Lab Result : Creatinine 1 mg/dl 8:19:56 Lab Result : eGFR NONAFRICAN 57 ml/min 8:19:56 Lab Result : Hemoglobin 14.7 g/dl 8:19:56 Lab Result : Hematocrit 43.3 % 8:20:01 Diagnostic Cath Status : Urgent 8:20:20 Stress Test: no; N/A ? 8:23:05 Risk of Mortality: 0.2 8:23:07 Risk of blood transfusion: 2.5 8:23:10 Risk of MARY: 2.1 8:30:37 Patient received from Med II to CCL 2 Alert and oriented. Tansferred to table in Supine position. 8:30:39 Warm blankets applied, and dorys hugger turned on for patient comfort. 8:30:40 Correct patient and procedure confirmed by team. 8:30:41 ECG and BP/O2 sat monitors applied to patient. 8:30:45 Pre-procedure instructions explained to patient. 8:30:47 Pre-op teaching completed and patient verbalized understanding. 8:30:56 Family unavailable. 8:31:00 Patient not . Patient is over age 55. 8:31:03 Snore? Yes 8:31:10 Sleep apnea? Yes 8:31:13 Deviated septum? No 8:31:15 Opens mouth fully? Yes 8:31:16 Sticks out tongue? Yes 8:31:23 Airway obstruction? Yes COPD 8:31:27 Dentures? No ? 8:31:31 Previous problem with sedation/anesthesia? No ? 8:31:53 Patient pain scale 0/10 ?. 8:32:00 Pre procedure: right dorsailis pedis pulse 1+ Palpable, but thready & weak; easily obliterated 8:32:13 IV patent on arrival in left hand with 0.9% NaCl at O. 8:32:25 Lab results completed and on chart. 8:32:34 Right groin area was prepped with chlora-prep and draped in sterile fashion 8:32:35 Alarms reviewed by R. N. 8:32:36 Sharps counted by scrub and verified by R.N. 8:36:57 Vital chart was started 8:37:09 0.9% NaCl 100 ml/hr I.V. was administered by Marnie Godoy RN; used for procedure; Verbal order read back and verified. 8:37:16 Oxygen 2 l/min etCO2 Nasal cannula was administered by Marnie Godoy RN; used for procedure; Verbal order read back and verified. 8:37:22 Lidocaine 2% 20ml vial added to field was administered by Camilo Stock MD; for local anesthetic; Verbal order read back and verified. 8:37:26 Heparin Flush Bag (1000units/500ml NS) 2 bags added to field was administered by Camilo Stock MD; used for procedure; Verbal order read back and verified. 8:37:32 Plavix 75 mg P.O. was administered by Marnie Godoy RN; for antiplatelet therapy; Verbal order read back and verified. 8:37:44 Benadryl 50 mg I.V. was administered by Marnie Godoy RN; used for procedure; Verbal order read back and verified. 8:41:27 Use device set Femoral Dx 8:41:29 ACIST Syringe (37732) opened to sterile field. 8:41:30 Bag Decanter (2002S) opened to sterile field. 8:41:31 Medline Cath Pack ([id number]) opened to sterile field. 8:41:32 ACIST Hand Control (86078) opened to sterile field. 8:41:32 ACIST Manifold (98479) opened to sterile field. 8:41:33 DIAGNOSTIC Multipack 5Fr catheter set ([id number]) opened to sterile field. 8:41:35 SHEATH 5FR Armbrust (RRZ029) opened to sterile field. 8:41:35 EMERALD Guide Wire (502-768) opened to sterile field. 8:43:50 MICROPUNCTURE 4FR Cook ([id number]) opened to sterile field. 8:43:53 Tegaderm 4 x 4 (1626W) opened to sterile field. 8:44:00 Baseline sample Acquired. 8:44:05 Rhythm: sinus rhythm 8:44:38 Physician arrived 8:44:39 --------ALL STOP TIME OUT------ 8:44:40 Final Timeout: patient, procedure, and site verified with staff and physician. All members of the team are in agreement. 8:44:51 Right groin site verified by team. 8:44:54 Fire Safety Assessment: A--An alcohol-based skin anteseptic being used preoperatively., C--Open oxygen or nitrous oxide is being used., D--An ESU, laser, or fiber-optic light is being used. 8:44:58 Physical assessment completed. ASA score P 2 - A patient with mild systemic disease as per Camilo Stock MD. 8:45:01 2) 60-89 Mildly reduced kidney function, and other findings (as for stage 1) point to kidney disease. 8:45:05 Maximum allowable contrast dose (3.7 X eGFR X 0.75)158 ml. 8:45:09 Sedation plan: IV Moderate Sedation Medication:Versed, Fentanyl 8:47:25 Versed 1 mg I.V. was administered by Marnie Godoy RN; for sedation; Verbal order read back and verified. 8:47:32 Fentanyl 25 mcg I.V. was administered by Marnie Godoy RN; for sedation; Verbal order read back and verified. 8:48:20 Procedure started. 8:50:28 Pt in bigeminy rhythm 8:51:36 Baseline sample Acquired. 8:51:45 Rhythm: bigeminy 8:53:07 Local anesthetic to right femoral artery with Lidocaine 2% by Camilo Stock MD.INITIAL ACCESS ONLY 8:53:20 Access obtained with 4Fr micropunture. 8:53:30 A 5 Fr sheath was inserted into the Right Femoral artery 8:56:49 A MULTIPACK JL 4.0 5Fr catheter was advanced over the wire and used for Procedure. 9:00:14 LCA angiography performed. 9:00:28 Catheter removed. 9:00:40 A MULTIPACK 3DRC 5Fr catheter was advanced over the wire and used for Procedure. 9:01:55 SVG to Circ angiography performed. 9:02:00 CANCHOLA to LAD angiography performed. 9:04:55 Catheter removed. 9:05:24 A MULTIPACK Pigtail 5 Fr catheter was advanced over the wire and used for Ventriculography. 9:06:18 LV gram done using PEREZ 9:07:46 EF : 55 % 9:07:57 Catheter removed. 9:08:01 EXOSEAL 5Fr (EX500) opened to sterile field. 9:08:10 Sheath removed intact; hemostasis achieved with Exoseal to the Right Femoral artery. 9:09:00 Procedure ended.(Physican Out) 9:09:29 Fluoroscopy time 04.90 minutes. 9:09:33 Fluoroscopy dose: 348 mGy 9:09:33 Flurop Dose total: 348 9:09:38 Dose Area Product 49581 mGy/cm. 9::42 Contrast amount:Isovue 300 55ml. 9::44 Maximum allowable dose exceeded? No. 9::45 Sharps counted by scrub and verified by R.N. 9:09:46 Insertion/operative site no bleeding no hematoma. 9:10:00 Post-op/insertion site Right Femoral artery dressed using a 4 x 4 and Tegaderm. 9:10:05 Post right femoral artery:stable 9:10:12 Post-procedure physical assessment completed. ASA score P 2 - A patient with mild systemic disease as per Camilo Stock MD. 9:10:15 Post procedure rhythm: unchanged. 9:10:18 Estimated blood loss: 10 ml 9:10:20 Post procedure instruction explained to patient.Patient verbalizes understanding. 9:10:43 Procedure type changed to Cath procedure, Diagnostic procedure, LHC, LHC w/Coronaries w/Grafts, Sedation Charges, Moderate Sedation up to 15 minutes 9:10:44 Procedure and supply charges have been captured, reviewed, submitted and are correct. 9:11:17 Procedure Complication : No complications 9:11:20 Vital chart was stopped 9:11:26 [facility] Findings: mild to moderate CAD (<70%) 9:11:31 See physician's report for complete and final results. 9:11:34 Report given to [facility]. 9:11:38 Patient transfered to [facility] with Bed. 9:11:40 Procedure ended. 9:11:40 Full Disclosure recording stopped Device Usage Item Name Manufacture Quantity Catalog Hospital Part Current Minimal Lot# / Number Charge Number Stock Stock Serial# Code ACIST Syringe Acist 1 [id number] [id number] [id number] 194242 20 (06851) Medical Systems Inc Bag Decanter Microtek 1 2001S 015087 93858 457192 5 (2001S) Medical Inc. Medline Cath Medline 1 [id number] 804343 63388 405208 5 Pack ([id number]) ACIST Hand Acist 1 20429 898543 995455 435276 5 Control Medical (78175) Systems Inc ACIST Acist 1 38217 280089 381979 199052 5 Manifold Medical (05926) Systems Inc DIAGNOSTIC Cardinal 1 [id number] 017738 31914 091016 30 Multipack 5Fr Health catheter set (EV7768) SHEATH 5FR Terumo 1 BHK697 178425 054430 474960 5 Armbrust (LLK191) EMERALD Guide Cardinal 1 502-455 310819 537755 468675 5 Wire Health (502-653) MICROPUNCTURE Bactest Medical 1 T49088 688138 614076 504629 5 4FR Bactest (M69661) Tegaderm 4 x 3M 1 1626W 965441 502441 338783 5 4 (1626W) MULTIPACK JL Cardinal 1 709776 5 4.0 5Fr Health catheter MULTIPACK Cardinal 1 263744 5 3DRC 5Fr Health catheter MULTIPACK Cardinal 1 107017 5 Pigtail 5 Fr Health catheter EXOSEAL 5Fr Cardinal 1 EX500 961822 241193 144624 10 (EX500) Health Signature Audit [place] Stage Time Signature Unsigned Intra-Procedure 01/07/2020 Erma Bhatia 9:12:08 AM RT(R); Marnie Godoy RN; Camilo Stock MD Signatures Performing Physician : Signature : Camilo Stock MD Date : Time : Monitor : Erma Bhatia Signature : RT Date : Time : Nurse : Marnie Godoy RN Signature : Date : Time : [place] [address] [place] [address]
[2020-01-05 11:26] VITALS: BP 149/75
[2020-01-05 11:28] LABS: BASOPHILS 0.3 % (0-2); EOSINOPHILS 1.3 % (0-7); HEMATOCRIT 44.6 % (36.0-48.0); HEMOGLOBIN 15.3 g/dL (12-16); IMMATURE GRANULOCYTES 0.1 % (0-5); LYMPHOCYTES 26.2 % (15-50); MCH 29.9 pg (26.0-34.0); MCHC 34.3 g/dL (31.0-37.0); MCV 87.3 fL (80.0-100.0); MONOCYTES 5.8 % (2-11); NEUTROPHILS 66.3 % (40-80); PLATELET COUNT 152 10x3/uL (130-400); RBC 5.11 10x6/uL (4.00-5.40); RDW 12.7 % (11.5-14.5); WBC 6.7 10x3/uL (4.8-10.8)
[2020-01-05 11:31] LABS: CALC OSMOLALITY 274 mosm/kg (275-300); CARBON DIOXIDE 31.4 mmol/L (21.0-32.0); CHLORIDE - SERUM 100 mmol/L (98-107); CREATININE - SERUM 0.9 mg/dL (0.6-1.3); GLUCOSE 112 mg/dL (74-106); POTASSIUM - SERUM 4.4 mmol/L (3.5-5.1); SODIUM 137 mmol/L (136-145); UREA NITROGEN 12 mg/dL (7-18); eGFR NON AFRICAN AMERICAN 64 mL/min (90-120)
[2020-01-05 11:42] LABS: APTT 24.6 SECONDS (22.8-39.4); INR 0.96 (0.85-1.17); PROTIME 12.7 SECONDS (11.6-15.0)
[2020-01-05 11:48] LABS: ALBUMIN 3.7 g/dL (3.4-5.0); ALKALINE PHOSPHATASE 70 U/L (30-120); ALT (SGPT) 17 U/L (10-68); BILIRUBIN - TOTAL 0.34 mg/dL (0.2-1.3); CKMB 0.6 U/L (0.0-3.6); CREATINE KINASE 42 UL (21-215); MAGNESIUM - SERUM 1.7 mg/dL (1.8-2.4); PROTEIN - SERUM 6.8 g/dL (6.4-8.2); TROPONIN-I < 0.017 ng/mL (0.000-0.060)
[2020-01-05 12:35] VITALS: BP 154/70
[2020-01-05 13:12] VITALS: BP 155/70
--- NOTE | 2020-01-05 14:03 | NUR ---
REPORT GIVEN TO MASOOD PATEL. PT NOTIFIED OF ROOM ASSIGNMENT. STATES SHE TALKED TO STATEMENT REQUEST CLERK AND THEY TOLD HER SHE COULD TAKE OFF THE HOME HEART MONITOR. PT STATES SHE REMOVE THE MONITOR HERSELF SINCE IT "WAS NOT WORKING"
[2020-01-05] MEDS ORDERED: MUCINEX DM ER1 EAC1 PO (14:25)
[2020-01-05] MEDS ORDERED: CLARITIN 10 MG10 MG PO (14:25)
[2020-01-05] MEDS ORDERED: FLUTICASONE PRO16 GM NASAL (14:26)
[2020-01-05 14:57] VITALS: BP 127/63; BMI 22.1
--- NOTE | 2020-01-05 15:00 | NUR ---
ARRIVE TO ROOM VIA WHEELCHAIR. ALERT AND ORIENTED X4. ACCOMPANIED BY FAMILY. ASSIST FROM STRETCHER TO BED. NO SIGNS OF DISTRESS. CONTINUE ADMISSION AND SAFETY PRECAUTIONS.
[2020-01-05 18:01] LABS: CKMB 0.9 U/L (0.0-3.6); CREATINE KINASE 50 UL (21-215); TROPONIN-I < 0.017 ng/mL (0.000-0.060)
[2020-01-05 20:00] VITALS: BP 111/45
[2020-01-05] MEDS ORDERED: KLOR-CON 1010 MEQ PO (22:49)
[2020-01-05] MEDS ORDERED: SYMBICORT 16010.2 GM PO (22:50)
[2020-01-05] MEDS ORDERED: ISOSORBIDE MONO60 M1 PO (22:51)
[2020-01-05] MEDS ORDERED: QUESTRAN LIG1 PACKET PO (22:51)
[2020-01-05] MEDS ORDERED: LIPITOR40 MG PO (22:52)
[2020-01-05 23:35] LABS: CKMB 1.3 U/L (0.0-3.6); CREATINE KINASE 74 UL (21-215); TROPONIN-I < 0.017 ng/mL (0.000-0.060)
[2020-01-06] VITALS: BP 113/49
--- NOTE | 2020-01-06 01:09 | NUR ---
I have reviewed this patient and I concur with the Shift Assessment completed by the Licensed Practical Nurse today this shift.
[2020-01-06 01:37] LABS: CKMB 0.9 U/L (0.0-3.6); CREATINE KINASE 66 UL (21-215)
[2020-01-06 01:40] LABS: TROPONIN-I < 0.017 ng/mL (0.000-0.060)
--- NOTE | 2020-01-06 02:14 | NUR ---
RESTING WITH EYES CLOSED, RESPERATIONS EVEN, NO S/S DISTRESS NOTED.
[2020-01-06 04:00] VITALS: BP 110/46
[2020-01-06 07:09] LABS: BASOPHILS 0.2 % (0-2); EOSINOPHILS 3.6 % (0-7); HEMATOCRIT 43.3 % (36.0-48.0); HEMOGLOBIN 14.7 g/dL (12-16); IMMATURE GRANULOCYTES 0.2 % (0-5); LYMPHOCYTES 32.8 % (15-50); MCH 29.9 pg (26.0-34.0); MCHC 33.9 g/dL (31.0-37.0); MCV 88.2 fL (80.0-100.0); MEAN PLATELET VOLUME 12.2 fL (7.4-10.4); MONOCYTES 7.9 % (2-11); NEUTROPHILS 55.3 % (40-80); PLATELET COUNT 133 10x3/uL (130-400); RBC 4.91 10x6/uL (4.00-5.40); RDW 12.9 % (11.5-14.5); WBC 6.3 10x3/uL (4.8-10.8)
[2020-01-06 07:15] LABS: ALBUMIN 3.4 g/dL (3.4-5.0); ANION GAP 10.1 mmol/L (8-16); BILIRUBIN - TOTAL 0.61 mg/dL (0.2-1.3); CALCIUM 8.7 mg/dL (8.5-10.1); CARBON DIOXIDE 30.1 mmol/L (21.0-32.0); POTASSIUM - SERUM 4.2 mmol/L (3.5-5.1); PROTEIN - SERUM 6.2 g/dL (6.4-8.2)
--- NOTE | 2020-01-06 09:07 | HP ---
PATIENT: LOVE JAMES MEDICAL RECORD: [id number] ACCOUNT: [id number] LOCATION:[address] : 44 ADMISSION DATE: 01/05/20 PCP: SOPHIA SCHMITZ MD HISTORY AND PHYSICAL EXAMINATION CHIEF COMPLAINT: Weakness, chest pain, and fatigue. HISTORY OF PRESENT ILLNESS: A 79-year-old female with a significant heart condition. She has had a CABG and multiple stents, but a clean cardiac catheterization in August of this year. 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 I saw her in early December of this year with similar problems. Her lab has been stable but she presents again with more chest pain and weakness and fatigue. She is admitted. Cardiology will be consulted. PAST MEDICAL AND SURGICAL HISTORY: Anxiety, CVA, coronary artery disease, diabetes, hyperlipidemia, hypertension, sleep apnea, history of breast cancer, carotid stenosis, fibromyalgia, reflux. PAST SURGICAL HISTORY: Coronary artery bypass graft, multiple stents, hysterectomy, right carotid endarterectomy, partial colon resection due to diverticulosis, sinus surgery, breast lumpectomy. ALLERGIES: REPORTEDLY BEEN TO STATINS BUT SHE IS ON ONE NOW AND SEEMINGLY TOLERATING IT WELL. HOME MEDICATIONS: Include potassium 10 mEq twice a day, trazodone 150 mg at bedtime, pantoprazole 40 mg a day, Lexapro 20 mg a day, Symbicort 160/4.5 two puffs twice a day, isosorbide mononitrate ER 60 mg twice a day, cholestyramine light 1 packet daily, aspirin 81 mg daily, DuoNeb p.r.n., spironolactone 25 mg daily, nitroglycerin p.r.n., Singulair 10 mg at bedtime, Flonase nasal spray as directed, Plavix 75 mg once a day, atorvastatin 40 mg once a day. HABITS: No tobacco, alcohol or drugs. SOCIAL HISTORY: , family nearby, lives alone. FAMILY HISTORY: Both parents had cardiovascular disease. REVIEW OF SYSTEMS: GENERAL: She may have lost some weight over the last few months. HEENT: No particular sinus or allergy problems. RESPIRATORY: She has COPD, wears oxygen at night. CARDIAC: See above history with her heart. GASTROINTESTINAL: Has reflux. GENITOURINARY: No significant problems there. MUSCULOSKELETAL: Has a few arthritic aches and pains. NEUROLOGIC: No migraines. No seizures. PSYCHIATRIC: She has depression. PHYSICAL EXAMINATION: VITAL SIGNS: Temperature 97.7, pulse 63, respirations 20, blood pressure 154/70, O2 sat 98%. GENERAL: She is awake and alert. She was in the Emergency Department when I saw her. HISTORY AND PHYSICAL [id number] LOVE JAMES HEENT: Grossly within normal limits. NECK: Supple. No JVD or bruit. HEART: Regular rate and rhythm. LUNGS: Fairly clear. ABDOMEN: Soft, flat, nontender. EXTREMITIES: No edema. NEUROLOGIC: Unremarkable. LABORATORY DATA: CBC with a white count of 6700, hemoglobin 15.3, hematocrit 44.6. Basic metabolic panel, all are stable. Liver functions are normal. INR 0.96, magnesium 1.7. Troponin less than 0.017. Chest x-ray shows no acute process seen. ASSESSMENT: 1. Chest pain. 2. Fatigue. 3. Arrhythmias. 4. History of coronary artery disease. 5. History of hypertension. PLAN: Cardiac evaluation, telemetry. Other tests and procedures as warranted. TRANSINT:[id number] Voice Confirmation ID: [id number] DOCUMENT ID: [id number] SOPHIA SCHMITZ MD at 0907 CC: [id number] DICTATION DATE: 01/05/202319 HAND SALTER: 01/06/20 0137 ADM IN [facility] [address] [place] [address]
[2020-01-06 10:28] VITALS: BP 118/58
[2020-01-06 14:00] VITALS: Ht 165.1 cm; Wt 60.6 kg
--- NOTE | 2020-01-06 15:12 | NUR ---
ALERT AND ORIENTED X4. RESTING IN BED. DENIES ANY NEEDS. SINUS RYTHM ON TELEMETRY. CONTINUE PLAN OF CARE AND SAFETY PRECAUTIONS.
[2020-01-06 16:11] VITALS: BP 120/57
[2020-01-06 16:22] LABS: CHOL - HDL RATIO 5.1 ratio (2.3-4.1); LDL-HDL RATIO 3.1 ratio (1.5-3.5)
--- NOTE | 2020-01-06 16:39 | NUR ---
ALERT AND ORIENTED X4. SITTING UP IN BED. CONSENTS FOR HEART CATH SIGNED ON CHART. SINUS RYTHM WITH PVCs ON TELEMETRY. DENIES ANY NEEDS. CONTINUE PLAN OF CARE AND SAFETY PRECAUTIONS.
[2020-01-06 20:00] VITALS: BP 119/83
[2020-01-07] VITALS: BP 98/44
--- NOTE | 2020-01-07 03:42 | NUR ---
I have reviewed this patient and I concur with the Shift Assessment completed by the Licensed Practical Nurse today this shift.
[2020-01-07 04:00] VITALS: BP 122/53
[2020-01-07 09:12] VITALS: BP 112/58
[2020-01-07 15:23] VITALS: BP 124/53
[2020-01-07 17:54] VITALS: BP 106/45
--- NOTE | 2020-01-07 19:45 | NUR ---
REPORT RECEIVED AND ROUNDING COMPLETE. PATINET LAYING IN BED IN LOW FOWLERS POSITION. WEARING NASAL CANNULA WITH O2 AT 2L. LEFT WRIST PIV THAT IS SALINE LOCKED AT THIS TIME. PATIENT STATES BED IS WET, DAY NURSE BRITNEY REPLACED BED AND CLEANED PAITENT UP. NO OTHER NEEDS AT THIS TIME. NO DISTRESS NOTED. CALL LIGHT WITHIN REACH AND BED IN LOWEST LOCKED POSITION.
[2020-01-07 20:00] VITALS: BP 110/44
[2020-01-08] VITALS: BP 101/48
[2020-01-08 04:00] VITALS: BP 122/65
--- NOTE | 2020-01-08 07:10 | NUR ---
REPORT RECEIVED FROM EMBROIDERY SUPERVISOR AND PATIENT CARE ASSUMED. PATIENT LAYING IN BED ON BACK WITH EYES CLOSED AND BREATHING EVENLY. WILL COINTINUE WITH PLAN OF CARE. SR UPX 2 BED IN LOW POSITION AND CALL LIGHT IN REACH.
[2020-01-08 09:50] VITALS: BP 117/62
--- NOTE | 2020-01-08 10:28 | ST ---
PATIENT:LOVE JAMES MEDICAL RECORD: [id number] SEX: F LOCATION:[address] ORDER #: ADMISSION DATE: 01/06/20 AGE OF PATIENT: 79 REFERRING PHYSICIAN: INTERPRETING PHYSICIAN: HELDER NARANJO MD DATE OF SERVICE: 01/07/2020 Lexiscan directed nuclear stress test. PROCEDURE: The patient was brought into the nuclear lab in a stable condition, placed in supine position on the nuclear table. The patient then had Lexiscan administered per standard protocol. FINDINGS: The patient's ejection fraction is 59%. There was no wall motion abnormalities. SPECT imaging showed partially reversible inferior lateral [id number] defect. IMPRESSION: This is an abnormal nuclear stress test with evidence of mild infarction with amanda-infarct ischemia. RECOMMENDATIONS: Continue aggressive medical management and symptom directed therapy. In the proper clinical context, coronary angiography may be helpful. TRANSINT:[id number] Voice Confirmation ID: [id number] DOCUMENT ID: [id number] HELDER NARANJO MD at 1028 CC: [id number] DICTATION DATE: 01/07/20 0742 PASTOR: 01/07/20 0831 ADM IN [facility] [address] [place] [address]
[2020-01-08 13:41] VITALS: BP 111/46
--- NOTE | 2020-01-08 14:00 | NUR ---
Nutrition Follow-up: Upon entering room, pt reviewing diabetic information previously provided; denies questions. Reports good appetite; ate 100% of breakfast this AM. Likes Glucerna; requests 1/day. C/o diarrhea starting today. Diet: Cardiac No new wt; last wt: 133# (01/05) Labs noted: Glu 108, Alb 3.4 Meds noted: Questran, Protonix, Micro K, electrolyte protocol -+Glucerna 1/day per pt request. -Monitor wt; noted daily wts ordered. -RD following.
--- NOTE | 2020-01-08 14:14 | NUR ---
PATIENT UP TO BR WTIH MINIMAL ASST. PATIENT IS STABLE AND UNCHANGED. GAVE PATIENT ICE WATER AND KLENNEX REQUESTED. WILL CONTINUE TO MONITOR. SR UPX 2 BED IN LOW POSITION AND CALL LIGHT IN REACH.
[2020-01-08 21:10] VITALS: BP 125/54
--- NOTE | 2020-01-09 00:05 | NUR ---
INITAIL ROUNDS COMPLETED AT 1910 HRS. ASSISTED PT TO R. MODERATE AMOUNT OF URINE AND LARGE BM NOTED. ASSISTED BACK TO BED. PM MEDS GIVEN PER ORDERS. ASSESSMENT COMPLETED AT 2250 HRS. VSS SR PER CM HR 68. ALERT AND ORIENTED TO PERSON,PLACE AND TIME. BABIN. IV TO L WRIST SL. L MASECTOMY NOTED. LUNGS DIMINISHED IN BASES BILAT. O2 2LNC. PT CURRENTLY RSTING WITH EYES CLOSED. RESP EVEN AND REGULAR. SR UP X1, CALL LIGHT WITHIN REACH.
[2020-01-09 00:13] VITALS: BP 102/45
--- NOTE | 2020-01-09 01:37 | NUR ---
PT RESTING WITH EYES CLOSED. RESP EVEN AND REGULAR. SR UP X1, CALL LIGHT WITHIN REACH.
--- NOTE | 2020-01-09 04:44 | NUR ---
PT RESTING WITH EYES CLOSED. RESP EVEN AND REGULAR. CALL LIGHT WITHIN REACH.
[2020-01-09 04:54] VITALS: BP 113/54
--- NOTE | 2020-01-09 05:38 | NUR ---
VSS THROUGHOUT NIGHT. PT RESTED WELL DURING SHIFT. NEEDS MET; WILL CONTINUE TO MONITOR.
--- NOTE | 2020-01-09 06:55 | NUR ---
CLEANED PT UP FROM INCONT EPISODE, COMPLETE LINEN CHANGE DONE AT THIS TIME.
--- NOTE | 2020-01-09 08:30 | NUR ---
HELPED PT TO BATHROOM AND BACK TO BED, ALSO GAVE AM MEDS. PT DENIES ANY OTHER NEEDS AT THIS TIME. CALL LIGHT IN REACH, NAD NOTED, WILL CONTINUE TO MONITOR.
[2020-01-09 08:56] VITALS: BP 130/60
--- NOTE | 2020-01-09 13:10 | NUR ---
Rehab Note- Acute Inpatient Rehab prescreen order recived. The patient continues to be followed by Cardiology with medication changes at this time. Will follow at this time. Thank you for this referral! Gina Schmidt RN Clinical Liaison, [facility] Rehab
[2020-01-09 13:12] VITALS: BP 113/64
--- NOTE | 2020-01-09 16:09 | NUR ---
PT RESTING COMFORTABLY IN BED, DENIES ANY NEEDS AT THIS TIME. CALL LIGHT IN REACH, NAD NOTED, WILL CONTINUE PLAN OF CARE.
[2020-01-09 18:31] VITALS: BP 158/69
--- NOTE | 2020-01-09 19:42 | NUR ---
INITIAL ROUNDS COMPLETED. PT DENIED ANY DISCOMFORT. CALL LIGHT WITHINREACH.
[2020-01-09 20:00] VITALS: BP 140/62
--- NOTE | 2020-01-09 23:22 | NUR ---
INTIAL ROUNDS COMPLETED AT 1915 HRS. PT DENIED ANY DISCOMFORT. ASSESSMENT COMPLETED AT 1999 HRS. VSS. SR PER CM HR 66. ALERT AND ORIENTED TO PERSON, PLACE AND TIME. BABIN. LUNGS DIMINISHED IN BASES BILAT. OLD R MASECTOMY NOTED. IV TO L WRIST SL. PALPABLE PERIPHERAL PULSES. PM MEDS GIVEN PER ORDERS. PT CURRENTLY RESTING WITH EYES CLOSED. RESP EVEN AND REGULAR. SR UP X1, CALL LIGHT WITHIN REACH.
[2020-01-10] VITALS: BP 136/60
--- NOTE | 2020-01-10 00:54 | NUR ---
PT RESTING WITH EYES CLOSED. RESP EVEN AND REGULAR. CALL LIGHT WITHIN REACH.
--- NOTE | 2020-01-10 05:02 | NUR ---
PT RESTING WITH EYES CLOSED. RESP EVEN AND REGULAR. SR UPX1, CALL LIGHT WITHIN REACH.
[2020-01-10 06:26] LABS: BASOPHILS 0.2 % (0-2); EOSINOPHILS 3.3 % (0-7); HEMATOCRIT 43.9 % (36.0-48.0); HEMOGLOBIN 14.7 g/dL (12-16); IMMATURE GRANULOCYTES 0.2 % (0-5); MCH 29.9 pg (26.0-34.0); MCHC 33.5 g/dL (31.0-37.0); MCV 89.4 fL (80.0-100.0); MEAN PLATELET VOLUME 12.3 fL (7.4-10.4); MONOCYTES 8.1 % (2-11); NEUTROPHILS 55.2 % (40-80); PLATELET COUNT 126 10x3/uL (130-400); RBC 4.91 10x6/uL (4.00-5.40); RDW 12.9 % (11.5-14.5); WBC 5.7 10x3/uL (4.8-10.8)
[2020-01-10 06:33] LABS: ANION GAP 14.1 mmol/L (8-16); CALCIUM 9.2 mg/dL (8.5-10.1); CARBON DIOXIDE 24.6 mmol/L (21.0-32.0); CREATININE - SERUM 0.9 mg/dL (0.6-1.3); POTASSIUM - SERUM 4.7 mmol/L (3.5-5.1)
--- NOTE | 2020-01-10 06:38 | NUR ---
VSS THROUGHOUT NIGHT. SR PER CM. PT RESTED WELL DURING SHIFT. NEEDS MET; WILL CONTINUE TO MONITOR.
--- NOTE | 2020-01-10 07:00 | NUR ---
AM ROUNDS- PT RESTING COMFORTABLY IN BED, DENIES ANY NEEDS. LT WRIST IV SL. HEART MONITOR SHOWING SR WITH RATE OF 62. CALL LIGHT IN REACH, NAD NOTED, WILL CONTINUE TO MONITOR.
--- NOTE | 2020-01-10 09:24 | NUR ---
AM MEDS GIVEN AT THIS TIME, PT IN BED, EATING BREAKFAST. PT A/O X4, RESP EVEN AND NONLABORED ON 2LNC. LT WRIST IV SL. MONITOR SHOWING SR WITH RATE OF 67. PT DENIES ANY NEEDS AT THIS TIME. CALL LIGHT IN REACH,NAD NOTED, WILL CONTINUE PLNA OF CARE.
[2020-01-10 13:38] VITALS: BP 149/44
[2020-01-10 17:45] VITALS: BP 173/72
--- NOTE | 2020-01-10 19:57 | NUR ---
INITIAL ROUNDS COMPLETED AT 1910 HRS. PT DENIED ANY DISCOMFORT. ASSESSMENT COMPLETED AT 1935 HRS. VSS. SR WITH PVC'S PER CM HR 67. ALERT AND ORIENTED TO PERSON,PLACE AND TIME. BABIN. OLD R MASECTOMY NOTED. LUNGS DIMINISHED IN BASES BILAT. IV GILBERT WRIST SL. ABD SOFT WITH ACTIVE BS. PALPABLE PERIPHERAL PULSES. SR UP X1, CALL LIGHT WITHIN REACH.
[2020-01-10 20:00] VITALS: BP 106/61
--- NOTE | 2020-01-10 21:30 | NUR ---
PM MEDS GIVEN. IV GILBERT WRIST OCCLUDED. DC'D WITH CATHETER INTACT. NEW IV STARTED #22 TO L HAND WITH ATTEMPT X1. PT TOLERATED ACTIVITY WELL.
--- NOTE | 2020-01-10 23:59 | NUR ---
PT RESTING WITH EYES CLOSED. RESP EVEN AND REGULAR. SR UP X1,CALL LIGHT WITHIN REACH.
[2020-01-11] VITALS: BP 118/49
--- NOTE | 2020-01-11 01:41 | NUR ---
PT RESTING WITH EYES CLOSED. RESP EVEN AND REGULAR. SR UP X1,CALL LIGHT WITHIN REACH.
[2020-01-11 04:00] VITALS: BP 120/54
--- NOTE | 2020-01-11 04:25 | NUR ---
PT RESTING WITH EYES CLOSED. RESP EVEN AND REGULAR. SR UP X1, CALL LIGHT WITHIN REACH.
--- NOTE | 2020-01-11 06:25 | NUR ---
VSS THROUGHOUT NIGHT. SR WITH PVC'S PER CM. PT RESTED WELL DURING SHIFT. NEEDS MET; WILL CONTINUE TO MONITOR.
[2020-01-11 09:08] LABS: BASOPHILS 0.2 % (0-2); EOSINOPHILS 2.7 % (0-7); HEMATOCRIT 46.6 % (36.0-48.0); HEMOGLOBIN 15.7 g/dL (12-16); IMMATURE GRANULOCYTES 0.2 % (0-5); LYMPHOCYTES 29.3 % (15-50); MCH 29.8 pg (26.0-34.0); MCHC 33.7 g/dL (31.0-37.0); MCV 88.6 fL (80.0-100.0); MEAN PLATELET VOLUME 11.8 fL (7.4-10.4); MONOCYTES 3.9 % (2-11); NEUTROPHILS 63.7 % (40-80); PLATELET COUNT 144 10x3/uL (130-400); RBC 5.26 10x6/uL (4.00-5.40); RDW 12.9 % (11.5-14.5); WBC 6.4 10x3/uL (4.8-10.8)
[2020-01-11 09:22] VITALS: BP 123/57
[2020-01-11 09:27] LABS: ALBUMIN 3.7 g/dL (3.4-5.0); ANION GAP 14.6 mmol/L (8-16); BILIRUBIN - TOTAL 0.44 mg/dL (0.2-1.3); CALCIUM 9.6 mg/dL (8.5-10.1); CARBON DIOXIDE 24.6 mmol/L (21.0-32.0); POTASSIUM - SERUM 4.2 mmol/L (3.5-5.1); PROTEIN - SERUM 6.5 g/dL (6.4-8.2)
--- NOTE | 2020-01-11 09:34 | NUR ---
AM MEDS GIVEN AT THIS TIME. PT UP TO CHAIR, DENIES ANY NEEDS, LT HAND IV SL. CALL LIGHT IN REACH, NAD NOTED, WI LL CONTINUE TO MONITOR.
[2020-01-11 13:56] VITALS: BP 139/88
[2020-01-11 18:54] VITALS: BP 123/69
--- NOTE | 2020-01-11 19:36 | NUR ---
UP WITH ASSIST TO BR, WALKER USED. LINENS, GOWN AND BRIEF CHANGED.
--- NOTE | 2020-01-11 20:35 | NUR ---
HS MEDS GIVEN WITH FRESH ICE WATER. PT DENIES PAIN OR NEEDS, BED LOW, CL IN REACH.
[2020-01-11 21:45] VITALS: BP 122/81
[2020-01-12 00:06] VITALS: BP 112/64
[2020-01-12 04:11] VITALS: BP 170/76
[2020-01-12 08:00] VITALS: BP 105/49
[2020-01-12 12:00] VITALS: BP 124/64
--- NOTE | 2020-01-12 13:36 | MORECARE ---
CASE MANAGEMENT DISCHARGE SUMMARY PATIENT: LOVE JAMES ZIGGY UNIT: [id number] ADM DATE: 01/06/20 AGE: 79 : 42 SEX: F ROOM/BED: D.2126 AUTHOR: ETELVINA CHÁVEZ PHYSICIAN: REFERRING PHYSICIAN: SOPHIA SCHMITZ MD DATE OF SERVICE: 01/12/20 Discharge Plan Patient Name: LOVE JAMES [facility] [facility] 1940 Planned Disposition: Anticipated Discharge Date: Discharge Date: Expected LOS: Initial Reviewer: [id number] Initial Review Date: 01/05/2020 Generated: 01/12/20 2:35 pm Coverage Notice Reviewer: [id number] Fie Olmedo Notice Issued Date-Time: 01/06/2020 9:00 Notice Type: Medicare Outpatient Observation Notice Notice Delivered To: Patient Relationship to Patient: Public Health Sanitarian Name: Delivery Method: HAND - Hand Delivered Barbara Days: Prior Verbal Notification: Recipient Understood Notice: Yes Recipient Signature: Yes Med Rec Note Co-signed by Attending: Coverage Notice Comment: MOORE SERVED, EXPLAINED, AND SIGNED BY PATIENT. THE ORIGINAL WAS PROVIDED TO THE PATIENT AND COPY PLACED ON CHART. Patient Name: LOVE JAMES Page [phone] at 1336 All edits/amendments must be made on the electronic document DICTATION DATE: 01/12/20 1335 POT RUNNER: BRYAN 01/12/20 1335 RPT#: [id number] DC DATE: STATUS: ADM IN [facility] [address] [place] [address] END OF REPORT
--- NOTE | 2020-01-12 13:44 | MORECARE ---
CASE MANAGEMENT DISCHARGE SUMMARY PATIENT: LOVE JAMES ZIGGY UNIT: [id number] ADM DATE: 01/06/20 AGE: 79 : 42 SEX: F ROOM/BED: D.2126 AUTHOR: ETELVINA CHÁVEZ PHYSICIAN: REFERRING PHYSICIAN: SOPHIA SCHMITZ MD DATE OF SERVICE: 01/12/20 Discharge Plan Patient Name: LOVE JAMES [facility] [facility] 1940 Planned Disposition: Anticipated Discharge Date: Discharge Date: Expected LOS: Initial Reviewer: [id number] Initial Review Date: 01/05/2020 Generated: 01/12/20 2:43 pm Coverage Notice Reviewer: [id number] Fei Olmedo Notice Issued Date-Time: 01/06/2020 9:00 Notice Type: Medicare Outpatient Observation Notice Notice Delivered To: Patient Relationship to Patient: Account Technician Name: Delivery Method: HAND - Hand Delivered Barbara Days: Prior Verbal Notification: Recipient Understood Notice: Yes Recipient Signature: Yes Med Rec Note Co-signed by Attending: Coverage Notice Comment: MOORE SERVED, EXPLAINED, AND SIGNED BY PATIENT. THE ORIGINAL WAS PROVIDED TO THE PATIENT AND COPY PLACED ON CHART. Last DP export: 01/12/20 12:36 p Patient Name: LOVE JAMES Page [phone] at 1344 All edits/amendments must be made on the electronic document DICTATION DATE: 01/12/20 1343 HUMAN RESOURCE OFFICER: BRYAN 01/12/20 1343 RPT#: [id number] DC DATE: STATUS: ADM IN [facility] [address] [place] [address] END OF REPORT
--- NOTE | 2020-01-12 13:45 | NUR ---
Nutrition Follow-up: Eating well. States that she is supposed to go to rehab today. Diet: Cardiac, Glucerna QD PO intake: 90% avg x 10 meals Wt: 133.3# (01/11); 133# (01/04) Last BM: 01/11 Labs noted: Glu 194 Meds noted: Questran, Protonix, Micro K, electrolyte protocol -Monitor Glu; if consistently elevated, rec cardiac carb consistent diet. -Monitor wt; noted daily wts ordered. -RD following.
--- NOTE | 2020-01-12 13:50 | MORECARE ---
CASE MANAGEMENT DISCHARGE SUMMARY PATIENT: LOVE JAMES UNIT: [id number] ADM DATE: 01/06/20 AGE: 79 : 42 SEX: F ROOM/BED: D.2126 AUTHOR: KYLER,DOC PHYSICIAN: REFERRING PHYSICIAN: SOPHIA SCHMITZ MD DATE OF SERVICE: 01/12/20 Discharge Plan Patient Name: LOVE JMAES [facility] [facility] 1940 Planned Disposition: Anticipated Discharge Date: Discharge Date: Expected LOS: Initial Reviewer: [email or web address] Initial Review Date: 01/05/2020 Generated: 01/12/20 2:50 pm DCPIA - Discharge Planning Initial Assessment Updated by [email or web address]: Elke Olmedo on 01/12/20 1:47 pm * Is the patient Alert and Oriented? Yes * How many steps to enter\exit or inside your home? RAMP * PCP NADIR * [facility] * Preadmission Environment Home Alone * ADLs Independent * Equipment Cane Grab Bars Nebulizer Oxygen Rolling Walker Shower Chair Walker Wheelchair * List name and contact numbers for known caregivers / representatives who currently or will assist patient after discharge: GEGE VEGA DTR [phone] * Verbal permission to speak to the caregivers and representatives has been obtained from the patient. Yes * Community resources currently utilized Private Duty Care * Please name any agencies selected above. [facility] * Additional services required to return to the preadmission environment? Yes * Can the patient safely return to the preadmission environment? Yes * Has this patient been hospitalized within the prior 30 days at any hospital? No Coverage Notice Reviewer: [id number] Fei Olmedo Notice Issued Date-Time: 01/06/2020 9:00 Notice Type: Medicare Outpatient Observation Notice Notice Delivered To: Patient Relationship to Patient: Mosquito Sprayer Name: Delivery Method: HAND - Hand Delivered Barbara Days: Prior Verbal Notification: Recipient Understood Notice: Yes Recipient Signature: Yes Med Rec Note Co-signed by Attending: Coverage Notice Comment: MOORE SERVED, EXPLAINED, AND SIGNED BY PATIENT. THE ORIGINAL WAS PROVIDED TO THE PATIENT AND COPY PLACED ON CHART. Reviewer: [email or web address] Fei Olmedo Notice Issued Date-Time: 01/12/2020 9:00 Notice Type: Patient Choice Letter Notice Delivered To: Patient Relationship to Patient: Mosquito Sprayer Name: Delivery Method: - Barbara Days: Prior Verbal Notification: Recipient Understood Notice: Recipient Signature: Med Rec Note Co-signed by Attending: Coverage Notice Comment: Last DP export: 01/12/20 12:43 p Patient Name: LOVE JAMES Page [phone] at 1350 All edits/amendments must be made on the electronic document DICTATION DATE: 01/12/20 1350 MACHINE CAGE MAKER: BRYAN 01/12/20 1350 RPT#: [id number] DC DATE: STATUS: ADM IN [facility] [address] [place] [address] END OF REPORT
--- NOTE | 2020-01-12 14:12 | MORECARE ---
CASE MANAGEMENT DISCHARGE SUMMARY PATIENT: LOVE JAMES UNIT: [id number] ADM DATE: 01/06/20 AGE: 79 : 42 SEX: F ROOM/BED: D.7542 AUTHOR: KYLER,DOC PHYSICIAN: REFERRING PHYSICIAN: SOPHIA SCHMITZ MD DATE OF SERVICE: 01/12/20 Discharge Plan Patient Name: LOVE JAMES [facility] [facility] 1940 Planned Disposition: Anticipated Discharge Date: Discharge Date: Expected LOS: Initial Reviewer: [id number] Initial Review Date: 01/05/2020 Generated: 01/12/20 3:11 pm Comments DCP- Discharge Planning Updated by [id number]: Elke Olmedo on 01/12/20 1:[address] Patient Name: LOVE JAMES Admission Status: ER Accout number: [id number] Admission Date: 01-06-2020 : 1940 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 CM educated patient on the CM role and verbal consent given by patient to complete assessment. CM verified patient's address, phone number, and emergency contact phone numbers. Patient lives at home and has been independent with her ADL'S. Patient states she has a personal restorative care technician that is with her for 5 to 6 hours per day from home instead. States her ANTOINE picks up her medication and brings it to her. She lives on the same property with her daughter Sindi ([phone]) At discharge patient plans to return home and feels this is a safe discharge. The pt has a rollator, cane, wheel chair, but would like to have a bedside commode. [facility] is used for home oxygen and nebs. The patient will like to have [place] home health after rehab at [facility]. YANET signed for [facility], [facility] IP rehab, [place], and resume home instead. Patient denies other known discharge needs at this time. Transportation provider at discharge will be Sindi. DC IMM delivered, explained, signed by the patient, and placed in chart. Signed form also left with the patient. CM will continue to follow and will assist as needed with dc plans/needs. Auto Inspector: Elke Olmedo MSN,RN,CM DCPIA - Discharge Planning Initial Assessment Updated by [id number]: Elke Olmedo on 01/12/20 1:47 pm * Is the patient Alert and Oriented? Yes * How many steps to enter\exit or inside your home? RAMP * PCP NADIR * [facility] * Preadmission Environment Home Alone * ADLs Independent * Equipment Cane Grab Bars Nebulizer Oxygen Rolling Walker Shower Chair Walker Wheelchair * List name and contact numbers for known caregivers / representatives who currently or will assist patient after discharge: SINDIWILLARD VEGA DTR [phone] * Verbal permission to speak to the caregivers and representatives has been obtained from the patient. Yes * Community resources currently utilized Private Duty Care * Please name any agencies selected above. [facility] * Additional services required to return to the preadmission environment? Yes * Can the patient safely return to the preadmission environment? Yes * Has this patient been hospitalized within the prior 30 days at any hospital? No Coverage Notice Reviewer: [id number] Fei Olmedo Notice Issued Date-Time: 01/06/2020 9:00 Notice Type: Medicare Outpatient Observation Notice Notice Delivered To: Patient Relationship to Patient: Director Of Graduate Admissions Name: Delivery Method: HAND - Hand Delivered Barbara Days: Prior Verbal Notification: Recipient Understood Notice: Yes Recipient Signature: Yes Med Rec Note Co-signed by Attending: Coverage Notice Comment: MOORE SERVED, EXPLAINED, AND SIGNED BY PATIENT. THE ORIGINAL WAS PROVIDED TO THE PATIENT AND COPY PLACED ON CHART. Reviewer: [id number] Fei Olmedo Notice Issued Date-Time: 01/12/2020 9:00 Notice Type: Patient Choice Letter Notice Delivered To: Patient Relationship to Patient: Director Of Graduate Admissions Name: Delivery Method: HAND - Hand Delivered Barbara Days: Prior Verbal Notification: Recipient Understood Notice: Yes Recipient Signature: Yes Med Rec Note Co-signed by Attending: Coverage Notice Comment: IP REHAB [facility] Reviewer: [id number] Fei Olmedo Notice Issued Date-Time: 01/12/2020 9:00 Notice Type: IM Discharge Notice Notice Delivered To: Patient Relationship to Patient: Director Of Graduate Admissions Name: Delivery Method: HAND - Hand Delivered Barbara Days: Prior Verbal Notification: Recipient Understood Notice: Yes Recipient Signature: Yes Med Rec Note Co-signed by Attending: Coverage Notice Comment: Last DP export: 01/12/20 12:50 p Patient Name: LOVE JAMES Page [phone] at 1412 All edits/amendments must be made on the electronic document DICTATION DATE: 01/12/201410 OUTBOUND SALES ADVISOR: BRYAN 01/12/20 141 RPT#: [id number] DC DATE: STATUS: ADM IN [facility] [address] [place] [address] END OF REPORT
--- NOTE | 2020-01-12 14:48 | NUR ---
I CALLED DR SCHMITZ OFFICE TO SEE ABOUT CLARIFICATION OF DISCHARGE MEDS THAT ARE NOT ON THE LIST. HE IS SUPPOSE TO LOOK AT THEM AND LET ME KNOW.
--- NOTE | 2020-01-12 15:19 | NUR ---
DR SCHMITZ ADDED NEW MEDICAITONS TO DISCHARGE LIST.
[2020-01-12 16:00] VITALS: BP 138/54
--- NOTE | 2020-01-12 18:29 | NUR ---
PT DISCHARGED TO INPATIENT REHAB VIA WHEELCHAIR. PIV REMOVED WITH CATHETER TIP FULLY INTACT. TELEMETRY REMOVED AND RETURNED. PT SIGNED DISCHARGE INSTRUCTIONS AND REMOVED ALL VALUABLES FROM THE ROOM.
--- NOTE | 2020-01-13 07:46 | MORECARE ---
CASE MANAGEMENT DISCHARGE SUMMARY PATIENT: LOVE JAMES UNIT: [id number] ADM DATE: 01/06/20 AGE: 79 : 42 SEX: F ROOM/BED: D.5971 AUTHOR: KYLER,ETELVINA PHYSICIAN: REFERRING PHYSICIAN: SOPHIA SCHMITZ MD DATE OF SERVICE: 01/13/20 Discharge Plan Patient Name: LOVE JAMES [facility] [facility] 1940 Planned Disposition: Anticipated Discharge Date: Discharge Date: 01/12/2020 Expected LOS: Initial Reviewer: [id number] Initial Review Date: 01/05/2020 Generated: 01/13/20 8:46 am Comments DCP- Discharge Planning Updated by [id number]: Elke Olmedo on 01/12/20 1:[address] Patient Name: LOVE JAMES Admission Status: ER Accout number: [id number] Admission Date: 01-06-2020 : 1940 Admission Diagnosis: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 CM educated patient on the CM role and verbal consent given by patient to complete assessment. CM verified patient's address, phone number, and emergency contact phone numbers. Patient lives at home and has been independent with her ADL'S. Patient states she has a personal care assistant that is with her for 5 to 6 hours per day from home instead. States her ANTOINE picks up her medication and brings it to her. She lives on the same property with her daughter Sindi ([phone]) At discharge patient plans to return home and feels this is a safe discharge. The pt has a rollator, cane, wheel chair, but would like to have a bedside commode. [facility] is used for home oxygen and nebs. The patient will like to have [place] home health after rehab at [facility]. YANET signed for [facility], [facility] IP rehab, [place], and resume home instead. Patient denies other known discharge needs at this time. Transportation provider at discharge will be Sindi. DC IMM delivered, explained, signed by the patient, and placed in chart. Signed form also left with the patient. CM will continue to follow and will assist as needed with dc plans/needs. Service Writer Advisor: Elke Olmedo MSN,RN,CM DCPIA - Discharge Planning Initial Assessment Updated by [id number]: Elke Olmedo on 01/12/20 1:47 pm * Is the patient Alert and Oriented? Yes * How many steps to enter\exit or inside your home? RAMP * PCP NADIR * [facility]acy [facility] * Preadmission Environment Home Alone * ADLs Independent * Equipment Cane Grab Bars Nebulizer Oxygen Rolling Walker Shower Chair Walker Wheelchair * List name and contact numbers for known caregivers / representatives who currently or will assist patient after discharge: SINDI VEGA DTR [phone] * Verbal permission to speak to the caregivers and representatives has been obtained from the patient. Yes * Community resources currently utilized Private Duty Care * Please name any agencies selected above. [facility] * Additional services required to return to the preadmission environment? Yes * Can the patient safely return to the preadmission environment? Yes * Has this patient been hospitalized within the prior 30 days at any hospital? No Coverage Notice Reviewer: [id number] Fei Olmedo Notice Issued Date-Time: 01/06/2020 9:00 Notice Type: Medicare Outpatient Observation Notice Notice Delivered To: Patient Relationship to Patient: Senior Process Analyst Name: Delivery Method: HAND - Hand Delivered Barbara Days: Prior Verbal Notification: Recipient Understood Notice: Yes Recipient Signature: Yes Med Rec Note Co-signed by Attending: Coverage Notice Comment: MOORE SERVED, EXPLAINED, AND SIGNED BY PATIENT. THE ORIGINAL WAS PROVIDED TO THE PATIENT AND COPY PLACED ON CHART. Reviewer: [id number] Fei Olmedo Notice Issued Date-Time: 01/12/2020 9:00 Notice Type: Patient Choice Letter Notice Delivered To: Patient Relationship to Patient: Senior Process Analyst Name: Delivery Method: HAND - Hand Delivered Barbara Days: Prior Verbal Notification: Recipient Understood Notice: Yes Recipient Signature: Yes Med Rec Note Co-signed by Attending: Coverage Notice Comment: IP REHAB [facility] [place] [facility] Reviewer: [id number] Fei Olmedo Notice Issued Date-Time: 01/12/2020 9:00 Notice Type: IM Discharge Notice Notice Delivered To: Patient Relationship to Patient: Senior Process Analyst Name: Delivery Method: HAND - Hand Delivered Barbara Days: Prior Verbal Notification: Recipient Understood Notice: Yes Recipient Signature: Yes Med Rec Note Co-signed by Attending: Coverage Notice Comment: Last DP export: 01/12/20 1:12 p Patient Name: LOVE JAMES Page [id number] at 0746 All edits/amendments must be made on the electronic document DICTATION DATE: 01/13/20745 PRODUCE DEPARTMENT SUPERVISOR: BRYAN 01/13/2046 RPT#: [id number] DC DATE:01/12/20 STATUS: DIS IN [facility] [address] [place] [address] END OF REPORT
== END 2020-01-12 18:30 | DRG 287 ==
LOC: D.ER 10:12 → D.M2 13:20 → OBSVTIME 13:20 → D.M2 01-06 16:10
PROVIDERS: Family Medicine; Internal Medicine Cardiovascular Disease; ADMIT Family Medicine; ATTEND Family Medicine
PROC: B2011ZZ Plain Radiography of Multiple Coronary Arteries using Low Osmolar Contrast (ICD-10-PCS; 2020-01-07)
PROC: 4A023N7 Measurement of Cardiac Sampling and Pressure, Left Heart, Percutaneous Approach (ICD-10-PCS; 2020-01-07)
PROC: B2081ZZ Plain Radiography of Left Internal Mammary Bypass Graft using Low Osmolar Contrast (ICD-10-PCS; principal; 2020-01-07 08:15)
DX: I49.3 Ventricular premature depolarization (principal); I25.119 Atherosclerotic heart disease of native coronary artery with unspecified angina pectoris; J44.9 Chronic obstructive pulmonary disease, unspecified; E11.9 Type 2 diabetes mellitus without complications; I10 Essential (primary) hypertension

== ENCOUNTER 2020-01-12 18:40 | Inpatient (IN) | payer MEDICARE ==
[~2020-01-12] VITALS: Ht 165.1 cm; Wt 59.0 kg
[~2020-01-12 18:40] MED LIST changes: +CLARITIN 10 MG10 MG PO; +FLUTICASONE PRO16 GM NASAL; +KLOR-CON 1010 MEQ PO; +SYMBICORT 16010.2 GM PO
--- NOTE | 2020-01-12 19:20 | NUR ---
PT VISITING WITH OTHER PT AT THIS TIME, INFORMED PT THAT I WILL BE IN SOON I CAN TO DO ASSESSMENT, PT VERBALIZES UNDERSTANDING, DENIES NEEDS AT THIS TIME, BED IN LOW POSIITON, SIDE RAILS X 2, CALL LIGHT IN REACH
--- NOTE | 2020-01-12 20:30 | NUR ---
PT GRAIN PACKER LIGHT, PT UP TO BR VIA WC WITH ASSISTANCE, PT VOIDED BY SELF WITH NO DIFFICULTY, PT BACK TO BED, DENIES FURTHER NEEDS
--- NOTE | 2020-01-12 21:47 | NUR ---
ADM 2100 MEDS PER MD ORDERS, SEE EMAR PER MD ORDERS, SEE EMAR, WITH FRESH H20
[2020-01-12 21:50] VITALS: BP 127/56
--- NOTE | 2020-01-12 22:59 | NUR ---
ADMISSION ASSESSMENT AND HISTORY STARTED
[2020-01-12 23:07] VITALS: BP 127/56; BMI 21.6
--- NOTE | 2020-01-12 23:22 | NUR ---
ADMISSION ASSESSMENT AND HISTORY COMPLETED, PT UP TO BR VIA WC, VOIDED WITH NO DIFFICULTY, BED ALARM PLACED, PT BACK TO BED, DENIES NEEDS AT THIS TIME, BED IN LOW POSITION, SIDE RAILS X 2, CALL LIGHT IN REACH
--- NOTE | 2020-01-13 01:30 | NUR ---
PT RESTING WITH EYES CLOSED, RESP QUIET, NO DISTRESS NOTED, LEFT UNDISTURBED AT THIS TIME, FALL PRECAUTIONS IN PLACE
--- NOTE | 2020-01-13 03:32 | NUR ---
PT RESTING WITH EYES CLOSED, RESP QUIET, NO DISTRESS NOTED, LEFT UNDISTURBED AT THIS TIME, FALL PRECAUTIONS IN PLACE
--- NOTE | 2020-01-13 05:09 | NUR ---
PT PEBBLE MILL OPERATOR LIGHT, PT UP TO BR VIA WC WITH ASSISTANCE, VOIDED BY SELF WITH NO DIFFICULTY, PT BACK TO BED, ADM 0600 MEDS PER MD ORDERS, SEE EMAR, PT DENIES FURTHER NEEDS OR PAIN AT THIS TIME, FALL PRECAUTIONS IN PLACE
[2020-01-13 08:20] VITALS: BP 128/58
[2020-01-13 10:34] LABS: BASOPHILS 0.1 % (0-2); EOSINOPHILS 5.1 % (0-7); HEMATOCRIT 44.8 % (36.0-48.0); HEMOGLOBIN 14.8 g/dL (12-16); LYMPHOCYTES 27.1 % (15-50); MCH 29.7 pg (26.0-34.0); MCV 89.8 fL (80.0-100.0); MEAN PLATELET VOLUME 12.1 fL (7.4-10.4); MONOCYTES 6.1 % (2-11); NEUTROPHILS 61.6 % (40-80); PLATELET COUNT 165 10x3/uL (130-400); RBC 4.99 10x6/uL (4.00-5.40); WBC 6.7 10x3/uL (4.8-10.8)
[2020-01-13 10:44] LABS: ANION GAP 13.4 mmol/L (8-16); CARBON DIOXIDE 25.2 mmol/L (21.0-32.0); CREATININE - SERUM 0.9 mg/dL (0.6-1.3); POTASSIUM - SERUM 4.6 mmol/L (3.5-5.1)
[2020-01-13 16:01] VITALS: BMI 21.6
--- NOTE | 2020-01-13 20:13 | NUR ---
AWAKE AND ALERT. RESTING IN BED WITH NO DISTRESS NOTED. WAS IN 1118A BUT REQUESTED TO MOVE TO 1118B TO BE NEAR AIR VENT. NO RESPIRATORY DISTRESS NOTED. CALL LIGHT IN REACH.
[2020-01-13 21:42] VITALS: BP 124/97
--- NOTE | 2020-01-13 22:15 | NUR ---
AWAKE RESTING IN BED. NO DISTRESS NOTED. RESPIRAITONS UNLABORED. CALL LIGHT IN REACH.
--- NOTE | 2020-01-14 00:05 | NUR ---
SLEEPING WITH NO DISTRESS NOTED.
--- NOTE | 2020-01-14 02:46 | NUR ---
CONTINUES RESTING IN BED WITH EYES CLOSED AND RESPIRAITONS UNLABORED. NO DISTRESS NOTED.
--- NOTE | 2020-01-14 04:18 | NUR ---
RESTING QUIETLY. NO DISTRESS NOTED.
--- NOTE | 2020-01-14 05:59 | NUR ---
ASSISTED TO BATHROOM AND BACK TO BED. NO ACUTE CHANGES IN CONDITION THIS SHIFT.
[2020-01-14 08:00] VITALS: BP 131/63
--- NOTE | 2020-01-14 08:00 | NUR ---
PT RESTING IN BED WITH EYES OPEN CALL LIGHT IN REACH WILL MONITER
--- NOTE | 2020-01-14 12:00 | NUR ---
I have reviewed this patient and I concur with the Shift Assessment completed by the Licensed Practical Nurse today this shift.
--- NOTE | 2020-01-14 12:02 | NUR ---
CARE TEAM MEETING: PATIENT IS NEW TO UNIT AND WILL BE RA AT NEXT MEETING. HER PCP IS DR. SCHMITZ. SHE IS A CLIENT OF [facility] AND HAS A CAREGIVER FROM [facility]. [facility] [employer], NEBULIZER, CANE WALKER , WHEELCHAIR , [employer] IS HER DME COMPANY. DISCHARGE PLANS ARE FOR HER TO RETURN TO HER HOME. WILL CONTINUE TO FOLLOW WITH PATIENT.
--- NOTE | 2020-01-14 13:19 | NUR ---
PT RESTING IN BED WITH EYES OPEN CALL LIGHT IN REACH WILL MONITER
--- NOTE | 2020-01-14 17:20 | NUR ---
PT RESTING IN BED WITH EYES OPEN CALL LIGHT IN REACH WILL MONITER
--- NOTE | 2020-01-14 20:12 | NUR ---
AWAKE AND ALERT. RESTING IN BED WITH RESPRIAITONS UNLABORED. BILATERAL LOWER EXTREMITIES HAVE 4+ EDEMA WITH BLISTERS AND POPPED BLISTERS. DRESSINGS INTACT OVER POPPED BLISTERS. NO ACUTE DISTRESS NOTED. CALL LIGHT IN REACH.
[2020-01-14 21:45] VITALS: BP 150/49
--- NOTE | 2020-01-14 23:30 | NUR ---
ASSISTED TO BATHROOM AND BACK TO BED. NO DISTRESS NOTED.
--- NOTE | 2020-01-15 06:25 | NUR ---
QUIET HOURS. NO ACUTE CHANGES IN CONDITION THIS SHIFT. NO DISTRESS NOTED.
[2020-01-15 07:28] LABS: BASOPHILS 0.3 % (0-2); EOSINOPHILS 4.9 % (0-7); HEMATOCRIT 46.7 % (36.0-48.0); HEMOGLOBIN 15.4 g/dL (12-16); IMMATURE GRANULOCYTES 0.2 % (0-5); LYMPHOCYTES 40.5 % (15-50); MCH 29.8 pg (26.0-34.0); MCV 90.5 fL (80.0-100.0); MEAN PLATELET VOLUME 12.1 fL (7.4-10.4); MONOCYTES 5.8 % (2-11); NEUTROPHILS 48.3 % (40-80); PLATELET COUNT 150 10x3/uL (130-400); RBC 5.16 10x6/uL (4.00-5.40); RDW 12.8 % (11.5-14.5); WBC 6.3 10x3/uL (4.8-10.8)
[2020-01-15 07:39] LABS: ANION GAP 10.8 mmol/L (8-16); CALCIUM 9.8 mg/dL (8.5-10.1); CARBON DIOXIDE 31.3 mmol/L (21.0-32.0); POTASSIUM - SERUM 4.1 mmol/L (3.5-5.1)
[2020-01-15 08:00] VITALS: BP 142/70
--- NOTE | 2020-01-15 13:44 | NUR ---
NUTRITION F/U CHART REVIEWED, PT VISIT. PT REPORTS 100% INTAKE RECENT MEALS. WILL ADD GLUCERNA SHAKE TO BREAKFAST PER PT REQUEST. RD FOLLOWING
--- NOTE | 2020-01-15 18:41 | NUR ---
PATIENT IN BED WITH NO COMPLAINTS OR SIGNS OF DISTRESS. ASSISTED TO BR AND HELPED BACK TO BED. PATIENT ABLE TO WALK TO BR WITH ASSIST. BED ALARM ON. CALL LIGHT WITHIN REACH.
[2020-01-15 20:19] VITALS: BP 138/58
--- NOTE | 2020-01-15 20:34 | NUR ---
AWAKE AND ALERT. RESTING IN BED WITH RESPIRATIONS UNLABORED. ASSITED TO BATHROOM AND BACK TO BED. NO DISTRESS NOTED. CALL LIGHT IN REACH.
--- NOTE | 2020-01-16 05:27 | NUR ---
QUIET HOURS. NO ACUTE CHANGES IN CONDITION THIS SHIFT. SLEPT IN LONG INTERVALS THIS SHIFT. UP A FEW TIMES TO USE BATHROOM. RESTING NOW WITH NO DISTRESS NOTED.
[2020-01-16 08:00] VITALS: BP 120/54
--- NOTE | 2020-01-16 15:26 | NUR ---
LAYING IN BED WATCHING TV. DENIES NEEDS OR C/O. MIN TO MOD ASST WITH TRANSFERS FROM BED, WC AND TOILET. BED IN LOWEST POSITION, SIDE RAILS UP X2, CALL LIGHT IN REACH
--- NOTE | 2020-01-16 19:00 | NUR ---
PT AWAKE TALKING WITH ROOMATE. ASSISTED PT TO BATHROOM VIA WHEEL CHAIR TO VOID. PT LEGS WEAK AND UNSTEADY GAIT. ASSISTED BACK TO BED. BED LOW, SIDE RAILS UP X2 AND CALL LIGHT IN REACH.
[2020-01-16 20:39] VITALS: BP 128/53
--- NOTE | 2020-01-16 21:30 | NUR ---
PROVIDED NIGHT MEDS. PT DENIES ANY NEEDS. NO S/S OF DISTRESS NOTED. WILL CONTINUE TO MONITOR. BED REMAINS IN LOWEST POSITION WITH CALL LIGHT IN REACH.
--- NOTE | 2020-01-17 03:06 | NUR ---
PT RESTING WITH EYES CLOSED. NO S/S OF DISTRESS NOTED. WILL CONTINUE TO MONITOR.
[2020-01-17 08:00] VITALS: BP 124/75
--- NOTE | 2020-01-17 13:35 | NUR ---
SITTING UP IN WC IN ROOM WATCHING TV. HAD SHOWER TODAY AND IS TRANSFERING SELF BACK AND FORTH FROM WC/BED/TOILET WITH SBA. BLE ARE STILL SHAKEY WHEN STANDING BUT SHE IS DOING MORE FOR SELF. CALL LIGHT IN REACH. BED IN LOWEST POSITION. SIDE RAILS UP X2.
--- NOTE | 2020-01-17 16:30 | NUR ---
PT C/O CHEST PAIN. UPPER TORSO WAS SHAKING WITH EACH HEARTBEAT. SHE WAS SOB, OXYGEN PUT ON HER. V/S TAKEN. SHE WAS WEAK AND PALE. V/S TAKEN. STILL NOT FEELING GOOD AND C/O PAIN TO HER LEFT UPPER BACK BY HER SHOULDER BLADE. [facility]AP[facility] RESPONSE CALLED. LABS, XRAY, TELEMETRY STRIP RAN. OXYGEN SAT MONITORED. FSBS TAKEN. AFTER APPX 20 MIN AND ONE NITRO PO LATER PT V/S BACK TO NORMAL AND SHE STATES SHE FEELS BETTER. NURSE WATCHED OVER HER CLOSELY AND SHE STILL DENIED ADDITIONAL CHEST PAIN OR SOB. DTR GEGE CALLED AND NOTIFIED OF PT CONDITION. (GEGE VEGA-DTR..[phone])
[2020-01-17 16:52] LABS: BASOPHILS 0.1 % (0-2); EOSINOPHILS 3.5 % (0-7); HEMATOCRIT 43.4 % (36.0-48.0); HEMOGLOBIN 14.7 g/dL (12-16); IMMATURE GRANULOCYTES 0.3 % (0-5); LYMPHOCYTES 32.4 % (15-50); MCH 30.2 pg (26.0-34.0); MCHC 33.9 g/dL (31.0-37.0); MCV 89.3 fL (80.0-100.0); MONOCYTES 6.9 % (2-11); NEUTROPHILS 56.8 % (40-80); PLATELET COUNT 150 10x3/uL (130-400); RBC 4.86 10x6/uL (4.00-5.40); RDW 12.9 % (11.5-14.5); WBC 7.2 10x3/uL (4.8-10.8)
[2020-01-17 17:00] LABS: APTT 25.1 SECONDS (22.8-39.4); INR 0.97 (0.85-1.17); PROTIME 12.9 SECONDS (11.6-15.0)
[2020-01-17 17:01] LABS: CALC OSMOLALITY 281 mosm/kg (275-300); CALCIUM 8.7 mg/dL (8.5-10.1); CARBON DIOXIDE 26.5 mmol/L (21.0-32.0); CHLORIDE - SERUM 103 mmol/L (98-107); D-DIMER-QUANTITATIVE 0.27 ug/mLFEU (0.20-0.54); POTASSIUM - SERUM 3.8 mmol/L (3.5-5.1); SODIUM 138 mmol/L (136-145); UREA NITROGEN 18 mg/dL (7-18); eGFR NON AFRICAN AMERICAN 57 mL/min (90-120)
[2020-01-17 17:09] LABS: GLUCOSE 168 mg/dL (74-106)
[2020-01-17 17:17] LABS: ALBUMIN 3.7 g/dL (3.4-5.0); ALKALINE PHOSPHATASE 76 U/L (30-120); ALT (SGPT) 20 U/L (10-68); BILIRUBIN - TOTAL 0.32 mg/dL (0.2-1.3); CKMB 1.2 U/L (0.0-3.6); CREATINE KINASE 72 UL (21-215); PROTEIN - SERUM 6.8 g/dL (6.4-8.2)
[2020-01-17 17:22] LABS: TROPONIN-I < 0.017 ng/mL (0.000-0.060)
--- NOTE | 2020-01-17 19:53 | NUR ---
PT WATCHING TV, NO NEEDS NOTED, FALL PRECAUTIONS IN PLACE, FLUIDS/CALL LIGHT WITHIN REACH
--- NOTE | 2020-01-18 04:29 | NUR ---
PT ASLEEP AROUSES EASILY TO VOICE, NO NEEDS NOTED, FALL PRECAUTIONS IN PLACE, ALLOWED FLUIDS/CALL LIGHT WITHIN REACH
[2020-01-18 06:18] VITALS: BP 162/68
[2020-01-18 07:32] LABS: BASOPHILS 0.1 % (0-2); HEMATOCRIT 44.9 % (36.0-48.0); HEMOGLOBIN 14.9 g/dL (12-16); IMMATURE GRANULOCYTES 0.1 % (0-5); LYMPHOCYTES 28.5 % (15-50); MCH 29.9 pg (26.0-34.0); MCHC 33.2 g/dL (31.0-37.0); MCV 90.2 fL (80.0-100.0); MEAN PLATELET VOLUME 11.6 fL (7.4-10.4); MONOCYTES 6.9 % (2-11); NEUTROPHILS 60.4 % (40-80); PLATELET COUNT 136 10x3/uL (130-400); RBC 4.98 10x6/uL (4.00-5.40); RDW 13.1 % (11.5-14.5); WBC 6.8 10x3/uL (4.8-10.8)
[2020-01-18 07:50] LABS: ANION GAP 13.3 mmol/L (8-16); CALCIUM 9.1 mg/dL (8.5-10.1); POTASSIUM - SERUM 4.3 mmol/L (3.5-5.1)
[2020-01-18 08:00] VITALS: BP 136/57
--- NOTE | 2020-01-18 13:51 | NUR ---
LAYING IN BED. IS STILL TIRED AND HER LEGS ARE MORE WEAK AFTER HER EPISODE OF A FIB AND PVC'S YESTERDAY. DENIES CHEST PAIN OR INCREASED SOB. IS WEAK BUT TRANSFERS SELF. CALL LIGHT IN REACH. BED IN LOWEST POSITION, SIDE RAILS UP X2.
[2020-01-18 21:40] VITALS: BP 139/57
--- NOTE | 2020-01-18 21:50 | NUR ---
PT IS RESTING IN BED WITH EYES OPEN. ALERT AND ORIENTED X 3. DENIES ACUTE PAIN OR DISCOMFORT AT THIS TIME. NO NEEDS VOICED. VSS. PT DENIES ACUTE PAIN OR DISCOMFORT AT THIS TIME. O2 IS ON AT 2LPM PER NC. NO SOB NOTED. SR'S ARE UP WHILE IN BED. CALL LIGHT AND BEDSIDE TABLE ARE WITHIN EASY REACH.
--- NOTE | 2020-01-18 23:01 | NUR ---
RESTING QUIETLY IN BED WITH EYES CLOSED. NO DISTRESS NOTED.
--- NOTE | 2020-01-19 02:44 | NUR ---
I have reviewed this patient and I concur with the Shift Assessment completed by the Licensed Practical Nurse today this shift.
--- NOTE | 2020-01-19 05:59 | NUR ---
PT RESTING IN BED WITH EYES CLOSED. AWOKE EASILY TO VERBAL STIMULI. TOLERATED AM MED WITHOUT DIFFICULTY.
[2020-01-19 08:00] VITALS: BP 130/67
--- NOTE | 2020-01-19 08:00 | NUR ---
SHIFT ASSMT COMPLETED.CL IN REACH.
--- NOTE | 2020-01-19 09:45 | NUR ---
Nutrition Follow-up: Diet: Cardiac + Glucerna once daily PO intake: ~50% average x last 6 meals; she states that her appetite is good and that she is drinking Glucerna with breakfast meal. She does not want any more Glucerna. She complains about meal variety. Last BM: 01/18/20. WT: 130# (01/13/20) Meds noted: micro-K. Labs noted: Glu 119(H). Encouraged patient to "write in" food preferences on menu. Encouraged PO intake. Recommend continue current diet and oral nutrition supplement. RD following.
--- NOTE | 2020-01-19 16:00 | NUR ---
GILBERT THERAPY.RESTING QUIETLY.
[2020-01-19 16:41] VITALS: Ht 165.1 cm; Wt 59.0 kg
[2020-01-19 22:02] VITALS: BP 136/62
--- NOTE | 2020-01-20 02:53 | NUR ---
PT ASLEEP AROUSES EASILY TO VOICE, NO IMMEDIATE NEEDS NOTED,FALL PRECAUTIONS IN PLACE, FLUIDS/CALL LIGHT WITHIN REACH
[2020-01-20 08:00] VITALS: BP 153/58
--- NOTE | 2020-01-20 08:00 | NUR ---
SHIFT ASSMT COMPLETED.BREAKFAST GIVEN.CL IN PLACE.ON TELEMETRY.SR HR 70'S.
--- NOTE | 2020-01-20 12:00 | NUR ---
EATING LUNCH.DENIES NEEDS.
--- NOTE | 2020-01-20 15:02 | NUR ---
CARE TEAM MEETING: PATIENT IS DOING WELL IN THERAPY. HER TENATIVE DISCHARGE DATE IS 01/26/20. WILL CONTINUE TO FOLLOW WITH PATIENT.
--- NOTE | 2020-01-20 16:00 | NUR ---
GILBERT THERAPY.CONTINUE POC.
--- NOTE | 2020-01-20 19:25 | NUR ---
RECEIVED PT SITTING UP IN BED AWAKE. ALERT AND ORIENTED X4. CONTINUES ON 2L VIA NC. TELEMETRY 68 SINUS WITH BUDLE BRANCH BLOCK PER CLOTH BIN PACKER. NO SIGNS OF ACUTE DISTRESS NOTED. DENIES ANY NEEDS OR PAIN. CALL LIGHT WITHIN REACH. FALL PRECAUTIONS IN PLACE. CPOC
[2020-01-20 21:59] VITALS: BP 137/58
--- NOTE | 2020-01-21 00:53 | NUR ---
PT LYING IN BED SUPINE EYES CLOSED RESTING QUIETLY. HOB ELEVATED. RR EVEN AND UNLABORED. CONTINUES ON 2L VIA NC. CALL LIGHT WITHIN REACH. FALL PRECAUTIONS IN PLACE. CPOC
--- NOTE | 2020-01-21 02:52 | NUR ---
ASSISTED PT TO RESTROOM AND BACK TO BED WITH MIN ASSIST. DENIES ANY OTHER NEEDS. CONTINUES ON 2L VIA NC. CALL LIGHT WITHIN REACH. FALL PRECAUTIONS IN PLACE. CPOC
[2020-01-21 07:38] VITALS: BP 122/61
--- NOTE | 2020-01-21 19:48 | NUR ---
AWAKE AND ALERT. RESTING IN BED WITH RESPIRATIONS UNALBORED. NO ACUTE DISTRESS NOTED. CALL LIGHT IN REACH.
[2020-01-21 21:48] VITALS: BP 123/55
--- NOTE | 2020-01-22 00:55 | NUR ---
SLEEPING WITH REPSIRATIONS UNLABORED. NO DISTRESS NOTED. CALL LIGHT IN REACH.
--- NOTE | 2020-01-22 05:26 | NUR ---
ASSISTED TO BATHROOM AND HAD A LARGE BM. ASSISTED BACK TO BED. NO ACUTE CHANGES IN CONDITION THIS SHIFT.
[2020-01-22 08:00] VITALS: BP 130/72
[2020-01-22 19:42] VITALS: BP 149/65
--- NOTE | 2020-01-22 19:55 | NUR ---
PATIENT RECEIVED SITTING UP IN BED WATCHING TV. ASSESSMENT & VITAL SIGNS DONE. TELEMETRY ON & WORKING. NO C/O PAIN OR DISTRESS. BED LOW. CALL LIGHT WITHIN REACH. WILL CONTINUE TO MONITOR.
--- NOTE | 2020-01-23 01:33 | NUR ---
I have reviewed this patient and I concur with the Shift Assessment completed by the Licensed Practical Nurse today this shift.
--- NOTE | 2020-01-23 02:18 | NUR ---
PATIENT USED CALL LIGHT FOR ASSIST TO BATHROOM. VOID ONLY. PATIENT RETURNED TO LOW BED. 02NC ON. CALL LIGHT WITHIN REACH. WILL CONTINUE TO MONITOR.
[2020-01-23 08:00] VITALS: BP 111/53
--- NOTE | 2020-01-23 08:00 | NUR ---
SHIFT ASSMT COMPLETED.BREAKFAST TRAY GIVEN.
--- NOTE | 2020-01-23 12:00 | NUR ---
EATING LUNCH.DENIES NEEDS.
--- NOTE | 2020-01-23 19:40 | NUR ---
PATIENT RECEIVED SITTING UP IN BED WATCHING TV. ASSESSMENT & VITAL SIGNS DONE. BED LOW. CALL LIGHT WITHIN REACH. WILL CONTINUE TO MONITOR.
[2020-01-23 20:08] VITALS: BP 134/54
--- NOTE | 2020-01-23 21:15 | NUR ---
PATIENT USED CALL LIGHT FOR ASSIST INTO BATHROOM. PATIENT STANDBY ASSIST INTO WHEELCHAIR & ONTO COMMODE. VOID ONLY. PATIENT RETURNED TO BED WITH STANDBY ASSIST. BED LOW. CALL LIGHT WITHIN REACH. WILL CONTINUE TO MONITOR.
--- NOTE | 2020-01-24 02:36 | NUR ---
I have reviewed this patient and I concur with the Shift Assessment completed by the Licensed Practical Nurse today this shift.
[2020-01-24 08:00] VITALS: BP 138/63
--- NOTE | 2020-01-24 08:00 | NUR ---
SHIFT ASSMT COMPLETED.BREAKFAST GIVEN.CL IN REACH.
--- NOTE | 2020-01-24 12:00 | NUR ---
SITTING UP IN CHAIR EATING BREAKFAST.CL IN REACH.
[2020-01-24 20:00] VITALS: BP 146/61
--- NOTE | 2020-01-24 20:20 | NUR ---
PATIENT RECEIVED SITTING UP IN BED. VITAL SIGNS & ASSESSMENT DONE. PATIENT TAKEN TO BATHROOM. PATIENT REMOVED HER CLOTHING & STARTED BATHING. PATIENT BED LINENS CHANGED. PATIENT RETURNED TO LOW BED. CALL LIGHT WITHIN REACH. WILL CONTINUE TO MONITOR.
--- NOTE | 2020-01-25 01:34 | NUR ---
I have reviewed this patient and I concur with the Shift Assessment completed by the Licensed Practical Nurse today this shift.
--- NOTE | 2020-01-25 02:30 | NUR ---
PATIENT EYES CLOSED. RESPIRATIONS 18 & EVEN. BED LOW. CALL LIGHT WITHIN REACH. WILL CONTINUE TO MONITOR.
--- NOTE | 2020-01-25 07:14 | NUR ---
A/A/OX4. NO REQUESTS VOICED AND DENIES ANY NEEDS AT THIS TIME. SIDERAILS UP X 2, CALL LIGHT AND FLUIDS IN REACH, BED IN LOW LOCKED POSITION.
[2020-01-25 07:21] LABS: ANION GAP 12.6 mmol/L (8-16); CALCIUM 9.2 mg/dL (8.5-10.1); CARBON DIOXIDE 26.7 mmol/L (21.0-32.0); CREATININE - SERUM 0.9 mg/dL (0.6-1.3); POTASSIUM - SERUM 4.3 mmol/L (3.5-5.1)
--- NOTE | 2020-01-25 07:51 | RHP ---
PATIENT: LOVE JAMES MEDICAL RECORD: [id number] ACCOUNT: [id number] LOCATION:[facility]1118 : 44 ADMISSION DATE: 01/12/20 REHABILITATION HISTORY AND PHYSICAL EXAMINATION POST ADMISSION PHYSICIAN EXAMINATION ADMITTING DIAGNOSIS: Disuse myopathy. HISTORY OF PRESENT ILLNESS: The patient is a 79-year-old female patient, who presented to Emergency Room with chest pain, having increased fatigue, dizziness and having to wear a Holter monitor for the past couple of weeks secondary to cardiac concerns. The patient had low blood pressure. She had dizziness. She had been to her PCP with these complaints recently. She reported that she had ongoing complaints of intermittent chest pain, slow heart rate. She got a history of some pretty significant coronary artery disease with 20 stents placed in the past and coronary artery bypass grafting done. She had a clean cath in August of this year. She was admitted to hospital for further workup. The patient had angiography. There were no interval changes. She had severe [place] vessel disease, but 2 grafts that she had were widely patent, much of her difficulty was secondary to persistent PVCs and bigeminy and trigeminy. She has been having medication adjustment. She has been receiving both physical therapy and progressing well with this. She needs to be monitored closely for cardiac and any other significant changes. She is requiring some supplemental O2, we will monitor her I's and O's. She is on anticoagulation therapy. She is on electrolyte protocol. She has got limited safety awareness. She has gait disturbance. She has medical complexity and risk for falls. She needs cues for equipment. She fatigues easily. She lives at home, was independent with her ADLs and mobility using a rolling walker. She is currently set up for mod assist for ADLs and mod assist for mobility. She plans to be able to return home at her prior level of functioning or better after acute inpatient rehab stay. COMORBIDITIES: Include weakness, chest pain, hypertension, diabetes, COPD, weakness, fatigue, hyperlipidemia. PAST MEDICAL HISTORY: Significant for known coronary artery disease, CVA in the past, anxiety, hyperlipidemia, hypertension, sleep apnea, breast cancer, carotid stenosis, fibromyalgia, ulcers, diverticulitis, diarrhea, urinary incontinence, history of tobacco use. PAST SURGICAL HISTORY: Includes coronary artery bypass grafting, multiple stents, hysterectomy, carotid endarterectomy, partial bowel obstruction, breast lumpectomy, cataracts. She has had a rib surgery and abdominal hernia repair. ALLERGIES: STATINS. CURRENT MEDICATIONS: Include Questran 1 packet daily. She is on Aldactone 25 mg daily, Anastasiya 60 mg daily, isosorbide 60 mg daily. She is on Lexapro 20 mg daily. She is on Plavix 75 mg daily, aspirin chewable 81 mg daily, Brovana 15 mcg b.i.d., budesonide 0.5 mg b.i.d., Protonix 40 mg daily, Desyrel 150 mg at bedtime, potassium 10 mEq b.i.d., Singulair 10 mg at bedtime, Mucinex D 1 tab b.i.d., atorvastatin 40 mg at bedtime, Nitrostat p.r.n., and Flonase nasal spray. HABITS: Does have a history of tobacco use. HISTORY AND PHYSICAL [id number] LOVE JAMES FAMILY HISTORY: Noncontributory. SOCIAL HISTORY: The patient hopes to return back home and get back to her prior level of functioning once again, she was living alone. REVIEW OF SYSTEMS: GENERAL: Does complain of weakness and fatigue. HEENT: Denies cold, cough, or congestion. CARDIOVASCULAR: Denies any chest pain. PHYSICAL EXAMINATION: VITAL SIGNS: Stable, afebrile. GENERAL: An elderly female, in no acute distress, alert upon exam. HEENT: Normocephalic and atraumatic. Mucosa moist. NECK: Supple. No lymphadenopathy. LUNGS: Clear in upper ramos with decreased breath sounds in the bases. CARDIOVASCULAR: Regular rate and rhythm. ABDOMEN: Soft, benign, and nondistended. Positive bowel sounds times 4. EXTREMITIES: No clubbing, cyanosis or edema. NEUROLOGIC: She does have muscle weakness, especially in her proximal muscles. LABORATORY WORK: Pending at this time. ASSESSMENT: This is a 79-year-old female patient admitted to rehab with a working diagnosis of disuse myopathy. The patient has potential to make improvement. We instituted the following multidisciplinary therapies include, but not limited physical, occupational, respiratory, speech, nutritional services, prosthetics and orthotics. Given her complex medical condition and risk for more complications, rehabilitation services cannot be provided at a low level of care such as skilled nurse facility. PLAN: 1. [facility] to include the following disciplines: A. Physical therapy to improve gait, all transfer skills and bed mobility to a modified independent level. B. Occupational therapy to improve activities of daily living. C. Case management to help with discharge planning and placement options. D. Nutrition to assist with nutritional needs. E. Rehabilitation nursing to assist in monitoring the patient's underlying medical conditions and to assist with any type of bowel or bladder management. 2. The patient's current medication and medical care will be continued. 3. The patient will be placed on standard fall precautions. 4. The patient's estimated length of stay is approximately 7-10 days. 5. We will discuss this patient during care team staff meeting this week. TRANSINT:[id number] Voice Confirmation ID: [id number] DOCUMENT ID: [id number] JAIME notes whether there has been none or any medical/functional change since admission: - No change since preadmission screen. HISTORY AND PHYSICAL [id number] LOVE JAMES attests patient continues to be appropriate for IRF: - Continues to be appropriate. NATHAN EDEN MD at 0751 CC: [id number] DICTATION DATE: 01/13/20 0830 TOMOGRAPHIC TECH: 01/13/20 0928 ADM IN [place] [id number] [place] [id number]
[2020-01-25 08:03] VITALS: BP 101/69
[2020-01-25 08:28] LABS: HEMATOCRIT 45.8 % (36.0-48.0); HEMOGLOBIN 15.4 g/dL (12-16); LYMPHOCYTES 37.2 % (15-50); MCH 29.8 pg (26.0-34.0); MCHC 33.6 g/dL (31.0-37.0); MCV 88.6 fL (80.0-100.0); MEAN PLATELET VOLUME 11.7 fL (7.4-10.4); NEUTROPHILS 54.4 % (40-80); PLATELET COUNT 149 10x3/uL (130-400); RBC 5.17 10x6/uL (4.00-5.40); WBC 6.3 10x3/uL (4.8-10.8)
--- NOTE | 2020-01-25 13:48 | NUR ---
I have reviewed this patient and I concur with the Shift Assessment completed by the Licensed Practical Nurse today this shift.
--- NOTE | 2020-01-25 16:22 | NUR ---
Nutrition Follow-up: Diet: Cardiac + Glucerna with breakfast PO intake: ~63% average x last 6 meals. She reports that her appetite is "good." She is still drinking one Glucerna per day for protein. Last BM: 01/24/20. Wt: 130# (01/13/20), no new weight Meds reviewed. Labs noted: Glu 122(H) Needs new weight. May need consistent CHO diet. RD following.
--- NOTE | 2020-01-25 19:57 | NUR ---
PT IS RESTING IN BED WITH EYES OPEN. ALERT AND ORIENTED X 3. DENIES ACUTE PAIN OR DISCOMFORT AT THIS TIME. NO NEEDS VOICE. PT HAPPY TO BE GOING HOME TOMORROW. SR'S ARE UP X 2 IN BED. CALL LIGHT AND BEDSIDE TABLE ARE WITHIN EASY REACH.
[2020-01-25 20:26] VITALS: BP 130/61
--- NOTE | 2020-01-25 22:05 | NUR ---
PT RESTING IN BED WITH EYES OPEN. NO NEEDS VOICED.
--- NOTE | 2020-01-26 01:33 | NUR ---
I have reviewed this patient and I concur with the Shift Assessment completed by the Licensed Practical Nurse today this shift.
--- NOTE | 2020-01-26 04:48 | NUR ---
PT IS RESTING QUIETLY IN BED WITH EYES CLOSED. NO DISTRESS NOTED.
--- NOTE | 2020-01-26 07:26 | NUR ---
POSITIONED ON RIGHT SIDE WITH EYES CLOSED. RESP EVEN AND UNLABORED ON RA. SIDERAILS UP X 2, CALL LIGHT AND FLUIDS IN REACH, BED IN LOW LOCKED POSITION. NO APPARENT PROBLEMS NOTED.
[2020-01-26 07:55] VITALS: BP 118/67
--- NOTE | 2020-01-26 10:20 | NUR ---
PATIENT DISCHARGING HOME TODAY WITH FAMILY. [facility] WILL CONTINUE TO PROVIDE THERAPY AT HOME. NO NEW DME NEEDED AT THIS TIME. DR. SCHMITZ 02/02/20 @ 11:40, DR. IRAHETA 03/02/20 @ 10:30. YANET SIGNED, IMM SERVED AND EXPLAINED , ONE GIVEN TO PATIENT , ONE FILED IN CHART. DISCHARGE INSTRUCTIONS FAXED TO PCP, HOME HEALTH AND REVIEWED WITH PATIENT PER PRIMARY NURSE.
--- NOTE | 2020-01-26 12:38 | NUR ---
I have reviewed this patient and I concur with the Shift Assessment completed by the Licensed Practical Nurse today this shift.
== END 2020-01-26 14:42 | disposition home health service (06) | DRG 93 ==
LOC: D.REHAB 18:40
PROVIDERS: ADMIT Emergency Medicine; ATTEND Emergency Medicine
DX: G72.89 Other specified myopathies (principal); R53.1 Weakness; R07.9 Chest pain, unspecified; I10 Essential (primary) hypertension; E11.9 Type 2 diabetes mellitus without complications; J44.9 Chronic obstructive pulmonary disease, unspecified; R53.83 Other fatigue; E78.5 Hyperlipidemia, unspecified; I25.10 Atherosclerotic heart disease of native coronary artery without angina pectoris; G47.30 Sleep apnea, unspecified; I49.9 Cardiac arrhythmia, unspecified

== ENCOUNTER → 2020-02-16 12:08 | Outpatient (CLI) | payer MEDICARE ==
[2020-01-19 16:41] VITALS: BMI 21.6
== END | disposition home or self-care (01) ==
LOC: D.CT 12:00
PROVIDERS: ATTEND Family Medicine
DX: M62.81 Muscle weakness (generalized) (principal)

== ENCOUNTER 2020-03-13 10:46 | Inpatient (IN) | payer MEDICARE ==
[~2020-03-13] VITALS: Ht 165.1 cm; Wt 59.9 kg
--- NOTE | 2020-03-13 10:47 | NUR ---
PT ARRIVED BY EMS, TRANSPORTED STRAIGHT TO CT AT THIS TIME. PT IS C/O NUMBNESS AND LEFT EYE DROOP THAT STARTED AT 1015 PER EMS.
--- NOTE | 2020-03-13 10:58 | NUR ---
PT RETURNED FROM CT AT THIS TIME. DIEUDONNE MARIE AT BEDSIDE.
[2020-03-13 11:01] LABS: BASOPHILS 0.2 % (0-2); EOSINOPHILS 1.8 % (0-7); HEMATOCRIT 45.8 % (36.0-48.0); IMMATURE GRANULOCYTES 0.2 % (0-5); LYMPHOCYTES 35.3 % (15-50); MCH 30.2 pg (26.0-34.0); MCHC 34.9 g/dL (31.0-37.0); MCV 86.4 fL (80.0-100.0); MONOCYTES 7.2 % (2-11); NEUTROPHILS 55.3 % (40-80); PLATELET COUNT 147 10x3/uL (130-400); WBC 6.7 10x3/uL (4.8-10.8)
--- NOTE | 2020-03-13 11:10 | NUR ---
CONTACTED SAM SPOKE WITH WILLIAM AND DR. SIEGEL. PT IS NOT CANDIATE FOR TPA.
[2020-03-13 11:17] LABS: CALC OSMOLALITY 281 mosm/kg (275-300); CALCIUM 9.1 mg/dL (8.5-10.1); CARBON DIOXIDE 26.9 mmol/L (21.0-32.0); CHLORIDE - SERUM 105 mmol/L (98-107); CREATININE - SERUM 0.9 mg/dL (0.6-1.3); GLUCOSE 134 mg/dL (74-106); POTASSIUM - SERUM 4.4 mmol/L (3.5-5.1); SODIUM 139 mmol/L (136-145); UREA NITROGEN 17 mg/dL (7-18); eGFR NON AFRICAN AMERICAN 64 mL/min (90-120)
[2020-03-13 11:21] VITALS: BP 144/54
[2020-03-13 11:21] LABS: ALBUMIN 3.7 g/dL (3.4-5.0); MAGNESIUM - SERUM 1.7 mg/dL (1.8-2.4)
[2020-03-13 11:37] LABS: APTT 24.6 SECONDS (22.8-39.4); INR 0.98 (0.85-1.17); PROTIME 12.9 SECONDS (11.6-15.0)
[2020-03-13 11:38] LABS: D-DIMER-QUANTITATIVE 0.31 ug/mLFEU (0.20-0.54)
[2020-03-13 11:49] LABS: ALKALINE PHOSPHATASE 67 U/L (30-120); ALT (SGPT) 9 U/L (10-68); BILIRUBIN - TOTAL 0.37 mg/dL (0.2-1.3); CKMB 0.5 U/L (0.0-3.6); CREATINE KINASE 38 UL (21-215); PROTEIN - SERUM 6.9 g/dL (6.4-8.2); THYROID STIMULATING HORMONE 0.36 uIU/mL (0.36-3.74); TROPONIN-I < 0.017 ng/mL (0.000-0.060)
--- NOTE | 2020-03-13 14:07 | NUR ---
pt returned from mri at this time
[2020-03-13 17:20] LABS: CKMB 0.6 U/L (0.0-3.6); CREATINE KINASE 44 UL (21-215)
[2020-03-13 17:21] LABS: TROPONIN-I < 0.017 ng/mL (0.000-0.060)
--- NOTE | 2020-03-13 17:45 | NUR ---
ARRIVED TO ROOM PER W/C, IV INFUSING PER LFA, DENIES PAIN, CONT TO MONITOR
[2020-03-13 18:24] VITALS: BP 137/62
--- NOTE | 2020-03-13 18:30 | NUR ---
DR SCOTT HERE TO SEE PT
--- NOTE | 2020-03-13 18:43 | NUR ---
DR SCOTT HERE TO SEE PT, NEW ORDERS NOTED
[2020-03-13 18:50] VITALS: BMI 22.0
--- NOTE | 2020-03-13 19:03 | NUR ---
PATIENT LEAVING UNIT TO MRI/RADIOLOGY.
--- NOTE | 2020-03-13 20:11 | NUR ---
RETURNED FROM MRI. ASSESSMENT PERFORMED. PATIENT REQUESTS PRN TYLENOL WITH OTHER HS MEDICATIONS. PATIENT STATES THAT THE MRI GAVE HER ANXIETY. PATIENT STATES "IT'S CALMING DOWN NOW". DENIES FURTHER NEEDS AT THIS TIME. CALL LIGHT CLOSE. CPOC.
[2020-03-13 23:03] VITALS: BP 140/75
--- NOTE | 2020-03-13 23:21 | NUR ---
RESTING WITH NO SIGNS OR SYMPTOMS OF DISTRESS. UNLABORED RESPIRATIONS. BED ALARM ON. CALL LIGHT CLOSE. DOOR OPEN FOR MONITORING. CPOC.
[2020-03-13 23:38] LABS: CKMB 0.9 U/L (0.0-3.6); CREATINE KINASE 37 UL (21-215); TROPONIN-I < 0.017 ng/mL (0.000-0.060)
[2020-03-14 02:35] VITALS: BP 127/46
[2020-03-14 05:23] LABS: BASOPHILS 0.2 % (0-2); EOSINOPHILS 2.6 % (0-7); HEMATOCRIT 43.2 % (36.0-48.0); HEMOGLOBIN 14.6 g/dL (12-16); LYMPHOCYTES 37.8 % (15-50); MCHC 33.8 g/dL (31.0-37.0); MEAN PLATELET VOLUME 12.2 fL (7.4-10.4); MONOCYTES 8.9 % (2-11); NEUTROPHILS 50.5 % (40-80); PLATELET COUNT 123 10x3/uL (130-400); RBC 4.87 10x6/uL (4.00-5.40); RDW 13.1 % (11.5-14.5); WBC 5.1 10x3/uL (4.8-10.8)
[2020-03-14 05:30] LABS: MCV 88.7 fL (80.0-100.0)
[2020-03-14 06:06] LABS: ALBUMIN 3.3 g/dL (3.4-5.0); ALKALINE PHOSPHATASE 57 U/L (30-120); ALT (SGPT) 9 U/L (10-68); BILIRUBIN - TOTAL 0.49 mg/dL (0.2-1.3); CALC OSMOLALITY 282 mosm/kg (275-300); CALCIUM 8.3 mg/dL (8.5-10.1); CARBON DIOXIDE 26.5 mmol/L (21.0-32.0); CHLORIDE - SERUM 108 mmol/L (98-107); CKMB 0.5 U/L (0.0-3.6); CREATINE KINASE 48 UL (21-215); CREATININE - SERUM 0.9 mg/dL (0.6-1.3); GLUCOSE 109 mg/dL (74-106); POTASSIUM - SERUM 4.8 mmol/L (3.5-5.1); PROTEIN - SERUM 5.9 g/dL (6.4-8.2); SODIUM 141 mmol/L (136-145); TROPONIN-I < 0.017 ng/mL (0.000-0.060); UREA NITROGEN 16 mg/dL (7-18); eGFR NON AFRICAN AMERICAN 64 mL/min (90-120)
[2020-03-14 07:13] VITALS: BP 128/63
--- NOTE | 2020-03-14 07:15 | NUR ---
PT RESTING QUIETLY IN BED WATCHING TV. RESP EVEN AND UNLABORED. REPORTS PAIN 3/10 AT THIS TIME. IV TO LEFT FOREARM WITH NS @ 75ML/HR INFUSING VIA PUMP. SITE WITHOUT REDNESS OR EDEMA. O2 PRN NEEDED. DENIES NEED FOR O2 @ THIS TIME. ASSISTED PT TO BR AND BACK TO BED AT THIS TIME. CL WITHIN REACH. ENCOURAGED TO CALL WITH NEEDS. CONTINUE POC. BED ALARM ON
[2020-03-14 09:31] VITALS: BP 123/59
[2020-03-14 12:34] VITALS: BP 116/42
[2020-03-14 17:59] VITALS: BP 132/54
[2020-03-14 20:00] VITALS: BP 147/63
--- NOTE | 2020-03-14 22:07 | NUR ---
RECEIVED CALL FROM TELEMETRY THAT PATIENT WAS HAVING BIJIM PVCS. THE PATIENT HAS BEEN HAVING THESE THE LAST TWO NIGHTS AND CARDIOLOGY WAS CONSULTED. WENT BACK AND REVIEWED ORDERS FROM CARDIOLOGY AND AMIODARONE WAS PRESCRIBED. THE MEDICATION WAS PRESCRIBED AT 1824 AND WAS NOT GIVEN WITH DESCRIPTION STATING "START NEXT DOSE". THE HERNANDO MCADNIEL APR ORDERED FOR THE MEDICATION TO BE STARTED THIS PM AND CONTINUE THE 0900 DAILY DOSE ORDERED. RECEIVED CALL FROM TELEMETRY STATING THAT PATIENT IS HAVING BIJIM. PVCS AND THIS IS THE REASON THE MEDICATION WAS ORDERED. SPOKE WITH CHARGE NURSE, JENNY ZAMORA RN AND BOTH AGREED TO GIVE THE DOSE THAT WAS MISSED AT 1824.
--- NOTE | 2020-03-14 22:24 | NUR ---
ASSISTED PATIENT TO BATHROOM. RETURNED TO BED SAFELY. BED ALARM ON. CPOC.
[2020-03-15 04:00] VITALS: BP 110/53
--- NOTE | 2020-03-15 07:38 | NUR ---
PT RESTING QUIETLY IN BED. DENIES PAIN AT THIS TIME. RESP EVEN AND UNLABORED, O2 @ 2L NC IN PLACE. IV TO LEFT FOREARM WITH NS @ 75ML/HR INFUSING VIA PUMP. SITE WITHOUT REDNESS OR EDEMA. BED ALARM ON FOR FALL PRECAUTIONS. DENIES FURTHER NEEDS AT THIS TIME. CL WITHIN REACH. ENCOURAGED TO CALL WITH NEEDS. CONTINUE POC
[2020-03-15 08:25] VITALS: BP 140/55
[2020-03-15 12:22] VITALS: BP 152/57
[2020-03-15 15:13] VITALS: BMI 21.9
--- NOTE | 2020-03-15 19:30 | NUR ---
PT SITTING UP IN BED WITHOUT DISTRESS, AOX4. IV LEFT FA INFUSING NS @ 75. REFUSED SCDS. PUT NONSLIP SOCKS ON. ASSISTED TO BATHROOM WITH WALKER. PT HAVING BALANCE ISSUES, LEFT ARM WEAK. O2 2L/NC. ASSISTED BACK TO BED AND ISRAEL ON. DENIES OTHER NEEDS AT THIS TIME. CL IN REACH, WILL CTM
[2020-03-15 20:00] VITALS: BP 139/46
--- NOTE | 2020-03-15 21:00 | NUR ---
FSBS 172, GAVE INSULIN PER SS, SEE MAR. PT GIVEN BED BATH AT THIS TIME
[2020-03-15 23:11] VITALS: Ht 165.1 cm; Wt 59.9 kg
[2020-03-16] VITALS: BP 148/58
--- NOTE | 2020-03-16 02:15 | NUR ---
ASSISTED PT TO BATHROOM AND BACK TO BED WITH WALKER. STATES PAIN 6/10 IN BACK AND LEFT SHOULDER, GAVE TYLENOL ORDERED. DENIES OTHER NEEDS, WILL CTM
[2020-03-16 04:00] VITALS: BP 157/64
--- NOTE | 2020-03-16 04:04 | NUR ---
ASSISTED PT UP TO BATHROOM WITH WALKER WITH STANDY BY ASSIST AND BACK TO BED. DENIES OTHER NEEDS, WILL CTM
[2020-03-16 05:30] LABS: BASOPHILS 0.2 % (0-2); EOSINOPHILS 4.7 % (0-7); HEMATOCRIT 39.3 % (36.0-48.0); LYMPHOCYTES 32.2 % (15-50); MCH 29.5 pg (26.0-34.0); MCHC 33.1 g/dL (31.0-37.0); MCV 89.3 fL (80.0-100.0); MONOCYTES 7.8 % (2-11); NEUTROPHILS 55.1 % (40-80); PLATELET COUNT 114 10x3/uL (130-400); RDW 13.4 % (11.5-14.5); WBC 5.9 10x3/uL (4.8-10.8)
[2020-03-16 05:47] LABS: ANION GAP 12.6 mmol/L (8-16); BILIRUBIN - TOTAL 0.23 mg/dL (0.2-1.3); CALCIUM 8.1 mg/dL (8.5-10.1); CARBON DIOXIDE 24.5 mmol/L (21.0-32.0); CREATININE - SERUM 0.9 mg/dL (0.6-1.3); POTASSIUM - SERUM 4.1 mmol/L (3.5-5.1); PROTEIN - SERUM 5.6 g/dL (6.4-8.2)
--- NOTE | 2020-03-16 07:55 | NUR ---
RESTING IN BED, NO DISTRESS NOTED, IV INFUSING PER LFA, TELE IN PLACE
[2020-03-16 09:58] VITALS: BP 139/58
--- NOTE | 2020-03-16 12:28 | MORECARE ---
CASE MANAGEMENT DISCHARGE SUMMARY PATIENT: LOVE JAMES ZIGGY UNIT: [id number] ADM DATE: 03/13/20 AGE: 79 : 42 SEX: F ROOM/BED: D.2201 AUTHOR: ETELVINA CHÁVEZ PHYSICIAN: REFERRING PHYSICIAN: KEMAR VERONICA MD DATE OF SERVICE: 03/16/20 Discharge Plan Patient Name: LOVE JAMES [facility] [facility] 1940 Planned Disposition: Home Health Service Anticipated Discharge Date: Discharge Date: Expected LOS: Initial Reviewer: [email or web address] Initial Review Date: 03/13/2020 Generated: 03/16/20 1:28 pm Patient Name: LOVE JAMES Page [phone] at 1228 All edits/amendments must be made on the electronic document DICTATION DATE: 03/16/20 1228 HOST: BRYAN 03/16/20 1228 RPT#: [id number] DC DATE: STATUS: ADM IN [facility] [address] [place] [address] END OF REPORT
--- NOTE | 2020-03-16 12:46 | MORECARE ---
CASE MANAGEMENT DISCHARGE SUMMARY PATIENT: LOVE JAMES ZIGGY UNIT: [id number] ADM DATE: 03/13/20 AGE: 79 : 42 SEX: F ROOM/BED: D.2201 AUTHOR: ETELVINA CHÁVEZ PHYSICIAN: REFERRING PHYSICIAN: KEMAR VERONICA MD DATE OF SERVICE: 03/16/20 Discharge Plan Patient Name: LOVE JAMES [facility] [employer] [facility] 1940 Planned Disposition: Home Health Service Anticipated Discharge Date: Discharge Date: Expected LOS: Initial Reviewer: [email or web address] Initial Review Date: 03/13/2020 Generated: 03/16/20 1:46 pm DCPIA - Discharge Planning Initial Assessment Updated by [email or web address]: Sylvia Gee on 03/16/20 12:42 pm * Is the patient Alert and Oriented? Yes * How many steps to enter\exit or inside your home? RAMP X2 * PCP NADIR * Pharmacy [facility] * Preadmission Environment Home Alone * ADLs Independent * Equipment Cane Grab Bars Nebulizer Oxygen Rolling Walker Shower Chair Walker Wheelchair * List name and contact numbers for known caregivers / representatives who currently or will assist patient after discharge: GEGE VEGA [phone] * Verbal permission to speak to the caregivers and representatives has been obtained from the patient. N/A * Community resources currently utilized [facility] * Please name any agencies selected above. [facility] * Additional services required to return to the preadmission environment? Yes * Can the patient safely return to the preadmission environment? Yes * Has this patient been hospitalized within the prior 30 days at any hospital? No Last DP export: 03/16/20 11:28 am Patient Name: LOVE JAMES Page [phone] at 1246 All edits/amendments must be made on the electronic document DICTATION DATE: 03/16/20 1246 HYSTER DRIVER: BRYAN 03/16/20 1246 RPT#: [id number] DC DATE: STATUS: ADM IN [facility] [address] [place] [address] END OF REPORT
[2020-03-16 12:47] VITALS: BP 166/50
--- NOTE | 2020-03-16 12:53 | MORECARE ---
CASE MANAGEMENT DISCHARGE SUMMARY PATIENT: LOVE JAMES UNIT: [id number] ADM DATE: 03/13/20 AGE: 79 : 42 SEX: F ROOM/BED: D.2201 AUTHOR: KYLER,DOC PHYSICIAN: REFERRING PHYSICIAN: KEMAR VERONICA MD DATE OF SERVICE: 03/16/20 Discharge Plan Patient Name: LOVE JAMES Facility: [facility]:[place] : 1940 Planned Disposition: Home Health Service Anticipated Discharge Date: Discharge Date: Expected LOS: Initial Reviewer: [email or web address] Initial Review Date: 03/13/2020 Generated: 03/16/20 1:53 pm Comments DCP- Discharge Planning Updated by [email or web address]: Sylvia Gee on 03/16/20 11:[address] Patient Name: LOVE JAMES Admission Status: ER Accout number: [id number] Admission Date: 03-13-2020 : 1940 Admission Diagnosis:FACIAL WEAKNESS Attending: KEMAR VERONICA Current LOS: 3 Anticipated DC Date: Planned Disposition: Home Health Service Primary Insurance: MEDICARE A & B Discharge Planning Comments: CM met with patient to complete initial dc planning assessment. CM educated patient on the CM role and verbal consent given by patient to complete assessment. Patient lives at home where she has a caregiver 5 days a week. She lives next door to her daughter. At discharge patient plans to return home and feels this is a safe discharge. CM discussed availability of home health, rehab services, and medical equipment. She is current with home instead (Katharina) is her equal opportunity officer. Katharina will be her dedicated regional driver home. She is there 8-2 5 days a week and the patient says she is going to get more evening hours. She has a cane, walker, grab bars, nebulizer, o2, rolling walker, wheelchair, shower chair at home. She is current with [facility]. She stated that she needs PT again with them, I will get that ordered. We talked about inpatient rehab. She really didn't want to go do that. YANET signed with brice Weller and zhang. IMM served and explained. CM will continue to follow and will assist as needed with dc plans/needs. Meal Room Hand: Sylvia Gee DCPIA - Discharge Planning Initial Assessment Updated by [email or web address]: Sylvia Gee on 03/16/20 12:42 pm * Is the patient Alert and Oriented? Yes * How many steps to enter\exit or inside your home? RAMP X2 * PCP NADIR * [facility]acy [facility] * Preadmission Environment Home Alone * ADLs Independent * Equipment Cane Grab Bars Nebulizer Oxygen Rolling Walker Shower Chair Walker Wheelchair * List name and contact numbers for known caregivers / representatives who currently or will assist patient after discharge: GEGE VEGA [phone] * Verbal permission to speak to the caregivers and representatives has been obtained from the patient. N/A * Community resources currently utilized [facility] * Please name any agencies selected above. [facility] * Additional services required to return to the preadmission environment? Yes * Can the patient safely return to the preadmission environment? Yes * Has this patient been hospitalized within the prior 30 days at any hospital? No Coverage Notice Reviewer: [email or web address] Fei Gee Notice Issued Date-Time: 03/16/2020 10:30 Notice Type: Patient Choice Letter Notice Delivered To: Patient Relationship to Patient: Shear Grinder Operator Name: Delivery Method: HAND - Hand Delivered Barbara Days: Prior Verbal Notification: Recipient Understood Notice: Yes Recipient Signature: Yes Med Rec Note Co-signed by Attending: Coverage Notice Comment: imm served and explained Reviewer: [email or web address] Fei Gee Notice Issued Date-Time: 03/16/2020 10:30 Notice Type: IM Discharge Notice Notice Delivered To: Patient Relationship to Patient: Shear Grinder Operator Name: Delivery Method: HAND - Hand Delivered Barbara Days: Prior Verbal Notification: Recipient Understood Notice: Yes Recipient Signature: Yes Med Rec Note Co-signed by Attending: Coverage Notice Comment: imm served and explained Last DP export: 03/16/20 11:46 am Patient Name: LOVE JAMES Page [id number] at 1253 All edits/amendments must be made on the electronic document DICTATION DATE: 03/16/20 1253 GANG HEAD SAW OPERATOR: BRYAN 03/16/20 1253 RPT#: [id number] DC DATE: STATUS: ADM IN [facility] [address] [place] [address] END OF REPORT
[2020-03-16 18:06] VITALS: BP 173/74
--- NOTE | 2020-03-16 19:20 | NUR ---
PT SITTING UP IN BED WITHOUT DISTRESS, AOX4. IV LEFT FA INFUSING NS @ 75. PT ASSISTED UP TO BATHROOM WITH WALKER WITH MINIMAL ASSIST, THEN TO CHAIR. DENIES OTHER NEEDS AT THIS TIME. CL IN REACH, WILL CTM
[2020-03-16 20:00] VITALS: BP 163/60
--- NOTE | 2020-03-16 21:00 | NUR ---
ASSISTED PT TO BATHROOM WITH WALKER WITH MINIMAL ASSIST THEN TO BED. REQUESTING TYLENOL FOR PAIN IN LEFT ARM, GAVE ORDERED. FSBS 135, NO COVERAGE PER SS. DENIES OTHER NEEDS AT THIS TIME. CL IN REACH, WILL CTM
[2020-03-17 04:00] VITALS: BP 152/54
[2020-03-17 05:09] LABS: ALBUMIN 3.2 g/dL (3.4-5.0); ANION GAP 11.9 mmol/L (8-16); BILIRUBIN - TOTAL 0.41 mg/dL (0.2-1.3); CALCIUM 8.3 mg/dL (8.5-10.1); CARBON DIOXIDE 23.5 mmol/L (21.0-32.0); POTASSIUM - SERUM 4.4 mmol/L (3.5-5.1)
--- NOTE | 2020-03-17 05:09 | NUR ---
PT STATES PAIN 6/10 IN SHOULDER AND BACK, GAVE TYLENOL ORDERED. FSBS 121, NO COVERAGE PER SS. WILL CTM
[2020-03-17 05:51] LABS: BASOPHILS 0.1 % (0-2); EOSINOPHILS 3.1 % (0-7); HEMATOCRIT 40.1 % (36.0-48.0); HEMOGLOBIN 13.5 g/dL (12-16); IMMATURE GRANULOCYTES 0.1 % (0-5); LYMPHOCYTES 21.9 % (15-50); MCH 29.9 pg (26.0-34.0); MCHC 33.7 g/dL (31.0-37.0); MCV 88.9 fL (80.0-100.0); MEAN PLATELET VOLUME 12.4 fL (7.4-10.4); MONOCYTES 5.9 % (2-11); NEUTROPHILS 68.9 % (40-80); PLATELET COUNT 106 10x3/uL (130-400); RBC 4.51 10x6/uL (4.00-5.40); RDW 13.4 % (11.5-14.5)
[2020-03-17 05:52] LABS: WBC 8.2 10x3/uL (4.8-10.8)
[2020-03-17] MEDS ORDERED: AMIODARONE HCL200 MG PO (08:45)
[2020-03-17 09:00] VITALS: BP 120/48
--- NOTE | 2020-03-17 10:39 | MORECARE ---
CASE MANAGEMENT DISCHARGE SUMMARY PATIENT: LOVE JAMES UNIT: [id number] ADM DATE: 03/13/20 AGE: 79 : 42 SEX: F ROOM/BED: D.2201 AUTHOR: ETELVINA CHÁVEZ PHYSICIAN: REFERRING PHYSICIAN: KEMAR VERONICA MD DATE OF SERVICE: 03/17/20 Discharge Plan Patient Name: LOVE JAMES Facility: [facility]:[place] : 1940 Planned Disposition: Home Health Service Anticipated Discharge Date: Discharge Date: Expected LOS: Initial Reviewer: [email or web address] Initial Review Date: 03/13/2020 Generated: 03/17/20 11:39 am Comments DCP- Discharge Planning Updated by [email or web address]: Sylvia Gee on 03/17/20 9:[address] PATIENT WILL BE DISCHARGING HOME TODAY WITH [facility] I WILL LET THEM KNOW THAT SHE IS DISCHARGING DCP- Discharge Planning Updated by [email or web address]: Sylvia Gee on 03/16/20 11:[address] Patient Name: LOVE JAMES Admission Status: ER Accout number: [id number] Admission Date: 03-13-2020 : 1940 Admission Diagnosis:FACIAL WEAKNESS Attending: KEMAR VERONICA Current LOS: 3 Anticipated DC Date: Planned Disposition: Home Health Service Primary Insurance: MEDICARE A & B Discharge Planning Comments: CM met with patient to complete initial dc planning assessment. CM educated patient on the CM role and verbal consent given by patient to complete assessment. Patient lives at home where she has a caregiver 5 days a week. She lives next door to her daughter. At discharge patient plans to return home and feels this is a safe discharge. CM discussed availability of home health, rehab services, and medical equipment. She is current with home instead (Katharina) is her director of speech pathology. Katharina will be her transfer driver home. She is there 8-2 5 days a week and the patient says she is going to get more evening hours. She has a cane, walker, grab bars, nebulizer, o2, rolling walker, wheelchair, shower chair at home. She is current with [facility]. She stated that she needs PT again with them, I will get that ordered. We talked about inpatient rehab. She really didn't want to go do that. MICHAEL signed with [facility]. IMM served and explained. CM will continue to follow and will assist as needed with dc plans/needs. Academic Dean: Sylvia Gee DCPIA - Discharge Planning Initial Assessment Updated by [email or web address]: Sylvia Gee on 03/16/20 12:42 pm * Is the patient Alert and Oriented? Yes * How many steps to enter\exit or inside your home? RAMP X2 * PCP NADIR * Pharmacy [facility] * Preadmission Environment Home Alone * ADLs Independent * Equipment Cane Grab Bars Nebulizer Oxygen Rolling Walker Shower Chair Walker Wheelchair * List name and contact numbers for known caregivers / representatives who currently or will assist patient after discharge: GEGEWILLARD VEGA [phone] * Verbal permission to speak to the caregivers and representatives has been obtained from the patient. N/A * Community resources currently utilized [facility] * Please name any agencies selected above. [facility] * Additional services required to return to the preadmission environment? Yes * Can the patient safely return to the preadmission environment? Yes * Has this patient been hospitalized within the prior 30 days at any hospital? No External Providers External Provider: [facility] Next Contact Date: Service Request Date: Service Type: Resolution: Reviewer: Comments: Coverage Notice Reviewer: [id number] Fei Gee Notice Issued Date-Time: 03/16/2020 10:30 Notice Type: Patient Choice Letter Notice Delivered To: Patient Relationship to Patient: Insulation Estimator Name: Delivery Method: HAND - Hand Delivered Barbara Days: Prior Verbal Notification: Recipient Understood Notice: Yes Recipient Signature: Yes Med Rec Note Co-signed by Attending: Coverage Notice Comment: michael with [facility] clifford zhang elias Reviewer: [email or web address] Fei Gee Notice Issued Date-Time: 03/16/2020 10:30 Notice Type: IM Discharge Notice Notice Delivered To: Patient Relationship to Patient: Insulation Estimator Name: Delivery Method: HAND - Hand Delivered Barbara Days: Prior Verbal Notification: Recipient Understood Notice: Yes Recipient Signature: Yes Med Rec Note Co-signed by Attending: Coverage Notice Comment: imm served and explained Last DP export: 03/16/20 11:53 am Patient Name: LOVE JAMES Page [id number] at 1039 All edits/amendments must be made on the electronic document DICTATION DATE: 03/17/20 1039 FREIGHT FLAGMAN: BRYAN 03/17/20 1039 RPT#: [id number] DC DATE: STATUS: ADM IN [facility] [address] [place] [address] END OF REPORT
--- NOTE | 2020-03-17 11:07 | NUR ---
IV THERAPY REMOVED FROM LEFT FOREARM. DISCHARGE INSTRUCTIONS GIVEN. PT VERBALIZED UNDERSTANDING. CAREGIVER NELLY HERE TO MATTRESS FILLER.
--- NOTE | 2020-03-18 13:20 | MORECARE ---
CASE MANAGEMENT DISCHARGE SUMMARY PATIENT: LOVE JAMES UNIT: [id number] ADM DATE: 03/13/20 AGE: 79 : 42 SEX: F ROOM/BED: D.2201 AUTHOR: ETELVINA CHÁVEZ PHYSICIAN: REFERRING PHYSICIAN: KEMAR VERONICA MD DATE OF SERVICE: 03/18/20 Discharge Plan Patient Name: LOVE JAMES Facility: [facility]:[place] : 1940 Planned Disposition: Home Health Service Anticipated Discharge Date: Discharge Date: 03/17/2020 Expected LOS: 0 Initial Reviewer: [id number] Initial Review Date: 03/13/2020 Generated: 03/18/20 2:19 pm Comments DCP- Discharge Planning Updated by [email or web address]: Sylvia Gee on 03/17/20 9:[address] PATIENT WILL BE DISCHARGING HOME TODAY WITH [facility] I WILL LET THEM KNOW THAT SHE IS DISCHARGING DCP- Discharge Planning Updated by [id number]: Sylvia Gee on 03/16/20 11:[address] Patient Name: LOVE JAMES Admission Status: ER Accout number: [id number] Admission Date: 03-13-2020 : 1940 Admission Diagnosis:FACIAL WEAKNESS Attending: KEMAR VERONICA Current LOS: 3 Anticipated DC Date: Planned Disposition: Home Health Service Primary Insurance: MEDICARE A & B Discharge Planning Comments: CM met with patient to complete initial dc planning assessment. CM educated patient on the CM role and verbal consent given by patient to complete assessment. Patient lives at home where she has a caregiver 5 days a week. She lives next door to her daughter. At discharge patient plans to return home and feels this is a safe discharge. CM discussed availability of home health, rehab services, and medical equipment. She is current with home instead (Katharina) is her career technical education teacher. Katharina will be her dray driver home. She is there 8-2 5 days a week and the patient says she is going to get more evening hours. She has a cane, walker, grab bars, nebulizer, o2, rolling walker, wheelchair, shower chair at home. She is current with [facility]. She stated that she needs PT again with them, I will get that ordered. We talked about inpatient rehab. She really didn't want to go do that. MICHAEL signed with [facility] and [facility]. IMM served and explained. CM will continue to follow and will assist as needed with dc plans/needs. Batch Weigher: Sylvia Gee DCPIA - Discharge Planning Initial Assessment Updated by [id number]: Sylvia Gee on 03/16/20 12:42 pm * Is the patient Alert and Oriented? Yes * How many steps to enter\exit or inside your home? RAMP X2 * PCP NADIR * Pharmacy [facility] * Preadmission Environment Home Alone * ADLs Independent * Equipment Cane Grab Bars Nebulizer Oxygen Rolling Walker Shower Chair Walker Wheelchair * List name and contact numbers for known caregivers / representatives who currently or will assist patient after discharge: GEGEWILLARD VEGA [phone] * Verbal permission to speak to the caregivers and representatives has been obtained from the patient. N/A * Community resources currently utilized [facility] * Please name any agencies selected above. [facility] * Additional services required to return to the preadmission environment? Yes * Can the patient safely return to the preadmission environment? Yes * Has this patient been hospitalized within the prior 30 days at any hospital? No Coverage Notice Reviewer: [id number] Fei Gee Notice Issued Date-Time: 03/16/2020 10:30 Notice Type: Patient Choice Letter Notice Delivered To: Patient Relationship to Patient: Office Support Name: Delivery Method: HAND - Hand Delivered Barbara Days: Prior Verbal Notification: Recipient Understood Notice: Yes Recipient Signature: Yes Med Rec Note Co-signed by Attending: Coverage Notice Comment: michael with [facility] brighton zhang elias Reviewer: [id number] Fei Gee Notice Issued Date-Time: 03/16/2020 10:30 Notice Type: IM Discharge Notice Notice Delivered To: Patient Relationship to Patient: Office Support Name: Delivery Method: HAND - Hand Delivered Barbara Days: Prior Verbal Notification: Recipient Understood Notice: Yes Recipient Signature: Yes Med Rec Note Co-signed by Attending: Coverage Notice Comment: imm served and explained Last DP export: 03/17/20 9:39 am Patient Name: LOVE JAMES Page [id number] at 1320 All edits/amendments must be made on the electronic document DICTATION DATE: 03/18/201318 RESEARCH AND DEVELOPMENT RESEARCHER: BRYAN 03/18/20 1319 RPT#: [id number] DC DATE:03/17/20 STATUS: DIS IN [facility] [address] [facility] [place] [address] END OF REPORT
== END 2020-03-17 11:36 | disposition home health service (06) | DRG 313 ==
LOC: D.ER 10:46 → D.MS 15:54 → D.EDHOLD 15:54 → D.MS 17:19
PROVIDERS: Emergency Medicine; Family Medicine; ADMIT Family Medicine; ATTEND Family Medicine
DX: R07.9 Chest pain, unspecified (principal); R29.810 Facial weakness; R06.02 Shortness of breath; I25.10 Atherosclerotic heart disease of native coronary artery without angina pectoris; J44.9 Chronic obstructive pulmonary disease, unspecified; I10 Essential (primary) hypertension; E78.5 Hyperlipidemia, unspecified; I48.0 Paroxysmal atrial fibrillation

== ENCOUNTER → 2020-09-12 13:27 | Outpatient (CLI) | payer MEDICARE ==
[2020-03-15 23:11] VITALS: BMI 21.9
[~2020-09-12 13:27] MED LIST changes: +AMIODARONE HCL200 MG PO
== END | disposition home or self-care (01) ==
LOC: D.US 13:27
PROVIDERS: ATTEND Thoracic Surgery (Cardiothoracic Vascular Surgery)
DX: I83.91 Asymptomatic varicose veins of right lower extremity (principal)

== ENCOUNTER → 2020-11-10 10:20 | Outpatient (CLI) | payer MEDICARE ==
[2020-03-15 23:11] VITALS: BMI 21.9
== END | disposition home or self-care (01) ==
LOC: D.RT 10:20
PROVIDERS: ATTEND Internal Medicine Pulmonary Disease
DX: J45.909 Unspecified asthma, uncomplicated (principal)

== ENCOUNTER → 2020-12-02 09:52 | Outpatient (CLI) | payer MEDICARE ==
[2020-03-15 23:11] VITALS: BMI 21.9
== END | disposition home or self-care (01) ==
LOC: D.HCCARDIO 09:52
PROVIDERS: ATTEND Internal Medicine Interventional Cardiology
DX: I48.91 Unspecified atrial fibrillation (principal)